=== PATIENT | female | born 1985 | race African-American/Black ===

== ENCOUNTER 2016-11-13 11:13 | Emergency (ER) | payer MEDICAID ==
[~2016-11-13] VITALS: Ht 162.6 cm; Wt 50.0 kg
[~2016-11-13 11:13] MED LIST: ACET-2178 PO; CARI350T PO; HYDR-3927 GT; HYDR4TAB23 PO; INSU100C11 SQ; INSU100C6 SQ; METO10TA3 PO; OMEP20CA10 PO; ONDA4SOL2 PO; PROT40 PO; TRAM50TA73 PO; [UNRECOGNIZED DRUG - CODE] MC; [UNRECOGNIZED DRUG - CODE] PO
[2016-11-13] MEDS ORDERED: ONDANSETRON HCL 4MG TABLET PO ONE (12:00)
[2016-11-13] MEDS ORDERED: DICYCLOMINE HCL 10MG CAPSULE PO ONE (12:00)
[2016-11-13] MEDS ORDERED: MAGNESIUM/ALUMINUM HYDROXIDE/SIMETHICONE 30ML UDC PO ONE (12:00)
[2016-11-13] MEDS ORDERED: LORAZEPAM 1MG TABLET PO ONE (12:00)
[2016-11-13] MEDS ORDERED: VISCOUS LIDOCAINE 2% 15 ML UDC MM ONE (12:00)
[2016-11-13 12:17] LABS: BASOPHILS % 1.4 % (0.0-2.0); EOSINOPHILS % 0.8 % (0.0-5.0); HEMATOCRIT. 35.5 % (36.0-48.0); HEMOGLOBIN. 11.6 g/dL (12.0-16.0); MEAN CORPUSCULAR HEMOGLOBIN 27.4 pg (28.0-32.0); MEAN CORPUSCULAR HGB CONC 32.7 g/dL (31.0-37.0); MEAN CORPUSCULAR VOLUME 83.7 fL (81.0-99.0); MEAN PLATELET VOLUME 6.9 fl (7.4-10.4); MONOCYTES % 6.3 % (2.0-8.0); NEUTROPHILS % 60.5 % (40.0-76.0); PLATELET 426 x1000/uL (130-400); RED BLOOD CELL COUNT 4.25 mill/uL (4.2-5.4); RED CELL DISTRIBUTION WIDTH 14.8 % (11.6-14.6); WHITE BLOOD COUNT 3.8 x1000/uL (4.5-11.0)
[2016-11-13 12:23] LABS: PROTHROMBIN TIME 10.8 sec
[2016-11-13 12:30] LABS: ALANINE AMINOTRANSFERASE 21 IU/L (13-61); ALBUMIN 3.3 g/dL (3.4-5.0); ANION GAP 14; CALCIUM 8.8 mg/dL (8.5-10.1); CARBON DIOXIDE 30 mEq/L (21-32); CHLORIDE 99 mEq/L (98-107); INDEX HEMOLYSI 1 (1-3); INDEX ICTERIC 1 (1-4); INDEX LIPEMIC 1 (1-3); LIPASE 105 IU/L (73-393); UREA NITROGEN BLOOD 17 mg/dL (7-21); eGFR > 60 mL/min (>60)
[2016-11-13] MEDS ORDERED: ONDANSETRON HCL 4MG/2ML VIAL IV ONE (12:45)
[2016-11-13] MEDS ORDERED: LORAZEPAM 2MG/ML CPJ IV ONE (12:45)
[2016-11-13] MEDS ORDERED: FAMOTIDINE 20MG/2ML VIAL IV ONE (12:45)
[2016-11-13 13:24] LABS: CLARITY URINE CLEAR (CLEAR); COLOR URINE YELLOW (YELLOW); GLUCOSE URINE NEGATIVE (NEGATIVE); KETONES URINE 1+ (NEGATIVE); LEUKOCYTE ESTERASE URINE NEGATIVE (NEGATIVE); NITRITE URINE NEGATIVE (NEGATIVE); OCCULT BLOOD URINE NEGATIVE (NEGATIVE); PH URINE 6.5 (4.5-8.0); PROTEIN URINE TRACE (NEGATIVE); SPECIFIC GRAVITY URINE 1.029 (1.005-1.030)
[2016-11-13 13:38] LABS: MUCUS URINE 3+ /lpf (< = 2+); SQUAMOUS EPITHELIAL CELL URINE 2+ /lpf (RARE/1+)
[2016-11-13 13:39] LABS: BACTERIA URINE 2+; RBC URINE 0-2 /hpf (0-2); WBC URINE 0-2 /hpf (0-2)
[2016-11-13 13:48] LABS: *AMPHETAMINES SCREEN URINE NEGATIVE (NEGATIVE); *BARBITURATES SCREEN URINE NEGATIVE (NEGATIVE); *BENZODIAZEPINES SCREEN URINE NEGATIVE (NEGATIVE); *COCAINE SCREEN URINE NEGATIVE (NEGATIVE); ECSTASY MDMA SCREEN URINE NEGATIVE (NEGATIVE); METHADONE URINE SCREEN NEGATIVE (NEGATIVE); OPIATES URINE SCREEN NEGATIVE (NEGATIVE); PHENCYCLIDINE URINE SCREEN NEGATIVE (NEGATIVE)
[2016-11-13 13:55] LABS: CANNABINOID URINE SCREEN PRESUMTIVE POSITIVE (NEGATIVE)
[2016-11-13 15:08] VITALS: BP 109/85
== END 2016-11-13 16:02 | disposition home or self-care (01) ==
LOC: ER 11:29
DX: R10.84 Generalized abdominal pain (principal); E11.65 Type 2 diabetes mellitus with hyperglycemia; K21.9 Gastro-esophageal reflux disease without esophagitis; F41.9 Anxiety disorder, unspecified; F12.10 Cannabis abuse, uncomplicated; F15.10 Other stimulant abuse, uncomplicated; Z79.4 Long term (current) use of insulin; Z88.2 Allergy status to sulfonamides; Z79.899 Other long term (current) drug therapy
CPT/HCPCS: 36415; 80053; 80305; 81001; 82010; 83690; 85025; 85610; 96374; 96375; 99284; J2060; J2405; Q0162

== ENCOUNTER 2016-11-14 04:48 | Emergency (ER) | payer MEDICAID ==
[~2016-11-14] VITALS: Ht 165.1 cm; Wt 59.0 kg
[~2016-11-14 04:48] MED LIST changes: +PROM-177 PO; -[UNRECOGNIZED DRUG - CODE] PO
[2016-11-14 06:34] LABS: BASOPHILS % 1.1 % (0.0-2.0); EOSINOPHILS % 0.5 % (0.0-5.0); HEMOGLOBIN. 11.1 g/dL (12.0-16.0); LYMPHOCYTES % 22.8 % (20.0-50.0); MEAN CORPUSCULAR HEMOGLOBIN 27.7 pg (28.0-32.0); MEAN CORPUSCULAR HGB CONC 32.7 g/dL (31.0-37.0); MEAN CORPUSCULAR VOLUME 84.6 fL (81.0-99.0); MEAN PLATELET VOLUME 7.1 fl (7.4-10.4); MONOCYTES % 6.3 % (2.0-8.0); NEUTROPHILS % 69.3 % (40.0-76.0); PLATELET 354 x1000/uL (130-400); RED BLOOD CELL COUNT 4.02 mill/uL (4.2-5.4); RED CELL DISTRIBUTION WIDTH 14.8 % (11.6-14.6); WHITE BLOOD COUNT 6.9 x1000/uL (4.5-11.0)
[2016-11-14 06:51] LABS: ALANINE AMINOTRANSFERASE 25 IU/L (13-61); ANION GAP 11; CALCIUM 8.6 mg/dL (8.5-10.1); CARBON DIOXIDE 30 mEq/L (21-32); CHLORIDE 100 mEq/L (98-107); INDEX HEMOLYSI 1 (1-3); INDEX ICTERIC 1 (1-4); INDEX LIPEMIC 1 (1-3); LIPASE 86 IU/L (73-393); UREA NITROGEN BLOOD 15 mg/dL (7-21); eGFR > 60 mL/min (>60)
[2016-11-14] MEDS ORDERED: SODIUM CHLORIDE 0.9% 1,000 ML IV ONE (07:08)
[2016-11-14] MEDS ORDERED: FAMOTIDINE 20MG/2ML VIAL IV ONE (07:15)
[2016-11-14] MEDS ORDERED: DIPHENHYDRAMINE 50MG/ML VIAL IV ONE (09:15)
[2016-11-14] MEDS ORDERED: MORPHINE SULFATE 4 MG/ML CPJ (NOT FOR IM USE) IV ONE (09:15)
[2016-11-14] MEDS ORDERED: ONDANSETRON HCL 4MG/2ML VIAL IV ONE (09:15)
[2016-11-14 11:05] LABS: CLARITY URINE TURBID (CLEAR); COLOR URINE YELLOW (YELLOW); GLUCOSE URINE 2+ (NEGATIVE); KETONES URINE TRACE (NEGATIVE); LEUKOCYTE ESTERASE URINE 1+ (NEGATIVE); NITRITE URINE NEGATIVE (NEGATIVE); OCCULT BLOOD URINE TRACE (NEGATIVE); PH URINE 7.5 (4.5-8.0); PROTEIN URINE 2+ (NEGATIVE); SPECIFIC GRAVITY URINE 1.032 (1.005-1.030)
[2016-11-14 11:22] LABS: BACTERIA URINE 4+; SQUAMOUS EPITHELIAL CELL URINE 1+ /lpf (RARE/1+)
[2016-11-14] MEDS ORDERED: CEFTRIAXONE 1 G PREMIX 50 ML IV ONE (13:30)
[2016-11-14] MEDS ORDERED: IOHEXOL-300 100 ML BOTTLE ONE (13:55)
[2016-11-14] MEDS ORDERED: SODIUM CHLORIDE 0.9% 10ML VIAL ONE (13:55)
[2016-11-14] MEDS ORDERED: DOXYCYCLINE 100 MG in DEXT 5% WATER 100 ML IV STA (14:22)
[2016-11-14] MEDS ORDERED: KETOROLAC 30MG/ML VIAL IV NR (14:30)
[2016-11-14] MEDS ORDERED: METRONIDAZOLE 500MG TABLET PO ONE (15:30)
[2016-11-14 16:03] VITALS: BP 145/83
[2016-11-17 19:07] LABS: CHLAMYDIA TRACHOMATIS NAA Negative (Negative); NEISSERIA GONORRHOEAE NAA Negative (Negative)
== END 2016-11-14 17:29 | disposition home or self-care (01) ==
LOC: ER 05:05
DX: N73.9 Female pelvic inflammatory disease, unspecified (principal); K31.84 Gastroparesis; E11.9 Type 2 diabetes mellitus without complications; R10.2 Pelvic and perineal pain; R10.9 Unspecified abdominal pain; R11.2 Nausea with vomiting, unspecified; F12.10 Cannabis abuse, uncomplicated; F15.10 Other stimulant abuse, uncomplicated; F17.200 Nicotine dependence, unspecified, uncomplicated; Z79.4 Long term (current) use of insulin; Z88.2 Allergy status to sulfonamides
CPT/HCPCS: 36415; 74177; 76830; 76856; 80053; 81001; 81025; 82962; 83690; 85025; 87210; 87491; 87591; 93005; 96365; 96367; 96375; 99285; A4216; J0696; J1200; J1885; J2270; J2405; J3490; J7030; Q9967; Z7610; J7060

== ENCOUNTER 2017-01-14 04:28 | Emergency (ER) | payer MEDICAID ==
[~2017-01-14] VITALS: Ht 167.6 cm; Wt 52.0 kg
[2017-01-14] MEDS ORDERED: KETOROLAC 30MG/ML VIAL IV STA (07:18)
[2017-01-14] MEDS ORDERED: ONDANSETRON HCL 4MG/2ML VIAL IV STA (07:18)
[2017-01-14 07:44] LABS: BASOPHILS % 0.4 % (0.0-2.0); EOSINOPHILS % 0.2 % (0.0-5.0); HEMATOCRIT. 32.5 % (36.0-48.0); HEMOGLOBIN. 10.5 g/dL (12.0-16.0); LYMPHOCYTES % 22.7 % (20.0-50.0); MEAN CORPUSCULAR HEMOGLOBIN 26.8 pg (28.0-32.0); MEAN CORPUSCULAR HGB CONC 32.3 g/dL (31.0-37.0); MEAN CORPUSCULAR VOLUME 83.2 fL (81.0-99.0); MEAN PLATELET VOLUME 7.5 fl (7.4-10.4); MONOCYTES % 5.4 % (2.0-8.0); NEUTROPHILS % 71.3 % (40.0-76.0); PLATELET 253 x1000/uL (130-400); RED BLOOD CELL COUNT 3.91 mill/uL (4.2-5.4); RED CELL DISTRIBUTION WIDTH 13.9 % (11.6-14.6); WHITE BLOOD COUNT 5.5 x1000/uL (4.5-11.0)
[2017-01-14 07:54] LABS: ALBUMIN 2.8 g/dL (3.4-5.0); ANION GAP 12; CALCIUM 8.1 mg/dL (8.5-10.1); CARBON DIOXIDE 26 mEq/L (21-32); CHLORIDE 99 mEq/L (98-107); INDEX HEMOLYSI 1 (1-3); INDEX ICTERIC 1 (1-4); INDEX LIPEMIC 1 (1-3); LIPASE 154 IU/L (73-393); UREA NITROGEN BLOOD 14 mg/dL (7-21)
[2017-01-14 07:55] LABS: CLARITY URINE CLEAR (CLEAR); COLOR URINE YELLOW (YELLOW); GLUCOSE URINE 3+ (NEGATIVE); KETONES URINE 1+ (NEGATIVE); LEUKOCYTE ESTERASE URINE NEGATIVE (NEGATIVE); NITRITE URINE NEGATIVE (NEGATIVE); OCCULT BLOOD URINE 1+ (NEGATIVE); PROTEIN URINE NEGATIVE (NEGATIVE); SPECIFIC GRAVITY URINE 1.022 (1.005-1.030); UROBILINOGEN URINE 0.2 E.U./dL (0.2-1.0)
[2017-01-14 07:59] LABS: ALANINE AMINOTRANSFERASE 14 IU/L (13-61); eGFR > 60 mL/min (>60)
[2017-01-14] MEDS ORDERED: LORAZEPAM 2MG/ML CPJ IV ONE (08:15)
[2017-01-14 08:34] LABS: SQUAMOUS EPITHELIAL CELL URINE 3+ /lpf (RARE/1+)
[2017-01-14 08:35] LABS: BACTERIA URINE 1+
[2017-01-14 09:00] VITALS: BP 167/102
[2017-01-14] MEDS ORDERED: INSULIN REGULAR (HUMULIN R) 300UNITS/3ML SUBCUT ONE (09:45)
== END 2017-01-14 12:07 | disposition home or self-care (01) ==
LOC: ER 04:29
DX: R10.31 Right lower quadrant pain (principal); E11.9 Type 2 diabetes mellitus without complications; Z88.2 Allergy status to sulfonamides; Z79.4 Long term (current) use of insulin; Z79.1 Long term (current) use of non-steroidal anti-inflammatories (NSAID)
CPT/HCPCS: 36415; 80053; 81001; 82010; 82962; 83690; 85025; 96372; 96374; 96375; 99284; J1815; J1885; J2060; J2405

== ENCOUNTER 2017-01-20 23:28 | Emergency (ER) | payer MEDICAID ==
[~2017-01-20] VITALS: Ht 165.1 cm; Wt 51.0 kg
[2017-01-21] MEDS ORDERED: MORPHINE SULFATE 4 MG/ML CPJ (NOT FOR IM USE) IV ONE (01:15)
[2017-01-21] MEDS ORDERED: METOCLOPRAMIDE HCL 10MG/2ML VIAL IV ONE (01:15)
[2017-01-21 01:38] LABS: BASOPHILS % 1.3 % (0.0-2.0); EOSINOPHILS % 0.1 % (0.0-5.0); HEMATOCRIT. 34.5 % (36.0-48.0); HEMOGLOBIN. 11.6 g/dL (12.0-16.0); LYMPHOCYTES % 20.6 % (20.0-50.0); MEAN CORPUSCULAR HEMOGLOBIN 27.2 pg (28.0-32.0); MEAN CORPUSCULAR HGB CONC 33.5 g/dL (31.0-37.0); MEAN CORPUSCULAR VOLUME 81.1 fL (81.0-99.0); MEAN PLATELET VOLUME 7.2 fl (7.4-10.4); MONOCYTES % 5.5 % (2.0-8.0); NEUTROPHILS % 72.5 % (40.0-76.0); PLATELET 433 x1000/uL (130-400); RED BLOOD CELL COUNT 4.26 mill/uL (4.2-5.4); RED CELL DISTRIBUTION WIDTH 13.8 % (11.6-14.6); WHITE BLOOD COUNT 8.7 x1000/uL (4.5-11.0)
[2017-01-21 01:39] LABS: CHLORIDE 96 mEq/L (98-107); INDEX HEMOLYSI 1 (1-3); INDEX ICTERIC 1 (1-4); INDEX LIPEMIC 1 (1-3)
[2017-01-21 01:47] LABS: HCG SCREEN NEGATIVE
[2017-01-21 01:51] LABS: ANION GAP 16; CARBON DIOXIDE 24 mEq/L (21-32); LIPASE 91 IU/L (73-393); UREA NITROGEN BLOOD 17 mg/dL (7-21); eGFR > 60 mL/min (>60)
[2017-01-21 04:57] VITALS: BP 118/61
== END 2017-01-21 04:58 | disposition home or self-care (01) ==
LOC: ER 23:34
DX: R10.9 Unspecified abdominal pain (principal); R11.2 Nausea with vomiting, unspecified; R19.7 Diarrhea, unspecified; E11.9 Type 2 diabetes mellitus without complications; I10 Essential (primary) hypertension; Z88.2 Allergy status to sulfonamides; Z79.4 Long term (current) use of insulin; Z79.899 Other long term (current) drug therapy
CPT/HCPCS: 36415; 80048; 82962; 83690; 84703; 85025; 96374; 96375; 99284; J2270; J2765; Z7610

== ENCOUNTER 2017-03-05 13:10 | Emergency (ER) | payer MEDICAID ==
[~2017-03-05] VITALS: Ht 165.1 cm; Wt 60.0 kg
[~2017-03-05 13:10] MED LIST changes: -HYDR4TAB23 PO; +HYDR4TAB4 PO; -TRAM50TA73 PO; +TRAM50TA94 PO
[2017-03-05] MEDS ORDERED: KETOROLAC 30MG/ML VIAL IV STA (15:29)
[2017-03-05] MEDS ORDERED: SODIUM CHLORIDE 0.9% 1,000 ML IV ONE (15:29)
[2017-03-05] MEDS ORDERED: ONDANSETRON HCL 4MG/2ML VIAL IV STA (15:29)
[2017-03-05] MEDS ORDERED: MORPHINE SULFATE 4 MG/ML CPJ (NOT FOR IM USE) IV STA (15:29)
[2017-03-05] MEDS ORDERED: DEXTROSE 50% WATER 50ML SYRINGE IV ONE (15:45)
[2017-03-05 15:53] LABS: BG BASE EXCESS -1.3 mmol/L (-2.0-2.0); BG CARBOXYHEMOGLOBIN 0.6 % (0.5-1.5); BG DEOXYHEMOGLOBIN 13.9 % (0.0-5.0); BG METHEMOGLOBIN 0.3 % (0.0-1.5); BG OXYHEMOGLOBIN 85.2 % (94.0-97.0); BG PH 7.411 (7.350-7.450); BG PO2 54.8 mmHg (75.0-100.0); BG SAMPLE SITE RIGHT BRACHIAL; BG TOTAL HEMOGLOBIN 11.5 g/dL (12.0-18.0); BG VENT MODE ROOM AIR
[2017-03-05 15:55] LABS: HEMATOCRIT. 33.6 % (36.0-48.0); HEMOGLOBIN. 11.1 g/dL (12.0-16.0); MEAN CORPUSCULAR HEMOGLOBIN 27.2 pg (28.0-32.0); MEAN PLATELET VOLUME 7.4 fl (7.4-10.4); PLATELET 322 x1000/uL (130-400); RED BLOOD CELL COUNT 4.09 mill/uL (4.2-5.4); RED CELL DISTRIBUTION WIDTH 14.8 % (11.6-14.6)
[2017-03-05 16:00] LABS: CHLORIDE 105 mEq/L (98-107)
[2017-03-05 16:01] LABS: PROTHROMBIN TIME 10.3 sec
[2017-03-05 16:05] LABS: CARBON DIOXIDE 27 mEq/L (21-32); ETHANOL BLOOD < 10 mg/dL
[2017-03-05 16:59] LABS: PLATELET ESTIMATE NORMAL
[2017-03-05 17:20] LABS: CLARITY URINE SL HAZY (CLEAR); COLOR URINE YELLOW (YELLOW); KETONES URINE TRACE (NEGATIVE); LEUKOCYTE ESTERASE URINE 1+ (NEGATIVE); NITRITE URINE POSITIVE (NEGATIVE); OCCULT BLOOD URINE 2+ (NEGATIVE); PH URINE 5.5 (4.5-8.0); PROTEIN URINE 1+ (NEGATIVE); SPECIFIC GRAVITY URINE 1.028 (1.005-1.030); UROBILINOGEN URINE 0.2 E.U./dL (0.2-1.0)
[2017-03-05 17:31] LABS: *BARBITURATES SCREEN URINE NEGATIVE (NEGATIVE); *BENZODIAZEPINES SCREEN URINE NEGATIVE (NEGATIVE); *COCAINE SCREEN URINE NEGATIVE (NEGATIVE); CANNABINOID URINE SCREEN NEGATIVE (NEGATIVE); METHADONE URINE SCREEN NEGATIVE (NEGATIVE); PHENCYCLIDINE URINE SCREEN NEGATIVE (NEGATIVE)
[2017-03-05 17:47] LABS: *AMPHETAMINES SCREEN URINE PRESUMTIVE POSITIVE (NEGATIVE); OPIATES URINE SCREEN PRESUMTIVE POSITIVE (NEGATIVE)
[2017-03-05] MEDS ORDERED: SODIUM CHLORIDE 0.9% 500 ML IV ONE (18:45)
[2017-03-05 20:00] VITALS: BP 131/59
[2017-07-30] MEDS ORDERED: INSU100I28 SQ (01:47)
[2017-07-30] MEDS ORDERED: INSULIN GL (01:47)
[2017-07-30] MEDS ORDERED: ALPR2TAB2 PO (01:47)
[2017-07-30] MEDS ORDERED: DIPH25CA83 PO (01:54)
[2017-07-30] MEDS ORDERED: GABA300S PO (01:54)
[2017-07-30] MEDS ORDERED: LISI-604 PO (01:54)
[2017-09-25] MEDS ORDERED: CEPH-569 PO (21:39)
== END 2017-03-05 21:00 | disposition home or self-care (01) ==
LOC: ER 13:29
DX: F19.20 Other psychoactive substance dependence, uncomplicated (principal); G89.29 Other chronic pain; M54.9 Dorsalgia, unspecified; N39.0 Urinary tract infection, site not specified; E11.9 Type 2 diabetes mellitus without complications; F12.10 Cannabis abuse, uncomplicated; Z88.2 Allergy status to sulfonamides; Z98.890 Other specified postprocedural states; Z79.4 Long term (current) use of insulin
CPT/HCPCS: 36415; 36600; 80053; 80305; 81001; 82375; 82805; 82962; 85025; 85610; 96361; 96374; 96375; 99285; G0482; J1885; J2270; J2405; J7030; Z7610

== ENCOUNTER 2017-05-20 11:56 | Inpatient (IN) | payer MEDICAID ==
[~2017-05-20] VITALS: Ht 170.2 cm; Wt 49.9 kg
[~2017-05-20 11:56] MED LIST changes: +TRAM50TA73 PO; -TRAM50TA94 PO
[2017-05-20] MEDS ORDERED: SODIUM CHLORIDE 0.9% 1,000 ML IV ONE (12:20)
[2017-05-20] MEDS ORDERED: ONDANSETRON HCL 4MG/2ML VIAL IV ONE ×2 (12:30→15:30)
[2017-05-20 12:37] LABS: CLARITY URINE CLEAR (CLEAR); COLOR URINE YELLOW (YELLOW); GLUCOSE URINE 3+ (NEGATIVE); KETONES URINE 2+ (NEGATIVE); LEUKOCYTE ESTERASE URINE NEGATIVE (NEGATIVE); NITRITE URINE NEGATIVE (NEGATIVE); OCCULT BLOOD URINE NEGATIVE (NEGATIVE); PROTEIN URINE NEGATIVE (NEGATIVE); SPECIFIC GRAVITY URINE 1.031 (1.005-1.030); UROBILINOGEN URINE 0.2 E.U./dL (0.2-1.0)
[2017-05-20 12:44] LABS: BASOPHILS % 1.1 % (0.0-2.0); HEMATOCRIT. 38.2 % (36.0-48.0); HEMOGLOBIN. 12.2 g/dL (12.0-16.0); LYMPHOCYTES % 17.1 % (20.0-50.0); MEAN CORPUSCULAR HEMOGLOBIN 26.1 pg (28.0-32.0); MEAN PLATELET VOLUME 7.4 fl (7.4-10.4); MONOCYTES % 2.5 % (2.0-8.0); NEUTROPHILS % 79.3 % (40.0-76.0); PLATELET 523 x1000/uL (130-400); RED BLOOD CELL COUNT 4.66 mill/uL (4.2-5.4); RED CELL DISTRIBUTION WIDTH 15.2 % (11.6-14.6)
[2017-05-20 12:50] LABS: CHLORIDE 82 mEq/L (98-107)
[2017-05-20 12:53] LABS: PROTHROMBIN TIME 10.1 sec (9.4-11.6)
[2017-05-20 12:55] LABS: HCG SCREEN NEGATIVE
[2017-05-20 13:00] LABS: CARBON DIOXIDE 21 mEq/L (21-32)
[2017-05-20 13:08] LABS: BETA HYDROXYBUTYRATE 4.5 mMol/L (0.0-0.3)
[2017-05-20] MEDS ORDERED: KETOROLAC 30MG/ML VIAL IV STA (13:49)
[2017-05-20] MEDS ORDERED: INSULIN REGULAR (HUMULIN R) UD 100 UNITS/ML SYR IV ONE (14:00)
[2017-05-20] MEDS ORDERED: INSULIN REGULAR (HUMULIN R) 300UNITS/3ML IV ONE (14:15)
[2017-05-20] MEDS ORDERED: MORPHINE SULFATE 4 MG/ML CPJ (NOT FOR IM USE) IV ONE (15:30)
[2017-05-20 18:20] VITALS: BP 107/73
[2017-05-20] MEDS ORDERED: ONDANSETRON HCL 4MG/2ML VIAL IV PRN (18:30)
[2017-05-20] MEDS: MORPHINE SULFATE 4 MG/ML CPJ (NOT FOR IM USE) IV PRN ×2 (19:56→23:58)
[2017-05-20 20:00] VITALS: BP 120/79
[2017-05-20] MEDS: INSULIN LISPRO 100 UNITS/ML SUBCUT SCH (20:00)
[2017-05-20 21:30] VITALS: BP 120/79
[2017-05-20] MEDS: SODIUM CHLORIDE 0.9% 1,000 ML IV SCH (21:42)
[2017-05-20] MEDS: ENOXAPARIN 40MG/0.4ML SYR SUBCUT SCH (21:42)
[2017-05-20] MEDS: INSULIN DETEMIR UD 100 UNITS/ML SYR SUBCUT SCH (21:48)
[2017-05-21] VITALS: BP 98/45
[2017-05-21 04:00] VITALS: BP 97/52
[2017-05-21] MEDS: MORPHINE SULFATE 4 MG/ML CPJ (NOT FOR IM USE) IV PRN ×5 (05:22→22:43)
[2017-05-21 05:50] LABS: BASOPHILS % 0.6 % (0.0-2.0); EOSINOPHILS % 0.8 % (0.0-5.0); HEMOGLOBIN. 10.1 g/dL (12.0-16.0); LYMPHOCYTES % 50.3 % (20.0-50.0); MEAN CORPUSCULAR HEMOGLOBIN 26.9 pg (28.0-32.0); MEAN CORPUSCULAR VOLUME 79.8 fL (81.0-99.0); MEAN PLATELET VOLUME 6.9 fl (7.4-10.4); MONOCYTES % 6.7 % (2.0-8.0); NEUTROPHILS % 41.6 % (40.0-76.0); PLATELET 419 x1000/uL (130-400); RED BLOOD CELL COUNT 3.77 mill/uL (4.2-5.4); RED CELL DISTRIBUTION WIDTH 15.7 % (11.6-14.6)
[2017-05-21 06:37] LABS: CARBON DIOXIDE 30 mEq/L (21-32); CHLORIDE 95 mEq/L (98-107)
[2017-05-21 06:38] LABS: HDL CHOLESTEROL 93 mg/dL (40-59); LDL CHOLESTEROL 87 mg/dL (5-100)
[2017-05-21] MEDS ORDERED: DEXTROSE 50% WATER 50ML SYRINGE IV PRN ×2 (07:15→12:15)
[2017-05-21] MEDS: INSULIN LISPRO 100 UNITS/ML SUBCUT SCH ×6 (07:20→21:06)
[2017-05-21] MEDS: PANTOPRAZOLE SODIUM 40 MG/VIAL IV SCH (08:38)
[2017-05-21 12:00] VITALS: BP 99/60
[2017-05-21] MEDS: BLOOD SUGAR DIAGNOSTIC STRIP TEST SCH ×3 (12:22→20:47)
[2017-05-21] MEDS ORDERED: POTASSIUM CHLORIDE 20MEQ TABLET SR PO NR (12:30)
[2017-05-21] MEDS: SODIUM CHLORIDE 0.9% 1,000 ML IV SCH (17:08)
[2017-05-21 20:00] VITALS: BP 96/60
[2017-05-21] MEDS: ENOXAPARIN 40MG/0.4ML SYR SUBCUT SCH (20:43)
[2017-05-21] MEDS: INSULIN DETEMIR UD 100 UNITS/ML SYR SUBCUT SCH (21:09)
[2017-05-22] VITALS (7 sets, daily range): BP systolic 98–120; BP diastolic 57–78
[2017-05-22] MEDS: SODIUM CHLORIDE 0.9% 1,000 ML IV SCH (03:55)
[2017-05-22] MEDS: MORPHINE SULFATE 4 MG/ML CPJ (NOT FOR IM USE) IV PRN ×3 (05:51→15:44)
[2017-05-22 07:02] LABS: BASOPHILS % 0.7 % (0.0-2.0); EOSINOPHILS % 0.7 % (0.0-5.0); HEMATOCRIT. 29.3 % (36.0-48.0); HEMOGLOBIN. 9.4 g/dL (12.0-16.0); LYMPHOCYTES % 51.9 % (20.0-50.0); MEAN CORPUSCULAR VOLUME 81.1 fL (81.0-99.0); MEAN PLATELET VOLUME 7.2 fl (7.4-10.4); MONOCYTES % 7.9 % (2.0-8.0); NEUTROPHILS % 38.8 % (40.0-76.0); PLATELET 372 x1000/uL (130-400); RED BLOOD CELL COUNT 3.62 mill/uL (4.2-5.4); RED CELL DISTRIBUTION WIDTH 15.9 % (11.6-14.6)
[2017-05-22] MEDS: BLOOD SUGAR DIAGNOSTIC STRIP TEST SCH ×3 (07:20→17:49)
[2017-05-22 07:47] LABS: CARBON DIOXIDE 28 mEq/L (21-32); CHLORIDE 102 mEq/L (98-107)
[2017-05-22] MEDS: INSULIN LISPRO 100 UNITS/ML SUBCUT SCH ×6 (07:50→18:26)
[2017-05-22] MEDS: PANTOPRAZOLE SODIUM 40 MG/VIAL IV SCH (08:48)
[2017-05-22] MEDS: HYDROCODONE/ACETAMINOPHEN 5/325MG TABLET PO PRN ×2 (09:15→18:31)
[2017-05-22] MEDS ORDERED: DIPHENHYDRAMINE 50MG/ML VIAL IV PRN (11:45)
== END 2017-05-22 17:00 | disposition home or self-care (01) | DRG 420 ==
LOC: ER 13:28 → 6EST 15:30 → ENRESERV 17:03
PROVIDERS: ADMIT Internal Medicine; ATTEND Internal Medicine
DX: E13.10 Other specified diabetes mellitus with ketoacidosis without coma (principal); E44.1 Mild protein-calorie malnutrition; I10 Essential (primary) hypertension; E11.43 Type 2 diabetes mellitus with diabetic autonomic (poly)neuropathy; E11.65 Type 2 diabetes mellitus with hyperglycemia; E87.1 Hypo-osmolality and hyponatremia; K31.84 Gastroparesis; E87.6 Hypokalemia; N28.9 Disorder of kidney and ureter, unspecified; Z88.2 Allergy status to sulfonamides; Z79.4 Long term (current) use of insulin; Z79.899 Other long term (current) drug therapy
CPT/HCPCS: 36415; 74176; 80048; 80053; 80061; 81001; 82010; 82962; 83036; 84443; 84703; 85025; 85610; 96361; 96374; 96375; 96376; 99285; C9113; J1200; J1650; J1815; J1885; J2270; J2405; J7030

== ENCOUNTER 2017-06-09 11:58 | Emergency (ER) | payer MEDICAID ==
[~2017-06-09] VITALS: Ht 162.6 cm; Wt 51.0 kg
[2017-06-09 12:00] VITALS: BP 173/97
== END 2017-06-09 15:50 | disposition left against medical advice (07) ==
LOC: ER 12:16
DX: R11.2 Nausea with vomiting, unspecified (principal); Z53.21 Procedure and treatment not carried out due to patient leaving prior to being seen by health care provider

== ENCOUNTER 2017-06-11 07:23 | Inpatient (IN) | payer MEDICAID ==
[~2017-06-11] VITALS: Ht 165.1 cm; Wt 61.2 kg
[2017-06-11] MEDS ORDERED: ONDANSETRON HCL 4MG/2ML VIAL IV ONE (08:30)
[2017-06-11] MEDS ORDERED: MORPHINE SULFATE 4 MG/ML CPJ (NOT FOR IM USE) IV ONE (08:30)
[2017-06-11 08:43] LABS: BASOPHILS % 1.4 % (0.0-2.0); EOSINOPHILS % 0.4 % (0.0-5.0); HEMATOCRIT. 34.5 % (36.0-48.0); HEMOGLOBIN. 11.3 g/dL (12.0-16.0); LYMPHOCYTES % 26.1 % (20.0-50.0); MEAN CORPUSCULAR VOLUME 82.5 fL (81.0-99.0); MEAN PLATELET VOLUME 7.3 fl (7.4-10.4); NEUTROPHILS % 67.1 % (40.0-76.0); PLATELET 393 x1000/uL (130-400); RED BLOOD CELL COUNT 4.18 mill/uL (4.2-5.4); RED CELL DISTRIBUTION WIDTH 16.4 % (11.6-14.6)
[2017-06-11 09:02] LABS: CARBON DIOXIDE 27 mEq/L (21-32); CHLORIDE 98 mEq/L (98-107); TROPONIN I < 0.02 ng/mL (0.00-0.04)
[2017-06-11] MEDS ORDERED: DIPHENHYDRAMINE 50MG/ML VIAL IV ONE (09:15)
[2017-06-11 09:24] LABS: PARTIAL THROMBOPLASTIN TIME 24.1 sec (23.4-31.0); PROTHROMBIN TIME 10.1 sec (9.4-11.6)
[2017-06-11] MEDS ORDERED: SODIUM CHLORIDE 0.9% 1,000 ML IV ONE (09:30)
[2017-06-11] MEDS ORDERED: INSULIN REGULAR (HUMULIN R) 300UNITS/3ML IV ONE (09:30)
[2017-06-11] MEDS ORDERED: DEXT 5%/0.45% NACL KCL 20MEQ/L 1,000 ML IV SCH (09:40)
[2017-06-11] MEDS ORDERED: CLONIDINE 0.1MG TABLET PO PRN (09:45)
[2017-06-11] MEDS ORDERED: HYDROCODONE/ACETAMINOPHEN 10/325MG TABLET PO PRN (09:45)
[2017-06-11] MEDS ORDERED: ACETAMINOPHEN 325MG TABLET PO PRN (09:45)
[2017-06-11] MEDS ORDERED: OMEPRAZOLE 20MG CAPSULE EXTENDED RELEASE PO SCH (09:45)
[2017-06-11 12:00] VITALS: BP 150/94
[2017-06-11] MEDS ORDERED: KETOROLAC 30MG/ML VIAL IV NR (12:12)
[2017-06-11 12:14] VITALS: BP 150/94
[2017-06-11] MEDS: BLOOD SUGAR DIAGNOSTIC STRIP TEST SCH ×3 (12:20→22:27)
[2017-06-11] MEDS: INSULIN LISPRO 100 UNITS/ML SUBCUT SCH ×3 (12:50→21:00)
[2017-06-11] MEDS: MORPHINE SULFATE 2 MG/ML CPJ (NOT FOR IM USE) IV PRN ×3 (13:14→22:27)
[2017-06-11] MEDS: PANTOPRAZOLE 40MG DR TABLET PO SCH (13:18)
[2017-06-11] MEDS: METOCLOPRAMIDE HCL 10MG/2ML VIAL IV SCH ×2 (13:19→17:50)
[2017-06-11] MEDS: CARISOPRODOL 350 MG TABLET PO SCH ×2 (13:19→22:08)
[2017-06-11] MEDS: DIPHENHYDRAMINE 50MG/ML VIAL IV PRN ×2 (13:21→17:55)
[2017-06-11] MEDS: DEXT 5%/0.45% NACL 1000ML 1,000 ML IV SCH (14:54)
[2017-06-11] MEDS: INSULIN DETEMIR UD 100 UNITS/ML SYR SUBCUT SCH ×2 (14:56→22:00)
[2017-06-11 16:00] VITALS: BP 135/76
[2017-06-11 18:07] LABS: CREATINE KINASE 42 IU/L (26-192)
[2017-06-11 20:00] VITALS: BP 109/71
[2017-06-11] MEDS: DEXTROSE 50% WATER 50ML SYRINGE IV PRN (22:05)
[2017-06-12] VITALS: BP 109/99
[2017-06-12] MEDS: DEXTROSE 50% WATER 50ML SYRINGE IV PRN (00:21)
[2017-06-12] MEDS: METOCLOPRAMIDE HCL 10MG/2ML VIAL IV SCH ×4 (00:28→18:00)
[2017-06-12] MEDS: DEXT 5%/0.45% NACL 1000ML 1,000 ML IV SCH ×3 (00:29→18:33)
[2017-06-12 00:49] LABS: CREATINE KINASE 37 IU/L (26-192)
[2017-06-12 04:00] VITALS: BP 140/77
[2017-06-12] MEDS: BLOOD SUGAR DIAGNOSTIC STRIP TEST SCH ×4 (06:32→21:56)
[2017-06-12] MEDS: CARISOPRODOL 350 MG TABLET PO SCH ×3 (06:37→21:53)
[2017-06-12] MEDS: PANTOPRAZOLE 40MG DR TABLET PO SCH (06:40)
[2017-06-12 06:43] LABS: BASOPHILS % 0.7 % (0.0-2.0); EOSINOPHILS % 1.2 % (0.0-5.0); HEMATOCRIT. 31.2 % (36.0-48.0); HEMOGLOBIN. 10.3 g/dL (12.0-16.0); LYMPHOCYTES % 34.8 % (20.0-50.0); MEAN CORPUSCULAR HEMOGLOBIN 27.2 pg (28.0-32.0); MEAN CORPUSCULAR VOLUME 82.4 fL (81.0-99.0); MEAN PLATELET VOLUME 7.1 fl (7.4-10.4); MONOCYTES % 7.1 % (2.0-8.0); NEUTROPHILS % 56.2 % (40.0-76.0); PLATELET 357 x1000/uL (130-400); RED BLOOD CELL COUNT 3.79 mill/uL (4.2-5.4); RED CELL DISTRIBUTION WIDTH 16.7 % (11.6-14.6)
[2017-06-12 07:20] LABS: CARBON DIOXIDE 28 mEq/L (21-32); CHLORIDE 99 mEq/L (98-107)
[2017-06-12] MEDS: INSULIN LISPRO 100 UNITS/ML SUBCUT SCH ×4 (07:50→22:06)
[2017-06-12 08:00] VITALS: BP 132/69
[2017-06-12] MEDS: DIPHENHYDRAMINE 50MG/ML VIAL IV PRN ×2 (10:58→18:43)
[2017-06-12] MEDS: MORPHINE SULFATE 2 MG/ML CPJ (NOT FOR IM USE) IV PRN ×2 (10:58→18:46)
[2017-06-12 12:00] VITALS: BP 116/60
[2017-06-12] MEDS: INSULIN DETEMIR UD 100 UNITS/ML SYR SUBCUT SCH ×2 (15:09→22:05)
[2017-06-12 16:00] VITALS: BP 116/71
[2017-06-12 20:00] VITALS: BP 113/57
[2017-06-13] VITALS: BP 116/60
[2017-06-13] MEDS: DIPHENHYDRAMINE 50MG/ML VIAL IV PRN ×5 (00:20→21:52)
[2017-06-13] MEDS: MORPHINE SULFATE 2 MG/ML CPJ (NOT FOR IM USE) IV PRN ×5 (00:20→21:53)
[2017-06-13] MEDS: METOCLOPRAMIDE HCL 10MG/2ML VIAL IV SCH ×4 (00:20→18:00)
[2017-06-13 04:00] VITALS: BP 117/70
[2017-06-13] MEDS: CARISOPRODOL 350 MG TABLET PO SCH ×3 (05:37→21:24)
[2017-06-13] MEDS: DEXT 5%/0.45% NACL 1000ML 1,000 ML IV SCH ×2 (05:50→15:30)
[2017-06-13 06:30] LABS: *AMPHETAMINES SCREEN URINE NEGATIVE (NEGATIVE); *BARBITURATES SCREEN URINE NEGATIVE (NEGATIVE); *BENZODIAZEPINES SCREEN URINE NEGATIVE (NEGATIVE); *COCAINE SCREEN URINE NEGATIVE (NEGATIVE); CANNABINOID URINE SCREEN NEGATIVE (NEGATIVE); METHADONE URINE SCREEN NEGATIVE (NEGATIVE); PHENCYCLIDINE URINE SCREEN NEGATIVE (NEGATIVE)
[2017-06-13] MEDS: PANTOPRAZOLE 40MG DR TABLET PO SCH (06:30)
[2017-06-13] MEDS: BLOOD SUGAR DIAGNOSTIC STRIP TEST SCH ×4 (06:30→21:26)
[2017-06-13 07:02] LABS: OPIATES URINE SCREEN PRESUMTIVE POSITIVE (NEGATIVE)
[2017-06-13 08:00] VITALS: BP 117/67
[2017-06-13] MEDS: INSULIN LISPRO 100 UNITS/ML SUBCUT SCH ×4 (08:50→21:57)
[2017-06-13] MEDS: INSULIN DETEMIR UD 100 UNITS/ML SYR SUBCUT SCH ×2 (09:25→21:36)
[2017-06-13 11:59] VITALS: BP 107/55
[2017-06-13 15:41] VITALS: BP 103/63
[2017-06-13 20:00] VITALS: BP 132/81
[2017-06-13] MEDS: ONDANSETRON HCL 4MG/2ML VIAL IV PRN (21:20)
[2017-06-13] MEDS ORDERED: DEXTROSE 50% WATER 50ML SYRINGE IV PRN (22:30)
[2017-06-14] VITALS: BP 131/84
[2017-06-14] MEDS: MORPHINE SULFATE 2 MG/ML CPJ (NOT FOR IM USE) IV PRN ×3 (01:40→10:52)
[2017-06-14] MEDS: DIPHENHYDRAMINE 50MG/ML VIAL IV PRN ×3 (01:40→11:03)
[2017-06-14 04:00] VITALS: BP 119/77
[2017-06-14] MEDS: METOCLOPRAMIDE HCL 10MG/2ML VIAL IV SCH ×3 (05:36→12:00)
[2017-06-14] MEDS: CARISOPRODOL 350 MG TABLET PO SCH ×2 (05:36→14:00)
[2017-06-14] MEDS: DEXT 5%/0.45% NACL 1000ML 1,000 ML IV SCH (05:36)
[2017-06-14] MEDS: ONDANSETRON HCL 4MG/2ML VIAL IV PRN (05:37)
[2017-06-14 07:14] LABS: BASOPHILS % 0.5 % (0.0-2.0); EOSINOPHILS % 1.3 % (0.0-5.0); HEMATOCRIT. 30.8 % (36.0-48.0); LYMPHOCYTES % 30.1 % (20.0-50.0); MEAN CORPUSCULAR HEMOGLOBIN 27.1 pg (28.0-32.0); MEAN CORPUSCULAR VOLUME 83.5 fL (81.0-99.0); MEAN PLATELET VOLUME 6.7 fl (7.4-10.4); MONOCYTES % 7.7 % (2.0-8.0); NEUTROPHILS % 60.4 % (40.0-76.0); PLATELET 379 x1000/uL (130-400); RED BLOOD CELL COUNT 3.69 mill/uL (4.2-5.4); RED CELL DISTRIBUTION WIDTH 17.4 % (11.6-14.6)
[2017-06-14] MEDS: BLOOD SUGAR DIAGNOSTIC STRIP TEST SCH ×2 (07:31→13:06)
[2017-06-14] MEDS ORDERED: INSULIN LISPRO 100 UNITS/ML SUBCUT SCH (07:50)
[2017-06-14 08:00] VITALS: BP 121/73
[2017-06-14 08:02] LABS: CARBON DIOXIDE 27 mEq/L (21-32); CHLORIDE 103 mEq/L (98-107)
[2017-06-14] MEDS: INSULIN LISPRO 100 UNITS/ML SUBCUT SCH ×3 (08:16→13:19)
[2017-06-14] MEDS ORDERED: FAMOTIDINE 20MG TABLET PO SCH (09:00)
[2017-06-14] MEDS: INSULIN DETEMIR UD 100 UNITS/ML SYR SUBCUT SCH (10:59)
[2017-06-14 12:00] VITALS: BP 117/68
[2017-06-14 14:50] VITALS: BP 132/71
[2017-06-14] MEDS ORDERED: HYDR-519 PO (15:04)
[2017-06-14] MEDS ORDERED: ALPR1TAB2 PO (15:04)
== END 2017-06-14 15:45 | disposition home or self-care (01) | DRG 282 ==
LOC: ER 07:23 → 6EST 09:29 → ENRESERV 10:26
PROVIDERS: ADMIT Internal Medicine; ATTEND Internal Medicine
DX: K85.90 Acute pancreatitis without necrosis or infection, unspecified (principal); E43 Unspecified severe protein-calorie malnutrition; E10.22 Type 1 diabetes mellitus with diabetic chronic kidney disease; E10.43 Type 1 diabetes mellitus with diabetic autonomic (poly)neuropathy; N18.3 Chronic kidney disease, stage 3 (moderate); E10.65 Type 1 diabetes mellitus with hyperglycemia; K31.84 Gastroparesis; Z79.4 Long term (current) use of insulin; Z79.899 Other long term (current) drug therapy; Z88.2 Allergy status to sulfonamides; Z91.19 Patient's noncompliance with other medical treatment and regimen
CPT/HCPCS: 36415; 71010; 80048; 80053; 80305; 81025; 82550; 82962; 83690; 84443; 84484; 85025; 85610; 85730; 93005; 96374; 96375; 99285; J1200; J1815; J2270; J2405; J2765; J3490; J7030

== ENCOUNTER 2017-06-19 17:15 | Emergency (ER) | payer MEDICAID ==
[~2017-06-19] VITALS: Ht 162.6 cm; Wt 64.0 kg
[~2017-06-19 17:15] MED LIST changes: +ALPR1TAB2 PO; -HYDR-3927 GT; +HYDR-519 PO; -HYDR4TAB4 PO; +IOHEXOL-300 100 ML BOTTLE ONE; +SODIUM CHLORIDE 0.9% 10ML VIAL ONE
[2017-06-19] MEDS ORDERED: ONDANSETRON HCL 4MG/2ML VIAL IV STA (18:38)
[2017-06-19] MEDS ORDERED: MORPHINE SULFATE 4 MG/ML CPJ (NOT FOR IM USE) IV STA (18:38)
[2017-06-19] MEDS ORDERED: SODIUM CHLORIDE 0.9% 1,000 ML IV ONE (18:38)
[2017-06-19 18:58] LABS: BASOPHILS % 0.4 % (0.0-2.0); EOSINOPHILS % 0.2 % (0.0-5.0); HEMATOCRIT. 30.1 % (36.0-48.0); HEMOGLOBIN. 9.7 g/dL (12.0-16.0); LYMPHOCYTES % 11.4 % (20.0-50.0); MEAN CORPUSCULAR HEMOGLOBIN 26.8 pg (28.0-32.0); MEAN PLATELET VOLUME 6.6 fl (7.4-10.4); MONOCYTES % 5.3 % (2.0-8.0); NEUTROPHILS % 82.7 % (40.0-76.0); PLATELET 357 x1000/uL (130-400); RED BLOOD CELL COUNT 3.62 mill/uL (4.2-5.4); RED CELL DISTRIBUTION WIDTH 16.2 % (11.6-14.6)
[2017-06-19 19:02] LABS: CHLORIDE 97 mEq/L (98-107)
[2017-06-19 19:11] LABS: CARBON DIOXIDE 29 mEq/L (21-32); ETHANOL BLOOD < 10 mg/dL
[2017-06-19] MEDS: MORPHINE SULFATE 10 MG/ML CPJ IV SCH ×2 (19:23→19:35)
[2017-06-19] MEDS ORDERED: DIPHENHYDRAMINE 50MG/ML VIAL IV ONE (20:00)
[2017-06-19] MEDS ORDERED: KETOROLAC 30MG/ML VIAL IV ONE (20:00)
[2017-06-19 20:02] LABS: CLARITY URINE CLEAR (CLEAR); COLOR URINE YELLOW (YELLOW); GLUCOSE URINE 3+ (NEGATIVE); KETONES URINE NEGATIVE (NEGATIVE); LEUKOCYTE ESTERASE URINE NEGATIVE (NEGATIVE); NITRITE URINE NEGATIVE (NEGATIVE); OCCULT BLOOD URINE 3+ (NEGATIVE); PH URINE 7.5 (4.5-8.0); PROTEIN URINE 2+ (NEGATIVE); SPECIFIC GRAVITY URINE 1.029 (1.005-1.030); UROBILINOGEN URINE 0.2 E.U./dL (0.2-1.0)
[2017-06-19 20:13] LABS: *BARBITURATES SCREEN URINE NEGATIVE (NEGATIVE); *BENZODIAZEPINES SCREEN URINE NEGATIVE (NEGATIVE); *COCAINE SCREEN URINE NEGATIVE (NEGATIVE); CANNABINOID URINE SCREEN NEGATIVE (NEGATIVE); METHADONE URINE SCREEN NEGATIVE (NEGATIVE); PHENCYCLIDINE URINE SCREEN NEGATIVE (NEGATIVE)
[2017-06-19 20:14] LABS: *AMPHETAMINES SCREEN URINE PRESUMTIVE POSITIVE (NEGATIVE); OPIATES URINE SCREEN PRESUMTIVE POSITIVE (NEGATIVE)
[2017-06-19] MEDS ORDERED: INSULIN REGULAR (HUMULIN R) 300UNITS/3ML SUBCUT ONE (20:15)
[2017-06-20] MEDS ORDERED: PENICILLIN G BENZATHINE 1,200,000 UNITS/2ML SYR IM ONE (00:30)
[2017-06-20] MEDS ORDERED: LIDOCAINE HCL 1% 20ML VIAL (Pyxis) INJ MC ONE (00:30)
[2017-06-20 01:39] VITALS: BP 128/81
== END 2017-06-20 01:39 | disposition home or self-care (01) ==
LOC: ER 18:35
DX: J02.9 Acute pharyngitis, unspecified (principal); E11.9 Type 2 diabetes mellitus without complications; N28.9 Disorder of kidney and ureter, unspecified; Z88.2 Allergy status to sulfonamides; Z79.4 Long term (current) use of insulin
CPT/HCPCS: 36415; 70491; 71010; 80053; 80305; 81001; 81025; 82962; 83605; 83690; 85025; 87070; 87430; 93005; 96361; 96372; 96374; 96375; 99285; A4216; G0482; J0561; J1200; J1815; J1885; J2270; J2405; Q9967; Z7610; J7030

== ENCOUNTER 2017-06-27 13:06 | Emergency (ER) | payer MEDICAID ==
[~2017-06-27] VITALS: Ht 154.9 cm; Wt 63.5 kg
[~2017-06-27 13:06] MED LIST changes: -IOHEXOL-300 100 ML BOTTLE ONE; -SODIUM CHLORIDE 0.9% 10ML VIAL ONE
[2017-06-27] MEDS ORDERED: SODIUM CHLORIDE 0.9% 1,000 ML IV ONE (13:42)
[2017-06-27] MEDS ORDERED: ONDANSETRON HCL 4MG/2ML VIAL IV STA (13:42)
[2017-06-27] MEDS ORDERED: MORPHINE SULFATE 4 MG/ML CPJ (NOT FOR IM USE) IV ONE (13:45)
[2017-06-27] MEDS ORDERED: DIPHENHYDRAMINE 50MG/ML VIAL IV ONE ×2 (14:15→18:00)
[2017-06-27 14:26] LABS: BASOPHILS % 0.6 % (0.0-2.0); EOSINOPHILS % 0.8 % (0.0-5.0); HEMATOCRIT. 31.9 % (36.0-48.0); HEMOGLOBIN. 10.6 g/dL (12.0-16.0); LYMPHOCYTES % 38.2 % (20.0-50.0); MEAN CORPUSCULAR HEMOGLOBIN 27.4 pg (28.0-32.0); MEAN CORPUSCULAR VOLUME 82.4 fL (81.0-99.0); MEAN PLATELET VOLUME 6.2 fl (7.4-10.4); NEUTROPHILS % 53.4 % (40.0-76.0); PLATELET 607 x1000/uL (130-400); RED BLOOD CELL COUNT 3.87 mill/uL (4.2-5.4); RED CELL DISTRIBUTION WIDTH 16.4 % (11.6-14.6)
[2017-06-27 14:33] LABS: CHLORIDE 106 mEq/L (98-107)
[2017-06-27 14:35] LABS: INR 1.1; PARTIAL THROMBOPLASTIN TIME 25.9 sec (23.4-31.0); PROTHROMBIN TIME 11.4 sec (9.4-11.6)
[2017-06-27 14:40] LABS: BETA HYDROXYBUTYRATE 0.4 mMol/L (0.0-0.3); CARBON DIOXIDE 29 mEq/L (21-32)
[2017-06-27 14:48] LABS: CLARITY URINE CLEAR (CLEAR); COLOR URINE YELLOW (YELLOW); GLUCOSE URINE NEGATIVE (NEGATIVE); KETONES URINE TRACE (NEGATIVE); LEUKOCYTE ESTERASE URINE NEGATIVE (NEGATIVE); NITRITE URINE NEGATIVE (NEGATIVE); OCCULT BLOOD URINE 1+ (NEGATIVE); PROTEIN URINE 3+ (NEGATIVE); SPECIFIC GRAVITY URINE 1.025 (1.005-1.030); UROBILINOGEN URINE 0.2 E.U./dL (0.2-1.0)
[2017-06-27] MEDS ORDERED: ONDANSETRON HCL 4MG/2ML VIAL IV ONE (17:45)
[2017-06-27] MEDS ORDERED: MORPHINE SULFATE 10 MG/ML CPJ IV ONE (17:45)
[2017-06-27] MEDS ORDERED: TRAMADOL 50MG TABLET PO ONE (21:15)
[2017-06-27 21:23] VITALS: BP 145/72
== END 2017-06-27 21:44 | disposition home or self-care (01) ==
LOC: ER 13:06 → CANBEDREQ 22:15
DX: R10.32 Left lower quadrant pain (principal); D64.9 Anemia, unspecified; N83.202 Unspecified ovarian cyst, left side; N83.201 Unspecified ovarian cyst, right side; E11.9 Type 2 diabetes mellitus without complications; N28.9 Disorder of kidney and ureter, unspecified; Z79.4 Long term (current) use of insulin; Z88.2 Allergy status to sulfonamides
CPT/HCPCS: 36415; 71010; 76830; 76856; 80053; 81001; 82010; 83605; 83690; 85025; 85610; 85730; 96361; 96374; 96375; 96376; 99285; J1200; J2270; J2405; J7030; Z7610

== ENCOUNTER 2017-07-24 11:18 | Emergency (ER) | payer MEDICAID ==
[~2017-07-24] VITALS: Ht 165.1 cm; Wt 59.0 kg
[~2017-07-24 11:18] MED LIST changes: -OMEP20CA10 PO; -TRAM50TA73 PO; -[UNRECOGNIZED DRUG - CODE] MC
[2017-07-24] MEDS ORDERED: MORPHINE SULFATE 4 MG/ML CPJ (NOT FOR IM USE) IV STA (15:27)
[2017-07-24] MEDS ORDERED: SODIUM CHLORIDE 0.9% 1,000 ML IV ONE (15:27)
[2017-07-24] MEDS ORDERED: ONDANSETRON HCL 4MG/2ML VIAL IV STA (15:27)
[2017-07-24 15:41] LABS: BASOPHILS % 1.1 % (0.0-2.0); EOSINOPHILS % 1.2 % (0.0-5.0); HEMATOCRIT. 36.5 % (36.0-48.0); HEMOGLOBIN. 11.7 g/dL (12.0-16.0); MEAN CORPUSCULAR VOLUME 80.7 fL (81.0-99.0); MEAN PLATELET VOLUME 6.8 fl (7.4-10.4); NEUTROPHILS % 54.7 % (40.0-76.0); PLATELET 411 x1000/uL (130-400); RED BLOOD CELL COUNT 4.52 mill/uL (4.2-5.4)
[2017-07-24] MEDS ORDERED: MORPHINE SULFATE 10 MG/ML CPJ IV SCH (15:42)
[2017-07-24] MEDS ORDERED: DIPHENHYDRAMINE 50MG/ML VIAL IV ONE (15:45)
[2017-07-24 15:48] LABS: PROTHROMBIN TIME 10.6 sec (9.4-11.6)
[2017-07-24 15:53] LABS: HCG SCREEN NEGATIVE
[2017-07-24 16:01] LABS: CARBON DIOXIDE 30 mEq/L (21-32); CHLORIDE 96 mEq/L (98-107)
[2017-07-24 22:00] VITALS: BP 144/64
[2017-07-30] MEDS ORDERED: INSULIN GL (01:47)
[2017-07-30] MEDS ORDERED: ALPR2TAB2 PO (01:47)
[2017-07-30] MEDS ORDERED: INSU100I28 SQ (01:47)
[2017-07-30] MEDS ORDERED: GABA300S PO (01:54)
[2017-07-30] MEDS ORDERED: LISI-604 PO (01:54)
[2017-07-30] MEDS ORDERED: DIPH25CA83 PO (01:54)
== END 2017-07-24 22:20 | disposition home or self-care (01) ==
LOC: ER 13:00 → EDBEDREQ 17:03 → ER 22:20 → CANBEDREQ 23:36
DX: K29.70 Gastritis, unspecified, without bleeding (principal); E86.0 Dehydration; E11.649 Type 2 diabetes mellitus with hypoglycemia without coma; F17.200 Nicotine dependence, unspecified, uncomplicated; Z79.4 Long term (current) use of insulin; Z87.440 Personal history of urinary (tract) infections; Z98.890 Other specified postprocedural states; Z88.2 Allergy status to sulfonamides
CPT/HCPCS: 36415; 80053; 83690; 84703; 85025; 85610; 96361; 96374; 96375; 99285; J1200; J2270; J2405; J7030; Z7610

== ENCOUNTER 2017-07-26 09:52 | Emergency (ER) | payer MEDICAID ==
[~2017-07-26] VITALS: Ht 165.1 cm; Wt 55.0 kg
[2017-07-26] MEDS ORDERED: ONDANSETRON HCL 4MG/2ML VIAL IV STA (12:12)
[2017-07-26] MEDS ORDERED: SODIUM CHLORIDE 0.9% 1,000 ML IV ONE (12:12)
[2017-07-26 12:41] LABS: EOSINOPHILS % 0.1 % (0.0-5.0); HEMOGLOBIN. 11.6 g/dL (12.0-16.0); MEAN CORPUSCULAR HEMOGLOBIN 26.3 pg (28.0-32.0); MEAN CORPUSCULAR VOLUME 81.7 fL (81.0-99.0); MEAN PLATELET VOLUME 6.8 fl (7.4-10.4); MONOCYTES % 4.3 % (2.0-8.0); NEUTROPHILS % 69.6 % (40.0-76.0); PLATELET 432 x1000/uL (130-400); RED BLOOD CELL COUNT 4.41 mill/uL (4.2-5.4)
[2017-07-26 12:44] LABS: GLUCOSE URINE 3+ (NEGATIVE); KETONES URINE TRACE (NEGATIVE); LEUKOCYTE ESTERASE URINE NEGATIVE (NEGATIVE); NITRITE URINE NEGATIVE (NEGATIVE); OCCULT BLOOD URINE 3+ (NEGATIVE); PH URINE 6.5 (4.5-8.0); PROTEIN URINE 2+ (NEGATIVE); SPECIFIC GRAVITY URINE 1.037 (1.005-1.030); UROBILINOGEN URINE 0.2 E.U./dL (0.2-1.0)
[2017-07-26 12:45] LABS: CLARITY URINE HAZY (CLEAR); COLOR URINE BLOODY (YELLOW)
[2017-07-26 12:48] LABS: CHLORIDE 94 mEq/L (98-107)
[2017-07-26 12:56] LABS: CARBON DIOXIDE 31 mEq/L (21-32)
[2017-07-26 13:15] LABS: *AMPHETAMINES SCREEN URINE NEGATIVE (NEGATIVE); *BARBITURATES SCREEN URINE NEGATIVE (NEGATIVE); *BENZODIAZEPINES SCREEN URINE NEGATIVE (NEGATIVE); *COCAINE SCREEN URINE NEGATIVE (NEGATIVE); CANNABINOID URINE SCREEN NEGATIVE (NEGATIVE); METHADONE URINE SCREEN NEGATIVE (NEGATIVE); OPIATES URINE SCREEN NEGATIVE (NEGATIVE); PHENCYCLIDINE URINE SCREEN NEGATIVE (NEGATIVE)
[2017-07-26] MEDS ORDERED: DIPHENHYDRAMINE 50MG/ML VIAL IV ONE (13:15)
[2017-07-26] MEDS ORDERED: MORPHINE SULFATE 2 MG/ML CPJ (NOT FOR IM USE) IV ONE (13:15)
[2017-07-26 13:39] VITALS: BP 156/96
[2017-07-26] MEDS ORDERED: INSULIN REGULAR (HUMULIN R) UD 100 UNITS/ML SYR SUBCUT ONE (14:15)
[2017-07-26] MEDS ORDERED: INSULIN REGULAR (HUMULIN R) 300UNITS/3ML SUBCUT NR (15:15)
[2017-07-26] MEDS ORDERED: IBUPROFEN 600MG TABLET PO ONE (15:15)
[2017-07-30] MEDS ORDERED: ALPR2TAB2 PO (01:47)
[2017-07-30] MEDS ORDERED: INSU100I28 SQ (01:47)
[2017-07-30] MEDS ORDERED: INSULIN GL (01:47)
[2017-07-30] MEDS ORDERED: DIPH25CA83 PO (01:54)
[2017-07-30] MEDS ORDERED: LISI-604 PO (01:54)
[2017-07-30] MEDS ORDERED: GABA300S PO (01:54)
== END 2017-07-26 17:00 | disposition home or self-care (01) ==
LOC: ER 09:59
DX: R10.32 Left lower quadrant pain (principal); R11.2 Nausea with vomiting, unspecified; E11.65 Type 2 diabetes mellitus with hyperglycemia; Z79.4 Long term (current) use of insulin; F15.10 Other stimulant abuse, uncomplicated; Z87.448 Personal history of other diseases of urinary system; Z88.2 Allergy status to sulfonamides; Z79.899 Other long term (current) drug therapy; Z87.19 Personal history of other diseases of the digestive system
CPT/HCPCS: 36415; 76770; 80053; 80305; 81001; 82962; 83690; 85025; 96361; 96372; 96374; 96375; 99285; J1200; J1815; J2270; J2405; J7030; Z7610

== ENCOUNTER 2017-09-13 13:46 | Emergency (ER) | payer MEDICAID ==
[~2017-09-13] VITALS: Ht 162.6 cm; Wt 59.0 kg
[~2017-09-13 13:46] MED LIST changes: -ALPR1TAB2 PO; +ALPR2TAB2 PO; +DIPH25CA83 PO; +GABA300S PO; -INSU100C11 SQ; +INSU100I28 SQ; +LISI-604 PO
[2017-09-13] MEDS ORDERED: MORPHINE SULFATE 4 MG/ML CPJ (NOT FOR IM USE) IV STA (16:20)
[2017-09-13] MEDS ORDERED: ONDANSETRON HCL 4MG/2ML VIAL IV ONE (16:30)
[2017-09-13] MEDS ORDERED: SODIUM CHLORIDE 0.9% 500 ML IV ONE (16:45)
[2017-09-13] MEDS ORDERED: DIPHENHYDRAMINE 50MG/ML VIAL IV ONE (17:00)
[2017-09-13 17:08] LABS: BASOPHILS % 1.2 % (0.0-2.0); EOSINOPHILS % 0.6 % (0.0-5.0); HEMATOCRIT. 34.5 % (36.0-48.0); HEMOGLOBIN. 11.4 g/dL (12.0-16.0); LYMPHOCYTES % 33.8 % (20.0-50.0); MEAN CORPUSCULAR HEMOGLOBIN 26.9 pg (28.0-32.0); MEAN CORPUSCULAR VOLUME 81.7 fL (81.0-99.0); MEAN PLATELET VOLUME 7.6 fl (7.4-10.4); MONOCYTES % 4.3 % (2.0-8.0); NEUTROPHILS % 60.1 % (40.0-76.0); PLATELET 381 x1000/uL (130-400); RED BLOOD CELL COUNT 4.22 mill/uL (4.2-5.4); RED CELL DISTRIBUTION WIDTH 15.9 % (11.6-14.6)
[2017-09-13 17:10] LABS: PROTHROMBIN TIME 10.7 sec (9.4-11.6)
[2017-09-13 17:17] LABS: CARBON DIOXIDE 30 mEq/L (21-32); CHLORIDE 95 mEq/L (98-107)
[2017-09-13 17:38] LABS: HCG SCREEN NEGATIVE
[2017-09-13 19:29] LABS: CLARITY URINE CLEAR (CLEAR); COLOR URINE YELLOW (YELLOW); KETONES URINE 1+ (NEGATIVE); LEUKOCYTE ESTERASE URINE NEGATIVE (NEGATIVE); NITRITE URINE NEGATIVE (NEGATIVE); OCCULT BLOOD URINE 1+ (NEGATIVE); PROTEIN URINE 2+ (NEGATIVE); SPECIFIC GRAVITY URINE 1.032 (1.005-1.030); UROBILINOGEN URINE 0.2 E.U./dL (0.2-1.0)
[2017-09-13] MEDS ORDERED: CEFTRIAXONE 1 G PREMIX 50 ML IV ONE (20:15)
[2017-09-13] MEDS ORDERED: SODIUM CHLORIDE 0.9% 1,000 ML IV ONE (21:00)
[2017-09-13] MEDS ORDERED: ACETAMINOPHEN 325MG TABLET PO ONE (23:30)
[2017-09-13 23:45] VITALS: BP 128/78
== END 2017-09-14 01:15 | disposition home or self-care (01) ==
LOC: ER 14:08
DX: N39.0 Urinary tract infection, site not specified (principal); E11.22 Type 2 diabetes mellitus with diabetic chronic kidney disease; N18.6 End stage renal disease; Z88.2 Allergy status to sulfonamides; Z79.4 Long term (current) use of insulin
CPT/HCPCS: 36415; 71045; 74018; 80053; 81001; 82962; 83690; 84703; 85025; 85610; 96361; 96365; 96375; 99285; J0696; J1200; J2270; J2405; J7030; J7040

== ENCOUNTER 2017-11-19 19:45 | Emergency (ER) | payer MEDICAID ==
[~2017-11-19] VITALS: Ht 170.2 cm; Wt 63.0 kg
[~2017-11-19 19:45] MED LIST changes: -GABA300S PO; -METO10TA3 PO; -PROM-177 PO
[2017-11-19] MEDS ORDERED: ONDANSETRON HCL 4MG/2ML VIAL IV STA (22:02)
[2017-11-19] MEDS ORDERED: SODIUM CHLORIDE 0.9% 1,000 ML IV ONE (22:02)
[2017-11-19] MEDS ORDERED: KETOROLAC 30MG/ML VIAL IV STA (22:02)
[2017-11-19 22:47] LABS: BASOPHILS % 0.8 % (0.0-2.0); EOSINOPHILS % 0.3 % (0.0-5.0); HEMATOCRIT. 32.1 % (36.0-48.0); HEMOGLOBIN. 10.3 g/dL (12.0-16.0); LYMPHOCYTES % 27.1 % (20.0-50.0); MEAN CORPUSCULAR HEMOGLOBIN 26.1 pg (28.0-32.0); MEAN CORPUSCULAR VOLUME 80.9 fL (81.0-99.0); MEAN PLATELET VOLUME 6.5 fl (7.4-10.4); MONOCYTES % 4.3 % (2.0-8.0); NEUTROPHILS % 67.5 % (40.0-76.0); PLATELET 574 x1000/uL (130-400); RED BLOOD CELL COUNT 3.97 mill/uL (4.2-5.4); RED CELL DISTRIBUTION WIDTH 15.7 % (11.6-14.6)
[2017-11-19 22:49] LABS: HCG SCREEN NEGATIVE
[2017-11-19 22:50] LABS: INR 1.1; PROTHROMBIN TIME 11.1 sec (9.4-11.6)
[2017-11-19 22:51] LABS: CHLORIDE 102 mEq/L (98-107)
[2017-11-20 02:58] VITALS: BP 169/105
== END 2017-11-20 00:13 | disposition home or self-care (01) ==
LOC: ER 20:00
DX: R10.9 Unspecified abdominal pain (principal); R11.2 Nausea with vomiting, unspecified; I12.9 Hypertensive chronic kidney disease with stage 1 through stage 4 chronic kidney disease, or unspecified chronic kidney disease; E09.22 Drug or chemical induced diabetes mellitus with diabetic chronic kidney disease; N18.3 Chronic kidney disease, stage 3 (moderate); Z79.4 Long term (current) use of insulin; Z88.2 Allergy status to sulfonamides; Z98.890 Other specified postprocedural states
CPT/HCPCS: 36415; 80053; 83690; 84703; 85025; 85610; 96361; 96374; 96375; 99285; J1885; J2405; J7030

== ENCOUNTER 2017-12-14 12:34 | Emergency (ER) | payer MEDICAID ==
[~2017-12-14] VITALS: Ht 162.6 cm; Wt 50.0 kg
[2017-12-14 13:27] LABS: BASOPHILS % 0.7 % (0.0-2.0); EOSINOPHILS % 0.6 % (0.0-5.0); HEMATOCRIT. 33.6 % (36.0-48.0); HEMOGLOBIN. 11.3 g/dL (12.0-16.0); LYMPHOCYTES % 36.3 % (20.0-50.0); MEAN CORPUSCULAR HEMOGLOBIN 27.5 pg (28.0-32.0); MEAN CORPUSCULAR VOLUME 81.7 fL (81.0-99.0); MEAN PLATELET VOLUME 7.4 fl (7.4-10.4); MONOCYTES % 4.4 % (2.0-8.0); PLATELET 442 x1000/uL (130-400); RED BLOOD CELL COUNT 4.12 mill/uL (4.2-5.4); RED CELL DISTRIBUTION WIDTH 17.3 % (11.6-14.6)
[2017-12-14 13:32] LABS: CHLORIDE 94 mEq/L (98-107)
[2017-12-14 13:40] LABS: PROTHROMBIN TIME 10.1 sec (9.4-11.6)
[2017-12-14] MEDS ORDERED: ONDANSETRON HCL 4MG/2ML VIAL IV ONE (13:45)
[2017-12-14] MEDS ORDERED: SODIUM CHLORIDE 0.9% 1,000 ML IV ONE (13:45)
[2017-12-14 14:21] LABS: CLARITY URINE CLEAR (CLEAR); COLOR URINE YELLOW (YELLOW); KETONES URINE NEGATIVE (NEGATIVE); LEUKOCYTE ESTERASE URINE NEGATIVE (NEGATIVE); NITRITE URINE NEGATIVE (NEGATIVE); OCCULT BLOOD URINE 3+ (NEGATIVE); PROTEIN URINE 2+ (NEGATIVE); UROBILINOGEN URINE 0.2 E.U./dL (0.2-1.0)
[2017-12-14] MEDS ORDERED: KETOROLAC 30MG/ML VIAL IV ONE (14:30)
[2017-12-14] MEDS ORDERED: DIPHENHYDRAMINE 50MG/ML VIAL IV ONE (15:15)
[2017-12-14] MEDS ORDERED: FENTANYL CITRATE/PF 50MCG/ML 2ML VIAL IV ONE (15:15)
[2017-12-14] MEDS ORDERED: IOHEXOL-300 100 ML BOTTLE ONE (16:39)
[2017-12-14] MEDS ORDERED: ONDANSETRON 4MG ODT PO ONE (18:00)
[2017-12-14] MEDS ORDERED: CEFTRIAXONE SODIUM 250 MG/VIAL IM ONE (18:15)
[2017-12-14] MEDS ORDERED: DOXYCYCLINE HYCLATE 100MG CAPSULE PO ONE (18:15)
[2017-12-14 18:30] VITALS: BP 137/93
== END 2017-12-14 18:55 | disposition home or self-care (01) ==
LOC: ER 12:34
DX: N73.0 Acute parametritis and pelvic cellulitis (principal); N70.11 Chronic salpingitis; E11.65 Type 2 diabetes mellitus with hyperglycemia; I12.9 Hypertensive chronic kidney disease with stage 1 through stage 4 chronic kidney disease, or unspecified chronic kidney disease; N18.9 Chronic kidney disease, unspecified; E11.22 Type 2 diabetes mellitus with diabetic chronic kidney disease; K56.41 Fecal impaction; N85.4 Malposition of uterus; N83.202 Unspecified ovarian cyst, left side; N83.201 Unspecified ovarian cyst, right side; R79.89 Other specified abnormal findings of blood chemistry; E87.1 Hypo-osmolality and hyponatremia; R31.9 Hematuria, unspecified; D64.9 Anemia, unspecified; E88.09 Other disorders of plasma-protein metabolism, not elsewhere classified; Z79.4 Long term (current) use of insulin
CPT/HCPCS: 36415; 74177; 76830; 76856; 80053; 81003; 83690; 85025; 85610; 96361; 96372; 96374; 96375; 99285; J0696; J1200; J1885; J2405; J3010; J7030; Q0162; Q9967; Z7610

== ENCOUNTER 2017-12-16 13:19 | Emergency (ER) | payer MEDICAID ==
[~2017-12-16] VITALS: Ht 160 cm; Wt 55.0 kg
[2017-12-16] MEDS ORDERED: ONDANSETRON HCL 4MG/2ML VIAL IV STA (13:54)
[2017-12-16] MEDS ORDERED: MORPHINE SULFATE 4 MG/ML CPJ (NOT FOR IM USE) IV STA (13:54)
[2017-12-16] MEDS ORDERED: DIPHENHYDRAMINE 50MG/ML VIAL IM ONE (14:00)
[2017-12-16 15:32] LABS: BASOPHILS % 0.9 % (0.0-2.0); CHLORIDE 99 mEq/L (98-107); EOSINOPHILS % 0.6 % (0.0-5.0); HEMATOCRIT. 39.8 % (36.0-48.0); HEMOGLOBIN. 12.9 g/dL (12.0-16.0); LYMPHOCYTES % 38.6 % (20.0-50.0); MEAN CORPUSCULAR HEMOGLOBIN 26.7 pg (28.0-32.0); MEAN CORPUSCULAR VOLUME 82.3 fL (81.0-99.0); MONOCYTES % 2.8 % (2.0-8.0); NEUTROPHILS % 57.1 % (40.0-76.0); RED BLOOD CELL COUNT 4.83 mill/uL (4.2-5.4); RED CELL DISTRIBUTION WIDTH 17.5 % (11.6-14.6)
[2017-12-16 15:33] LABS: INR 0.9; PROTHROMBIN TIME 9.8 sec (9.4-11.6)
[2017-12-16 15:45] LABS: HCG SCREEN NEGATIVE
[2017-12-16] MEDS ORDERED: SODIUM CHLORIDE 0.9% 1,000 ML IV ONE (17:21)
[2017-12-16 17:45] LABS: CLARITY URINE CLEAR (CLEAR); COLOR URINE YELLOW (YELLOW); KETONES URINE NEGATIVE (NEGATIVE); LEUKOCYTE ESTERASE URINE NEGATIVE (NEGATIVE); NITRITE URINE NEGATIVE (NEGATIVE); OCCULT BLOOD URINE 2+ (NEGATIVE); PH URINE 6.5 (4.5-8.0); PROTEIN URINE 2+ (NEGATIVE); SPECIFIC GRAVITY URINE 1.024 (1.005-1.030); UROBILINOGEN URINE 0.2 E.U./dL (0.2-1.0)
[2017-12-16 19:49] VITALS: BP 152/101
== END 2017-12-16 19:50 | disposition home or self-care (01) ==
LOC: ER 13:45
DX: R10.9 Unspecified abdominal pain (principal); E11.22 Type 2 diabetes mellitus with diabetic chronic kidney disease; I12.9 Hypertensive chronic kidney disease with stage 1 through stage 4 chronic kidney disease, or unspecified chronic kidney disease; N18.9 Chronic kidney disease, unspecified; Z79.4 Long term (current) use of insulin; Z88.2 Allergy status to sulfonamides; Z98.890 Other specified postprocedural states
CPT/HCPCS: 36415; 80053; 81003; 83690; 84703; 85025; 85610; 96361; 96372; 96374; 96375; 99284; J1200; J2270; J2405; J7030; Z7610

== ENCOUNTER 2017-12-16 22:36 | Emergency (ER) | payer MEDICAID ==
[~2017-12-16] VITALS: Ht 165.1 cm; Wt 55.0 kg
[2017-12-17] MEDS ORDERED: MORPHINE SULFATE 4 MG/ML CPJ (NOT FOR IM USE) IV STA (00:02)
[2017-12-17] MEDS ORDERED: ONDANSETRON HCL 4MG/2ML VIAL IV STA (00:02)
[2017-12-17] MEDS ORDERED: SODIUM CHLORIDE 0.9% 1,000 ML IV ONE (00:02)
[2017-12-17] MEDS ORDERED: METRONIDAZOLE 500 MG PREMIX 100 ML IV ONE (00:15)
[2017-12-17] MEDS ORDERED: CEFTRIAXONE 1 G PREMIX 50 ML IV ONE (00:15)
[2017-12-17] MEDS ORDERED: DIPHENHYDRAMINE 50MG/ML VIAL IV STA (00:26)
[2017-12-17 01:08] LABS: BASOPHILS % 0.5 % (0.0-2.0); EOSINOPHILS % 0.4 % (0.0-5.0); HEMATOCRIT. 31.7 % (36.0-48.0); HEMOGLOBIN. 10.5 g/dL (12.0-16.0); LYMPHOCYTES % 32.4 % (20.0-50.0); MEAN CORPUSCULAR HEMOGLOBIN 27.2 pg (28.0-32.0); MEAN CORPUSCULAR VOLUME 81.6 fL (81.0-99.0); MEAN PLATELET VOLUME 7.3 fl (7.4-10.4); MONOCYTES % 5.6 % (2.0-8.0); NEUTROPHILS % 61.1 % (40.0-76.0); PLATELET 422 x1000/uL (130-400); RED BLOOD CELL COUNT 3.88 mill/uL (4.2-5.4); RED CELL DISTRIBUTION WIDTH 17.2 % (11.6-14.6)
[2017-12-17 01:14] LABS: CHLORIDE 99 mEq/L (98-107)
[2017-12-17 01:16] LABS: PROTHROMBIN TIME 10.2 sec (9.4-11.6)
[2017-12-17 01:17] LABS: ETHANOL BLOOD < 10 mg/dL
[2017-12-17 02:51] VITALS: BP 117/78
== END 2017-12-17 02:51 | disposition home or self-care (01) ==
LOC: ER 22:36 → CANBEDREQ 12-17 03:06
DX: N73.0 Acute parametritis and pelvic cellulitis (principal); F17.200 Nicotine dependence, unspecified, uncomplicated; E11.9 Type 2 diabetes mellitus without complications; N19 Unspecified kidney failure; Z91.19 Patient's noncompliance with other medical treatment and regimen; Z88.2 Allergy status to sulfonamides; Z79.4 Long term (current) use of insulin
CPT/HCPCS: 36415; 80053; 83605; 83690; 85025; 85610; 87040; 96365; 96367; 96368; 96375; 99284; G0482; J0696; J1200; J2270; J2405; J3490; J7030; Z7610

== ENCOUNTER 2018-03-22 15:31 | Emergency (ER) | payer MEDICAID ==
[~2018-03-22] VITALS: Ht 162.6 cm; Wt 50.0 kg
[~2018-03-22 15:31] MED LIST changes: +AMIT25TA9 PO; +BACL-141 PO; -CARI350T PO; +CITA10TA9 PO; +FERR325T6 PO; +GABA-531 PO; +HYDR-4134 PO; +HYDR50CA5 PO; +S350 PO
[2018-03-22 15:37] VITALS: BP 173/101
== END 2018-03-22 16:45 | disposition left against medical advice (07) ==
LOC: ER 15:31
DX: R10.9 Unspecified abdominal pain (principal); R11.2 Nausea with vomiting, unspecified
CPT/HCPCS: 99283

== ENCOUNTER 2018-04-01 21:46 | Emergency (ER) | payer MEDICAID ==
[~2018-04-01] VITALS: Ht 165.1 cm; Wt 64.0 kg
[2018-04-01] MEDS ORDERED: MORPHINE SULFATE 4 MG/ML CPJ (NOT FOR IM USE) IV STA (22:38)
[2018-04-01] MEDS ORDERED: METOCLOPRAMIDE HCL 10MG/2ML VIAL IV STA (22:38)
[2018-04-01] MEDS ORDERED: ONDANSETRON HCL 4MG/2ML VIAL IV STA (22:38)
[2018-04-01] MEDS ORDERED: SODIUM CHLORIDE 0.9% 1,000 ML IV ONE (22:38)
[2018-04-02 00:33] LABS: BASOPHILS % 0.7 % (0.0-2.0); EOSINOPHILS % 0.7 % (0.0-5.0); HEMATOCRIT. 25.6 % (36.0-48.0); HEMOGLOBIN. 8.5 g/dL (12.0-16.0); LYMPHOCYTES % 37.3 % (20.0-50.0); MEAN CORPUSCULAR HEMOGLOBIN 27.2 pg (28.0-32.0); MEAN PLATELET VOLUME 6.8 fl (7.4-10.4); MONOCYTES % 5.7 % (2.0-8.0); NEUTROPHILS % 55.6 % (40.0-76.0); PLATELET 428 x1000/uL (130-400); RED BLOOD CELL COUNT 3.12 mill/uL (4.2-5.4); RED CELL DISTRIBUTION WIDTH 14.3 % (11.6-14.6)
[2018-04-02 00:40] LABS: CHLORIDE 106 mEq/L (98-107)
[2018-04-02 02:28] VITALS: BP 143/89
[2018-04-02] MEDS ORDERED: IOHEXOL-300 100 ML BOTTLE ONE (02:37)
== END 2018-04-02 02:56 | disposition home or self-care (01) ==
LOC: ER 21:46 → CANBEDREQ 04-02 07:33
DX: G89.29 Other chronic pain (principal); R10.84 Generalized abdominal pain; E11.8 Type 2 diabetes mellitus with unspecified complications; K86.1 Other chronic pancreatitis; F10.21 Alcohol dependence, in remission; D64.9 Anemia, unspecified; E88.09 Other disorders of plasma-protein metabolism, not elsewhere classified; Z68.23 Body mass index [BMI] 23.0-23.9, adult; Z79.4 Long term (current) use of insulin; Z88.2 Allergy status to sulfonamides; Z79.899 Other long term (current) drug therapy; Z87.891 Personal history of nicotine dependence
CPT/HCPCS: 36415; 74177; 80053; 81025; 83605; 83615; 83690; 85025; 93005; 96361; 96374; 96375; 99285; J2270; J2405; J2765; J7030; Q9967; Z7610

== ENCOUNTER 2018-07-22 18:39 | Inpatient (IN) | payer MEDICAID ==
[~2018-07-22] VITALS: Ht 162.6 cm; Wt 56.7 kg
[~2018-07-22 18:39] MED LIST changes: -INSU100I28 SQ; +LANTUSUD SUBCUT; -ONDA4SOL2 PO
[2018-07-22] MEDS ORDERED: ONDANSETRON HCL 4MG/2ML INJ IV STA (22:59)
[2018-07-22] MEDS ORDERED: MORPHINE SULFATE 4 MG/ML CPJ (NOT FOR IM USE) IV STA (22:59)
[2018-07-22] MEDS ORDERED: SODIUM CHLORIDE 0.9% 1,000 ML IV ONE ×2 (22:59)
[2018-07-22] MEDS ORDERED: CEFTRIAXONE 1 G PREMIX 50 ML IV ONE (23:00)
[2018-07-22] MEDS ORDERED: VANCOMYCIN 1 G PREMIX 200 ML IV ONE (23:00)
[2018-07-22] MEDS ORDERED: DIPHENHYDRAMINE 50MG/ML VIAL IV ONE (23:45)
[2018-07-23 00:18] LABS: BASOPHILS % 0.5 % (0.0-2.0); EOSINOPHILS % 0.6 % (0.0-5.0); HEMATOCRIT. 37.1 % (36.0-48.0); HEMOGLOBIN. 11.8 g/dL (12.0-16.0); LYMPHOCYTES % 32.2 % (20.0-50.0); MEAN CORPUSCULAR HEMOGLOBIN 27.2 pg (28.0-32.0); MEAN CORPUSCULAR VOLUME 85.5 fL (81.0-99.0); MONOCYTES % 4.3 % (2.0-8.0); NEUTROPHILS % 62.4 % (40.0-76.0); PLATELET 407 x1000/uL (130-400); RED BLOOD CELL COUNT 4.34 mill/uL (4.2-5.4); RED CELL DISTRIBUTION WIDTH 16.5 % (11.6-14.6)
[2018-07-23 00:25] LABS: BG BASE EXCESS -0.2 mmol/L (-2.0-2.0); BG CARBOXYHEMOGLOBIN 1.2 % (0.5-1.5); BG DEOXYHEMOGLOBIN 6.2 % (0.0-5.0); BG FRACTION INSPIRED OXYGEN 21; BG HCO3 ACT 25.9 mmol/L (22.0-26.0); BG METHEMOGLOBIN 0.3 % (0.0-1.5); BG OXYGEN SATURATION 93.7 % (92.0-98.5); BG OXYHEMOGLOBIN 92.3 % (94.0-97.0); BG PCO2 49.4 mmHg (35.0-45.0); BG PH 7.337 (7.350-7.450); BG PO2 73.7 mmHg (75.0-100.0); BG SAMPLE SITE RIGHT RADIAL; BG TOTAL HEMOGLOBIN 8.7 g/dL (12.0-18.0); BG VENT MODE ROOM AIR
[2018-07-23] MEDS ORDERED: CLONIDINE 0.2MG TABLET PO SCH (01:00)
[2018-07-23 02:05] LABS: CHLORIDE 94 mEq/L (98-107)
[2018-07-23 02:08] LABS: CLARITY URINE CLOUDY (CLEAR); COLOR URINE YELLOW (YELLOW); KETONES URINE NEGATIVE (NEGATIVE); LEUKOCYTE ESTERASE URINE NEGATIVE (NEGATIVE); NITRITE URINE NEGATIVE (NEGATIVE); OCCULT BLOOD URINE 2+ (NEGATIVE); PH URINE 7.5 (4.5-8.0); PROTEIN URINE 1+ (NEGATIVE); SPECIFIC GRAVITY URINE 1.025 (1.005-1.030); UROBILINOGEN URINE 0.2 E.U./dL (0.2-1.0)
[2018-07-23 02:16] LABS: BETA HYDROXYBUTYRATE 0.1 mMol/L (0.0-0.3)
[2018-07-23] MEDS ORDERED: SODIUM CHLORIDE 0.9% 1,000 ML IV ONE (02:42)
[2018-07-23] MEDS ORDERED: MORPHINE SULFATE 4 MG/ML CPJ (NOT FOR IM USE) IV SCH (02:45)
[2018-07-23] MEDS ORDERED: DIPHENHYDRAMINE 50MG/ML VIAL IV SCH (02:45)
[2018-07-23] MEDS ORDERED: INSULIN REGULAR (HUMULIN R) 300UNITS/3ML SUBCUT SCH (02:45)
[2018-07-23] MEDS ORDERED: SODIUM CHLORIDE 0.9% 1,000 ML IV SCH (02:50)
[2018-07-23 13:50] VITALS: BP 137/87
[2018-07-23 13:51] VITALS: BP 137/87
[2018-07-23] MEDS: DIPHENHYDRAMINE 25MG CAPSULE PO PRN (15:24)
[2018-07-23] MEDS: HYDROCODONE/ACETAMINOPHEN 5/325MG TABLET PO PRN (15:26)
[2018-07-23] MEDS: HYDRALAZINE HCL 25MG TABLET PO SCH ×2 (15:27→22:39)
[2018-07-23 16:00] VITALS: BP 148/91
[2018-07-23] MEDS ORDERED: MEDICATION NOT ON FORMULARY EA (Alprazolam (Xanax) 2 MG) PO SCH (17:00)
[2018-07-23] MEDS: BLOOD SUGAR DIAGNOSTIC STRIP TEST SCH ×2 (18:16→20:45)
[2018-07-23] MEDS: INSULIN LISPRO 100 UNITS/ML SUBCUT SCH ×3 (18:56→20:52)
[2018-07-23] MEDS: ACYCLOVIR 400 MG TABLET PO SCH ×2 (19:01→20:45)
[2018-07-23] MEDS: CEFTRIAXONE 1 G PREMIX 50 ML IV SCH (19:01)
[2018-07-23 20:00] VITALS: BP 118/70
[2018-07-23] MEDS: ALPRAZOLAM 0.5 MG TABLET PO SCH (20:45)
[2018-07-23] MEDS: INSULIN GLARGINE UD 100 UNITS/ML SYR SUBCUT SCH (22:39)
[2018-07-23] MEDS: GABAPENTIN 300MG CAPSULE PO SCH (22:40)
[2018-07-24] VITALS: BP 113/71
[2018-07-24 04:00] VITALS: BP 110/90
[2018-07-24] MEDS: HYDRALAZINE HCL 25MG TABLET PO SCH ×3 (06:00→21:58)
[2018-07-24] MEDS: ACYCLOVIR 400 MG TABLET PO SCH ×5 (06:39→21:24)
[2018-07-24] MEDS: GABAPENTIN 300MG CAPSULE PO SCH ×3 (06:40→21:57)
[2018-07-24] MEDS: DEXTROSE 50% WATER 50ML SYRINGE IV PRN (06:40)
[2018-07-24] MEDS: INSULIN LISPRO 100 UNITS/ML SUBCUT SCH ×7 (06:45→20:49)
[2018-07-24] MEDS: BLOOD SUGAR DIAGNOSTIC STRIP TEST SCH ×4 (06:48→20:49)
[2018-07-24 08:00] VITALS: BP 145/66
[2018-07-24] MEDS: ENOXAPARIN 40MG/0.4ML SYR SUBCUT SCH (09:02)
[2018-07-24] MEDS: ALPRAZOLAM 0.5 MG TABLET PO SCH ×2 (09:03→21:24)
[2018-07-24] MEDS: HYDROCODONE/ACETAMINOPHEN 5/325MG TABLET PO PRN ×2 (09:10→16:32)
[2018-07-24] MEDS: INSULIN GLARGINE UD 100 UNITS/ML SYR SUBCUT SCH ×2 (10:39→22:05)
[2018-07-24 12:00] VITALS: BP 152/77
[2018-07-24 16:00] VITALS: BP 132/79
[2018-07-24] MEDS: CEFTRIAXONE 1 G PREMIX 50 ML IV SCH (17:30)
[2018-07-24 20:00] VITALS: BP 129/69
[2018-07-25] VITALS (45 sets, daily range): BP systolic 128–243; BP diastolic 66–160
[2018-07-25] MEDS: GABAPENTIN 300MG CAPSULE PO SCH ×3 (06:41→22:08)
[2018-07-25] MEDS: ACYCLOVIR 400 MG TABLET PO SCH ×5 (06:42→22:19)
[2018-07-25] MEDS: BLOOD SUGAR DIAGNOSTIC STRIP TEST SCH ×3 (06:42→17:02)
[2018-07-25] MEDS: HYDRALAZINE HCL 25MG TABLET PO SCH ×3 (06:42→22:09)
[2018-07-25] MEDS: INSULIN LISPRO 100 UNITS/ML SUBCUT SCH ×6 (06:48→17:00)
[2018-07-25] MEDS: ENOXAPARIN 40MG/0.4ML SYR SUBCUT SCH (09:12)
[2018-07-25] MEDS: ALPRAZOLAM 0.5 MG TABLET PO SCH ×2 (09:12→22:09)
[2018-07-25] MEDS: INSULIN GLARGINE UD 100 UNITS/ML SYR SUBCUT SCH (10:00)
[2018-07-25] MEDS: DEXTROSE 50% WATER 50ML SYRINGE IV PRN ×3 (11:58→13:48)
[2018-07-25] MEDS ORDERED: SODIUM CHLORIDE 0.9% 10ML VIAL ONE (12:30)
[2018-07-25] MEDS ORDERED: ETOMIDATE 2MG/ML 10ML VIAL IV ONE (12:30)
[2018-07-25] MEDS ORDERED: VECURONIUM BROMIDE 10 MG/VIAL IV ONE (12:30)
[2018-07-25 13:25] LABS: BG BASE EXCESS -0.9 mmol/L (-2.0-2.0); BG CARBOXYHEMOGLOBIN 0.2 % (0.5-1.5); BG DEOXYHEMOGLOBIN 0.6 % (0.0-5.0); BG FRACTION INSPIRED OXYGEN 100; BG HCO3 ACT 25.6 mmol/L (22.0-26.0); BG METHEMOGLOBIN 0.1 % (0.0-1.5); BG OXYGEN SATURATION 99.4 % (92.0-98.5); BG OXYHEMOGLOBIN 99.1 % (94.0-97.0); BG PCO2 50.5 mmHg (35.0-45.0); BG PH 7.322 (7.350-7.450); BG PO2 493.1 mmHg (75.0-100.0); BG SAMPLE SITE RIGHT RADIAL; BG TIDAL VOLUME(mL) 450 mL; BG TOTAL HEMOGLOBIN 10.9 g/dL (12.0-18.0); BG VENT MODE VENT - A/C; BG VENT RATE 12 set
[2018-07-25] MEDS: DEXT 10% WATER 1,000 ML IV SCH (13:46)
[2018-07-25] MEDS: PROPOFOL 10MG/ML 100ML 100 ML IV PRN ×2 (13:48→21:19)
[2018-07-25 15:51] LABS: BG BASE EXCESS -0.2 mmol/L (-2.0-2.0); BG CARBOXYHEMOGLOBIN 0.1 % (0.5-1.5); BG FRACTION INSPIRED OXYGEN 50; BG HCO3 ACT 24.5 mmol/L (22.0-26.0); BG METHEMOGLOBIN 0.1 % (0.0-1.5); BG OXYHEMOGLOBIN 98.8 % (94.0-97.0); BG PCO2 40.1 mmHg (35.0-45.0); BG PH 7.403 (7.350-7.450); BG PO2 263.6 mmHg (75.0-100.0); BG SAMPLE SITE RIGHT RADIAL; BG TIDAL VOLUME(mL) 450 mL; BG VENT MODE VENT - A/C; BG VENT RATE 16 set
[2018-07-25 18:00] LABS: BASOPHILS % 0.4 % (0.0-2.0); EOSINOPHILS % 0.2 % (0.0-5.0); HEMOGLOBIN. 9.8 g/dL (12.0-16.0); LYMPHOCYTES % 13.8 % (20.0-50.0); MEAN CORPUSCULAR HEMOGLOBIN 26.9 pg (28.0-32.0); MEAN CORPUSCULAR VOLUME 85.2 fL (81.0-99.0); MEAN PLATELET VOLUME 8.3 fl (7.4-10.4); MONOCYTES % 7.5 % (2.0-8.0); NEUTROPHILS % 78.1 % (40.0-76.0); PLATELET 269 x1000/uL (130-400); RED BLOOD CELL COUNT 3.63 mill/uL (4.2-5.4); RED CELL DISTRIBUTION WIDTH 16.1 % (11.6-14.6)
[2018-07-25 18:20] LABS: CHLORIDE 103 mEq/L (98-107)
[2018-07-25] MEDS: CEFTRIAXONE 1 G PREMIX 50 ML IV SCH (18:30)
[2018-07-26] VITALS (97 sets, daily range): BP systolic 57–189; BP diastolic 26–109
[2018-07-26] MEDS: PROPOFOL 10MG/ML 100ML 100 ML IV PRN ×3 (00:01→12:30)
[2018-07-26] MEDS: BLOOD SUGAR DIAGNOSTIC STRIP TEST SCH ×6 (00:01→20:35)
[2018-07-26] MEDS: DEXT 10% WATER 1,000 ML IV SCH (05:51)
[2018-07-26 05:54] LABS: BASOPHILS % 0.5 % (0.0-2.0); EOSINOPHILS % 0.7 % (0.0-5.0); HEMATOCRIT. 26.4 % (36.0-48.0); HEMOGLOBIN. 8.8 g/dL (12.0-16.0); LYMPHOCYTES % 16.1 % (20.0-50.0); MEAN CORPUSCULAR HEMOGLOBIN 27.4 pg (28.0-32.0); MEAN CORPUSCULAR VOLUME 81.9 fL (81.0-99.0); MEAN PLATELET VOLUME 7.8 fl (7.4-10.4); MONOCYTES % 6.9 % (2.0-8.0); NEUTROPHILS % 75.8 % (40.0-76.0); PLATELET 323 x1000/uL (130-400); RED BLOOD CELL COUNT 3.22 mill/uL (4.2-5.4); RED CELL DISTRIBUTION WIDTH 16.3 % (11.6-14.6)
[2018-07-26] MEDS: ACYCLOVIR 400 MG TABLET PO SCH ×5 (06:00→20:38)
[2018-07-26] MEDS: HYDRALAZINE HCL 25MG TABLET PO SCH ×3 (06:01→21:59)
[2018-07-26] MEDS: GABAPENTIN 300MG CAPSULE PO SCH ×3 (06:02→21:59)
[2018-07-26 06:10] LABS: CHLORIDE 104 mEq/L (98-107)
[2018-07-26 07:51] LABS: BG BASE EXCESS 4.1 mmol/L (-2.0-2.0); BG CARBOXYHEMOGLOBIN 0.4 % (0.5-1.5); BG DEOXYHEMOGLOBIN 0.9 % (0.0-5.0); BG FRACTION INSPIRED OXYGEN 45; BG HCO3 ACT 27.2 mmol/L (22.0-26.0); BG METHEMOGLOBIN 0.2 % (0.0-1.5); BG OXYGEN SATURATION 99.1 % (92.0-98.5); BG OXYHEMOGLOBIN 98.5 % (94.0-97.0); BG PCO2 34.6 mmHg (35.0-45.0); BG PH 7.513 (7.350-7.450); BG PO2 236.5 mmHg (75.0-100.0); BG SAMPLE SITE RIGHT BRACHIAL; BG TIDAL VOLUME(mL) 450 mL; BG TOTAL HEMOGLOBIN 9.3 g/dL (12.0-18.0); BG VENT MODE VENT - A/C; BG VENT RATE 16 set
[2018-07-26] MEDS: ENOXAPARIN 40MG/0.4ML SYR SUBCUT SCH (09:25)
[2018-07-26] MEDS: ALPRAZOLAM 0.5 MG TABLET PO SCH ×2 (11:19→20:37)
[2018-07-26] MEDS ORDERED: LORAZEPAM 2MG/ML CPJ IV NR (12:30)
[2018-07-26] MEDS ORDERED: SODIUM CHLORIDE 0.9% 100 ML IV ONE (12:30)
[2018-07-26] MEDS: SODIUM CHLORIDE 0.9% 1,000 ML IV SCH ×2 (14:00→20:01)
[2018-07-26] MEDS ORDERED: INSULIN LISPRO 100 UNITS/ML SUBCUT NR (15:15)
[2018-07-26] MEDS: INSULIN LISPRO (CUSTOM DOSE) 100 UNITS/ML SUBCUT SCH ×2 (16:00→20:34)
[2018-07-26] MEDS ORDERED: INSULIN LISPRO 100 UNITS/ML SUBCUT SCH (16:00)
[2018-07-26] MEDS: INSULIN GLARGINE UD 100 UNITS/ML SYR SUBCUT SCH (17:00)
[2018-07-26] MEDS: CEFTRIAXONE 1 G PREMIX 50 ML IV SCH (19:11)
[2018-07-27] VITALS (78 sets, daily range): BP systolic 86–149; BP diastolic 44–96
[2018-07-27] MEDS: BLOOD SUGAR DIAGNOSTIC STRIP TEST SCH ×6 (00:58→20:11)
[2018-07-27] MEDS: SODIUM CHLORIDE 0.9% 1,000 ML IV SCH (01:28)
[2018-07-27] MEDS: PROPOFOL 10MG/ML 100ML 100 ML IV PRN ×3 (01:39→12:30)
[2018-07-27] MEDS: INSULIN LISPRO (CUSTOM DOSE) 100 UNITS/ML SUBCUT SCH ×6 (04:23→20:18)
[2018-07-27 05:49] LABS: HEMATOCRIT. 28.6 % (36.0-48.0); HEMOGLOBIN. 9.4 g/dL (12.0-16.0); MEAN CORPUSCULAR HEMOGLOBIN 27.2 pg (28.0-32.0); MEAN CORPUSCULAR VOLUME 82.2 fL (81.0-99.0); PLATELET 357 x1000/uL (130-400); RED BLOOD CELL COUNT 3.47 mill/uL (4.2-5.4); RED CELL DISTRIBUTION WIDTH 16.2 % (11.6-14.6)
[2018-07-27] MEDS: HYDRALAZINE HCL 25MG TABLET PO SCH ×3 (05:53→22:00)
[2018-07-27] MEDS: GABAPENTIN 300MG CAPSULE PO SCH ×3 (05:54→21:59)
[2018-07-27] MEDS: ACYCLOVIR 400 MG TABLET PO SCH ×2 (05:54→10:19)
[2018-07-27 05:57] LABS: CHLORIDE 105 mEq/L (98-107)
[2018-07-27 06:09] LABS: LDL CHOLESTEROL 78 mg/dL (5-100)
[2018-07-27 06:12] LABS: HDL CHOLESTEROL 74 mg/dL (40-59); T4 FREE 0.96 ng/dL (0.76-1.46)
[2018-07-27] MEDS: ENOXAPARIN 40MG/0.4ML SYR SUBCUT SCH (08:34)
[2018-07-27] MEDS: ALPRAZOLAM 0.5 MG TABLET PO SCH ×2 (08:34→21:59)
[2018-07-27] MEDS: INSULIN GLARGINE UD 100 UNITS/ML SYR SUBCUT SCH (09:52)
[2018-07-27] MEDS: HYDROCODONE/ACETAMINOPHEN 5/325MG TABLET PO PRN ×2 (10:37→15:39)
[2018-07-27 14:26] LABS: PLATELET ESTIMATE NORMAL
[2018-07-27 14:36] LABS: BG BASE EXCESS 0.4 mmol/L (-2.0-2.0); BG DEOXYHEMOGLOBIN 0.9 % (0.0-5.0); BG FRACTION INSPIRED OXYGEN 45; BG HCO3 ACT 24.9 mmol/L (22.0-26.0); BG METHEMOGLOBIN 0.1 % (0.0-1.5); BG OXYGEN SATURATION 99.1 % (92.0-98.5); BG PCO2 39.6 mmHg (35.0-45.0); BG PH 7.417 (7.350-7.450); BG PO2 224.4 mmHg (75.0-100.0); BG PRESSURE SUPPORT 10; BG SAMPLE SITE RIGHT RADIAL; BG TIDAL VOLUME(mL) 450 mL; BG VENT MODE VENT - SIMV; BG VENT RATE 10 set
[2018-07-27 17:45] LABS: CORTISOL 19.7 ucg/dL
[2018-07-27] MEDS: CEFTRIAXONE 1 G PREMIX 50 ML IV SCH (17:59)
[2018-07-27] MEDS ORDERED: MORPHINE SULFATE 4 MG/ML CPJ (NOT FOR IM USE) IV NR (18:30)
[2018-07-27] MEDS: DIPHENHYDRAMINE 25MG CAPSULE PO PRN (18:56)
[2018-07-27] MEDS ORDERED: INSULIN GLARGINE UD 100 UNITS/ML SYR SUBCUT NR (22:00)
[2018-07-28] VITALS (46 sets, daily range): BP systolic 111–171; BP diastolic 63–126
[2018-07-28] MEDS: BLOOD SUGAR DIAGNOSTIC STRIP TEST SCH ×6 (00:19→21:20)
[2018-07-28] MEDS: INSULIN LISPRO (CUSTOM DOSE) 100 UNITS/ML SUBCUT SCH ×5 (00:25→16:40)
[2018-07-28] MEDS: MORPHINE SULFATE 4 MG/ML CPJ (NOT FOR IM USE) IV PRN ×3 (01:29→22:26)
[2018-07-28] MEDS: DIPHENHYDRAMINE 25MG CAPSULE PO PRN (01:36)
[2018-07-28] MEDS: SODIUM CHLORIDE 0.9% 1,000 ML IV SCH ×2 (05:17→11:15)
[2018-07-28] MEDS: GABAPENTIN 300MG CAPSULE PO SCH ×3 (05:18→22:25)
[2018-07-28] MEDS: HYDRALAZINE HCL 25MG TABLET PO SCH ×3 (05:18→22:26)
[2018-07-28 05:37] LABS: BASOPHILS % 0.9 % (0.0-2.0); EOSINOPHILS % 1.2 % (0.0-5.0); HEMATOCRIT. 27.1 % (36.0-48.0); HEMOGLOBIN. 8.8 g/dL (12.0-16.0); LYMPHOCYTES % 15.2 % (20.0-50.0); MEAN CORPUSCULAR VOLUME 83.1 fL (81.0-99.0); MEAN PLATELET VOLUME 7.6 fl (7.4-10.4); MONOCYTES % 6.7 % (2.0-8.0); PLATELET 350 x1000/uL (130-400); RED BLOOD CELL COUNT 3.26 mill/uL (4.2-5.4); RED CELL DISTRIBUTION WIDTH 16.1 % (11.6-14.6)
[2018-07-28 05:44] LABS: CHLORIDE 106 mEq/L (98-107)
[2018-07-28] MEDS: ENOXAPARIN 40MG/0.4ML SYR SUBCUT SCH (08:20)
[2018-07-28] MEDS: ALPRAZOLAM 0.5 MG TABLET PO SCH ×2 (08:20→21:00)
[2018-07-28] MEDS: INSULIN GLARGINE UD 100 UNITS/ML SYR SUBCUT SCH (10:17)
[2018-07-29] VITALS: BP 132/96
[2018-07-29] MEDS ORDERED: INSULIN GLARGINE UD 100 UNITS/ML SYR SUBCUT NR
[2018-07-29] MEDS: SODIUM CHLORIDE 0.9% 1,000 ML IV SCH (01:02)
[2018-07-29] MEDS ORDERED: BLOOD SUGAR DIAGNOSTIC STRIP TEST SCH (03:00)
[2018-07-29] MEDS: MORPHINE SULFATE 4 MG/ML CPJ (NOT FOR IM USE) IV PRN (03:18)
[2018-07-29 04:00] VITALS: BP 119/69
[2018-07-29] MEDS: GABAPENTIN 300MG CAPSULE PO SCH ×2 (05:54→13:19)
[2018-07-29] MEDS: HYDRALAZINE HCL 25MG TABLET PO SCH ×2 (05:54→13:19)
[2018-07-29] MEDS: BLOOD SUGAR DIAGNOSTIC STRIP TEST SCH ×3 (07:10→17:44)
[2018-07-29 07:59] LABS: BASOPHILS % 0.6 % (0.0-2.0); HEMATOCRIT. 26.5 % (36.0-48.0); HEMOGLOBIN. 8.6 g/dL (12.0-16.0); LYMPHOCYTES % 33.1 % (20.0-50.0); MEAN CORPUSCULAR HEMOGLOBIN 26.9 pg (28.0-32.0); MEAN CORPUSCULAR VOLUME 83.2 fL (81.0-99.0); MEAN PLATELET VOLUME 7.5 fl (7.4-10.4); MONOCYTES % 8.5 % (2.0-8.0); NEUTROPHILS % 56.8 % (40.0-76.0); PLATELET 361 x1000/uL (130-400); RED BLOOD CELL COUNT 3.18 mill/uL (4.2-5.4)
[2018-07-29] MEDS: ENOXAPARIN 40MG/0.4ML SYR SUBCUT SCH (08:43)
[2018-07-29] MEDS: INSULIN LISPRO 100 UNITS/ML SUBCUT SCH ×6 (08:49→17:10)
[2018-07-29] MEDS ORDERED: HYDROCODONE/ACETAMINOPHEN 5/325MG TABLET PO PRN (09:30)
[2018-07-29 09:34] LABS: CHLORIDE 102 mEq/L (98-107)
[2018-07-29 09:41] VITALS: BP 146/92
[2018-07-29] MEDS ORDERED: INSULIN GLARGINE UD 100 UNITS/ML SYR SUBCUT SCH (10:00)
[2018-07-29] MEDS: DEXTROSE 50% WATER 50ML SYRINGE IV PRN (17:33)
== END 2018-07-29 21:00 | disposition left against medical advice (07) | DRG 385 ==
LOC: ER 21:06 → 5WST 07-23 02:50 → EDBEDREQ 07-23 02:54 → EDBEDREQSVC 07-23 02:54 → EDBEDREQTM 07-23 02:54 → ENRESERV 07-23 12:53 → MICUSO 07-25 12:43 → 8WST 07-28 21:45
PROVIDERS: ADMIT Internal Medicine; ATTEND Internal Medicine
PROC: 5A1945Z Respiratory Ventilation, 24-96 Consecutive Hours (ICD-10-PCS; principal; 2018-07-25)
PROC: 0BH17EZ Insertion of Endotracheal Airway into Trachea, Via Natural or Artificial Opening (ICD-10-PCS; 2018-07-25)
DX: L73.9 Follicular disorder, unspecified (principal); J96.02 Acute respiratory failure with hypercapnia; E11.00 Type 2 diabetes mellitus with hyperosmolarity without nonketotic hyperglycemic-hyperosmolar coma (NKHHC); I12.9 Hypertensive chronic kidney disease with stage 1 through stage 4 chronic kidney disease, or unspecified chronic kidney disease; N18.9 Chronic kidney disease, unspecified; D17.9 Benign lipomatous neoplasm, unspecified; M54.9 Dorsalgia, unspecified; D64.9 Anemia, unspecified; E78.5 Hyperlipidemia, unspecified; G89.29 Other chronic pain; Z53.21 Procedure and treatment not carried out due to patient leaving prior to being seen by health care provider; Z80.3 Family history of malignant neoplasm of breast; Z83.3 Family history of diabetes mellitus; Z87.891 Personal history of nicotine dependence; Z88.2 Allergy status to sulfonamides; Z98.891 History of uterine scar from previous surgery; Z78.1 Physical restraint status; Z79.4 Long term (current) use of insulin; Z79.899 Other long term (current) drug therapy
CPT/HCPCS: 36415; 36600; 71045; 80048; 80061; 81025; 82010; 82375; 82533; 82607; 82805; 82962; 83036; 83605; 83735; 84100; 84145; 84439; 84443; 84478; 85007; 85027; 92610; 93005; 94002; 94003; 96365; 96366; 96367; 96375; 96376; 97116; 97162; 97166; 97530; 97535; 99291; A4216; J0696; J1200; J1650; J1815; J2060; J2270; J2405; J2704; J3370; J3490; J7030; J7040; J7050; Q0163; A4315

== ENCOUNTER 2018-08-16 18:09 | Emergency (ER) | payer MEDICAID ==
[~2018-08-16] VITALS: Ht 165.1 cm; Wt 59.0 kg
[2018-08-16] MEDS ORDERED: ONDANSETRON HCL 4MG/2ML INJ IV STA ×2 (19:27→22:00)
[2018-08-16] MEDS ORDERED: SODIUM CHLORIDE 0.9% 1,000 ML IV ONE (19:27)
[2018-08-16] MEDS ORDERED: MORPHINE SULFATE 4 MG/ML CPJ (NOT FOR IM USE) IV STA ×2 (19:27→22:00)
[2018-08-16] MEDS ORDERED: MORPHINE SULFATE 10 MG/ML CPJ IV NR ×2 (19:45→22:15)
[2018-08-16] MEDS ORDERED: DIPHENHYDRAMINE 50MG/ML VIAL IV ONE ×2 (20:15→22:00)
[2018-08-16 20:20] LABS: BASOPHILS % 0.8 % (0.0-2.0); EOSINOPHILS % 1.2 % (0.0-5.0); HEMATOCRIT. 30.4 % (36.0-48.0); HEMOGLOBIN. 9.9 g/dL (12.0-16.0); LYMPHOCYTES % 46.5 % (20.0-50.0); MEAN CORPUSCULAR HEMOGLOBIN 26.5 pg (28.0-32.0); MEAN CORPUSCULAR VOLUME 81.4 fL (81.0-99.0); MEAN PLATELET VOLUME 7.3 fl (7.4-10.4); MONOCYTES % 7.3 % (2.0-8.0); NEUTROPHILS % 44.2 % (40.0-76.0); PLATELET 378 x1000/uL (130-400); RED BLOOD CELL COUNT 3.74 mill/uL (4.2-5.4); RED CELL DISTRIBUTION WIDTH 15.7 % (11.6-14.6)
[2018-08-16 20:24] LABS: CHLORIDE 102 mEq/L (98-107)
[2018-08-16 20:26] LABS: HCG SCREEN NEGATIVE
[2018-08-16 21:57] LABS: CLARITY URINE TURBID (CLEAR); COLOR URINE YELLOW (YELLOW); KETONES URINE NEGATIVE (NEGATIVE); LEUKOCYTE ESTERASE URINE NEGATIVE (NEGATIVE); NITRITE URINE NEGATIVE (NEGATIVE); OCCULT BLOOD URINE 1+ (NEGATIVE); PH URINE 5.5 (4.5-8.0); PROTEIN URINE 3+ (NEGATIVE); SPECIFIC GRAVITY URINE 1.026 (1.005-1.030); UROBILINOGEN URINE 0.2 E.U./dL (0.2-1.0)
[2018-08-16 22:30] VITALS: BP 127/74
== END 2018-08-17 00:11 | disposition home or self-care (01) ==
LOC: ER 18:09
DX: E11.649 Type 2 diabetes mellitus with hypoglycemia without coma (principal); R10.9 Unspecified abdominal pain; E78.00 Pure hypercholesterolemia, unspecified; F17.200 Nicotine dependence, unspecified, uncomplicated; I10 Essential (primary) hypertension; Z79.899 Other long term (current) drug therapy; Z79.4 Long term (current) use of insulin; Z88.2 Allergy status to sulfonamides
CPT/HCPCS: 36415; 71045; 74176; 80053; 81003; 81025; 82962; 83690; 84703; 85025; 96361; 96374; 96375; 96376; 99284; J1200; J2270; J2405; J7030

== ENCOUNTER 2018-08-27 09:34 | Inpatient (IN) | payer MEDICAID ==
[~2018-08-27] VITALS: Ht 165.1 cm; Wt 65.8 kg
[2018-08-27] MEDS ORDERED: ONDANSETRON HCL 4MG/2ML INJ IV STA (10:17)
[2018-08-27] MEDS ORDERED: SODIUM CHLORIDE 0.9% 1000ML BAG (SEPSIS BOLUS) IV ONE (10:30)
[2018-08-27] MEDS ORDERED: LORAZEPAM 2MG/ML CPJ IV ONE (10:30)
[2018-08-27] MEDS ORDERED: FENTANYL CITRATE/PF 50MCG/ML 2ML VIAL IV ONE (10:30)
[2018-08-27 10:52] LABS: BG BASE EXCESS 2.1 mmol/L (-2.0-2.0); BG CARBOXYHEMOGLOBIN 0.4 % (0.5-1.5); BG DEOXYHEMOGLOBIN 3.8 % (0.0-5.0); BG FRACTION INSPIRED OXYGEN 21; BG HCO3 ACT 28.3 mmol/L (22.0-26.0); BG METHEMOGLOBIN 0.2 % (0.0-1.5); BG OXYGEN SATURATION 96.2 % (92.0-98.5); BG OXYHEMOGLOBIN 95.6 % (94.0-97.0); BG PCO2 51.9 mmHg (35.0-45.0); BG PH 7.354 (7.350-7.450); BG PO2 87.4 mmHg (75.0-100.0); BG SAMPLE SITE RIGHT RADIAL; BG TOTAL HEMOGLOBIN 10.4 g/dL (12.0-18.0); BG VENT MODE ROOM AIR
[2018-08-27 10:53] LABS: BASOPHILS % 0.6 % (0.0-2.0); EOSINOPHILS % 0.9 % (0.0-5.0); HEMATOCRIT. 32.6 % (36.0-48.0); HEMOGLOBIN. 10.4 g/dL (12.0-16.0); LYMPHOCYTES % 25.2 % (20.0-50.0); MEAN CORPUSCULAR HEMOGLOBIN 26.2 pg (28.0-32.0); MEAN CORPUSCULAR VOLUME 82.1 fL (81.0-99.0); MEAN PLATELET VOLUME 7.7 fl (7.4-10.4); MONOCYTES % 5.1 % (2.0-8.0); NEUTROPHILS % 68.2 % (40.0-76.0); PLATELET 383 x1000/uL (130-400); RED BLOOD CELL COUNT 3.97 mill/uL (4.2-5.4); RED CELL DISTRIBUTION WIDTH 16.4 % (11.6-14.6)
[2018-08-27 10:59] LABS: CHLORIDE 103 mEq/L (98-107)
[2018-08-27 11:03] LABS: INR 0.9; PROTHROMBIN TIME 9.5 sec (9.1-11.1)
[2018-08-27 11:04] LABS: ETHANOL BLOOD < 10 mg/dL
[2018-08-27 11:09] LABS: BETA HYDROXYBUTYRATE 0.1 mMol/L (0.0-0.3); HCG SCREEN NEGATIVE
[2018-08-27] MEDS ORDERED: INSULIN REGULAR (HUMULIN R) 300UNITS/3ML SUBCUT ONE (11:30)
[2018-08-27 11:54] LABS: CLARITY URINE CLEAR (CLEAR); COLOR URINE YELLOW (YELLOW); KETONES URINE NEGATIVE (NEGATIVE); LEUKOCYTE ESTERASE URINE NEGATIVE (NEGATIVE); NITRITE URINE NEGATIVE (NEGATIVE); OCCULT BLOOD URINE 2+ (NEGATIVE); PROTEIN URINE 2+ (NEGATIVE); SPECIFIC GRAVITY URINE 1.025 (1.005-1.030); UROBILINOGEN URINE 0.2 E.U./dL (0.2-1.0)
[2018-08-27] MEDS ORDERED: SODIUM CHLORIDE 0.45% 1,000 ML IV SCH (12:57)
[2018-08-27] MEDS ORDERED: IPRATROPIUM/ALBUTEROL 0.5-3(2.5)MG/3ML NEB INH PRN (13:00)
[2018-08-27] MEDS ORDERED: CLONIDINE 0.1MG TABLET PO PRN (13:00)
[2018-08-27] MEDS ORDERED: DOCUSATE SODIUM 100MG CAPSULE PO PRN (13:00)
[2018-08-27] MEDS ORDERED: GUAIFENESIN 200MG/10ML SUGAR FREE UDC PO PRN (13:00)
[2018-08-27] MEDS ORDERED: LORAZEPAM 2MG/ML CPJ IV PRN (13:00)
[2018-08-27] MEDS ORDERED: ACETAMINOPHEN 325MG TABLET PO PRN (13:00)
[2018-08-27] MEDS ORDERED: NA PHOS,M-B/NA PHOS,DI-BA ENEMA 118ML PR PRN (13:00)
[2018-08-27] MEDS ORDERED: MAGNESIUM/ALUMINUM HYDROXIDE/SIMETHICONE 30ML UDC PO PRN (13:00)
[2018-08-27] MEDS ORDERED: ONDANSETRON HCL 4MG/2ML INJ IV PRN (13:00)
[2018-08-27 13:03] LABS: *AMPHETAMINES SCREEN URINE NEGATIVE (NEGATIVE); *BARBITURATES SCREEN URINE NEGATIVE (NEGATIVE); *BENZODIAZEPINES SCREEN URINE NEGATIVE (NEGATIVE); *COCAINE SCREEN URINE NEGATIVE (NEGATIVE)
[2018-08-27 13:04] LABS: CANNABINOID URINE SCREEN NEGATIVE (NEGATIVE); METHADONE URINE SCREEN NEGATIVE (NEGATIVE); OPIATES URINE SCREEN NEGATIVE (NEGATIVE); PHENCYCLIDINE URINE SCREEN NEGATIVE (NEGATIVE)
[2018-08-27 14:00] VITALS: BP 118/80
[2018-08-27] MEDS ORDERED: MORPHINE SULFATE 10 MG/ML CPJ IV PRN (14:00)
[2018-08-27 14:20] VITALS: BP 118/80
[2018-08-27] MEDS: DIPHENHYDRAMINE 50MG/ML VIAL IV PRN ×2 (14:24→21:06)
[2018-08-27 14:30] VITALS: BP 137/97
[2018-08-27] MEDS: ENOXAPARIN 40MG/0.4ML SYR SUBCUT SCH (17:12)
[2018-08-27] MEDS ORDERED: DEXTROSE 50% WATER 50ML SYRINGE IV PRN (19:45)
[2018-08-27 20:00] VITALS: BP 114/73
[2018-08-27] MEDS: BLOOD SUGAR DIAGNOSTIC STRIP TEST SCH (21:04)
[2018-08-27] MEDS: HYDROCODONE/ACETAMINOPHEN 10/325MG TABLET PO PRN (21:05)
[2018-08-27] MEDS: INSULIN LISPRO 100 UNITS/ML SUBCUT SCH (22:10)
[2018-08-27 23:39] LABS: CHLORIDE 101 mEq/L (98-107)
[2018-08-28] VITALS: BP 105/61
[2018-08-28] MEDS: HYDROCODONE/ACETAMINOPHEN 10/325MG TABLET PO PRN ×2 (02:44→08:54)
[2018-08-28] MEDS: DIPHENHYDRAMINE 50MG/ML VIAL IV PRN ×2 (02:45→08:58)
[2018-08-28 04:00] VITALS: BP 121/81
[2018-08-28 06:25] LABS: CHLORIDE 99 mEq/L (98-107)
[2018-08-28] MEDS: INSULIN LISPRO 100 UNITS/ML SUBCUT SCH (07:03)
[2018-08-28 08:00] VITALS: BP 147/87
[2018-08-28] MEDS: BLOOD SUGAR DIAGNOSTIC STRIP TEST SCH (08:01)
[2018-08-28] MEDS: ENOXAPARIN 40MG/0.4ML SYR SUBCUT SCH (08:40)
[2018-08-28 10:00] VITALS: BP 147/87
[2018-08-28] MEDS ORDERED: INSULIN GLARGINE UD 100 UNITS/ML SYR SUBCUT SCH (10:00)
[2018-08-28 12:00] VITALS: BP 120/75
== END 2018-08-28 12:20 | disposition home or self-care (01) | DRG 241 ==
LOC: ER 09:43 → 6EST 12:11 → EDBEDREQ 12:14 → EDBEDREQTM 12:14 → EDBEDREQSVC 12:14 → ENRESERV 12:27
PROVIDERS: ADMIT Internal Medicine; ATTEND Internal Medicine
DX: K29.70 Gastritis, unspecified, without bleeding (principal); E11.9 Type 2 diabetes mellitus without complications; E78.00 Pure hypercholesterolemia, unspecified; N28.9 Disorder of kidney and ureter, unspecified; G89.29 Other chronic pain; I10 Essential (primary) hypertension; I25.10 Atherosclerotic heart disease of native coronary artery without angina pectoris; Z79.4 Long term (current) use of insulin; Z91.19 Patient's noncompliance with other medical treatment and regimen; Z98.891 History of uterine scar from previous surgery; Z88.2 Allergy status to sulfonamides; Z79.1 Long term (current) use of non-steroidal anti-inflammatories (NSAID); Z79.899 Other long term (current) drug therapy; Z76.5 Malingerer [conscious simulation]
CPT/HCPCS: 36415; 36600; 71045; 74176; 80048; 80305; 82010; 82375; 82805; 82962; 83605; 83735; 83880; 84145; 84484; 84703; 93005; 96374; 96375; 99285; G0482; J1200; J1650; J1815; J2060; J2270; J2405; J3010; J7030

== ENCOUNTER 2018-09-07 22:29 | Inpatient (IN) | payer MEDICAID ==
[~2018-09-07] VITALS: Ht 165.1 cm; Wt 51.3 kg
[2018-09-08] MEDS ORDERED: MORPHINE SULFATE 4 MG/ML CPJ (NOT FOR IM USE) IV STA (00:04)
[2018-09-08] MEDS ORDERED: SODIUM CHLORIDE 0.9% 1,000 ML IV ONE (00:04)
[2018-09-08] MEDS ORDERED: ONDANSETRON HCL 4MG/2ML INJ IV STA (00:04)
[2018-09-08] MEDS ORDERED: NEOMY SULF/BACITRAC ZN/POLY OINT 28GM TOP ONE (00:15)
[2018-09-08 00:45] LABS: BASOPHILS % 0.2 % (0.0-2.0); EOSINOPHILS % 0.6 % (0.0-5.0); HEMATOCRIT. 31.1 % (36.0-48.0); HEMOGLOBIN. 10.3 g/dL (12.0-16.0); LYMPHOCYTES % 26.1 % (20.0-50.0); MEAN CORPUSCULAR HEMOGLOBIN 26.9 pg (28.0-32.0); MEAN CORPUSCULAR VOLUME 81.3 fL (81.0-99.0); MEAN PLATELET VOLUME 7.1 fl (7.4-10.4); MONOCYTES % 4.4 % (2.0-8.0); NEUTROPHILS % 68.7 % (40.0-76.0); PLATELET 500 x1000/uL (130-400); RED BLOOD CELL COUNT 3.83 mill/uL (4.2-5.4); RED CELL DISTRIBUTION WIDTH 16.6 % (11.6-14.6)
[2018-09-08 00:51] LABS: CHLORIDE 102 mEq/L (98-107)
[2018-09-08 01:00] LABS: BETA HYDROXYBUTYRATE 0.1 mMol/L (0.0-0.3)
[2018-09-08] MEDS ORDERED: CLINDAMYCIN 600 MG in DEXTROSE 5% WATER 50 ML IV ONE (03:00)
[2018-09-08] MEDS ORDERED: DIPHENHYDRAMINE 50MG/ML VIAL IV ONE (04:00)
[2018-09-08 12:21] VITALS: BP 205/128
[2018-09-08] MEDS ORDERED: ONDA8TAB59 MT (12:48)
[2018-09-08 13:02] VITALS: BP 205/128
[2018-09-08] MEDS ORDERED: HYDRALAZINE 20MG/ML VIAL IV PRN (13:15)
[2018-09-08] MEDS ORDERED: ACETAMINOPHEN 325MG TABLET PO PRN (13:15)
[2018-09-08] MEDS: MORPHINE SULFATE 4 MG/ML CPJ (NOT FOR IM USE) IV PRN ×2 (13:39→19:06)
[2018-09-08] MEDS: LISINOPRIL 20MG TABLET PO SCH (14:27)
[2018-09-08] MEDS: PANTOPRAZOLE 40MG DR TABLET PO SCH (14:27)
[2018-09-08] MEDS: HYDRALAZINE HCL 25MG TABLET PO SCH ×2 (14:28→21:34)
[2018-09-08] MEDS: ENOXAPARIN 40MG/0.4ML SYR SUBCUT SCH (14:28)
[2018-09-08] MEDS ORDERED: PNEUMOCOCCAL 23-VAL P-SAC VAC 0.5 ML IM ONE (14:30)
[2018-09-08 16:00] VITALS: BP 139/67
[2018-09-08] MEDS: BLOOD SUGAR DIAGNOSTIC STRIP TEST SCH ×2 (17:10→20:17)
[2018-09-08] MEDS: INSULIN LISPRO (MEDIUM DOSE) 100 UNITS/ML SUBCUT SCH ×2 (18:24→20:17)
[2018-09-08] MEDS: INSULIN LISPRO 100 UNITS/ML SUBCUT SCH (18:25)
[2018-09-08] MEDS: DIPHENHYDRAMINE 50MG/ML VIAL IV PRN (18:29)
[2018-09-08 20:00] VITALS: BP 105/64
[2018-09-08] MEDS: ALPRAZOLAM 0.5 MG TABLET PO SCH (21:16)
[2018-09-08] MEDS: INSULIN GLARGINE UD 100 UNITS/ML SYR SUBCUT SCH (21:18)
[2018-09-08] MEDS: SILVER SULFADIAZINE 1% CREAM 25GM TOP SCH (22:57)
[2018-09-09] VITALS: BP 112/57
[2018-09-09] MEDS: HYDRALAZINE HCL 25MG TABLET PO SCH ×3 (06:00→21:14)
[2018-09-09] MEDS: BLOOD SUGAR DIAGNOSTIC STRIP TEST SCH ×4 (06:08→19:54)
[2018-09-09] MEDS: INSULIN LISPRO (MEDIUM DOSE) 100 UNITS/ML SUBCUT SCH ×4 (06:08→19:54)
[2018-09-09] MEDS: DEXTROSE 50% WATER 50ML SYRINGE IV PRN (06:20)
[2018-09-09 07:36] LABS: CHLORIDE 107 mEq/L (98-107)
[2018-09-09 08:00] VITALS: BP 105/74
[2018-09-09 08:00] LABS: BASOPHILS % 0.9 % (0.0-2.0); EOSINOPHILS % 1.8 % (0.0-5.0); HEMATOCRIT. 34.6 % (36.0-48.0); HEMOGLOBIN. 10.8 g/dL (12.0-16.0); LYMPHOCYTES % 52.4 % (20.0-50.0); MEAN CORPUSCULAR HEMOGLOBIN 26.6 pg (28.0-32.0); MEAN CORPUSCULAR VOLUME 85.3 fL (81.0-99.0); MONOCYTES % 3.9 % (2.0-8.0); RED BLOOD CELL COUNT 4.05 mill/uL (4.2-5.4); RED CELL DISTRIBUTION WIDTH 16.8 % (11.6-14.6)
[2018-09-09] MEDS: INSULIN LISPRO 100 UNITS/ML SUBCUT SCH ×3 (08:15→17:22)
[2018-09-09] MEDS: LISINOPRIL 20MG TABLET PO SCH (08:18)
[2018-09-09] MEDS: PANTOPRAZOLE 40MG DR TABLET PO SCH (08:38)
[2018-09-09] MEDS: SILVER SULFADIAZINE 1% CREAM 25GM TOP SCH ×2 (08:39→09:00)
[2018-09-09] MEDS: ALPRAZOLAM 0.5 MG TABLET PO SCH ×2 (08:40→20:03)
[2018-09-09 10:22] LABS: PLATELET 190 x1000/uL (130-400)
[2018-09-09] MEDS: INSULIN GLARGINE UD 100 UNITS/ML SYR SUBCUT SCH ×2 (10:35→21:19)
[2018-09-09 12:00] VITALS: BP 119/79
[2018-09-09] MEDS: MORPHINE SULFATE 4 MG/ML CPJ (NOT FOR IM USE) IV PRN ×2 (13:11→17:23)
[2018-09-09] MEDS: DIPHENHYDRAMINE 50MG/ML VIAL IV PRN (15:18)
[2018-09-09] MEDS: ENOXAPARIN 40MG/0.4ML SYR SUBCUT SCH (15:19)
[2018-09-09] MEDS: ONDANSETRON HCL 4MG/2ML INJ IV PRN (15:44)
[2018-09-09 16:00] VITALS: BP 120/72
[2018-09-09] MEDS ORDERED: LORAZEPAM 2MG/ML CPJ IV NR (17:30)
[2018-09-09 20:00] VITALS: BP 98/62
[2018-09-10] VITALS (7 sets, daily range): BP systolic 99–143; BP diastolic 60–90
[2018-09-10] MEDS: INSULIN LISPRO (MEDIUM DOSE) 100 UNITS/ML SUBCUT SCH ×4 (05:45→20:41)
[2018-09-10] MEDS: BLOOD SUGAR DIAGNOSTIC STRIP TEST SCH ×4 (05:45→20:41)
[2018-09-10] MEDS: MORPHINE SULFATE 4 MG/ML CPJ (NOT FOR IM USE) IV PRN ×4 (05:54→21:59)
[2018-09-10] MEDS: HYDRALAZINE HCL 25MG TABLET PO SCH ×3 (06:00→23:06)
[2018-09-10] MEDS: INSULIN LISPRO 100 UNITS/ML SUBCUT SCH ×3 (08:46→16:43)
[2018-09-10] MEDS: ALPRAZOLAM 0.5 MG TABLET PO SCH ×2 (08:49→21:00)
[2018-09-10] MEDS: PANTOPRAZOLE 40MG DR TABLET PO SCH (08:49)
[2018-09-10] MEDS: SILVER SULFADIAZINE 1% CREAM 25GM TOP SCH (08:51)
[2018-09-10] MEDS: LISINOPRIL 20MG TABLET PO SCH (09:12)
[2018-09-10] MEDS: INSULIN GLARGINE UD 100 UNITS/ML SYR SUBCUT SCH (09:13)
[2018-09-10] MEDS: DIPHENHYDRAMINE 50MG/ML VIAL IV PRN ×2 (12:48→20:35)
[2018-09-10] MEDS: ENOXAPARIN 40MG/0.4ML SYR SUBCUT SCH (16:18)
[2018-09-10] MEDS: DEXTROSE 50% WATER 50ML SYRINGE IV PRN ×2 (16:46→16:55)
[2018-09-11] VITALS (7 sets, daily range): BP systolic 99–162; BP diastolic 54–95
[2018-09-11] MEDS: BLOOD SUGAR DIAGNOSTIC STRIP TEST SCH ×4 (05:54→21:31)
[2018-09-11] MEDS: HYDRALAZINE HCL 25MG TABLET PO SCH ×3 (06:00→22:03)
[2018-09-11] MEDS: INSULIN LISPRO (MEDIUM DOSE) 100 UNITS/ML SUBCUT SCH ×4 (06:03→22:03)
[2018-09-11] MEDS: ALPRAZOLAM 0.5 MG TABLET PO SCH ×2 (09:00→22:01)
[2018-09-11] MEDS: SILVER SULFADIAZINE 1% CREAM 25GM TOP SCH (09:00)
[2018-09-11] MEDS: INSULIN LISPRO 100 UNITS/ML SUBCUT SCH ×3 (09:59→17:00)
[2018-09-11] MEDS: ONDANSETRON HCL 4MG/2ML INJ IV PRN (10:03)
[2018-09-11] MEDS: LISINOPRIL 20MG TABLET PO SCH (10:03)
[2018-09-11] MEDS: MORPHINE SULFATE 4 MG/ML CPJ (NOT FOR IM USE) IV PRN ×3 (10:03→17:02)
[2018-09-11] MEDS: DIPHENHYDRAMINE 50MG/ML VIAL IV PRN ×2 (10:03→17:02)
[2018-09-11] MEDS: FAMOTIDINE 20MG/2ML VIAL IV SCH ×2 (10:03→22:00)
[2018-09-11] MEDS: ENOXAPARIN 40MG/0.4ML SYR SUBCUT SCH (14:01)
[2018-09-11] MEDS ORDERED: INSULIN GLARGINE UD 100 UNITS/ML SYR SUBCUT SCH (22:00)
[2018-09-11] MEDS: INSULIN GLARGINE UD 100 UNITS/ML SYR SUBCUT SCH (22:03)
[2018-09-12] VITALS: BP 138/91
[2018-09-12] MEDS: DIPHENHYDRAMINE 50MG/ML VIAL IV PRN ×2 (00:19→13:31)
[2018-09-12] MEDS: MORPHINE SULFATE 4 MG/ML CPJ (NOT FOR IM USE) IV PRN ×3 (00:19→13:32)
[2018-09-12 04:00] VITALS: BP 166/102
[2018-09-12] MEDS: HYDRALAZINE HCL 25MG TABLET PO SCH ×2 (04:45→13:47)
[2018-09-12] MEDS: BLOOD SUGAR DIAGNOSTIC STRIP TEST SCH ×2 (06:23→12:47)
[2018-09-12] MEDS: INSULIN LISPRO (MEDIUM DOSE) 100 UNITS/ML SUBCUT SCH ×2 (06:42→12:40)
[2018-09-12 08:00] VITALS: BP 120/82
[2018-09-12 08:22] LABS: CHLORIDE 98 mEq/L (98-107)
[2018-09-12] MEDS: FAMOTIDINE 20MG/2ML VIAL IV SCH (08:38)
[2018-09-12] MEDS: LISINOPRIL 20MG TABLET PO SCH (08:39)
[2018-09-12] MEDS: ALPRAZOLAM 0.5 MG TABLET PO SCH (08:39)
[2018-09-12] MEDS: INSULIN LISPRO 100 UNITS/ML SUBCUT SCH ×2 (08:41→13:33)
[2018-09-12] MEDS: SILVER SULFADIAZINE 1% CREAM 25GM TOP SCH (09:00)
[2018-09-12] MEDS: INSULIN GLARGINE UD 100 UNITS/ML SYR SUBCUT SCH (10:05)
[2018-09-12 12:00] VITALS: BP 126/75
[2018-09-12] MEDS: ENOXAPARIN 40MG/0.4ML SYR SUBCUT SCH (15:09)
[2018-09-12] MEDS ORDERED: SODIUM POLYSTYRENE SULFONATE 15 G/60 ML BOT PO NR (15:45)
[2018-09-12 15:49] VITALS: BP 126/75
== END 2018-09-12 16:30 | disposition home health service (06) | DRG 844 ==
LOC: ER 22:29 → EDBEDREQTM 09-08 04:33 → EDBEDREQSVC 09-08 04:33 → EDBEDREQ 09-08 04:33 → EDBEDREQTM 09-08 06:08 → EDBEDREQ 09-08 06:08 → 6EST 09-08 06:09 → ENRESERV 09-08 09:58 → 8WST 09-08 12:47
PROVIDERS: ADMIT Internal Medicine; ATTEND Internal Medicine
DX: T25.321A Burn of third degree of right foot, initial encounter (principal); E43 Unspecified severe protein-calorie malnutrition; E10.22 Type 1 diabetes mellitus with diabetic chronic kidney disease; E10.40 Type 1 diabetes mellitus with diabetic neuropathy, unspecified; L03.115 Cellulitis of right lower limb; T25.022A Burn of unspecified degree of left foot, initial encounter; E10.649 Type 1 diabetes mellitus with hypoglycemia without coma; I12.9 Hypertensive chronic kidney disease with stage 1 through stage 4 chronic kidney disease, or unspecified chronic kidney disease; F41.9 Anxiety disorder, unspecified; S90.811A Abrasion, right foot, initial encounter; F32.9 Major depressive disorder, single episode, unspecified; N18.3 Chronic kidney disease, stage 3 (moderate); D64.9 Anemia, unspecified; F17.200 Nicotine dependence, unspecified, uncomplicated; X11.8XXA Contact with other hot tap-water, initial encounter; Z91.11 Patient's noncompliance with dietary regimen; Z98.891 History of uterine scar from previous surgery; Z88.2 Allergy status to sulfonamides; Z79.899 Other long term (current) drug therapy; Z79.4 Long term (current) use of insulin; Y93.E5 Activity, floor mopping and cleaning; Y92.098 Other place in other non-institutional residence as the place of occurrence of the external cause; Y99.8 Other external cause status; Z68.1 Body mass index [BMI] 19.9 or less, adult
CPT/HCPCS: 36415; 80048; 82010; 82962; 83605; 84145; 90732; 96374; 99285; J0360; J1200; J1650; J1815; J2060; J2270; J2405; J3490; J7030; J7060

== ENCOUNTER 2018-09-18 02:04 | Emergency (ER) | payer MEDICAID ==
[~2018-09-18] VITALS: Ht 165.1 cm; Wt 59.0 kg
[~2018-09-18 02:04] MED LIST changes: -AMIT25TA9 PO; -BACL-141 PO; -CITA10TA9 PO; -FERR325T6 PO; -GABA-531 PO; +ONDA8TAB59 MT; -S350 PO
[2018-09-18] MEDS ORDERED: HYDROCODONE/ACETAMINOPHEN 5/325MG TABLET PO ONE (04:15)
[2018-09-18 05:15] VITALS: BP 145/74
== END 2018-09-18 06:35 | disposition home or self-care (01) ==
LOC: ER 02:04
DX: T25.221A Burn of second degree of right foot, initial encounter (principal); T31.0 Burns involving less than 10% of body surface; F17.200 Nicotine dependence, unspecified, uncomplicated; X08.8XXA Exposure to other specified smoke, fire and flames, initial encounter; Y93.89 Activity, other specified; Y92.89 Other specified places as the place of occurrence of the external cause; Y99.8 Other external cause status; Z98.890 Other specified postprocedural states; Z79.4 Long term (current) use of insulin; Z79.899 Other long term (current) drug therapy; Z88.2 Allergy status to sulfonamides
CPT/HCPCS: 16020; 99284

== ENCOUNTER 2018-09-21 13:36 | Inpatient (IN) | payer MEDICAID ==
[~2018-09-21] VITALS: Ht 165.1 cm; Wt 57.2 kg
[2018-09-21] MEDS ORDERED: MORPHINE SULFATE 4 MG/ML CPJ (NOT FOR IM USE) IV STA (15:16)
[2018-09-21] MEDS ORDERED: ONDANSETRON HCL 4MG/2ML INJ IV STA (15:16)
[2018-09-21] MEDS ORDERED: PIPERACILLIN/TAZ 3.375G PREMIX 50 ML IV ONE (15:30)
[2018-09-21] MEDS ORDERED: VANCOMYCIN 1 G PREMIX 200 ML IV ONE (15:30)
[2018-09-21] MEDS ORDERED: IBUPROFEN 600MG TABLET PO ONE (15:30)
[2018-09-21] MEDS ORDERED: SODIUM CHLORIDE 0.9% 1000ML BAG (SEPSIS BOLUS) IV ONE (15:30)
[2018-09-21 15:55] LABS: BASOPHILS % 0.4 % (0.0-2.0); EOSINOPHILS % 0.3 % (0.0-5.0); HEMATOCRIT. 31.7 % (36.0-48.0); HEMOGLOBIN. 9.8 g/dL (12.0-16.0); LYMPHOCYTES % 21.2 % (20.0-50.0); MEAN CORPUSCULAR HEMOGLOBIN 25.8 pg (28.0-32.0); MEAN CORPUSCULAR VOLUME 83.5 fL (81.0-99.0); MEAN PLATELET VOLUME 7.6 fl (7.4-10.4); MONOCYTES % 2.5 % (2.0-8.0); NEUTROPHILS % 75.6 % (40.0-76.0); PLATELET 562 x1000/uL (130-400); RED CELL DISTRIBUTION WIDTH 15.9 % (11.6-14.6)
[2018-09-21 16:01] LABS: CHLORIDE 87 mEq/L (98-107)
[2018-09-21] MEDS ORDERED: INSULIN REGULAR (DRIP) 100 UNITS in SODIUM CHLORIDE 0.9% 100 ML IV ONE (16:30)
[2018-09-21] MEDS ORDERED: FENTANYL CITRATE/PF 50MCG/ML 2ML VIAL IV ONE (17:30)
[2018-09-21 18:11] LABS: CLARITY URINE CLEAR (CLEAR); COLOR URINE YELLOW (YELLOW); KETONES URINE NEGATIVE (NEGATIVE); LEUKOCYTE ESTERASE URINE NEGATIVE (NEGATIVE); NITRITE URINE NEGATIVE (NEGATIVE); OCCULT BLOOD URINE TRACE (NEGATIVE); PH URINE 6.5 (4.5-8.0); PROTEIN URINE 1+ (NEGATIVE); SPECIFIC GRAVITY URINE 1.028 (1.005-1.030); UROBILINOGEN URINE 0.2 E.U./dL (0.2-1.0)
[2018-09-21] MEDS ORDERED: INSULIN REGULAR (DRIP) 100 UNITS in SODIUM CHLORIDE 0.9% 100 ML IV NR (18:15)
[2018-09-21 18:38] LABS: BG BASE EXCESS -2.2 mmol/L (-2.0-2.0); BG CARBOXYHEMOGLOBIN 0.3 % (0.5-1.5); BG DEOXYHEMOGLOBIN 4.2 % (0.0-5.0); BG FRACTION INSPIRED OXYGEN 21; BG HCO3 ACT 24.6 mmol/L (22.0-26.0); BG METHEMOGLOBIN 0.3 % (0.0-1.5); BG OXYGEN SATURATION 95.8 % (92.0-98.5); BG OXYHEMOGLOBIN 95.2 % (94.0-97.0); BG PCO2 51.6 mmHg (35.0-45.0); BG PH 7.296 (7.350-7.450); BG PO2 89.2 mmHg (75.0-100.0); BG SAMPLE SITE RIGHT BRACHIAL; BG TOTAL HEMOGLOBIN 10.8 g/dL (12.0-18.0); BG VENT MODE ROOM AIR
[2018-09-21] MEDS ORDERED: LEVOFLOXACIN 500MG PREMIX 100 ML IV SCH (18:45)
[2018-09-21] MEDS ORDERED: INSULIN REGULAR (DRIP) 100 UNITS in SODIUM CHLORIDE 0.9% 100 ML IV SCH (18:45)
[2018-09-21] MEDS ORDERED: IPRATROPIUM/ALBUTEROL 0.5-3(2.5)MG/3ML NEB INH PRN (20:00)
[2018-09-21] MEDS ORDERED: HYDROCODONE/ACETAMINOPHEN 10/325MG TABLET PO PRN (20:00)
[2018-09-21] MEDS ORDERED: DOCUSATE SODIUM 100MG CAPSULE PO PRN (20:00)
[2018-09-21] MEDS ORDERED: ACETAMINOPHEN 325MG TABLET PO PRN (20:00)
[2018-09-21] MEDS ORDERED: MAGNESIUM/ALUMINUM HYDROXIDE/SIMETHICONE 30ML UDC PO PRN (20:00)
[2018-09-21] MEDS ORDERED: ONDANSETRON HCL 4MG/2ML INJ IV PRN (20:00)
[2018-09-21] MEDS ORDERED: GUAIFENESIN 200MG/10ML SUGAR FREE UDC PO PRN (20:00)
[2018-09-21] MEDS ORDERED: CLONIDINE 0.1MG TABLET PO PRN (20:00)
[2018-09-21] MEDS ORDERED: NA PHOS,M-B/NA PHOS,DI-BA ENEMA 118ML PR PRN (20:00)
[2018-09-21] MEDS: MORPHINE SULFATE 4 MG/ML CPJ (NOT FOR IM USE) IV PRN (21:30)
[2018-09-21] MEDS: DIPHENHYDRAMINE 50MG/ML VIAL IV PRN (21:42)
[2018-09-21 23:53] LABS: CHLORIDE 102 mEq/L (98-107)
[2018-09-22] MEDS: MORPHINE SULFATE 4 MG/ML CPJ (NOT FOR IM USE) IV PRN ×5 (01:49→20:06)
[2018-09-22] MEDS ORDERED: LEVOFLOXACIN 500MG PREMIX 100 ML IV NR (04:00)
[2018-09-22] MEDS ORDERED: SODIUM CHLORIDE 0.45% 1,000 ML IV SCH (04:00)
[2018-09-22] MEDS: DIPHENHYDRAMINE 50MG/ML VIAL IV PRN ×5 (04:37→20:06)
[2018-09-22 06:27] LABS: CHLORIDE 101 mEq/L (98-107)
[2018-09-22 06:35] LABS: HDL CHOLESTEROL 118 mg/dL (40-59); LDL CHOLESTEROL 80 mg/dL (5-100)
[2018-09-22 06:37] LABS: BASOPHILS % 0.6 % (0.0-2.0); HEMOGLOBIN. 9.1 g/dL (12.0-16.0); LYMPHOCYTES % 47.5 % (20.0-50.0); MEAN CORPUSCULAR HEMOGLOBIN 26.1 pg (28.0-32.0); MEAN CORPUSCULAR VOLUME 79.9 fL (81.0-99.0); MEAN PLATELET VOLUME 7.1 fl (7.4-10.4); MONOCYTES % 3.6 % (2.0-8.0); NEUTROPHILS % 47.3 % (40.0-76.0); PLATELET 513 x1000/uL (130-400); RED BLOOD CELL COUNT 3.51 mill/uL (4.2-5.4); RED CELL DISTRIBUTION WIDTH 15.7 % (11.6-14.6)
[2018-09-22] MEDS ORDERED: INSULIN LISPRO (MEDIUM DOSE) 100 UNITS/ML SUBCUT SCH (06:54)
[2018-09-22] MEDS ORDERED: DEXTROSE 50% WATER 50ML SYRINGE IV PRN (07:00)
[2018-09-22] MEDS: DEXT 5%/0.45% NACL 1000ML 1,000 ML IV SCH ×2 (07:30→16:13)
[2018-09-22 13:25] VITALS: BP 122/59
[2018-09-22 14:00] VITALS: BP 150/95
[2018-09-22] MEDS: ASPIRIN 81MG EC TABLET PO SCH (14:48)
[2018-09-22] MEDS: ENOXAPARIN 40MG/0.4ML SYR SUBCUT SCH (14:49)
[2018-09-22 16:00] VITALS: BP 118/76
[2018-09-22] MEDS: BLOOD SUGAR DIAGNOSTIC STRIP TEST SCH ×3 (16:00→21:00)
[2018-09-22 18:00] VITALS: BP 102/37
[2018-09-22] MEDS ORDERED: INSULIN LISPRO 100 UNITS/ML SUBCUT ONE (19:00)
[2018-09-22 19:55] VITALS: BP 114/65
[2018-09-22] MEDS ORDERED: INSULIN LISPRO 100 UNITS/ML SUBCUT SCH (21:00)
[2018-09-22] MEDS: LORAZEPAM 2MG/ML CPJ IV PRN (21:12)
[2018-09-22] MEDS: INSULIN LISPRO 100 UNITS/ML SUBCUT SCH (21:13)
[2018-09-22 21:55] VITALS: BP 117/64
[2018-09-23] VITALS (12 sets, daily range): BP systolic 111–155; BP diastolic 49–97
[2018-09-23] MEDS: INSULIN LISPRO 100 UNITS/ML SUBCUT SCH ×6 (00:34→20:00)
[2018-09-23] MEDS: BLOOD SUGAR DIAGNOSTIC STRIP TEST SCH ×6 (00:34→20:28)
[2018-09-23] MEDS: DIPHENHYDRAMINE 50MG/ML VIAL IV PRN ×4 (00:35→14:55)
[2018-09-23] MEDS: DEXT 5%/0.45% NACL 1000ML 1,000 ML IV SCH ×4 (00:35→09:00)
[2018-09-23] MEDS: MORPHINE SULFATE 4 MG/ML CPJ (NOT FOR IM USE) IV PRN ×4 (00:36→14:55)
[2018-09-23] MEDS: LEVOFLOXACIN 500MG PREMIX 100 ML IV SCH (04:06)
[2018-09-23] MEDS: LORAZEPAM 2MG/ML CPJ IV PRN ×2 (04:07→12:30)
[2018-09-23] MEDS: ENOXAPARIN 40MG/0.4ML SYR SUBCUT SCH (08:59)
[2018-09-23 09:29] LABS: BASOPHILS % 0.5 % (0.0-2.0); EOSINOPHILS % 0.4 % (0.0-5.0); HEMATOCRIT. 30.3 % (36.0-48.0); HEMOGLOBIN. 9.7 g/dL (12.0-16.0); LYMPHOCYTES % 30.6 % (20.0-50.0); MEAN CORPUSCULAR HEMOGLOBIN 26.2 pg (28.0-32.0); MEAN CORPUSCULAR VOLUME 81.3 fL (81.0-99.0); MEAN PLATELET VOLUME 7.6 fl (7.4-10.4); MONOCYTES % 2.9 % (2.0-8.0); NEUTROPHILS % 65.6 % (40.0-76.0); PLATELET 562 x1000/uL (130-400); RED BLOOD CELL COUNT 3.73 mill/uL (4.2-5.4); RED CELL DISTRIBUTION WIDTH 16.3 % (11.6-14.6)
[2018-09-23] MEDS: ASPIRIN 81MG EC TABLET PO SCH (10:08)
[2018-09-23 10:42] LABS: CHLORIDE 102 mEq/L (98-107)
[2018-09-24] MEDS: MORPHINE SULFATE 4 MG/ML CPJ (NOT FOR IM USE) IV PRN ×2 (00:08→06:30)
[2018-09-24] MEDS: BLOOD SUGAR DIAGNOSTIC STRIP TEST SCH ×3 (00:09→08:16)
[2018-09-24] MEDS: DIPHENHYDRAMINE 50MG/ML VIAL IV PRN ×2 (00:09→06:30)
[2018-09-24] MEDS: INSULIN LISPRO 100 UNITS/ML SUBCUT SCH ×3 (00:16→08:00)
[2018-09-24] MEDS ORDERED: INSULIN LISPRO 100 UNITS/ML SUBCUT NR (01:00)
[2018-09-24] MEDS: LORAZEPAM 2MG/ML CPJ IV PRN ×2 (01:22→09:13)
[2018-09-24] MEDS ORDERED: SODIUM CHLORIDE 0.45% 1,000 ML IV SCH (02:00)
[2018-09-24 02:01] VITALS: BP 150/88
[2018-09-24 03:41] VITALS: BP 150/93
[2018-09-24] MEDS: LEVOFLOXACIN 500MG PREMIX 100 ML IV SCH (05:32)
[2018-09-24 06:00] VITALS: BP 143/93
[2018-09-24 07:43] LABS: BASOPHILS % 0.8 % (0.0-2.0); EOSINOPHILS % 0.6 % (0.0-5.0); HEMATOCRIT. 28.4 % (36.0-48.0); HEMOGLOBIN. 9.2 g/dL (12.0-16.0); LYMPHOCYTES % 36.8 % (20.0-50.0); MEAN CORPUSCULAR HEMOGLOBIN 26.3 pg (28.0-32.0); MEAN PLATELET VOLUME 7.3 fl (7.4-10.4); MONOCYTES % 4.5 % (2.0-8.0); NEUTROPHILS % 57.3 % (40.0-76.0); PLATELET 494 x1000/uL (130-400); RED CELL DISTRIBUTION WIDTH 16.4 % (11.6-14.6)
[2018-09-24 07:52] LABS: CHLORIDE 103 mEq/L (98-107)
[2018-09-24 08:00] VITALS: BP 111/69
[2018-09-24] MEDS: ASPIRIN 81MG EC TABLET PO SCH (09:13)
[2018-09-24] MEDS: ENOXAPARIN 40MG/0.4ML SYR SUBCUT SCH (09:13)
[2018-09-24 10:00] VITALS: BP 115/78
[2018-09-24 10:18] VITALS: BP 143/96
== END 2018-09-24 12:05 | disposition home or self-care (01) | DRG 420 ==
LOC: ER 13:36 → 5EST 16:28 → EDBEDREQTM 16:31 → EDBEDREQ 16:31 → EDBEDREQSVC 16:31 → ENRESERV 09-22 12:08 → 5EST 09-23 09:56
PROVIDERS: ADMIT Internal Medicine; ATTEND Internal Medicine
DX: E10.10 Type 1 diabetes mellitus with ketoacidosis without coma (principal); E43 Unspecified severe protein-calorie malnutrition; E10.621 Type 1 diabetes mellitus with foot ulcer; M86.8X8 Other osteomyelitis, other site; E86.0 Dehydration; I10 Essential (primary) hypertension; E87.1 Hypo-osmolality and hyponatremia; Z88.2 Allergy status to sulfonamides; Z79.4 Long term (current) use of insulin; E78.00 Pure hypercholesterolemia, unspecified; Z79.899 Other long term (current) drug therapy; Z91.14 Patient's other noncompliance with medication regimen
CPT/HCPCS: 36415; 36600; 71045; 80048; 80061; 82375; 82805; 82962; 83605; 84484; 93005; 96365; 96367; 96375; 99291; J1200; J1650; J1815; J1956; J2060; J2270; J2405; J2543; J3010; J3370; J3490; J7030; J7050; J7070; A4315

== ENCOUNTER 2018-10-01 13:50 | Inpatient (IN) | payer MEDICAID ==
[~2018-10-01] VITALS: Ht 162.6 cm; Wt 59.9 kg
[2018-10-01] MEDS ORDERED: SODIUM CHLORIDE 0.9% 1000ML BAG (SEPSIS BOLUS) IV ONE (14:30)
[2018-10-01 14:52] LABS: BG BASE EXCESS -15.7 mmol/L (-2.0-2.0); BG CARBOXYHEMOGLOBIN 0.3 % (0.5-1.5); BG DEOXYHEMOGLOBIN 2.8 % (0.0-5.0); BG FRACTION INSPIRED OXYGEN 21; BG HCO3 ACT 10.8 mmol/L (22.0-26.0); BG OXYGEN SATURATION 97.2 % (92.0-98.5); BG OXYHEMOGLOBIN 96.9 % (94.0-97.0); BG PH 7.206 (7.350-7.450); BG PO2 114.9 mmHg (75.0-100.0); BG SAMPLE SITE LEFT RADIAL; BG TOTAL HEMOGLOBIN 9.7 g/dL (12.0-18.0); BG VENT MODE ROOM AIR
[2018-10-01 15:31] LABS: CLARITY URINE CLEAR (CLEAR); COLOR URINE YELLOW (YELLOW); KETONES URINE 3+ (NEGATIVE); LEUKOCYTE ESTERASE URINE NEGATIVE (NEGATIVE); NITRITE URINE NEGATIVE (NEGATIVE); OCCULT BLOOD URINE NEGATIVE (NEGATIVE); PROTEIN URINE NEGATIVE (NEGATIVE); SPECIFIC GRAVITY URINE 1.024 (1.005-1.030); UROBILINOGEN URINE 0.2 E.U./dL (0.2-1.0)
[2018-10-01 15:48] LABS: HEMATOCRIT. 35.5 % (36.0-48.0); HEMOGLOBIN. 10.3 g/dL (12.0-16.0); MEAN CORPUSCULAR VOLUME 89.4 fL (81.0-99.0); MEAN PLATELET VOLUME 7.8 fl (7.4-10.4); MONOCYTES % 4.3 % (2.0-8.0); NEUTROPHILS % 74.7 % (40.0-76.0); PLATELET 545 x1000/uL (130-400); RED BLOOD CELL COUNT 3.97 mill/uL (4.2-5.4); RED CELL DISTRIBUTION WIDTH 16.8 % (11.6-14.6)
[2018-10-01 15:49] LABS: HCG SCREEN NEGATIVE
[2018-10-01 15:51] LABS: CHLORIDE 84 mEq/L (98-107)
[2018-10-01 15:54] LABS: PROTHROMBIN TIME 10.3 sec (9.1-11.1)
[2018-10-01] MEDS ORDERED: INSULIN REGULAR (DRIP) 100 UNITS in SODIUM CHLORIDE 0.9% 100 ML IV ONE (15:59)
[2018-10-01] MEDS ORDERED: SODIUM CHLORIDE 0.9% 1,000 ML IV STA (15:59)
[2018-10-01 16:54] LABS: BETA HYDROXYBUTYRATE 15.7 mMol/L (0.0-0.3)
[2018-10-01] MEDS ORDERED: INSULIN REGULAR (DRIP) 100 UNITS in SODIUM CHLORIDE 0.9% 99 ML IV PRN (17:15)
[2018-10-01] MEDS ORDERED: ONDANSETRON HCL 4MG/2ML INJ IV PRN (18:30)
[2018-10-01] MEDS ORDERED: IPRATROPIUM/ALBUTEROL 0.5-3(2.5)MG/3ML NEB INH PRN (18:30)
[2018-10-01] MEDS ORDERED: ACETAMINOPHEN 325MG TABLET PO PRN (18:30)
[2018-10-01] MEDS ORDERED: MAGNESIUM/ALUMINUM HYDROXIDE/SIMETHICONE 30ML UDC PO PRN (18:30)
[2018-10-01 22:30] VITALS: BP 136/80
[2018-10-01] MEDS: SODIUM CHLORIDE 0.9% 1,000 ML IV SCH (22:47)
[2018-10-01 22:50] VITALS: BP 136/80
[2018-10-01 23:00] VITALS: BP 149/91
[2018-10-01 23:30] VITALS: BP 144/82
[2018-10-01 23:46] LABS: CHLORIDE 97 mEq/L (98-107)
[2018-10-01 23:56] LABS: PHOSPHORUS 3.5 mg/dL (2.5-4.9)
[2018-10-01 23:59] LABS: CREATINE KINASE 106 IU/L (26-192)
[2018-10-02] VITALS (30 sets, daily range): BP systolic 88–169; BP diastolic 35–111
[2018-10-02 00:02] LABS: CREATINE KINASE MB FRACTION 6.5 ng/mL (0.5-3.6)
[2018-10-02] MEDS: SODIUM CHLORIDE 0.9% 1,000 ML IV SCH ×2 (01:03→04:57)
[2018-10-02] MEDS: DIPHENHYDRAMINE 50MG/ML VIAL IV PRN ×4 (02:14→19:17)
[2018-10-02] MEDS: INSULIN REGULAR (DRIP) 100 UNITS in SODIUM CHLORIDE 0.9% 99 ML IV SCH ×3 (02:21→10:44)
[2018-10-02] MEDS: MORPHINE SULFATE 4 MG/ML CPJ (NOT FOR IM USE) IV PRN ×6 (02:30→23:34)
[2018-10-02 06:42] LABS: CHLORIDE 103 mEq/L (98-107)
[2018-10-02 06:44] LABS: BASOPHILS % 0.6 % (0.0-2.0); EOSINOPHILS % 0.2 % (0.0-5.0); HEMATOCRIT. 26.3 % (36.0-48.0); HEMOGLOBIN. 8.4 g/dL (12.0-16.0); LYMPHOCYTES % 26.4 % (20.0-50.0); MEAN CORPUSCULAR HEMOGLOBIN 26.3 pg (28.0-32.0); MEAN CORPUSCULAR VOLUME 82.2 fL (81.0-99.0); MEAN PLATELET VOLUME 7.1 fl (7.4-10.4); MONOCYTES % 3.1 % (2.0-8.0); NEUTROPHILS % 69.7 % (40.0-76.0); PLATELET 468 x1000/uL (130-400)
[2018-10-02 06:50] LABS: LDL CHOLESTEROL 55 mg/dL (5-100)
[2018-10-02 06:52] LABS: CREATINE KINASE 81 IU/L (26-192)
[2018-10-02 06:53] LABS: HDL CHOLESTEROL 111 mg/dL (40-59)
[2018-10-02] MEDS ORDERED: SODIUM CHL 0.9% + KCL 20MEQ/L 1,000 ML IV SCH (07:30)
[2018-10-02 08:42] LABS: CHLORIDE 108 mEq/L (98-107)
[2018-10-02] MEDS: ENOXAPARIN 40MG/0.4ML SYR SUBCUT SCH (09:00)
[2018-10-02] MEDS ORDERED: ONDANSETRON HCL 4MG/2ML INJ IV PRN (09:15)
[2018-10-02] MEDS: SILVER SULFADIAZINE 1% CREAM 25GM TOP SCH ×2 (10:43→20:24)
[2018-10-02] MEDS ORDERED: DEXTROSE 50% WATER 50ML SYRINGE IV PRN ×3 (11:00→13:00)
[2018-10-02] MEDS: BLOOD SUGAR DIAGNOSTIC STRIP TEST SCH ×8 (11:13→23:14)
[2018-10-02] MEDS ORDERED: DEXT 5%/0.9% NACL KCL 20MEQ/L 1,000 ML IV SCH (12:00)
[2018-10-02] MEDS ORDERED: INFLUENZA VIRUS VACCINE(AFLURIA) 0.5ML SYR IM ONE (12:00)
[2018-10-02 12:41] LABS: CHLORIDE 106 mEq/L (98-107)
[2018-10-02] MEDS ORDERED: INSULIN REGULAR (DRIP) 100 UNITS in SODIUM CHLORIDE 0.9% 100 ML IV SCH ×2 (13:00→18:00)
[2018-10-02] MEDS ORDERED: INSULIN GLARGINE UD 100 UNITS/ML SYR SUBCUT SCH ×2 (13:00→22:00)
[2018-10-02] MEDS ORDERED: BLOOD SUGAR DIAGNOSTIC STRIP TEST SCH (16:30)
[2018-10-02] MEDS ORDERED: INSULIN LISPRO 100 UNITS/ML SUBCUT SCH (17:00)
[2018-10-02 18:04] LABS: BG BASE EXCESS -2.2 mmol/L (-2.0-2.0); BG CARBOXYHEMOGLOBIN 0.2 % (0.5-1.5); BG DEOXYHEMOGLOBIN 4.4 % (0.0-5.0); BG FRACTION INSPIRED OXYGEN 21; BG HCO3 ACT 23.5 mmol/L (22.0-26.0); BG OXYGEN SATURATION 95.6 % (92.0-98.5); BG OXYHEMOGLOBIN 95.4 % (94.0-97.0); BG PCO2 44.2 mmHg (35.0-45.0); BG PH 7.343 (7.350-7.450); BG PO2 83.1 mmHg (75.0-100.0); BG SAMPLE SITE LEFT BRACHIAL; BG TOTAL HEMOGLOBIN 8.8 g/dL (12.0-18.0); BG VENT MODE ROOM AIR
[2018-10-02] MEDS ORDERED: LORAZEPAM 2MG/ML CPJ IV PRN (18:45)
[2018-10-02 20:16] LABS: CHLORIDE 103 mEq/L (98-107)
[2018-10-03] VITALS (24 sets, daily range): BP systolic 102–145; BP diastolic 63–92
[2018-10-03] MEDS: BLOOD SUGAR DIAGNOSTIC STRIP TEST SCH ×14 (00:21→21:39)
[2018-10-03 00:29] LABS: CHLORIDE 106 mEq/L (98-107)
[2018-10-03] MEDS: DIPHENHYDRAMINE 50MG/ML VIAL IV PRN ×4 (01:20→21:40)
[2018-10-03 06:02] LABS: EOSINOPHILS % 0.7 % (0.0-5.0); HEMOGLOBIN. 8.1 g/dL (12.0-16.0); LYMPHOCYTES % 36.4 % (20.0-50.0); MEAN CORPUSCULAR HEMOGLOBIN 26.3 pg (28.0-32.0); MEAN CORPUSCULAR VOLUME 81.1 fL (81.0-99.0); MEAN PLATELET VOLUME 7.2 fl (7.4-10.4); MONOCYTES % 6.4 % (2.0-8.0); NEUTROPHILS % 55.5 % (40.0-76.0); PLATELET 392 x1000/uL (130-400); RED BLOOD CELL COUNT 3.08 mill/uL (4.2-5.4); RED CELL DISTRIBUTION WIDTH 16.6 % (11.6-14.6)
[2018-10-03 06:14] LABS: CHLORIDE 105 mEq/L (98-107)
[2018-10-03] MEDS ORDERED: DEXTROSE 50% WATER 50ML SYRINGE IV PRN (08:15)
[2018-10-03] MEDS: ENOXAPARIN 40MG/0.4ML SYR SUBCUT SCH (09:00)
[2018-10-03] MEDS: SILVER SULFADIAZINE 1% CREAM 25GM TOP SCH ×2 (09:45→21:39)
[2018-10-03] MEDS: INSULIN GLARGINE UD 100 UNITS/ML SYR SUBCUT SCH ×2 (09:46→21:38)
[2018-10-03] MEDS: MORPHINE SULFATE 4 MG/ML CPJ (NOT FOR IM USE) IV PRN ×4 (10:06→23:34)
[2018-10-03] MEDS: INSULIN LISPRO 100 UNITS/ML SUBCUT SCH ×3 (12:19→21:39)
[2018-10-03 16:45] LABS: CHLORIDE 103 mEq/L (98-107)
[2018-10-03 23:30] LABS: CHLORIDE 103 mEq/L (98-107)
[2018-10-04] VITALS (7 sets, daily range): BP systolic 100–152; BP diastolic 62–92
[2018-10-04] MEDS: DIPHENHYDRAMINE 50MG/ML VIAL IV PRN ×3 (05:27→19:13)
[2018-10-04 06:11] LABS: BASOPHILS % 0.8 % (0.0-2.0); EOSINOPHILS % 0.5 % (0.0-5.0); HEMATOCRIT. 26.5 % (36.0-48.0); HEMOGLOBIN. 8.5 g/dL (12.0-16.0); LYMPHOCYTES % 44.2 % (20.0-50.0); MEAN CORPUSCULAR HEMOGLOBIN 26.5 pg (28.0-32.0); MEAN CORPUSCULAR VOLUME 82.8 fL (81.0-99.0); MEAN PLATELET VOLUME 7.6 fl (7.4-10.4); MONOCYTES % 5.5 % (2.0-8.0); PLATELET 347 x1000/uL (130-400); RED CELL DISTRIBUTION WIDTH 17.4 % (11.6-14.6)
[2018-10-04 06:34] LABS: CHLORIDE 104 mEq/L (98-107)
[2018-10-04] MEDS: BLOOD SUGAR DIAGNOSTIC STRIP TEST SCH ×4 (06:39→21:50)
[2018-10-04] MEDS: INSULIN LISPRO 100 UNITS/ML SUBCUT SCH ×7 (08:15→21:54)
[2018-10-04] MEDS: MORPHINE SULFATE 4 MG/ML CPJ (NOT FOR IM USE) IV PRN ×3 (08:29→21:44)
[2018-10-04] MEDS: ENOXAPARIN 40MG/0.4ML SYR SUBCUT SCH (08:35)
[2018-10-04] MEDS: INSULIN GLARGINE UD 100 UNITS/ML SYR SUBCUT SCH ×2 (10:03→21:54)
[2018-10-04] MEDS: SODIUM CHLORIDE 0.9% 1,000 ML IV SCH (11:33)
[2018-10-04] MEDS: SILVER SULFADIAZINE 1% CREAM 25GM TOP SCH ×2 (11:33→21:53)
[2018-10-04 17:03] LABS: CHLORIDE 105 mEq/L (98-107)
[2018-10-05] MEDS: DIPHENHYDRAMINE 50MG/ML VIAL IV PRN ×4 (03:39→21:00)
[2018-10-05 04:02] VITALS: BP 138/87
[2018-10-05] MEDS: MORPHINE SULFATE 4 MG/ML CPJ (NOT FOR IM USE) IV PRN ×4 (05:16→18:12)
[2018-10-05] MEDS: BLOOD SUGAR DIAGNOSTIC STRIP TEST SCH ×4 (06:17→20:19)
[2018-10-05] MEDS: INSULIN LISPRO 100 UNITS/ML SUBCUT SCH ×7 (06:23→20:19)
[2018-10-05] MEDS: SODIUM CHLORIDE 0.9% 1,000 ML IV SCH ×2 (06:24→09:39)
[2018-10-05 08:00] VITALS: BP 116/77
[2018-10-05] MEDS: ENOXAPARIN 40MG/0.4ML SYR SUBCUT SCH (08:44)
[2018-10-05] MEDS: SILVER SULFADIAZINE 1% CREAM 25GM TOP SCH ×2 (08:53→20:59)
[2018-10-05] MEDS ORDERED: INSULIN LISPRO 100 UNITS/ML SUBCUT NR (09:30)
[2018-10-05] MEDS: INSULIN GLARGINE UD 100 UNITS/ML SYR SUBCUT SCH ×2 (10:29→20:59)
[2018-10-05 12:00] VITALS: BP 118/78
[2018-10-05 16:44] VITALS: BP 117/75
[2018-10-05 20:28] VITALS: BP 155/95
[2018-10-05] MEDS: CLONIDINE 0.1MG TABLET PO PRN (21:00)
[2018-10-06] VITALS: BP 127/82
[2018-10-06 02:00] VITALS: BP 138/83
[2018-10-06] MEDS: MORPHINE SULFATE 4 MG/ML CPJ (NOT FOR IM USE) IV PRN (02:04)
[2018-10-06 04:00] VITALS: BP 127/82
[2018-10-06] MEDS: DIPHENHYDRAMINE 50MG/ML VIAL IV PRN ×2 (05:25→13:40)
[2018-10-06] MEDS: BLOOD SUGAR DIAGNOSTIC STRIP TEST SCH ×3 (06:33→17:57)
[2018-10-06] MEDS: INSULIN LISPRO 100 UNITS/ML SUBCUT SCH ×6 (06:52→17:53)
[2018-10-06 08:00] VITALS: BP 159/95
[2018-10-06] MEDS: SILVER SULFADIAZINE 1% CREAM 25GM TOP SCH (09:00)
[2018-10-06] MEDS ORDERED: HYDROCODONE/ACETAMINOPHEN 5/325MG TABLET PO PRN (09:45)
[2018-10-06] MEDS: INSULIN GLARGINE UD 100 UNITS/ML SYR SUBCUT SCH (10:19)
[2018-10-06] MEDS: ENOXAPARIN 40MG/0.4ML SYR SUBCUT SCH (10:26)
[2018-10-06 12:00] VITALS: BP 154/87
[2018-10-06] MEDS ORDERED: INSLIS SUBCUT (12:52)
[2018-10-06] MEDS ORDERED: SILV50CR31 TP (12:53)
[2018-10-06 16:26] VITALS: BP 168/90
[2018-10-06] MEDS: CLONIDINE 0.1MG TABLET PO PRN (16:45)
== END 2018-10-06 18:11 | disposition home or self-care (01) | DRG 420 ==
LOC: ER 13:58 → MICUNO 16:08 → EDBEDREQ 16:18 → ENRESERV 20:00 → 6WST 10-04 00:15
PROVIDERS: ADMIT Internal Medicine; ATTEND Internal Medicine
DX: E10.10 Type 1 diabetes mellitus with ketoacidosis without coma (principal); E10.22 Type 1 diabetes mellitus with diabetic chronic kidney disease; E10.40 Type 1 diabetes mellitus with diabetic neuropathy, unspecified; E10.621 Type 1 diabetes mellitus with foot ulcer; T25.321A Burn of third degree of right foot, initial encounter; I10 Essential (primary) hypertension; L97.519 Non-pressure chronic ulcer of other part of right foot with unspecified severity; E10.649 Type 1 diabetes mellitus with hypoglycemia without coma; E78.00 Pure hypercholesterolemia, unspecified; I12.9 Hypertensive chronic kidney disease with stage 1 through stage 4 chronic kidney disease, or unspecified chronic kidney disease; N18.9 Chronic kidney disease, unspecified; X08.8XXA Exposure to other specified smoke, fire and flames, initial encounter; Y93.89 Activity, other specified; Y92.89 Other specified places as the place of occurrence of the external cause; Y99.8 Other external cause status; Z88.2 Allergy status to sulfonamides; Z79.4 Long term (current) use of insulin; Z88.0 Allergy status to penicillin; Z88.6 Allergy status to analgesic agent; Z79.899 Other long term (current) drug therapy
CPT/HCPCS: 36415; 36600; 71045; 74176; 80048; 80061; 82010; 82375; 82550; 82553; 82805; 82962; 83036; 83605; 83735; 84100; 84145; 84443; 84484; 84703; 90686; 93005; 93970; 97116; 97162; 97166; 97530; 97535; 99291; J1200; J1650; J1815; J2060; J2270; J2405; J3480; J7030; J7050

== ENCOUNTER 2018-10-08 13:54 | Inpatient (IN) | payer MEDICAID ==
[~2018-10-08] VITALS: Ht 165.1 cm; Wt 61.2 kg
[~2018-10-08 13:54] MED LIST changes: +INSLIS SUBCUT; -INSU100C6 SQ; +SILV50CR31 TP
[2018-10-08] MEDS ORDERED: MORPHINE SULFATE 4 MG/ML CPJ (NOT FOR IM USE) IV STA (16:17)
[2018-10-08] MEDS ORDERED: SODIUM CHLORIDE 0.9% 1,000 ML IV ONE (16:17)
[2018-10-08] MEDS ORDERED: ONDANSETRON HCL 4MG/2ML INJ IV STA (16:17)
[2018-10-08] MEDS ORDERED: MORPHINE SULFATE 10 MG/ML CPJ IM ONE (17:00)
[2018-10-08] MEDS ORDERED: LORAZEPAM 2MG/ML CPJ IM ONE (17:00)
[2018-10-08 17:04] LABS: BG BASE EXCESS 1.6 mmol/L (-2.0-2.0); BG CARBOXYHEMOGLOBIN 0.5 % (0.5-1.5); BG DEOXYHEMOGLOBIN 3.4 % (0.0-5.0); BG FRACTION INSPIRED OXYGEN 21; BG HCO3 ACT 26.3 mmol/L (22.0-26.0); BG METHEMOGLOBIN 0.3 % (0.0-1.5); BG OXYGEN SATURATION 96.6 % (92.0-98.5); BG OXYHEMOGLOBIN 95.8 % (94.0-97.0); BG PCO2 41.8 mmHg (35.0-45.0); BG PH 7.417 (7.350-7.450); BG PO2 96.3 mmHg (75.0-100.0); BG SAMPLE SITE LEFT RADIAL; BG TOTAL HEMOGLOBIN 8.4 g/dL (12.0-18.0); BG VENT MODE ROOM AIR
[2018-10-08] MEDS ORDERED: MORPHINE SULFATE 10 MG/ML CPJ IM NR (17:15)
[2018-10-08 17:56] LABS: CHLORIDE 99 mEq/L (98-107)
[2018-10-08 18:01] LABS: ETHANOL BLOOD < 10 mg/dL
[2018-10-08 18:02] LABS: BASOPHILS % 1.4 % (0.0-2.0); HEMATOCRIT. 24.9 % (36.0-48.0); HEMOGLOBIN. 7.9 g/dL (12.0-16.0); LYMPHOCYTES % 7.6 % (20.0-50.0); MEAN CORPUSCULAR HEMOGLOBIN 26.1 pg (28.0-32.0); MEAN PLATELET VOLUME 7.8 fl (7.4-10.4); MONOCYTES % 4.5 % (2.0-8.0); NEUTROPHILS % 86.5 % (40.0-76.0); PARTIAL THROMBOPLASTIN TIME 21.4 sec (23.4-31.0); PLATELET 535 x1000/uL (130-400); RED BLOOD CELL COUNT 3.01 mill/uL (4.2-5.4); RED CELL DISTRIBUTION WIDTH 17.2 % (11.6-14.6)
[2018-10-08 18:04] LABS: HCG SCREEN NEGATIVE
[2018-10-08 18:08] LABS: BETA HYDROXYBUTYRATE 0.4 mMol/L (0.0-0.3)
[2018-10-08 18:09] LABS: CREATINE KINASE 236 IU/L (26-192)
[2018-10-08] MEDS ORDERED: INSULIN REGULAR (HUMULIN R) 300UNITS/3ML IV ONE (18:30)
[2018-10-08] MEDS ORDERED: INSULIN REGULAR (HUMULIN R) 300UNITS/3ML SUBCUT ONE ×2 (18:30→20:15)
[2018-10-08 21:00] VITALS: BP_SYST 110; BP_SYST 139; BP_DIAS 71; BP_DIAS 74
[2018-10-08 21:30] VITALS: BP 106/62
[2018-10-08] MEDS ORDERED: ACETAMINOPHEN 325MG TABLET PO PRN (21:45)
[2018-10-08] MEDS ORDERED: LEVOFLOXACIN 500MG PREMIX 100 ML IV SCH (21:45)
[2018-10-08 21:58] LABS: *BARBITURATES SCREEN URINE NEGATIVE (NEGATIVE)
[2018-10-08 21:59] LABS: *BENZODIAZEPINES SCREEN URINE NEGATIVE (NEGATIVE); *COCAINE SCREEN URINE NEGATIVE (NEGATIVE); CANNABINOID URINE SCREEN NEGATIVE (NEGATIVE); METHADONE URINE SCREEN NEGATIVE (NEGATIVE); PHENCYCLIDINE URINE SCREEN NEGATIVE (NEGATIVE)
[2018-10-08 22:00] VITALS: BP 107/67
[2018-10-08 22:00] LABS: *AMPHETAMINES SCREEN URINE PRESUMTIVE POSITIVE (NEGATIVE); OPIATES URINE SCREEN PRESUMTIVE POSITIVE (NEGATIVE)
[2018-10-08] MEDS ORDERED: HYDRALAZINE 20MG/ML VIAL IV PRN (22:00)
[2018-10-08 22:01] LABS: CLARITY URINE TURBID (CLEAR); COLOR URINE YELLOW (YELLOW); KETONES URINE TRACE (NEGATIVE); LEUKOCYTE ESTERASE URINE NEGATIVE (NEGATIVE); NITRITE URINE NEGATIVE (NEGATIVE); OCCULT BLOOD URINE 2+ (NEGATIVE); PH URINE 5.5 (4.5-8.0); PROTEIN URINE 4+ (NEGATIVE); SPECIFIC GRAVITY URINE 1.028 (1.005-1.030); UROBILINOGEN URINE 0.2 E.U./dL (0.2-1.0)
[2018-10-08] MEDS: INSULIN LISPRO 100 UNITS/ML SUBCUT SCH (22:14)
[2018-10-08] MEDS: BLOOD SUGAR DIAGNOSTIC STRIP TEST SCH (22:14)
[2018-10-08] MEDS: SODIUM CHLORIDE 0.9% 1,000 ML IV SCH (22:15)
[2018-10-08 22:50] VITALS: BP 119/74
[2018-10-08 23:00] VITALS: BP 133/99
[2018-10-08 23:30] VITALS: BP 108/65
[2018-10-09] VITALS (38 sets, daily range): BP systolic 102–158; BP diastolic 55–99
[2018-10-09] MEDS: INSULIN GLARGINE UD 100 UNITS/ML SYR SUBCUT SCH ×2 (00:53→09:18)
[2018-10-09] MEDS: LEVOFLOXACIN 500MG PREMIX 100 ML IV SCH ×2 (00:53→23:42)
[2018-10-09] MEDS: ONDANSETRON HCL 4MG/2ML INJ IV PRN ×2 (02:13→20:44)
[2018-10-09] MEDS: ALPRAZOLAM 0.5 MG TABLET PO PRN ×3 (02:13→19:01)
[2018-10-09] MEDS: KETOROLAC 30MG/ML VIAL IV PRN ×2 (02:13→14:19)
[2018-10-09] MEDS: HYDRALAZINE HCL 25MG TABLET PO SCH ×3 (05:40→23:42)
[2018-10-09] MEDS: SODIUM CHLORIDE 0.9% 1,000 ML IV SCH ×2 (05:40→20:28)
[2018-10-09 05:47] LABS: BASOPHILS % 0.4 % (0.0-2.0); HEMATOCRIT. 23.4 % (36.0-48.0); HEMOGLOBIN. 7.5 g/dL (12.0-16.0); LYMPHOCYTES % 14.9 % (20.0-50.0); MEAN CORPUSCULAR VOLUME 81.5 fL (81.0-99.0); MEAN PLATELET VOLUME 6.9 fl (7.4-10.4); MONOCYTES % 8.8 % (2.0-8.0); NEUTROPHILS % 75.9 % (40.0-76.0); PLATELET 445 x1000/uL (130-400); RED BLOOD CELL COUNT 2.87 mill/uL (4.2-5.4); RED CELL DISTRIBUTION WIDTH 17.6 % (11.6-14.6)
[2018-10-09 05:56] LABS: CHLORIDE 107 mEq/L (98-107)
[2018-10-09] MEDS: DEXTROSE 50% WATER 50ML SYRINGE IV PRN ×2 (06:10→08:02)
[2018-10-09] MEDS: BLOOD SUGAR DIAGNOSTIC STRIP TEST SCH ×5 (07:56→23:35)
[2018-10-09] MEDS: INSULIN LISPRO 100 UNITS/ML SUBCUT SCH ×4 (07:57→20:18)
[2018-10-09] MEDS: FAMOTIDINE 20MG/2ML VIAL IV SCH ×2 (08:03→20:16)
[2018-10-09] MEDS: LISINOPRIL 10MG TABLET PO SCH ×2 (08:04→20:17)
[2018-10-09] MEDS: ENOXAPARIN 40MG/0.4ML SYR SUBCUT SCH (10:30)
[2018-10-09] MEDS: DEXT 5%/0.45% NACL KCL 40MEQ/L 1,000 ML IV SCH ×2 (10:34→16:28)
[2018-10-10] VITALS (17 sets, daily range): BP systolic 90–171; BP diastolic 44–109
[2018-10-10] MEDS: BLOOD SUGAR DIAGNOSTIC STRIP TEST SCH ×7 (02:00→20:28)
[2018-10-10] MEDS: SODIUM CHLORIDE 0.9% 1,000 ML IV SCH ×3 (04:44→20:28)
[2018-10-10 05:33] LABS: BASOPHILS % 0.3 % (0.0-2.0); EOSINOPHILS % 0.1 % (0.0-5.0); MEAN CORPUSCULAR HEMOGLOBIN 26.6 pg (28.0-32.0); MEAN CORPUSCULAR VOLUME 82.6 fL (81.0-99.0); MEAN PLATELET VOLUME 7.2 fl (7.4-10.4); MONOCYTES % 5.5 % (2.0-8.0); NEUTROPHILS % 71.1 % (40.0-76.0); PLATELET 394 x1000/uL (130-400); RED BLOOD CELL COUNT 2.54 mill/uL (4.2-5.4); RED CELL DISTRIBUTION WIDTH 17.9 % (11.6-14.6)
[2018-10-10 05:39] LABS: HEMOGLOBIN. 6.8 g/dL (12.0-16.0)
[2018-10-10 05:55] LABS: CHLORIDE 100 mEq/L (98-107)
[2018-10-10 06:01] LABS: PHOSPHORUS 2.2 mg/dL (2.5-4.9)
[2018-10-10] MEDS: HYDRALAZINE HCL 25MG TABLET PO SCH ×3 (06:33→21:01)
[2018-10-10] MEDS: INSULIN LISPRO 100 UNITS/ML SUBCUT SCH ×5 (06:33→21:00)
[2018-10-10] MEDS ORDERED: DEXTROSE 50% WATER 50ML SYRINGE IV PRN (08:15)
[2018-10-10] MEDS: LISINOPRIL 10MG TABLET PO SCH ×2 (08:49→21:00)
[2018-10-10] MEDS: ENOXAPARIN 40MG/0.4ML SYR SUBCUT SCH (08:50)
[2018-10-10] MEDS: FAMOTIDINE 20MG/2ML VIAL IV SCH ×2 (08:54→20:59)
[2018-10-10] MEDS: ALPRAZOLAM 0.5 MG TABLET PO PRN (08:59)
[2018-10-10] MEDS: INSULIN GLARGINE UD 100 UNITS/ML SYR SUBCUT SCH (09:00)
[2018-10-10] MEDS: KETOROLAC 30MG/ML VIAL IV PRN ×3 (09:07→22:27)
[2018-10-10] MEDS: ONDANSETRON HCL 4MG/2ML INJ IV PRN (10:35)
[2018-10-10 16:45] LABS: HEMOGLOBIN 8.6 g/dL (12.0-16.0); MEAN CORPUSCULAR HEMOGLOBIN 26.6 pg (28.0-32.0); MEAN CORPUSCULAR VOLUME 83.2 fL (81.0-99.0); PLATELET 487 x1000/uL (130-400); RED BLOOD CELL COUNT 3.24 mill/uL (4.2-5.4)
[2018-10-10 17:18] LABS: TOTAL IRON BINDING CAPACITY 297 ug/dL (250-450)
[2018-10-11 00:23] VITALS: BP 98/63
[2018-10-11] MEDS: LEVOFLOXACIN 500MG PREMIX 100 ML IV SCH (00:39)
[2018-10-11] MEDS: SODIUM CHLORIDE 0.9% 1,000 ML IV SCH ×2 (03:58→22:44)
[2018-10-11 04:00] VITALS: BP 96/55
[2018-10-11] MEDS: KETOROLAC 30MG/ML VIAL IV PRN (04:33)
[2018-10-11] MEDS: HYDRALAZINE HCL 25MG TABLET PO SCH ×3 (05:27→21:35)
[2018-10-11] MEDS: BLOOD SUGAR DIAGNOSTIC STRIP TEST SCH ×4 (06:32→21:35)
[2018-10-11 08:00] VITALS: BP 99/70
[2018-10-11] MEDS: FAMOTIDINE 20MG/2ML VIAL IV SCH ×2 (08:56→21:35)
[2018-10-11] MEDS: ALPRAZOLAM 0.5 MG TABLET PO PRN (08:56)
[2018-10-11] MEDS: ENOXAPARIN 40MG/0.4ML SYR SUBCUT SCH (08:56)
[2018-10-11] MEDS: INSULIN LISPRO 100 UNITS/ML SUBCUT SCH ×4 (09:00→21:36)
[2018-10-11] MEDS: LISINOPRIL 10MG TABLET PO SCH ×2 (09:00→21:35)
[2018-10-11] MEDS: INSULIN GLARGINE UD 100 UNITS/ML SYR SUBCUT SCH (10:38)
[2018-10-11 12:00] VITALS: BP 131/86
[2018-10-11 16:00] VITALS: BP 133/94
[2018-10-11 20:00] VITALS: BP 136/74
[2018-10-12 00:02] VITALS: BP 141/85
[2018-10-12] MEDS: LEVOFLOXACIN 500MG PREMIX 100 ML IV SCH (00:25)
[2018-10-12] MEDS: BLOOD SUGAR DIAGNOSTIC STRIP TEST SCH ×3 (06:12→18:07)
[2018-10-12] MEDS: HYDRALAZINE HCL 25MG TABLET PO SCH ×2 (06:21→13:28)
[2018-10-12] MEDS: KETOROLAC 30MG/ML VIAL IV PRN ×2 (06:21→11:30)
[2018-10-12 06:22] VITALS: BP 151/50
[2018-10-12] MEDS: INSULIN LISPRO 100 UNITS/ML SUBCUT SCH ×3 (07:25→18:10)
[2018-10-12] MEDS: INSULIN GLARGINE UD 100 UNITS/ML SYR SUBCUT SCH (10:52)
[2018-10-12] MEDS: FAMOTIDINE 20MG/2ML VIAL IV SCH (10:53)
[2018-10-12] MEDS: LISINOPRIL 10MG TABLET PO SCH (10:53)
[2018-10-12] MEDS: ENOXAPARIN 40MG/0.4ML SYR SUBCUT SCH (10:54)
[2018-10-12 12:00] VITALS: BP 158/92
[2018-10-12] MEDS: SODIUM CHLORIDE 0.9% 1,000 ML IV SCH (13:33)
[2018-10-12 16:00] VITALS: BP_SYST 154; BP_SYST 156; BP_DIAS 86
[2018-10-12 17:33] VITALS: BP 154/86
== END 2018-10-12 19:02 | disposition home or self-care (01) | DRG 420 ==
LOC: ER 13:54 → CVICU 18:36 → EDBEDREQ 18:39 → EDBEDREQTM 18:39 → EDBEDREQSVC 18:39 → ENRESERV 19:52 → 7WST 10-10 13:00
PROVIDERS: ADMIT Internal Medicine; ATTEND Internal Medicine
PROC: 06HY33Z Insertion of Infusion Device into Lower Vein, Percutaneous Approach (ICD-10-PCS; principal; 2018-10-08)
DX: E11.00 Type 2 diabetes mellitus with hyperosmolarity without nonketotic hyperglycemic-hyperosmolar coma (NKHHC) (principal); G92 Toxic encephalopathy; E11.649 Type 2 diabetes mellitus with hypoglycemia without coma; D64.9 Anemia, unspecified; E61.1 Iron deficiency; E86.0 Dehydration; E78.00 Pure hypercholesterolemia, unspecified; I10 Essential (primary) hypertension; F41.1 Generalized anxiety disorder; F41.9 Anxiety disorder, unspecified; Z79.4 Long term (current) use of insulin; Z79.899 Other long term (current) drug therapy; Z88.2 Allergy status to sulfonamides; Z88.0 Allergy status to penicillin
CPT/HCPCS: 36415; 36600; 71045; 74176; 80048; 80305; 82010; 82375; 82550; 82805; 82962; 83540; 83550; 83605; 83735; 83880; 84100; 84484; 84703; 85027; 93005; 96374; 97116; 97161; 99285; J1650; J1815; J1885; J1956; J2060; J2270; J2405; J3490; J7030

== ENCOUNTER 2018-10-17 18:13 | Inpatient (IN) | payer MEDICAID ==
[~2018-10-17] VITALS: Ht 165.1 cm; Wt 64.4 kg
[2018-10-17] MEDS ORDERED: SODIUM CHLORIDE 0.9% 1,000 ML IV ONE (21:19)
[2018-10-17 21:39] LABS: BG BASE EXCESS 6.6 mmol/L (-2.0-2.0); BG CARBOXYHEMOGLOBIN 0.4 % (0.5-1.5); BG DEOXYHEMOGLOBIN 6.5 % (0.0-5.0); BG FRACTION INSPIRED OXYGEN 21; BG HCO3 ACT 30.8 mmol/L (22.0-26.0); BG METHEMOGLOBIN 0.2 % (0.0-1.5); BG OXYGEN SATURATION 93.5 % (92.0-98.5); BG OXYHEMOGLOBIN 92.9 % (94.0-97.0); BG PCO2 42.6 mmHg (35.0-45.0); BG PH 7.477 (7.350-7.450); BG SAMPLE SITE LEFT RADIAL; BG TOTAL HEMOGLOBIN 7.3 g/dL (12.0-18.0); BG VENT MODE ROOM AIR
[2018-10-17 21:46] LABS: BASOPHILS % 1.9 % (0.0-2.0); EOSINOPHILS % 0.4 % (0.0-5.0); HEMATOCRIT. 24.9 % (36.0-48.0); MEAN CORPUSCULAR HEMOGLOBIN 26.2 pg (28.0-32.0); MEAN CORPUSCULAR VOLUME 81.7 fL (81.0-99.0); MEAN PLATELET VOLUME 6.6 fl (7.4-10.4); MONOCYTES % 5.3 % (2.0-8.0); NEUTROPHILS % 75.4 % (40.0-76.0); PLATELET 681 x1000/uL (130-400); RED BLOOD CELL COUNT 3.04 mill/uL (4.2-5.4); RED CELL DISTRIBUTION WIDTH 18.1 % (11.6-14.6)
[2018-10-17 21:49] LABS: CHLORIDE 102 mEq/L (98-107)
[2018-10-17 21:55] LABS: PHOSPHORUS 2.7 mg/dL (2.5-4.9)
[2018-10-17] MEDS ORDERED: MORPHINE SULFATE 4 MG/ML CPJ (NOT FOR IM USE) IV STA (23:33)
[2018-10-17] MEDS ORDERED: ONDANSETRON HCL 4MG/2ML INJ IV STA (23:33)
[2018-10-17] MEDS ORDERED: HYDRALAZINE 20MG/ML VIAL IV ONE (23:45)
[2018-10-18] MEDS ORDERED: DIPHENHYDRAMINE 50MG CAPSULE PO ONE
[2018-10-18] MEDS ORDERED: DIPHENHYDRAMINE 50MG/ML VIAL IV ONE ×2 (01:15→02:30)
[2018-10-18] MEDS ORDERED: METHYLPREDNISOLONE SOD SUCC 125 MG/2 ML VIAL IV ONE (01:15)
[2018-10-18] MEDS ORDERED: MORPHINE SULFATE 4 MG/ML CPJ (NOT FOR IM USE) IV STA (01:46)
[2018-10-18] MEDS: IBUPROFEN 600MG TABLET PO PRN ×2 (03:24→03:25)
[2018-10-18 09:05] VITALS: BP 187/104
[2018-10-18] MEDS ORDERED: DEXTROSE 50% WATER 50ML SYRINGE IV PRN ×2 (09:45)
[2018-10-18 10:00] VITALS: BP 187/104
[2018-10-18] MEDS: CLONIDINE 0.1MG TABLET PO PRN (10:22)
[2018-10-18] MEDS: DIPHENHYDRAMINE 50MG/ML VIAL IV PRN ×2 (10:23→17:28)
[2018-10-18] MEDS: HYDRALAZINE 20MG/ML VIAL IV PRN ×2 (10:23→17:52)
[2018-10-18] MEDS: ONDANSETRON HCL 4MG/2ML INJ IV PRN ×2 (10:23→14:46)
[2018-10-18] MEDS: MORPHINE SULFATE 4 MG/ML CPJ (NOT FOR IM USE) IV PRN ×2 (10:33→14:47)
[2018-10-18 12:00] VITALS: BP 144/86
[2018-10-18] MEDS: BLOOD SUGAR DIAGNOSTIC STRIP TEST SCH ×3 (12:14→20:30)
[2018-10-18] MEDS: INSULIN LISPRO 100 UNITS/ML SUBCUT SCH ×3 (12:37→20:29)
[2018-10-18] MEDS: ALPRAZOLAM 0.5 MG TABLET PO SCH ×2 (14:46→22:07)
[2018-10-18 15:42] LABS: BG BASE EXCESS -0.6 mmol/L (-2.0-2.0); BG CARBOXYHEMOGLOBIN 0.6 % (0.5-1.5); BG DEOXYHEMOGLOBIN 11.8 % (0.0-5.0); BG FRACTION INSPIRED OXYGEN 21; BG HCO3 ACT 24.7 mmol/L (22.0-26.0); BG METHEMOGLOBIN 0.4 % (0.0-1.5); BG OXYGEN SATURATION 88.1 % (92.0-98.5); BG OXYHEMOGLOBIN 87.2 % (94.0-97.0); BG PCO2 43.9 mmHg (35.0-45.0); BG PH 7.368 (7.350-7.450); BG PO2 61.1 mmHg (75.0-100.0); BG SAMPLE SITE RIGHT RADIAL; BG TOTAL HEMOGLOBIN 8.1 g/dL (12.0-18.0); BG VENT MODE ROOM AIR
[2018-10-18 16:00] VITALS: BP 178/100
[2018-10-18] MEDS: PREDNISONE 20MG TABLET PO SCH (17:28)
[2018-10-18 20:00] VITALS: BP 123/51
[2018-10-18] MEDS: FAMOTIDINE 20MG/2ML VIAL IV SCH (20:13)
[2018-10-19] VITALS: BP 146/84
[2018-10-19] MEDS: DIPHENHYDRAMINE 50MG/ML VIAL IV PRN ×2 (02:23→13:40)
[2018-10-19] MEDS: ONDANSETRON HCL 4MG/2ML INJ IV PRN (02:23)
[2018-10-19] MEDS: MORPHINE SULFATE 4 MG/ML CPJ (NOT FOR IM USE) IV PRN ×2 (02:24→13:42)
[2018-10-19] MEDS: ALPRAZOLAM 0.5 MG TABLET PO SCH ×2 (05:19→14:00)
[2018-10-19] MEDS: BLOOD SUGAR DIAGNOSTIC STRIP TEST SCH ×2 (05:40→12:50)
[2018-10-19] MEDS: INSULIN LISPRO 100 UNITS/ML SUBCUT SCH ×2 (05:47→12:39)
[2018-10-19 06:38] LABS: BASOPHILS % 0.4 % (0.0-2.0); EOSINOPHILS % 0.1 % (0.0-5.0); HEMATOCRIT. 25.9 % (36.0-48.0); HEMOGLOBIN. 8.1 g/dL (12.0-16.0); LYMPHOCYTES % 10.6 % (20.0-50.0); MEAN CORPUSCULAR HEMOGLOBIN 26.4 pg (28.0-32.0); MEAN CORPUSCULAR VOLUME 84.7 fL (81.0-99.0); MEAN PLATELET VOLUME 6.8 fl (7.4-10.4); MONOCYTES % 5.4 % (2.0-8.0); NEUTROPHILS % 83.5 % (40.0-76.0); PLATELET 612 x1000/uL (130-400); RED BLOOD CELL COUNT 3.05 mill/uL (4.2-5.4); RED CELL DISTRIBUTION WIDTH 18.3 % (11.6-14.6)
[2018-10-19 07:23] LABS: CHLORIDE 97 mEq/L (98-107)
[2018-10-19 08:00] VITALS: BP 194/109
[2018-10-19] MEDS ORDERED: ENOXAPARIN 40MG/0.4ML SYR SUBCUT SCH (09:00)
[2018-10-19 12:00] VITALS: BP 203/114
[2018-10-19] MEDS: CLONIDINE 0.1MG TABLET PO PRN (12:40)
[2018-10-19] MEDS: HYDRALAZINE 20MG/ML VIAL IV PRN (12:40)
[2018-10-19] MEDS: PREDNISONE 20MG TABLET PO SCH (12:40)
[2018-10-19] MEDS: FAMOTIDINE 20MG/2ML VIAL IV SCH (12:41)
[2018-10-19 13:39] VITALS: BP 152/101
[2018-10-19] MEDS ORDERED: SODIUM POLYSTYRENE SULFONATE 15 G/60 ML BOT PO SCH (14:00)
[2018-10-19 15:21] VITALS: BP 152/101
== END 2018-10-19 16:26 | disposition home or self-care (01) | DRG 48 ==
LOC: ER 18:13 → EDBEDREQ 10-18 01:22 → ENRESERV 10-18 07:56 → 8WST 10-18 08:41
PROVIDERS: ADMIT Internal Medicine; ATTEND Internal Medicine
DX: E11.40 Type 2 diabetes mellitus with diabetic neuropathy, unspecified (principal); E44.0 Moderate protein-calorie malnutrition; E11.65 Type 2 diabetes mellitus with hyperglycemia; T78.2XXA Anaphylactic shock, unspecified, initial encounter; I10 Essential (primary) hypertension; G89.4 Chronic pain syndrome; F41.9 Anxiety disorder, unspecified; Z88.0 Allergy status to penicillin; Z88.2 Allergy status to sulfonamides; Z91.19 Patient's noncompliance with other medical treatment and regimen
CPT/HCPCS: 36415; 36600; 71045; 80048; 82375; 82805; 82962; 83735; 84100; 84145; 87804; 93005; 93923; 93970; 99285; J0360; J1200; J1650; J1815; J2270; J2405; J2930; J3490; J7030; J7512

== ENCOUNTER 2018-11-07 16:12 | Emergency (ER) | payer MEDICAID ==
[~2018-11-07] VITALS: Ht 165.1 cm; Wt 72.0 kg
[~2018-11-07 16:12] MED LIST changes: -LISI-604 PO
[2018-11-07] MEDS ORDERED: SODIUM CHLORIDE 0.9% 1,000 ML IV ONE (17:15)
[2018-11-07] MEDS ORDERED: ONDANSETRON HCL 4MG/2ML INJ IV ONE (17:15)
[2018-11-07 17:52] LABS: BASOPHILS % 1.5 % (0.0-2.0); EOSINOPHILS % 0.4 % (0.0-5.0); HEMATOCRIT. 30.1 % (36.0-48.0); HEMOGLOBIN. 9.5 g/dL (12.0-16.0); LYMPHOCYTES % 19.2 % (20.0-50.0); MEAN CORPUSCULAR HEMOGLOBIN 26.2 pg (28.0-32.0); MEAN CORPUSCULAR VOLUME 82.8 fL (81.0-99.0); MONOCYTES % 3.1 % (2.0-8.0); NEUTROPHILS % 75.8 % (40.0-76.0); PLATELET 532 x1000/uL (130-400); RED BLOOD CELL COUNT 3.63 mill/uL (4.2-5.4); RED CELL DISTRIBUTION WIDTH 17.9 % (11.6-14.6)
[2018-11-07 17:57] LABS: CHLORIDE 107 mEq/L (98-107)
[2018-11-07 17:58] LABS: INR 0.9; PROTHROMBIN TIME 9.5 sec (9.1-11.1)
[2018-11-07 18:01] LABS: ETHANOL BLOOD < 10 mg/dL
[2018-11-07 18:05] LABS: BETA HYDROXYBUTYRATE 0.1 mMol/L (0.0-0.3)
[2018-11-07 18:19] LABS: HCG SCREEN NEGATIVE
[2018-11-07] MEDS ORDERED: DEXTROSE 50% WATER 50ML SYRINGE IV ONE (18:30)
[2018-11-07] MEDS ORDERED: LORAZEPAM 2MG/ML CPJ IV ONE (18:45)
[2018-11-07] MEDS ORDERED: MORPHINE SULFATE 4 MG/ML CPJ (NOT FOR IM USE) IV ONE ×2 (18:45→19:15)
[2018-11-07 19:14] LABS: CLARITY URINE CLOUDY (CLEAR); COLOR URINE YELLOW (YELLOW); KETONES URINE NEGATIVE (NEGATIVE); LEUKOCYTE ESTERASE URINE NEGATIVE (NEGATIVE); NITRITE URINE NEGATIVE (NEGATIVE); OCCULT BLOOD URINE 2+ (NEGATIVE); PROTEIN URINE 3+ (NEGATIVE); SPECIFIC GRAVITY URINE 1.023 (1.005-1.030); UROBILINOGEN URINE 0.2 E.U./dL (0.2-1.0)
[2018-11-07] MEDS ORDERED: MORPHINE SULFATE 4 MG/ML CPJ (NOT FOR IM USE) IV NR (19:15)
[2018-11-07 20:19] LABS: *BARBITURATES SCREEN URINE NEGATIVE (NEGATIVE); *COCAINE SCREEN URINE NEGATIVE (NEGATIVE)
[2018-11-07 20:20] LABS: METHADONE URINE SCREEN NEGATIVE (NEGATIVE); PHENCYCLIDINE URINE SCREEN NEGATIVE (NEGATIVE)
[2018-11-07 20:31] LABS: *AMPHETAMINES SCREEN URINE PRESUMTIVE POSITIVE (NEGATIVE); *BENZODIAZEPINES SCREEN URINE PRESUMTIVE POSITIVE (NEGATIVE); CANNABINOID URINE SCREEN PRESUMTIVE POSITIVE (NEGATIVE); OPIATES URINE SCREEN PRESUMTIVE POSITIVE (NEGATIVE)
[2018-11-07 22:00] VITALS: BP 150/88
== END 2018-11-08 00:01 | disposition home or self-care (01) ==
LOC: ER 16:12
DX: G89.29 Other chronic pain (principal); R11.2 Nausea with vomiting, unspecified; M54.9 Dorsalgia, unspecified; F15.10 Other stimulant abuse, uncomplicated; R10.9 Unspecified abdominal pain; R31.9 Hematuria, unspecified; E16.2 Hypoglycemia, unspecified; R39.15 Urgency of urination; Z88.2 Allergy status to sulfonamides; Z88.0 Allergy status to penicillin; Z88.6 Allergy status to analgesic agent; Z79.899 Other long term (current) drug therapy; Z87.01 Personal history of pneumonia (recurrent)
CPT/HCPCS: 36415; 71045; 76770; 80053; 80305; 80320; 81003; 81025; 82010; 82962; 83690; 84703; 85025; 85610; 87086; 93005; 96361; 96374; 96375; 99284; J2270; J2405; J7030; Z7610; G0480

== ENCOUNTER 2018-11-12 12:56 | Emergency (ER) | payer MEDICAID ==
[~2018-11-12] VITALS: Ht 162.6 cm; Wt 57.0 kg
[2018-11-12] MEDS ORDERED: MORPHINE SULFATE 4 MG/ML CPJ (NOT FOR IM USE) IV STA (14:41)
[2018-11-12] MEDS ORDERED: SODIUM CHLORIDE 0.9% 1,000 ML IV ONE (14:41)
[2018-11-12] MEDS ORDERED: ONDANSETRON HCL 4MG/2ML INJ IV STA (14:41)
[2018-11-12] MEDS ORDERED: FAMOTIDINE 20MG/2ML VIAL IV STA (14:41)
[2018-11-12 15:14] LABS: BASOPHILS % 0.8 % (0.0-2.0); EOSINOPHILS % 0.2 % (0.0-5.0); HEMATOCRIT. 26.7 % (36.0-48.0); HEMOGLOBIN. 8.6 g/dL (12.0-16.0); LYMPHOCYTES % 24.1 % (20.0-50.0); MEAN CORPUSCULAR HEMOGLOBIN 26.3 pg (28.0-32.0); MEAN CORPUSCULAR VOLUME 82.1 fL (81.0-99.0); MEAN PLATELET VOLUME 6.9 fl (7.4-10.4); MONOCYTES % 4.7 % (2.0-8.0); NEUTROPHILS % 70.2 % (40.0-76.0); PLATELET 417 x1000/uL (130-400); RED BLOOD CELL COUNT 3.25 mill/uL (4.2-5.4); RED CELL DISTRIBUTION WIDTH 17.4 % (11.6-14.6)
[2018-11-12 15:17] LABS: CHLORIDE 94 mEq/L (98-107)
[2018-11-12 15:25] LABS: BETA HYDROXYBUTYRATE 0.1 mMol/L (0.0-0.3)
[2018-11-12] MEDS ORDERED: INSULIN REGULAR (HUMULIN R) UD 100 UNITS/ML SYR SUBCUT ONE (15:45)
[2018-11-12] MEDS ORDERED: LORATADINE 10MG TABLET PO SCH (15:45)
[2018-11-12 16:08] LABS: CLARITY URINE CLEAR (CLEAR); COLOR URINE YELLOW (YELLOW); KETONES URINE NEGATIVE (NEGATIVE); LEUKOCYTE ESTERASE URINE NEGATIVE (NEGATIVE); NITRITE URINE NEGATIVE (NEGATIVE); OCCULT BLOOD URINE 2+ (NEGATIVE); PROTEIN URINE 3+ (NEGATIVE); SPECIFIC GRAVITY URINE 1.029 (1.005-1.030); UROBILINOGEN URINE 0.2 E.U./dL (0.2-1.0)
[2018-11-12] MEDS ORDERED: INSULIN REGULAR (HUMULIN R) 300UNITS/3ML SUBCUT ONE (16:15)
[2018-11-12 16:27] LABS: METHADONE URINE SCREEN NEGATIVE (NEGATIVE)
[2018-11-12 16:28] LABS: *AMPHETAMINES SCREEN URINE NEGATIVE (NEGATIVE); *BENZODIAZEPINES SCREEN URINE NEGATIVE (NEGATIVE); *COCAINE SCREEN URINE NEGATIVE (NEGATIVE); CANNABINOID URINE SCREEN NEGATIVE (NEGATIVE); OPIATES URINE SCREEN NEGATIVE (NEGATIVE); PHENCYCLIDINE URINE SCREEN NEGATIVE (NEGATIVE)
[2018-11-12 16:29] LABS: *BARBITURATES SCREEN URINE NEGATIVE (NEGATIVE)
[2018-11-12] MEDS ORDERED: ACETAMINOPHEN 500MG TABLET PO ONE (16:45)
[2018-11-12] MEDS ORDERED: HYDROCHLOROTHIAZIDE 25MG TABLET PO ONE (17:30)
[2018-11-12 17:38] VITALS: BP 163/112
== END 2018-11-12 18:27 | disposition home or self-care (01) ==
LOC: ER 12:56
DX: E11.65 Type 2 diabetes mellitus with hyperglycemia (principal); G89.29 Other chronic pain; M54.5 Low back pain; D50.9 Iron deficiency anemia, unspecified; I10 Essential (primary) hypertension; Z79.4 Long term (current) use of insulin; Z88.6 Allergy status to analgesic agent
CPT/HCPCS: 36415; 80053; 80305; 81003; 81025; 82010; 82962; 85025; 85610; 96361; 96374; 96375; 99283; J2270; J2405; J3490; J7030; Z7610; J1815

== ENCOUNTER 2018-11-16 08:11 | Emergency (ER) | payer MEDICAID ==
[~2018-11-16] VITALS: Ht 162.6 cm; Wt 54.0 kg
[2018-11-16 08:12] VITALS: BP 178/130
== END 2018-11-16 10:16 | disposition left against medical advice (07) ==
LOC: ER 08:11
DX: Z53.21 Procedure and treatment not carried out due to patient leaving prior to being seen by health care provider (principal)

== ENCOUNTER 2018-12-14 20:33 | Inpatient (IN) | payer MEDICAID ==
[~2018-12-14] VITALS: Ht 162.6 cm; Wt 58.5 kg
[2018-12-14] MEDS ORDERED: SODIUM CHLORIDE 0.9% 1,000 ML IV ONE (21:10)
[2018-12-14 21:59] LABS: BG BASE EXCESS -12.1 mmol/L (-2.0-2.0); BG CARBOXYHEMOGLOBIN 0.3 % (0.5-1.5); BG DEOXYHEMOGLOBIN 3.2 % (0.0-5.0); BG FRACTION INSPIRED OXYGEN 21; BG HCO3 ACT 14.4 mmol/L (22.0-26.0); BG METHEMOGLOBIN 0.2 % (0.0-1.5); BG OXYGEN SATURATION 96.8 % (92.0-98.5); BG OXYHEMOGLOBIN 96.3 % (94.0-97.0); BG PCO2 35.1 mmHg (35.0-45.0); BG PH 7.231 (7.350-7.450); BG PO2 104.6 mmHg (75.0-100.0); BG SAMPLE SITE RIGHT RADIAL; BG TOTAL HEMOGLOBIN 10.5 g/dL (12.0-18.0); BG VENT MODE ROOM AIR
[2018-12-14 22:03] LABS: CLARITY URINE CLEAR (CLEAR); COLOR URINE YELLOW (YELLOW); KETONES URINE 1+ (NEGATIVE); LEUKOCYTE ESTERASE URINE NEGATIVE (NEGATIVE); NITRITE URINE NEGATIVE (NEGATIVE); OCCULT BLOOD URINE TRACE (NEGATIVE); PROTEIN URINE 1+ (NEGATIVE); SPECIFIC GRAVITY URINE 1.025 (1.005-1.030); UROBILINOGEN URINE 0.2 E.U./dL (0.2-1.0)
[2018-12-14 22:43] LABS: BASOPHILS % 0.3 % (0.0-2.0); EOSINOPHILS % 0.1 % (0.0-5.0); HEMATOCRIT. 35.9 % (36.0-48.0); HEMOGLOBIN. 10.4 g/dL (12.0-16.0); MEAN CORPUSCULAR HEMOGLOBIN 26.5 pg (28.0-32.0); MEAN CORPUSCULAR VOLUME 91.6 fL (81.0-99.0); MEAN PLATELET VOLUME 8.1 fl (7.4-10.4); MONOCYTES % 5.2 % (2.0-8.0); NEUTROPHILS % 82.4 % (40.0-76.0); PLATELET 525 x1000/uL (130-400); RED BLOOD CELL COUNT 3.92 mill/uL (4.2-5.4); RED CELL DISTRIBUTION WIDTH 15.8 % (11.6-14.6)
[2018-12-14 22:46] LABS: CHLORIDE 78 mEq/L (98-107)
[2018-12-14 22:53] LABS: BETA HYDROXYBUTYRATE 8.5 mMol/L (0.0-0.3)
[2018-12-14 22:59] LABS: HCG SCREEN NEGATIVE
[2018-12-14] MEDS ORDERED: SODIUM CHLORIDE 0.9% 1,000 ML IV STA (23:09)
[2018-12-14] MEDS ORDERED: INSULIN REGULAR (DRIP) 100 UNITS in SODIUM CHLORIDE 0.9% 99 ML IV NR (23:15)
[2018-12-15] VITALS (74 sets, daily range): BP systolic 90–172; BP diastolic 48–130
[2018-12-15] MEDS ORDERED: NA PHOS,M-B/NA PHOS,DI-BA ENEMA 118ML PR PRN
[2018-12-15] MEDS ORDERED: MAGNESIUM/ALUMINUM HYDROXIDE/SIMETHICONE 30ML UDC PO PRN
[2018-12-15] MEDS ORDERED: DOCUSATE SODIUM 100MG CAPSULE PO PRN
[2018-12-15] MEDS ORDERED: HYDROCODONE/ACETAMINOPHEN 5/325MG TABLET PO PRN
[2018-12-15] MEDS ORDERED: DEXTROSE 50% WATER 50ML SYRINGE IV PRN ×2
[2018-12-15 00:24] LABS: CHLORIDE 82 mEq/L (98-107)
[2018-12-15] MEDS: BLOOD SUGAR DIAGNOSTIC STRIP TEST SCH ×23 (01:03→23:18)
[2018-12-15] MEDS: SODIUM CHLORIDE 0.9% 1,000 ML IV SCH ×3 (01:04→08:04)
[2018-12-15] MEDS: INSULIN REGULAR (DRIP) 100 UNITS in SODIUM CHLORIDE 0.9% 100 ML IV SCH ×3 (01:08→10:39)
[2018-12-15] MEDS ORDERED: LEVOFLOXACIN 500MG PREMIX 100 ML IV SCH ×2 (02:00)
[2018-12-15] MEDS: DIPHENHYDRAMINE 50MG/ML VIAL IV PRN ×4 (02:23→23:31)
[2018-12-15 03:28] LABS: CHLORIDE 86 mEq/L (98-107)
[2018-12-15] MEDS: HYDROMORPHONE HCL/PF 2MG/ML CPJ IV PRN (03:38)
[2018-12-15 05:47] LABS: CHLORIDE 93 mEq/L (98-107)
[2018-12-15] MEDS: SODIUM CHLORIDE 0.9% INJ 3ML FLUSH IVF SCH ×3 (05:58→21:18)
[2018-12-15 06:02] LABS: CREATINE KINASE 103 IU/L (26-192)
[2018-12-15 06:05] LABS: CREATINE KINASE MB FRACTION 6.9 ng/mL (0.5-3.6)
[2018-12-15 08:06] LABS: CHLORIDE 100 mEq/L (98-107)
[2018-12-15] MEDS ORDERED: ONDANSETRON HCL 4MG/2ML INJ IV PRN ×2 (08:15)
[2018-12-15] MEDS: PANTOPRAZOLE SODIUM 40 MG/VIAL IV SCH (10:07)
[2018-12-15] MEDS: LORAZEPAM 2MG/ML CPJ IV PRN ×3 (12:02→22:45)
[2018-12-15] MEDS: DEXT 5%/0.45% NACL 1000ML 1,000 ML IV SCH ×3 (12:02→22:54)
[2018-12-15 12:23] LABS: CHLORIDE 110 mEq/L (98-107)
[2018-12-15] MEDS: METOCLOPRAMIDE HCL 10MG/2ML VIAL IV SCH ×3 (12:37→23:19)
[2018-12-15 20:46] LABS: CHLORIDE 107 mEq/L (98-107)
[2018-12-15 20:53] LABS: LDL CHOLESTEROL 62 mg/dL (5-100)
[2018-12-15 20:55] LABS: CREATINE KINASE 136 IU/L (26-192); T4 FREE 0.93 ng/dL (0.76-1.46)
[2018-12-15 20:57] LABS: CREATINE KINASE MB FRACTION 8.6 ng/mL (0.5-3.6)
[2018-12-15 21:37] LABS: HDL CHOLESTEROL 172 mg/dL (40-59)
[2018-12-15] MEDS: HYDRALAZINE 20MG/ML VIAL IV PRN (23:41)
[2018-12-16] VITALS (46 sets, daily range): BP systolic 102–177; BP diastolic 50–153
[2018-12-16] MEDS: BLOOD SUGAR DIAGNOSTIC STRIP TEST SCH ×12 (00:04→20:36)
[2018-12-16] MEDS: HYDROMORPHONE HCL/PF 2MG/ML CPJ IV PRN (00:08)
[2018-12-16 00:25] LABS: BG CARBOXYHEMOGLOBIN 0.2 % (0.5-1.5); BG DEOXYHEMOGLOBIN 27.5 % (0.0-5.0); BG FRACTION INSPIRED OXYGEN 60; BG HCO3 ACT 27.4 mmol/L (22.0-26.0); BG METHEMOGLOBIN 0.1 % (0.0-1.5); BG OXYGEN SATURATION 72.4 % (92.0-98.5); BG OXYHEMOGLOBIN 72.2 % (94.0-97.0); BG PH 7.181 (7.350-7.450); BG PO2 42.3 mmHg (75.0-100.0); BG SAMPLE SITE RIGHT BRACHIAL; BG TOTAL HEMOGLOBIN 10.6 g/dL (12.0-18.0); BG VENT MODE MASK - SIMPLE
[2018-12-16] MEDS ORDERED: VECURONIUM BROMIDE 10 MG/VIAL IV ONE (00:40)
[2018-12-16 01:00] LABS: CHLORIDE 108 mEq/L (98-107)
[2018-12-16 02:22] LABS: BG BASE EXCESS -0.9 mmol/L (-2.0-2.0); BG CARBOXYHEMOGLOBIN 0.3 % (0.5-1.5); BG DEOXYHEMOGLOBIN 2.6 % (0.0-5.0); BG FRACTION INSPIRED OXYGEN 60; BG HCO3 ACT 24.2 mmol/L (22.0-26.0); BG METHEMOGLOBIN 0.1 % (0.0-1.5); BG OXYGEN SATURATION 97.4 % (92.0-98.5); BG PH 7.379 (7.350-7.450); BG PO2 113.9 mmHg (75.0-100.0); BG SAMPLE SITE RIGHT BRACHIAL; BG TIDAL VOLUME(mL) 550 mL; BG VENT MODE VENT - A/C; BG VENT RATE 16 set
[2018-12-16 05:29] LABS: BASOPHILS % 0.6 % (0.0-2.0); EOSINOPHILS % 0.2 % (0.0-5.0); HEMATOCRIT. 35.8 % (36.0-48.0); HEMOGLOBIN. 11.5 g/dL (12.0-16.0); MEAN CORPUSCULAR HEMOGLOBIN 26.3 pg (28.0-32.0); MEAN CORPUSCULAR VOLUME 81.6 fL (81.0-99.0); MEAN PLATELET VOLUME 7.4 fl (7.4-10.4); MONOCYTES % 5.1 % (2.0-8.0); NEUTROPHILS % 79.1 % (40.0-76.0); PLATELET 455 x1000/uL (130-400); RED BLOOD CELL COUNT 4.39 mill/uL (4.2-5.4); RED CELL DISTRIBUTION WIDTH 16.1 % (11.6-14.6)
[2018-12-16] MEDS: SODIUM CHLORIDE 0.9% INJ 3ML FLUSH IVF SCH ×3 (05:29→21:15)
[2018-12-16] MEDS: METOCLOPRAMIDE HCL 10MG/2ML VIAL IV SCH ×3 (05:40→17:27)
[2018-12-16] MEDS: DEXT 5%/0.45% NACL 1000ML 1,000 ML IV SCH (05:40)
[2018-12-16] MEDS: PROPOFOL 10MG/ML 100ML 100 ML IV PRN ×2 (05:55→17:27)
[2018-12-16 06:24] LABS: CHLORIDE 108 mEq/L (98-107)
[2018-12-16 08:17] LABS: BG BASE EXCESS -1.2 mmol/L (-2.0-2.0); BG CARBOXYHEMOGLOBIN 0.1 % (0.5-1.5); BG DEOXYHEMOGLOBIN 3.3 % (0.0-5.0); BG FRACTION INSPIRED OXYGEN 60; BG HCO3 ACT 23.4 mmol/L (22.0-26.0); BG METHEMOGLOBIN 0.2 % (0.0-1.5); BG OXYGEN SATURATION 96.7 % (92.0-98.5); BG OXYHEMOGLOBIN 96.4 % (94.0-97.0); BG PCO2 38.8 mmHg (35.0-45.0); BG PH 7.399 (7.350-7.450); BG PO2 87.4 mmHg (75.0-100.0); BG SAMPLE SITE RIGHT BRACHIAL; BG TIDAL VOLUME(mL) 500 mL; BG TOTAL HEMOGLOBIN 10.6 g/dL (12.0-18.0); BG VENT MODE VENT - A/C; BG VENT RATE 16 set
[2018-12-16] MEDS ORDERED: DEXTROSE 50% WATER 50ML SYRINGE IV PRN ×2 (09:00)
[2018-12-16] MEDS: PANTOPRAZOLE SODIUM 40 MG/VIAL IV SCH (10:06)
[2018-12-16] MEDS ORDERED: CEFTRIAXONE 2 G PREMIX 50 ML IV SCH (10:30)
[2018-12-16] MEDS: HYDRALAZINE 20MG/ML VIAL IV PRN ×2 (11:22→22:13)
[2018-12-16] MEDS: AZTREONAM 2 GM in DEXT 5% WATER 100 ML IV SCH ×2 (11:22→22:13)
[2018-12-16] MEDS: INSULIN LISPRO 100 UNITS/ML SUBCUT SCH ×3 (11:28→21:41)
[2018-12-16] MEDS: METRONIDAZOLE 500 MG PREMIX 100 ML IV SCH ×2 (12:31→20:27)
[2018-12-16] MEDS: SODIUM CHLORIDE 0.45% 1,000 ML IV SCH ×2 (14:50→20:27)
[2018-12-16] MEDS: ENOXAPARIN 40MG/0.4ML SYR SUBCUT SCH (16:56)
[2018-12-16] MEDS: INSULIN GLARGINE UD 100 UNITS/ML SYR SUBCUT SCH (21:40)
[2018-12-17] VITALS (56 sets, daily range): BP systolic 113–178; BP diastolic 62–115
[2018-12-17] MEDS: METOCLOPRAMIDE HCL 10MG/2ML VIAL IV SCH ×5 (00:06→23:18)
[2018-12-17] MEDS: PROPOFOL 10MG/ML 100ML 100 ML IV PRN ×5 (00:53→22:34)
[2018-12-17] MEDS: METRONIDAZOLE 500 MG PREMIX 100 ML IV SCH ×3 (04:02→19:49)
[2018-12-17] MEDS: SODIUM CHLORIDE 0.45% 1,000 ML IV SCH (04:02)
[2018-12-17] MEDS: SODIUM CHLORIDE 0.9% INJ 3ML FLUSH IVF SCH ×3 (05:21→21:15)
[2018-12-17 05:39] LABS: BASOPHILS % 0.2 % (0.0-2.0); EOSINOPHILS % 0.3 % (0.0-5.0); HEMATOCRIT. 25.9 % (36.0-48.0); HEMOGLOBIN. 8.5 g/dL (12.0-16.0); LYMPHOCYTES % 14.5 % (20.0-50.0); MEAN CORPUSCULAR HEMOGLOBIN 26.5 pg (28.0-32.0); MEAN CORPUSCULAR VOLUME 80.9 fL (81.0-99.0); MEAN PLATELET VOLUME 7.3 fl (7.4-10.4); MONOCYTES % 3.2 % (2.0-8.0); NEUTROPHILS % 81.8 % (40.0-76.0); PLATELET 395 x1000/uL (130-400); RED CELL DISTRIBUTION WIDTH 16.6 % (11.6-14.6)
[2018-12-17] MEDS: BLOOD SUGAR DIAGNOSTIC STRIP TEST SCH ×4 (05:59→21:14)
[2018-12-17] MEDS: INSULIN LISPRO 100 UNITS/ML SUBCUT SCH ×4 (06:00→21:14)
[2018-12-17 07:04] LABS: CHLORIDE 110 mEq/L (98-107)
[2018-12-17] MEDS: AZTREONAM 2 GM in DEXT 5% WATER 100 ML IV SCH ×2 (11:56→22:58)
[2018-12-17] MEDS: PANTOPRAZOLE SODIUM 40 MG/VIAL IV SCH (12:20)
[2018-12-17] MEDS: ENOXAPARIN 40MG/0.4ML SYR SUBCUT SCH (17:20)
[2018-12-17] MEDS ORDERED: PROPOFOL 10MG/ML 100ML 100 ML IV PRN (19:00)
[2018-12-17] MEDS: INSULIN GLARGINE UD 100 UNITS/ML SYR SUBCUT SCH (21:14)
[2018-12-17] MEDS ORDERED: MIDAZOLAM HCL 50 MG in DEXTROSE 5% WATER 40 ML IV PRN (22:45)
[2018-12-17] MEDS: FENTANYL CITRATE/PF 500 MCG in SODIUM CHLORIDE 0.9% 40 ML IV PRN (23:03)
[2018-12-18] VITALS (90 sets, daily range): BP systolic 106–166; BP diastolic 59–117
[2018-12-18] MEDS: CLONIDINE 0.1MG TABLET PO PRN (00:04)
[2018-12-18] MEDS: METRONIDAZOLE 500 MG PREMIX 100 ML IV SCH ×3 (03:29→20:11)
[2018-12-18] MEDS: FENTANYL CITRATE/PF 500 MCG in SODIUM CHLORIDE 0.9% 40 ML IV PRN (03:29)
[2018-12-18] MEDS: BLOOD SUGAR DIAGNOSTIC STRIP TEST SCH ×4 (06:08→21:20)
[2018-12-18] MEDS: INSULIN LISPRO 100 UNITS/ML SUBCUT SCH ×4 (06:08→21:19)
[2018-12-18] MEDS: METOCLOPRAMIDE HCL 10MG/2ML VIAL IV SCH ×4 (06:08→23:07)
[2018-12-18] MEDS: SODIUM CHLORIDE 0.9% INJ 3ML FLUSH IVF SCH ×3 (06:08→21:19)
[2018-12-18] MEDS: PANTOPRAZOLE SODIUM 40 MG/VIAL IV SCH (09:58)
[2018-12-18] MEDS: AZTREONAM 2 GM in DEXT 5% WATER 100 ML IV SCH ×2 (09:59→23:07)
[2018-12-18] MEDS ORDERED: DEXT 5%/0.45% NACL 1000ML 1,000 ML IV SCH (11:27)
[2018-12-18 12:54] LABS: BASOPHILS % 0.5 % (0.0-2.0); EOSINOPHILS % 1.2 % (0.0-5.0); HEMATOCRIT. 22.7 % (36.0-48.0); HEMOGLOBIN. 7.4 g/dL (12.0-16.0); LYMPHOCYTES % 16.6 % (20.0-50.0); MEAN CORPUSCULAR HEMOGLOBIN 26.6 pg (28.0-32.0); MEAN CORPUSCULAR VOLUME 81.6 fL (81.0-99.0); MEAN PLATELET VOLUME 7.3 fl (7.4-10.4); MONOCYTES % 3.4 % (2.0-8.0); NEUTROPHILS % 78.3 % (40.0-76.0); PLATELET 313 x1000/uL (130-400); RED BLOOD CELL COUNT 2.78 mill/uL (4.2-5.4); RED CELL DISTRIBUTION WIDTH 16.5 % (11.6-14.6)
[2018-12-18 12:56] LABS: CHLORIDE 112 mEq/L (98-107)
[2018-12-18 13:14] LABS: BG BASE EXCESS 4.1 mmol/L (-2.0-2.0); BG CARBOXYHEMOGLOBIN 0.3 % (0.5-1.5); BG DEOXYHEMOGLOBIN 1.2 % (0.0-5.0); BG FRACTION INSPIRED OXYGEN 40; BG HCO3 ACT 29.1 mmol/L (22.0-26.0); BG METHEMOGLOBIN 0.2 % (0.0-1.5); BG OXYGEN SATURATION 98.8 % (92.0-98.5); BG OXYHEMOGLOBIN 98.3 % (94.0-97.0); BG PCO2 46.5 mmHg (35.0-45.0); BG PH 7.415 (7.350-7.450); BG PO2 164.4 mmHg (75.0-100.0); BG PRESSURE SUPPORT 8; BG SAMPLE SITE RIGHT RADIAL; BG TOTAL HEMOGLOBIN 8.5 g/dL (12.0-18.0); BG VENT MODE VENT - CPAP
[2018-12-18] MEDS: ENOXAPARIN 40MG/0.4ML SYR SUBCUT SCH (15:32)
[2018-12-18] MEDS: GUAIFENESIN 200MG/10ML SUGAR FREE UDC PO PRN ×2 (16:31→22:48)
[2018-12-18] MEDS: ACETAMINOPHEN 325MG TABLET PO PRN (20:12)
[2018-12-18] MEDS ORDERED: INSULIN GLARGINE UD 100 UNITS/ML SYR SUBCUT SCH (22:00)
[2018-12-18] MEDS: IPRATROPIUM/ALBUTEROL 0.5-3(2.5)MG/3ML NEB INH PRN (22:28)
[2018-12-19] VITALS (33 sets, daily range): BP systolic 116–185; BP diastolic 50–112
[2018-12-19] MEDS: METRONIDAZOLE 500 MG PREMIX 100 ML IV SCH ×3 (03:13→20:11)
[2018-12-19 05:47] LABS: EOSINOPHILS % 0.9 % (0.0-5.0); HEMATOCRIT. 26.6 % (36.0-48.0); HEMOGLOBIN. 8.4 g/dL (12.0-16.0); MEAN CORPUSCULAR HEMOGLOBIN 26.3 pg (28.0-32.0); MEAN CORPUSCULAR VOLUME 83.1 fL (81.0-99.0); MEAN PLATELET VOLUME 8.2 fl (7.4-10.4); MONOCYTES % 4.2 % (2.0-8.0); NEUTROPHILS % 81.9 % (40.0-76.0); PLATELET 350 x1000/uL (130-400); RED CELL DISTRIBUTION WIDTH 17.2 % (11.6-14.6)
[2018-12-19 06:01] LABS: CHLORIDE 106 mEq/L (98-107)
[2018-12-19] MEDS: BLOOD SUGAR DIAGNOSTIC STRIP TEST SCH ×4 (06:29→21:12)
[2018-12-19] MEDS: SODIUM CHLORIDE 0.9% INJ 3ML FLUSH IVF SCH ×3 (06:29→21:21)
[2018-12-19] MEDS: METOCLOPRAMIDE HCL 10MG/2ML VIAL IV SCH ×3 (06:47→18:19)
[2018-12-19] MEDS: INSULIN LISPRO 100 UNITS/ML SUBCUT SCH ×4 (06:48→21:16)
[2018-12-19] MEDS ORDERED: INSULIN LISPRO 100 UNITS/ML SUBCUT SCH (07:22)
[2018-12-19] MEDS: IPRATROPIUM/ALBUTEROL 0.5-3(2.5)MG/3ML NEB INH PRN (10:10)
[2018-12-19] MEDS: GUAIFENESIN 200MG/10ML SUGAR FREE UDC PO PRN ×3 (10:27→18:19)
[2018-12-19] MEDS: PANTOPRAZOLE SODIUM 40 MG/VIAL IV SCH (10:27)
[2018-12-19] MEDS: AZTREONAM 2 GM in DEXT 5% WATER 100 ML IV SCH (10:28)
[2018-12-19] MEDS: CLONIDINE 0.1MG TABLET PO PRN (14:02)
[2018-12-19] MEDS: HYDRALAZINE 20MG/ML VIAL IV PRN (16:24)
[2018-12-19] MEDS: ACETAMINOPHEN 325MG TABLET PO PRN ×2 (16:24→17:38)
[2018-12-19] MEDS: ENOXAPARIN 40MG/0.4ML SYR SUBCUT SCH (16:25)
[2018-12-19] MEDS: INSULIN GLARGINE UD 100 UNITS/ML SYR SUBCUT SCH (21:17)
[2018-12-19] MEDS ORDERED: INSULIN GLARGINE UD 100 UNITS/ML SYR SUBCUT SCH (22:00)
[2018-12-20] VITALS (24 sets, daily range): BP systolic 121–182; BP diastolic 62–112
[2018-12-20] MEDS: AZTREONAM 2 GM in DEXT 5% WATER 100 ML IV SCH ×3 (00:20→21:57)
[2018-12-20] MEDS: METOCLOPRAMIDE HCL 10MG/2ML VIAL IV SCH ×4 (00:21→16:37)
[2018-12-20] MEDS: METRONIDAZOLE 500MG TABLET PO SCH ×3 (06:10→21:57)
[2018-12-20] MEDS: INSULIN LISPRO 100 UNITS/ML SUBCUT SCH ×5 (06:11→23:29)
[2018-12-20] MEDS: BLOOD SUGAR DIAGNOSTIC STRIP TEST SCH ×4 (06:12→21:00)
[2018-12-20] MEDS: SODIUM CHLORIDE 0.9% INJ 3ML FLUSH IVF SCH ×2 (06:12→14:00)
[2018-12-20] MEDS: PANTOPRAZOLE SODIUM 40 MG/VIAL IV SCH (08:29)
[2018-12-20] MEDS: BUDESONIDE 0.5MG/2ML NEB HHN SCH ×2 (08:34→21:54)
[2018-12-20] MEDS: IPRATROPIUM/ALBUTEROL 0.5-3(2.5)MG/3ML NEB INH PRN ×2 (08:35→21:55)
[2018-12-20] MEDS: ACETAMINOPHEN 325MG TABLET PO PRN (13:58)
[2018-12-20] MEDS: ENOXAPARIN 40MG/0.4ML SYR SUBCUT SCH (16:37)
[2018-12-20] MEDS: INSULIN GLARGINE UD 100 UNITS/ML SYR SUBCUT SCH (21:35)
[2018-12-20] MEDS ORDERED: INSULIN LISPRO 100 UNITS/ML SUBCUT ONE (23:00)
[2018-12-21] VITALS: BP 132/82
[2018-12-21] MEDS: METOCLOPRAMIDE HCL 10MG/2ML VIAL IV SCH ×3 (01:25→11:46)
[2018-12-21] MEDS: IPRATROPIUM/ALBUTEROL 0.5-3(2.5)MG/3ML NEB INH PRN ×2 (02:15→09:25)
[2018-12-21 03:37] VITALS: BP 142/86
[2018-12-21] MEDS: METRONIDAZOLE 500MG TABLET PO SCH (06:17)
[2018-12-21] MEDS: SODIUM CHLORIDE 0.9% INJ 3ML FLUSH IVF SCH ×2 (06:18→06:19)
[2018-12-21 08:00] VITALS: BP 133/76
[2018-12-21] MEDS: BLOOD SUGAR DIAGNOSTIC STRIP TEST SCH ×2 (08:02→11:46)
[2018-12-21] MEDS: PANTOPRAZOLE SODIUM 40 MG/VIAL IV SCH (09:00)
[2018-12-21] MEDS: BUDESONIDE 0.5MG/2ML NEB HHN SCH (09:25)
[2018-12-21] MEDS: AZTREONAM 2 GM in DEXT 5% WATER 100 ML IV SCH (11:46)
[2018-12-21] MEDS: INSULIN LISPRO 100 UNITS/ML SUBCUT SCH (12:53)
[2018-12-21 15:14] VITALS: BP 131/76
[2018-12-21 16:00] VITALS: BP 128/72
[2018-12-21] MEDS: ENOXAPARIN 40MG/0.4ML SYR SUBCUT SCH (16:00)
== END 2018-12-21 16:25 | disposition home or self-care (01) | DRG 133 ==
LOC: ER 20:33 → MICUSO 22:37 → EDBEDREQTM 22:40 → EDBEDREQ 22:40 → ENRESERV 23:32 → 6EST 12-20 20:45
PROVIDERS: ADMIT Internal Medicine; ATTEND Internal Medicine
PROC: 5A1945Z Respiratory Ventilation, 24-96 Consecutive Hours (ICD-10-PCS; principal; 2018-12-16)
PROC: 06H033Z Insertion of Infusion Device into Inferior Vena Cava, Percutaneous Approach (ICD-10-PCS; 2018-12-16)
PROC: B549ZZA Ultrasonography of Inferior Vena Cava, Guidance (ICD-10-PCS; 2018-12-16)
PROC: 0BH17EZ Insertion of Endotracheal Airway into Trachea, Via Natural or Artificial Opening (ICD-10-PCS; 2018-12-16)
DX: J96.00 Acute respiratory failure, unspecified whether with hypoxia or hypercapnia (principal); J69.0 Pneumonitis due to inhalation of food and vomit; G93.41 Metabolic encephalopathy; E10.10 Type 1 diabetes mellitus with ketoacidosis without coma; K31.84 Gastroparesis; E10.43 Type 1 diabetes mellitus with diabetic autonomic (poly)neuropathy; E87.5 Hyperkalemia; E87.1 Hypo-osmolality and hyponatremia; I10 Essential (primary) hypertension; G89.29 Other chronic pain; Z76.5 Malingerer [conscious simulation]; Z79.4 Long term (current) use of insulin; Z79.899 Other long term (current) drug therapy; Z91.14 Patient's other noncompliance with medication regimen; Z91.19 Patient's noncompliance with other medical treatment and regimen; Z88.0 Allergy status to penicillin; Z88.2 Allergy status to sulfonamides; Z88.1 Allergy status to other antibiotic agents
CPT/HCPCS: 36415; 36569; 36600; 51702; 71045; 76937; 80048; 80061; 81025; 82010; 82375; 82550; 82553; 82805; 82962; 83036; 83735; 83880; 84100; 84439; 84443; 84478; 84484; 84703; 85379; 93005; 93306; 93970; 93971; 94003; 94640; 96361; 96365; 97162; 99291; C1725; C9113; J0360; J0696; J1170; J1200; J1650; J1815; J1956; J2060; J2405; J2704; J2765; J3010; J3490; J7030; J7040; J7050; J7060; J7620; J7626

== ENCOUNTER 2018-12-23 10:48 | Inpatient (IN) | payer MEDICAID ==
[~2018-12-23] VITALS: Ht 165.1 cm; Wt 58.1 kg
[~2018-12-23 10:48] MED LIST changes: -HYDR-519 PO
[2018-12-23] MEDS ORDERED: SODIUM CHLORIDE 0.9% 1,000 ML IV ONE (11:32)
[2018-12-23] MEDS ORDERED: DEXTROSE 50% WATER 50ML SYRINGE IV ONE (11:45)
[2018-12-23 11:49] LABS: EOSINOPHILS % 1.6 % (0.0-5.0); LYMPHOCYTES % 32.6 % (20.0-50.0); MEAN CORPUSCULAR VOLUME 80.7 fL (81.0-99.0); MEAN PLATELET VOLUME 7.6 fl (7.4-10.4); NEUTROPHILS % 57.8 % (40.0-76.0); PLATELET 694 x1000/uL (130-400); RED CELL DISTRIBUTION WIDTH 16.2 % (11.6-14.6)
[2018-12-23 11:54] LABS: CHLORIDE 106 mEq/L (98-107)
[2018-12-23 12:01] LABS: INR 0.9; PARTIAL THROMBOPLASTIN TIME 20.2 sec (23.4-31.0); PROTHROMBIN TIME 9.4 sec (9.6-11.0)
[2018-12-23 12:04] LABS: HCG SCREEN NEGATIVE
[2018-12-23] MEDS ORDERED: ONDANSETRON HCL 4MG/2ML INJ IV STA (12:14)
[2018-12-23] MEDS ORDERED: MORPHINE SULFATE 4 MG/ML CPJ (NOT FOR IM USE) IV STA (12:14)
[2018-12-23] MEDS ORDERED: DIPHENHYDRAMINE 50MG/ML VIAL IV ONE (12:45)
[2018-12-23] MEDS ORDERED: CLONIDINE 0.1MG TABLET PO ONE (13:00)
[2018-12-23] MEDS ORDERED: ENOXAPARIN 60MG/0.6ML SYR SUBCUT ONE (14:00)
[2018-12-23] MEDS ORDERED: IOHEXOL-350 100 ML BOTTLE ONE (14:32)
[2018-12-23] MEDS ORDERED: ACETAMINOPHEN 325MG TABLET PO PRN (14:45)
[2018-12-23] MEDS ORDERED: ONDANSETRON HCL 4MG/2ML INJ IV PRN (14:45)
[2018-12-23] MEDS ORDERED: CLONIDINE 0.1MG TABLET PO PRN (14:45)
[2018-12-23] MEDS ORDERED: HYDROCODONE/ACETAMINOPHEN 5/325MG TABLET PO PRN (14:45)
[2018-12-23] MEDS: MORPHINE SULFATE 4 MG/ML CPJ (NOT FOR IM USE) IV PRN ×2 (16:49→20:57)
[2018-12-23] MEDS ORDERED: INSULIN REGULAR (HUMULIN R) 300UNITS/3ML ONE (20:48)
[2018-12-23 21:25] VITALS: BP 175/100
[2018-12-23] MEDS: DIPHENHYDRAMINE 50MG/ML VIAL IV PRN (21:52)
[2018-12-23] MEDS: METOPROLOL TARTRATE 25MG TABLET PO SCH (21:59)
[2018-12-23] MEDS: AMLODIPINE 5MG TABLET PO SCH (22:00)
[2018-12-23 22:01] VITALS: BP 175/100
[2018-12-23] MEDS: ENOXAPARIN 60MG/0.6ML SYR SUBCUT SCH (22:01)
[2018-12-24] VITALS: BP 145/82
[2018-12-24] MEDS: MORPHINE SULFATE 4 MG/ML CPJ (NOT FOR IM USE) IV PRN ×3 (01:26→11:00)
[2018-12-24 04:00] VITALS: BP 142/80
[2018-12-24] MEDS: BLOOD SUGAR DIAGNOSTIC STRIP TEST SCH ×3 (06:00→17:16)
[2018-12-24] MEDS ORDERED: DEXTROSE 50% WATER 50ML SYRINGE IV PRN (06:00)
[2018-12-24] MEDS: DIPHENHYDRAMINE 50MG/ML VIAL IV PRN ×2 (06:21→12:38)
[2018-12-24 08:00] VITALS: BP 146/93
[2018-12-24] MEDS: INSULIN LISPRO 100 UNITS/ML SUBCUT SCH ×4 (08:08→18:07)
[2018-12-24] MEDS: DOCUSATE SODIUM 100MG CAPSULE PO SCH ×3 (08:12→17:00)
[2018-12-24] MEDS: ENOXAPARIN 60MG/0.6ML SYR SUBCUT SCH (08:12)
[2018-12-24] MEDS: FERROUS SULFATE 325MG TABLET PO SCH ×4 (08:12→17:16)
[2018-12-24 08:16] LABS: EOSINOPHILS % 2.1 % (0.0-5.0); HEMATOCRIT. 22.9 % (36.0-48.0); HEMOGLOBIN. 7.7 g/dL (12.0-16.0); LYMPHOCYTES % 40.9 % (20.0-50.0); MEAN CORPUSCULAR HEMOGLOBIN 27.5 pg (28.0-32.0); MEAN CORPUSCULAR VOLUME 81.6 fL (81.0-99.0); MEAN PLATELET VOLUME 7.2 fl (7.4-10.4); MONOCYTES % 7.8 % (2.0-8.0); NEUTROPHILS % 47.2 % (40.0-76.0); PLATELET 741 x1000/uL (130-400); RED BLOOD CELL COUNT 2.81 mill/uL (4.2-5.4); RED CELL DISTRIBUTION WIDTH 15.7 % (11.6-14.6)
[2018-12-24 08:54] LABS: CHLORIDE 103 mEq/L (98-107)
[2018-12-24] MEDS: METOPROLOL TARTRATE 25MG TABLET PO SCH (09:03)
[2018-12-24] MEDS: AMLODIPINE 5MG TABLET PO SCH (09:03)
[2018-12-24 12:00] VITALS: BP 139/85
[2018-12-24] MEDS ORDERED: INSULIN GLARGINE UD 100 UNITS/ML SYR SUBCUT NR (14:30)
[2018-12-24 15:08] VITALS: BP 139/85
[2018-12-24 16:00] VITALS: BP 135/77
[2018-12-24] MEDS ORDERED: INSULIN GLARGINE UD 100 UNITS/ML SYR SUBCUT SCH (22:00)
== END 2018-12-24 19:50 | disposition home or self-care (01) | DRG 197 ==
LOC: ER 11:43 → 8WST 13:24 → ENRESERV 19:48
PROVIDERS: ADMIT Internal Medicine; ATTEND Internal Medicine
DX: I82.621 Acute embolism and thrombosis of deep veins of right upper extremity (principal); E43 Unspecified severe protein-calorie malnutrition; E11.649 Type 2 diabetes mellitus with hypoglycemia without coma; E11.65 Type 2 diabetes mellitus with hyperglycemia; D64.9 Anemia, unspecified; I10 Essential (primary) hypertension; Z87.01 Personal history of pneumonia (recurrent); Z88.2 Allergy status to sulfonamides; Z88.1 Allergy status to other antibiotic agents; Z88.6 Allergy status to analgesic agent; Z79.4 Long term (current) use of insulin; Z79.899 Other long term (current) drug therapy; Z68.21 Body mass index [BMI] 21.0-21.9, adult; Z76.5 Malingerer [conscious simulation]; M79.89 Other specified soft tissue disorders
CPT/HCPCS: 36415; 71045; 71275; 80048; 82962; 83880; 84484; 84703; 93005; 93970; 93971; 99285; C1893; J1200; J1650; J1815; J2270; J2405; J7030; Q9967

== ENCOUNTER 2018-12-25 19:11 | Inpatient (IN) | payer MEDICAID ==
[~2018-12-25] VITALS: Ht 165.1 cm; Wt 72.4 kg
[2018-12-25] MEDS ORDERED: SODIUM CHLORIDE 0.9% 1,000 ML IV ONE (20:22)
[2018-12-25] MEDS ORDERED: ONDANSETRON HCL 4MG/2ML INJ IV STA (20:22)
[2018-12-25] MEDS ORDERED: FAMOTIDINE 20MG/2ML VIAL IV STA (20:22)
[2018-12-25] MEDS ORDERED: SODIUM CHLORIDE 0.9% 1000ML BAG (SEPSIS BOLUS) IV ONE (20:30)
[2018-12-25] MEDS ORDERED: DIATR MEGLU/DIATRIZOATE SOLN 30ML PO ONE (20:30)
[2018-12-25] MEDS ORDERED: MORPHINE SULFATE 2 MG/ML CPJ (NOT FOR IM USE) IV ONE (21:00)
[2018-12-25] MEDS ORDERED: DIPHENHYDRAMINE 50MG/ML VIAL IV ONE (21:00)
[2018-12-25] MEDS ORDERED: INSULIN REGULAR (HUMULIN R) UD 100 UNITS/ML SYR IV ONE ×2 (21:00→21:30)
[2018-12-25] MEDS ORDERED: INSULIN REGULAR (HUMULIN R) 300UNITS/3ML IV SCH ×2 (21:15→22:30)
[2018-12-25] MEDS ORDERED: MORPHINE SULFATE 4 MG/ML CPJ (NOT FOR IM USE) IV SCH (21:15)
[2018-12-25 21:35] LABS: BASOPHILS % 0.6 % (0.0-2.0); EOSINOPHILS % 0.4 % (0.0-5.0); HEMATOCRIT. 23.1 % (36.0-48.0); HEMOGLOBIN. 7.3 g/dL (12.0-16.0); LYMPHOCYTES % 16.5 % (20.0-50.0); MEAN CORPUSCULAR HEMOGLOBIN 26.4 pg (28.0-32.0); MEAN CORPUSCULAR VOLUME 83.3 fL (81.0-99.0); MEAN PLATELET VOLUME 6.7 fl (7.4-10.4); MONOCYTES % 6.3 % (2.0-8.0); NEUTROPHILS % 76.2 % (40.0-76.0); PLATELET 802 x1000/uL (130-400); RED BLOOD CELL COUNT 2.77 mill/uL (4.2-5.4); RED CELL DISTRIBUTION WIDTH 16.2 % (11.6-14.6)
[2018-12-25 21:39] LABS: CHLORIDE 99 mEq/L (98-107)
[2018-12-25 21:43] LABS: INR 0.9; PROTHROMBIN TIME 9.6 sec (9.6-11.0)
[2018-12-25 21:44] LABS: HCG SCREEN NEGATIVE
[2018-12-25 21:46] LABS: BETA HYDROXYBUTYRATE 0.1 mMol/L (0.0-0.3); C REACTIVE PROTEIN QUANT 2.4 mg/L (0.0-3.0)
[2018-12-25] MEDS ORDERED: DIATR MEGLU/DIATRIZOATE SOLN 30ML ONE (21:59)
[2018-12-25] MEDS ORDERED: METRONIDAZOLE 500 MG PREMIX 100 ML IV ONE (22:00)
[2018-12-25] MEDS ORDERED: VANCOMYCIN 1 G PREMIX 200 ML IV SCH (22:00)
[2018-12-25] MEDS ORDERED: HYDROMORPHONE HCL/PF 2MG/ML CPJ IV ONE (22:30)
[2018-12-25 22:36] LABS: CLARITY URINE CLEAR (CLEAR); COLOR URINE YELLOW (YELLOW); KETONES URINE NEGATIVE (NEGATIVE); LEUKOCYTE ESTERASE URINE NEGATIVE (NEGATIVE); NITRITE URINE NEGATIVE (NEGATIVE); OCCULT BLOOD URINE 1+ (NEGATIVE); PH URINE 6.5 (4.5-8.0); PROTEIN URINE 2+ (NEGATIVE); SPECIFIC GRAVITY URINE 1.022 (1.005-1.030); UROBILINOGEN URINE 0.2 E.U./dL (0.2-1.0)
[2018-12-26] VITALS (11 sets, daily range): BP systolic 116–161; BP diastolic 71–99
[2018-12-26] MEDS ORDERED: DIPHENHYDRAMINE 50MG/ML VIAL IV ONE (00:15)
[2018-12-26] MEDS ORDERED: ENOXAPARIN 60MG/0.6ML SYR SUBCUT ONE (02:30)
[2018-12-26] MEDS ORDERED: DEXTROSE 50% WATER 50ML SYRINGE IV PRN (03:00)
[2018-12-26] MEDS ORDERED: ONDANSETRON HCL 4MG/2ML INJ IV PRN (03:00)
[2018-12-26] MEDS: DIPHENHYDRAMINE 50MG/ML VIAL IV PRN ×4 (03:37→18:22)
[2018-12-26] MEDS: HYDROMORPHONE HCL/PF 2MG/ML CPJ IV PRN ×5 (03:37→23:17)
[2018-12-26] MEDS: PANTOPRAZOLE 40MG DR TABLET PO SCH (06:34)
[2018-12-26] MEDS: BLOOD SUGAR DIAGNOSTIC STRIP TEST SCH ×4 (06:40→20:07)
[2018-12-26] MEDS ORDERED: INSULIN LISPRO 100 UNITS/ML SUBCUT SCH ×4 (06:50→21:00)
[2018-12-26] MEDS: INSULIN LISPRO 100 UNITS/ML SUBCUT SCH ×3 (07:20→17:09)
[2018-12-26] MEDS: ALPRAZOLAM 0.5 MG TABLET PO SCH ×2 (08:50→18:22)
[2018-12-26] MEDS ORDERED: INSULIN GLARGINE UD 100 UNITS/ML SYR SUBCUT SCH ×3 (10:00→22:00)
[2018-12-26 10:04] LABS: BASOPHILS % 2.3 % (0.0-2.0); EOSINOPHILS % 1.4 % (0.0-5.0); HEMATOCRIT. 22.9 % (36.0-48.0); HEMOGLOBIN. 7.5 g/dL (12.0-16.0); LYMPHOCYTES % 28.9 % (20.0-50.0); MEAN CORPUSCULAR HEMOGLOBIN 26.6 pg (28.0-32.0); MEAN CORPUSCULAR VOLUME 81.4 fL (81.0-99.0); MEAN PLATELET VOLUME 6.4 fl (7.4-10.4); MONOCYTES % 4.8 % (2.0-8.0); NEUTROPHILS % 62.6 % (40.0-76.0); PLATELET 825 x1000/uL (130-400); RED BLOOD CELL COUNT 2.81 mill/uL (4.2-5.4); RED CELL DISTRIBUTION WIDTH 16.3 % (11.6-14.6)
[2018-12-26 10:20] LABS: CHLORIDE 103 mEq/L (98-107)
[2018-12-26] MEDS: AMLODIPINE 5MG TABLET PO SCH ×2 (10:35→20:32)
[2018-12-26] MEDS: FUROSEMIDE 40MG/4ML VIAL IVP SCH ×2 (10:35→17:08)
[2018-12-26] MEDS: ENOXAPARIN 80MG/0.8ML SYR SUBCUT SCH ×2 (10:36→20:31)
[2018-12-26] MEDS: FERROUS SULFATE 325MG TABLET PO SCH ×2 (13:05→17:08)
[2018-12-26] MEDS: DOCUSATE SODIUM 100MG CAPSULE PO SCH (17:00)
[2018-12-26] MEDS: ZOLPIDEM TARTRATE 5MG TABLET PO PRN (20:32)
[2018-12-27] MEDS ORDERED: DEXT 10% WATER 1,000 ML IV SCH
[2018-12-27] MEDS: DIPHENHYDRAMINE 50MG/ML VIAL IV PRN ×3 (00:25→21:23)
[2018-12-27 04:00] VITALS: BP 166/102
[2018-12-27] MEDS: PANTOPRAZOLE 40MG DR TABLET PO SCH (06:07)
[2018-12-27] MEDS: BLOOD SUGAR DIAGNOSTIC STRIP TEST SCH ×4 (06:07→20:35)
[2018-12-27 06:21] LABS: BASOPHILS % 0.7 % (0.0-2.0); EOSINOPHILS % 1.3 % (0.0-5.0); HEMATOCRIT. 21.7 % (36.0-48.0); HEMOGLOBIN. 7.1 g/dL (12.0-16.0); LYMPHOCYTES % 28.2 % (20.0-50.0); MEAN CORPUSCULAR HEMOGLOBIN 26.6 pg (28.0-32.0); MEAN CORPUSCULAR VOLUME 80.9 fL (81.0-99.0); MEAN PLATELET VOLUME 6.7 fl (7.4-10.4); MONOCYTES % 7.1 % (2.0-8.0); NEUTROPHILS % 62.7 % (40.0-76.0); PLATELET 801 x1000/uL (130-400); RED BLOOD CELL COUNT 2.68 mill/uL (4.2-5.4); RED CELL DISTRIBUTION WIDTH 16.4 % (11.6-14.6)
[2018-12-27 06:30] LABS: CHLORIDE 101 mEq/L (98-107)
[2018-12-27 08:00] VITALS: BP 162/103
[2018-12-27] MEDS: ENOXAPARIN 80MG/0.8ML SYR SUBCUT SCH ×2 (09:39→20:34)
[2018-12-27] MEDS: ALPRAZOLAM 0.5 MG TABLET PO SCH ×2 (09:39→17:16)
[2018-12-27] MEDS: FERROUS SULFATE 325MG TABLET PO SCH ×3 (09:40→17:16)
[2018-12-27] MEDS: FUROSEMIDE 40MG/4ML VIAL IVP SCH ×2 (09:40→17:16)
[2018-12-27] MEDS: AMLODIPINE 5MG TABLET PO SCH ×2 (09:40→20:34)
[2018-12-27] MEDS: DOCUSATE SODIUM 100MG CAPSULE PO SCH ×2 (09:41→17:16)
[2018-12-27] MEDS: HYDROMORPHONE HCL/PF 2MG/ML CPJ IV PRN ×3 (10:02→23:53)
[2018-12-27 12:00] VITALS: BP 109/69
[2018-12-27 16:00] VITALS: BP 119/93
[2018-12-27 20:00] VITALS: BP 129/72
[2018-12-27] MEDS: INSULIN GLARGINE UD 100 UNITS/ML SYR SUBCUT SCH (21:24)
[2018-12-28] VITALS: BP 127/59
[2018-12-28 04:00] VITALS: BP 121/70
[2018-12-28] MEDS: DIPHENHYDRAMINE 50MG/ML VIAL IV PRN ×3 (05:34→18:33)
[2018-12-28] MEDS: BLOOD SUGAR DIAGNOSTIC STRIP TEST SCH ×4 (05:51→21:01)
[2018-12-28] MEDS: PANTOPRAZOLE 40MG DR TABLET PO SCH (05:51)
[2018-12-28] MEDS: HYDROMORPHONE HCL/PF 2MG/ML CPJ IV PRN ×5 (05:56→23:39)
[2018-12-28 06:20] LABS: BASOPHILS % 0.6 % (0.0-2.0); LYMPHOCYTES % 28.2 % (20.0-50.0); MEAN CORPUSCULAR HEMOGLOBIN 26.5 pg (28.0-32.0); MEAN CORPUSCULAR VOLUME 82.1 fL (81.0-99.0); MEAN PLATELET VOLUME 6.6 fl (7.4-10.4); MONOCYTES % 5.7 % (2.0-8.0); NEUTROPHILS % 64.5 % (40.0-76.0); PLATELET 943 x1000/uL (130-400); RED CELL DISTRIBUTION WIDTH 16.6 % (11.6-14.6)
[2018-12-28 06:45] LABS: CHLORIDE 99 mEq/L (98-107)
[2018-12-28 07:16] LABS: HEMOGLOBIN. 8.2 g/dL (12.0-16.0)
[2018-12-28 07:17] LABS: HEMATOCRIT. 25.4 % (36.0-48.0)
[2018-12-28 08:00] VITALS: BP 158/91
[2018-12-28] MEDS: FUROSEMIDE 40MG/4ML VIAL IVP SCH ×2 (08:51→18:34)
[2018-12-28] MEDS: FERROUS SULFATE 325MG TABLET PO SCH ×3 (08:52→18:33)
[2018-12-28] MEDS: ALPRAZOLAM 0.5 MG TABLET PO SCH ×2 (09:50→17:00)
[2018-12-28] MEDS: DOCUSATE SODIUM 100MG CAPSULE PO SCH ×2 (09:50→18:33)
[2018-12-28] MEDS: AMLODIPINE 5MG TABLET PO SCH ×2 (09:51→21:06)
[2018-12-28] MEDS: ENOXAPARIN 80MG/0.8ML SYR SUBCUT SCH ×2 (09:52→21:06)
[2018-12-28] MEDS: INSULIN GLARGINE UD 100 UNITS/ML SYR SUBCUT SCH (09:53)
[2018-12-28] MEDS ORDERED: INSULIN LISPRO 100 UNITS/ML SUBCUT NR (10:00)
[2018-12-28] MEDS: INSULIN LISPRO 100 UNITS/ML SUBCUT SCH ×2 (10:23→12:14)
[2018-12-28] MEDS ORDERED: SODIUM POLYSTYRENE SULFONATE 15 G/60 ML BOT PO NR (11:00)
[2018-12-28 12:00] VITALS: BP 117/69
[2018-12-28] MEDS ORDERED: INSULIN GLARGINE UD 100 UNITS/ML SYR SUBCUT NR (12:00)
[2018-12-28 16:00] VITALS: BP 95/59
[2018-12-28 20:00] VITALS: BP 118/69
[2018-12-28] MEDS: ZOLPIDEM TARTRATE 5MG TABLET PO PRN (21:06)
[2018-12-28] MEDS: HYDROCODONE/ACETAMINOPHEN 10/325MG TABLET PO PRN (21:14)
[2018-12-29] VITALS (7 sets, daily range): BP systolic 110–138; BP diastolic 61–96
[2018-12-29] MEDS: DIPHENHYDRAMINE 50MG/ML VIAL IV PRN (00:37)
[2018-12-29] MEDS: BLOOD SUGAR DIAGNOSTIC STRIP TEST SCH ×4 (06:12→21:32)
[2018-12-29] MEDS: PANTOPRAZOLE 40MG DR TABLET PO SCH (06:14)
[2018-12-29] MEDS: FERROUS SULFATE 325MG TABLET PO SCH ×3 (08:16→17:15)
[2018-12-29] MEDS: DOCUSATE SODIUM 100MG CAPSULE PO SCH ×2 (08:16→17:00)
[2018-12-29] MEDS: FUROSEMIDE 40MG/4ML VIAL IVP SCH ×2 (08:16→17:15)
[2018-12-29] MEDS: AMLODIPINE 5MG TABLET PO SCH ×2 (08:16→21:34)
[2018-12-29] MEDS: ALPRAZOLAM 0.5 MG TABLET PO SCH ×2 (08:16→18:00)
[2018-12-29] MEDS: HYDROMORPHONE HCL/PF 2MG/ML CPJ IV PRN (08:17)
[2018-12-29] MEDS: ENOXAPARIN 80MG/0.8ML SYR SUBCUT SCH ×2 (08:18→21:40)
[2018-12-29] MEDS ORDERED: HYDROCODONE/ACETAMINOPHEN 5/325MG TABLET PO PRN (09:30)
[2018-12-29] MEDS ORDERED: DIPHENHYDRAMINE 50MG CAPSULE PO PRN (09:30)
[2018-12-29] MEDS ORDERED: INSULIN GLARGINE UD 100 UNITS/ML SYR SUBCUT SCH (10:00)
[2018-12-29 10:13] LABS: BASOPHILS % 0.5 % (0.0-2.0); EOSINOPHILS % 0.1 % (0.0-5.0); HEMATOCRIT. 24.4 % (36.0-48.0); HEMOGLOBIN. 7.8 g/dL (12.0-16.0); LYMPHOCYTES % 9.6 % (20.0-50.0); MEAN CORPUSCULAR HEMOGLOBIN 26.8 pg (28.0-32.0); MEAN CORPUSCULAR VOLUME 83.9 fL (81.0-99.0); MEAN PLATELET VOLUME 6.3 fl (7.4-10.4); MONOCYTES % 3.3 % (2.0-8.0); NEUTROPHILS % 86.5 % (40.0-76.0); PLATELET 871 x1000/uL (130-400); RED CELL DISTRIBUTION WIDTH 16.8 % (11.6-14.6)
[2018-12-29] MEDS ORDERED: ALBUTEROL (0.083%) 2.5MG/3ML NEB HHN NR (11:30)
[2018-12-29] MEDS: INSULIN LISPRO 100 UNITS/ML SUBCUT SCH ×4 (12:54→18:17)
[2018-12-29] MEDS ORDERED: SODIUM BICARBONATE 8.4% 1 MEQ/ML 50ML SYR IV NR (18:00)
[2018-12-29] MEDS ORDERED: DEXTROSE 50% WATER 50ML SYRINGE IV NR (18:00)
[2018-12-29] MEDS ORDERED: INSULIN LISPRO 100 UNITS/ML SUBCUT ONE (18:00)
[2018-12-29] MEDS: HYDROCODONE/ACETAMINOPHEN 10/325MG TABLET PO PRN (18:20)
[2018-12-29] MEDS ORDERED: INSULIN REGULAR (HUMULIN R) 300UNITS/3ML IV NR (19:00)
[2018-12-30] VITALS: BP 127/65
[2018-12-30 04:00] VITALS: BP 125/70
[2018-12-30 06:11] LABS: HEMATOCRIT. 21.9 % (36.0-48.0); MEAN CORPUSCULAR HEMOGLOBIN 26.6 pg (28.0-32.0); MEAN CORPUSCULAR VOLUME 84.5 fL (81.0-99.0); MEAN PLATELET VOLUME 6.7 fl (7.4-10.4); PLATELET 709 x1000/uL (130-400)
[2018-12-30 06:28] LABS: CHLORIDE 97 mEq/L (98-107)
[2018-12-30 06:29] LABS: HEMOGLOBIN. 6.9 g/dL (12.0-16.0)
[2018-12-30 06:39] LABS: PHOSPHORUS 3.4 mg/dL (2.5-4.9)
[2018-12-30] MEDS: BLOOD SUGAR DIAGNOSTIC STRIP TEST SCH ×4 (06:48→21:00)
[2018-12-30] MEDS ORDERED: INSULIN LISPRO 100 UNITS/ML SUBCUT SCH (07:30)
[2018-12-30] MEDS ORDERED: INSULIN REGULAR (HUMULIN R) UD 100 UNITS/ML SYR IV SCH (07:30)
[2018-12-30] MEDS: PANTOPRAZOLE 40MG DR TABLET PO SCH (07:32)
[2018-12-30] MEDS: FUROSEMIDE 40MG/4ML VIAL IVP SCH (07:32)
[2018-12-30] MEDS: INSULIN LISPRO 100 UNITS/ML SUBCUT SCH ×3 (07:35→18:07)
[2018-12-30 08:00] VITALS: BP 142/79
[2018-12-30] MEDS ORDERED: INSULIN GLARGINE UD 100 UNITS/ML SYR SUBCUT SCH (09:00)
[2018-12-30] MEDS: DOCUSATE SODIUM 100MG CAPSULE PO SCH ×2 (09:00→17:00)
[2018-12-30] MEDS: ALPRAZOLAM 0.5 MG TABLET PO SCH ×2 (09:18→18:03)
[2018-12-30] MEDS: FERROUS SULFATE 325MG TABLET PO SCH ×3 (09:18→18:03)
[2018-12-30] MEDS: ENOXAPARIN 80MG/0.8ML SYR SUBCUT SCH ×2 (09:18→22:34)
[2018-12-30] MEDS: AMLODIPINE 5MG TABLET PO SCH ×2 (09:18→22:34)
[2018-12-30 10:34] LABS: PLATELET ESTIMATE INCREASED
[2018-12-30 12:00] VITALS: BP 136/74
[2018-12-30] MEDS: SODIUM CHLORIDE 0.45% 1,000 ML IV SCH (12:23)
[2018-12-30] MEDS ORDERED: SODIUM POLYSTYRENE SULFONATE 15 G/60 ML BOT PO NR (13:00)
[2018-12-30 13:30] LABS: BG BASE EXCESS 3.6 mmol/L (-2.0-2.0); BG CARBOXYHEMOGLOBIN 0.4 % (0.5-1.5); BG DEOXYHEMOGLOBIN 6.8 % (0.0-5.0); BG FRACTION INSPIRED OXYGEN 21; BG HCO3 ACT 27.8 mmol/L (22.0-26.0); BG METHEMOGLOBIN 0.2 % (0.0-1.5); BG OXYGEN SATURATION 93.2 % (92.0-98.5); BG OXYHEMOGLOBIN 92.6 % (94.0-97.0); BG PCO2 40.7 mmHg (35.0-45.0); BG PH 7.453 (7.350-7.450); BG PO2 67.9 mmHg (75.0-100.0); BG SAMPLE SITE LEFT BRACHIAL; BG TOTAL HEMOGLOBIN 7.4 g/dL (12.0-18.0); BG VENT MODE ROOM AIR
[2018-12-30] MEDS: ALBUTEROL (0.083%) 2.5MG/3ML NEB HHN SCH ×2 (15:20→20:37)
[2018-12-30 16:00] VITALS: BP 111/61
[2018-12-30 20:00] VITALS: BP 124/69
[2018-12-31] VITALS (10 sets, daily range): BP systolic 120–150; BP diastolic 71–84
[2018-12-31] MEDS ORDERED: INSULIN GLARGINE UD 100 UNITS/ML SYR SUBCUT NR (01:00)
[2018-12-31] MEDS: SODIUM CHLORIDE 0.45% 1,000 ML IV SCH ×2 (01:02→15:18)
[2018-12-31] MEDS: ALBUTEROL (0.083%) 2.5MG/3ML NEB HHN SCH ×4 (01:19→20:18)
[2018-12-31 06:04] LABS: BASOPHILS % 1.1 % (0.0-2.0); EOSINOPHILS % 0.5 % (0.0-5.0); HEMATOCRIT. 21.2 % (36.0-48.0); LYMPHOCYTES % 14.7 % (20.0-50.0); MEAN CORPUSCULAR HEMOGLOBIN 26.4 pg (28.0-32.0); MEAN CORPUSCULAR VOLUME 83.1 fL (81.0-99.0); MEAN PLATELET VOLUME 7.5 fl (7.4-10.4); MONOCYTES % 5.1 % (2.0-8.0); NEUTROPHILS % 78.6 % (40.0-76.0); PLATELET 595 x1000/uL (130-400); RED BLOOD CELL COUNT 2.55 mill/uL (4.2-5.4); RED CELL DISTRIBUTION WIDTH 16.9 % (11.6-14.6)
[2018-12-31] MEDS: FERROUS SULFATE 325MG TABLET PO SCH ×3 (06:19→18:01)
[2018-12-31] MEDS: PANTOPRAZOLE 40MG DR TABLET PO SCH (06:19)
[2018-12-31] MEDS: BLOOD SUGAR DIAGNOSTIC STRIP TEST SCH ×3 (06:19→16:45)
[2018-12-31] MEDS: INSULIN LISPRO 100 UNITS/ML SUBCUT SCH ×6 (06:45→18:03)
[2018-12-31 07:50] LABS: HEMOGLOBIN. 6.7 g/dL (12.0-16.0)
[2018-12-31 07:56] LABS: CHLORIDE 102 mEq/L (98-107)
[2018-12-31 08:04] LABS: PHOSPHORUS 4.1 mg/dL (2.5-4.9)
[2018-12-31 08:17] LABS: *CREATININE RANDOM URINE 28.5 mg/dL (Not Estab.); MICROALBUMIN RANDOM URINE 799.2 ug/mL (Not Estab.)
[2018-12-31] MEDS: ALPRAZOLAM 0.5 MG TABLET PO SCH (08:18)
[2018-12-31] MEDS: AMLODIPINE 5MG TABLET PO SCH (08:18)
[2018-12-31] MEDS: DOCUSATE SODIUM 100MG CAPSULE PO SCH ×2 (08:18→18:01)
[2018-12-31] MEDS: ENOXAPARIN 80MG/0.8ML SYR SUBCUT SCH (08:19)
[2018-12-31] MEDS ORDERED: INSULIN GLARGINE UD 100 UNITS/ML SYR SUBCUT SCH ×2 (10:00)
== END 2018-12-31 20:30 | disposition home or self-care (01) | DRG 720 ==
LOC: ER 19:11 → 3WST 23:23 → EDBEDREQ 23:28 → EDBEDREQTM 23:28 → ENRESERV 12-26 01:29 → 5WST 12-26 22:25
PROVIDERS: ADMIT Internal Medicine; ATTEND Internal Medicine
PROC: 30233N1 Transfusion of Nonautologous Red Blood Cells into Peripheral Vein, Percutaneous Approach (ICD-10-PCS; principal; 2018-12-31)
DX: A41.9 Sepsis, unspecified organism (principal); E43 Unspecified severe protein-calorie malnutrition; K85.90 Acute pancreatitis without necrosis or infection, unspecified; N17.9 Acute kidney failure, unspecified; I82.A11 Acute embolism and thrombosis of right axillary vein; E10.65 Type 1 diabetes mellitus with hyperglycemia; D50.9 Iron deficiency anemia, unspecified; F17.200 Nicotine dependence, unspecified, uncomplicated; E87.1 Hypo-osmolality and hyponatremia; E87.5 Hyperkalemia; I10 Essential (primary) hypertension; D72.829 Elevated white blood cell count, unspecified; R15.9 Full incontinence of feces; E78.00 Pure hypercholesterolemia, unspecified; Z79.4 Long term (current) use of insulin; Z80.3 Family history of malignant neoplasm of breast; Z83.3 Family history of diabetes mellitus; Z98.891 History of uterine scar from previous surgery; Z88.0 Allergy status to penicillin; Z88.2 Allergy status to sulfonamides; Z88.8 Allergy status to other drugs, medicaments and biological substances; Z79.899 Other long term (current) drug therapy; Z87.01 Personal history of pneumonia (recurrent); Z68.26 Body mass index [BMI] 26.0-26.9, adult
CPT/HCPCS: 36415; 36600; 74176; 80048; 82010; 82043; 82375; 82533; 82570; 82805; 82962; 83605; 83735; 83880; 84100; 84132; 84145; 84443; 84484; 84703; 86140; 86850; 86900; 86920; 93971; 94640; 96365; 96375; 99291; C1893; J1170; J1200; J1650; J1815; J1940; J2270; J2405; J3370; J3490; J7030; J7040; J7050; J7070; J7611; P9016; Q0163; Q9963

== ENCOUNTER 2019-01-06 14:43 | Inpatient (IN) | payer MEDICAID ==
[~2019-01-06] VITALS: Ht 165.1 cm; Wt 68.9 kg
[2019-01-06] MEDS ORDERED: SODIUM CHLORIDE 0.9% 1,000 ML IV ONE (14:59)
[2019-01-06] MEDS ORDERED: ONDANSETRON HCL 4MG/2ML INJ IV STA (14:59)
[2019-01-06] MEDS ORDERED: DEXTROSE 50% WATER 50ML SYRINGE IV ONE ×2 (15:26→17:45)
[2019-01-06 15:51] LABS: EOSINOPHILS % 0.8 % (0.0-5.0); HEMATOCRIT. 30.8 % (36.0-48.0); HEMOGLOBIN. 9.7 g/dL (12.0-16.0); MEAN CORPUSCULAR HEMOGLOBIN 26.3 pg (28.0-32.0); MEAN CORPUSCULAR VOLUME 83.6 fL (81.0-99.0); MEAN PLATELET VOLUME 6.6 fl (7.4-10.4); MONOCYTES % 6.7 % (2.0-8.0); NEUTROPHILS % 65.5 % (40.0-76.0); PLATELET 858 x1000/uL (130-400); RED BLOOD CELL COUNT 3.68 mill/uL (4.2-5.4)
[2019-01-06 15:57] LABS: PROTHROMBIN TIME 10.5 sec (9.6-11.0)
[2019-01-06 16:03] LABS: CHLORIDE 107 mEq/L (98-107)
[2019-01-06] MEDS ORDERED: FENTANYL CITRATE/PF 50MCG/ML 2ML VIAL IV ONE (16:15)
[2019-01-06] MEDS ORDERED: DIPHENHYDRAMINE 25MG CAPSULE PO ONE (16:15)
[2019-01-06] MEDS ORDERED: DIPHENHYDRAMINE 50MG/ML VIAL IV ONE ×2 (17:00→18:00)
[2019-01-06] MEDS ORDERED: METOCLOPRAMIDE HCL 10MG/2ML VIAL IV ONE (18:00)
[2019-01-06] MEDS ORDERED: DEXT 5%/0.9% NACL 500 ML IV ONE (18:15)
[2019-01-06] MEDS ORDERED: BLOOD SUGAR DIAGNOSTIC STRIP TEST ONE (18:45)
[2019-01-06] MEDS ORDERED: GLUCAGON,HUMAN RECOMBINANT 1MG/VIAL IV ONE (18:45)
[2019-01-06] MEDS ORDERED: DEXTROSE 50% WATER 50ML SYRINGE IV PRN ×2 (20:30→23:15)
[2019-01-06] MEDS ORDERED: MORPHINE SULFATE 2 MG/ML CPJ (NOT FOR IM USE) IV PRN (20:30)
[2019-01-06] MEDS: DIPHENHYDRAMINE 50MG/ML VIAL IV PRN (20:42)
[2019-01-06] MEDS: CLONIDINE 0.1MG TABLET PO PRN (21:03)
[2019-01-06 21:30] VITALS: BP 171/92
[2019-01-06 21:40] VITALS: BP 171/92
[2019-01-06] MEDS ORDERED: WARF-53 PO (22:28)
[2019-01-06] MEDS ORDERED: ZOLPIDEM TARTRATE 5MG TABLET PO PRN (23:15)
[2019-01-06 23:57] VITALS: BP 168/88
[2019-01-07] MEDS: CLONIDINE 0.1MG TABLET PO PRN ×2 (02:10→08:59)
[2019-01-07] MEDS: MORPHINE SULFATE 4 MG/ML CPJ (NOT FOR IM USE) IV PRN ×2 (03:06→08:59)
[2019-01-07 04:00] VITALS: BP 158/94
[2019-01-07] MEDS: BLOOD SUGAR DIAGNOSTIC STRIP TEST SCH ×4 (06:23→21:00)
[2019-01-07 08:00] VITALS: BP 187/99
[2019-01-07] MEDS: FAMOTIDINE 20MG/2ML VIAL IV SCH ×2 (08:56→22:24)
[2019-01-07] MEDS: INSULIN LISPRO 100 UNITS/ML SUBCUT SCH ×4 (08:56→18:09)
[2019-01-07] MEDS: DIPHENHYDRAMINE 50MG/ML VIAL IV PRN (10:03)
[2019-01-07] MEDS ORDERED: INSULIN GLARGINE UD 100 UNITS/ML SYR SUBCUT NR (10:30)
[2019-01-07] MEDS ORDERED: AMLODIPINE 10MG TABLET PO SCH (10:45)
[2019-01-07] MEDS ORDERED: LABETALOL 5MG/ML SYR 20 MG/4 ML SYRINGE IV NR (10:45)
[2019-01-07] MEDS ORDERED: LISINOPRIL 20MG TABLET PO SCH (10:45)
[2019-01-07] MEDS: LISINOPRIL 20MG TABLET PO SCH ×2 (11:35→11:44)
[2019-01-07] MEDS: AMLODIPINE 10MG TABLET PO SCH (11:36)
[2019-01-07] MEDS ORDERED: HYDRALAZINE 20MG/ML VIAL IV NR (13:45)
[2019-01-07] MEDS: FUROSEMIDE 40MG/4ML VIAL IVP SCH (15:42)
[2019-01-07] MEDS: ENOXAPARIN 80MG/0.8ML SYR SUBCUT SCH (15:42)
[2019-01-07] MEDS ORDERED: KETOROLAC 30MG/ML VIAL IV PRN (15:45)
[2019-01-07] MEDS ORDERED: ACETAMINOPHEN 325MG TABLET PO PRN (17:15)
[2019-01-07] MEDS ORDERED: DIPHENHYDRAMINE 25MG CAPSULE PO PRN (17:15)
[2019-01-07 20:00] VITALS: BP 142/82
[2019-01-07] MEDS ORDERED: HYDRALAZINE HCL 50MG TABLET PO SCH (21:00)
[2019-01-07] MEDS ORDERED: INSULIN GLARGINE UD 100 UNITS/ML SYR SUBCUT SCH (22:00)
[2019-01-07] MEDS: HYDRALAZINE HCL 100MG TABLET PO SCH (22:24)
[2019-01-08] VITALS: BP 158/89
[2019-01-08] MEDS: CLONIDINE 0.1MG TABLET PO PRN ×2 (01:17→08:16)
[2019-01-08] MEDS: ONDANSETRON HCL 4MG/2ML INJ IV PRN (03:05)
[2019-01-08] MEDS ORDERED: MORPHINE SULFATE 4 MG/ML CPJ (NOT FOR IM USE) IV SCH (05:15)
[2019-01-08] MEDS: ENOXAPARIN 80MG/0.8ML SYR SUBCUT SCH ×2 (05:30→18:45)
[2019-01-08] MEDS ORDERED: INSULIN LISPRO 100 UNITS/ML SUBCUT NR (06:15)
[2019-01-08] MEDS: BLOOD SUGAR DIAGNOSTIC STRIP TEST SCH ×4 (07:35→21:00)
[2019-01-08] MEDS: INSULIN LISPRO 100 UNITS/ML SUBCUT SCH ×6 (07:50→19:00)
[2019-01-08 08:00] VITALS: BP 198/115
[2019-01-08] MEDS ORDERED: INSULIN LISPRO 100 UNITS/ML SUBCUT SCH (08:00)
[2019-01-08 08:01] LABS: BASOPHILS % 0.9 % (0.0-2.0); EOSINOPHILS % 1.7 % (0.0-5.0); HEMATOCRIT. 28.5 % (36.0-48.0); LYMPHOCYTES % 24.2 % (20.0-50.0); MEAN CORPUSCULAR HEMOGLOBIN 26.6 pg (28.0-32.0); MEAN CORPUSCULAR VOLUME 84.1 fL (81.0-99.0); MONOCYTES % 6.8 % (2.0-8.0); NEUTROPHILS % 66.4 % (40.0-76.0); PLATELET 714 x1000/uL (130-400); RED BLOOD CELL COUNT 3.39 mill/uL (4.2-5.4); RED CELL DISTRIBUTION WIDTH 16.9 % (11.6-14.6)
[2019-01-08] MEDS: FUROSEMIDE 40MG/4ML VIAL IVP SCH (08:15)
[2019-01-08] MEDS: FAMOTIDINE 20MG/2ML VIAL IV SCH ×2 (08:15→21:45)
[2019-01-08] MEDS: HYDRALAZINE HCL 100MG TABLET PO SCH ×2 (08:15→18:45)
[2019-01-08] MEDS: AMLODIPINE 10MG TABLET PO SCH (08:16)
[2019-01-08 08:48] LABS: CHLORIDE 101 mEq/L (98-107)
[2019-01-08 09:03] LABS: PHOSPHORUS 3.1 mg/dL (2.5-4.9)
[2019-01-08 12:00] VITALS: BP 136/82
[2019-01-08] MEDS ORDERED: HYDROCODONE/ACETAMINOPHEN 10/325MG TABLET PO PRN (14:00)
[2019-01-08] MEDS ORDERED: HYDROCODONE/ACETAMINOPHEN 5/325MG TABLET PO PRN (14:00)
[2019-01-08] MEDS: CLONIDINE 0.1MG TABLET PO SCH ×2 (14:45→21:45)
[2019-01-08] MEDS: DIPHENHYDRAMINE 50MG/ML VIAL IV PRN ×2 (14:46→22:01)
[2019-01-08 20:21] VITALS: BP 162/92
[2019-01-08] MEDS ORDERED: INSULIN GLARGINE UD 100 UNITS/ML SYR SUBCUT SCH (22:00)
[2019-01-09 00:39] VITALS: BP 130/88
[2019-01-09] MEDS: BLOOD SUGAR DIAGNOSTIC STRIP TEST SCH ×5 (02:31→20:35)
[2019-01-09] MEDS: HYDRALAZINE HCL 100MG TABLET PO SCH ×3 (02:31→17:57)
[2019-01-09 04:38] VITALS: BP 148/87
[2019-01-09] MEDS: DIPHENHYDRAMINE 50MG/ML VIAL IV PRN ×3 (05:22→22:22)
[2019-01-09] MEDS: CLONIDINE 0.1MG TABLET PO SCH ×3 (05:22→21:50)
[2019-01-09] MEDS: ENOXAPARIN 80MG/0.8ML SYR SUBCUT SCH ×2 (05:23→17:58)
[2019-01-09] MEDS: INSULIN LISPRO 100 UNITS/ML SUBCUT SCH ×6 (06:40→17:48)
[2019-01-09 07:29] LABS: EOSINOPHILS % 3.1 % (0.0-5.0); HEMATOCRIT. 30.7 % (36.0-48.0); HEMOGLOBIN. 9.8 g/dL (12.0-16.0); LYMPHOCYTES % 34.5 % (20.0-50.0); MEAN CORPUSCULAR HEMOGLOBIN 26.5 pg (28.0-32.0); MEAN CORPUSCULAR VOLUME 83.4 fL (81.0-99.0); MEAN PLATELET VOLUME 6.8 fl (7.4-10.4); MONOCYTES % 7.2 % (2.0-8.0); NEUTROPHILS % 54.2 % (40.0-76.0); PLATELET 752 x1000/uL (130-400); RED BLOOD CELL COUNT 3.68 mill/uL (4.2-5.4); RED CELL DISTRIBUTION WIDTH 16.9 % (11.6-14.6)
[2019-01-09 08:00] VITALS: BP 166/99
[2019-01-09] MEDS: FUROSEMIDE 40MG/4ML VIAL IVP SCH (08:28)
[2019-01-09] MEDS: FAMOTIDINE 20MG/2ML VIAL IV SCH ×2 (08:29→21:50)
[2019-01-09] MEDS: AMLODIPINE 10MG TABLET PO SCH (08:31)
[2019-01-09 12:00] VITALS: BP 154/77
[2019-01-09] MEDS ORDERED: OXYCODONE HCL/ACETAMINOPHEN 5/325MG TABLET PO PRN ×2 (13:00→13:30)
[2019-01-09 16:00] VITALS: BP 157/82
[2019-01-09] MEDS: LOSARTAN POTASSIUM 50 MG TABLET PO SCH (17:51)
[2019-01-09] MEDS: ALPRAZOLAM 0.5 MG TABLET PO SCH ×2 (17:51→21:50)
[2019-01-09 20:11] VITALS: BP 144/78
[2019-01-09] MEDS ORDERED: INSULIN GLARGINE UD 100 UNITS/ML SYR SUBCUT SCH (22:00)
[2019-01-10] VITALS (7 sets, daily range): BP systolic 121–172; BP diastolic 80–104
[2019-01-10] MEDS: HYDRALAZINE HCL 100MG TABLET PO SCH ×3 (01:15→17:41)
[2019-01-10] MEDS: BLOOD SUGAR DIAGNOSTIC STRIP TEST SCH ×4 (02:21→17:32)
[2019-01-10] MEDS: DIPHENHYDRAMINE 50MG/ML VIAL IV PRN ×2 (04:49→15:05)
[2019-01-10] MEDS: FUROSEMIDE 40MG/4ML VIAL IVP SCH ×2 (06:32→17:42)
[2019-01-10] MEDS: ENOXAPARIN 80MG/0.8ML SYR SUBCUT SCH ×2 (06:33→17:42)
[2019-01-10] MEDS: CLONIDINE 0.1MG TABLET PO SCH ×2 (06:33→15:05)
[2019-01-10] MEDS: INSULIN LISPRO 100 UNITS/ML SUBCUT SCH ×6 (06:37→17:47)
[2019-01-10 08:51] LABS: BASOPHILS % 0.9 % (0.0-2.0); EOSINOPHILS % 1.7 % (0.0-5.0); HEMATOCRIT. 28.9 % (36.0-48.0); HEMOGLOBIN. 9.3 g/dL (12.0-16.0); LYMPHOCYTES % 22.3 % (20.0-50.0); MEAN CORPUSCULAR HEMOGLOBIN 26.3 pg (28.0-32.0); MEAN PLATELET VOLUME 6.6 fl (7.4-10.4); MONOCYTES % 4.5 % (2.0-8.0); NEUTROPHILS % 70.6 % (40.0-76.0); PLATELET 725 x1000/uL (130-400); RED BLOOD CELL COUNT 3.52 mill/uL (4.2-5.4); RED CELL DISTRIBUTION WIDTH 17.1 % (11.6-14.6)
[2019-01-10] MEDS: LOSARTAN POTASSIUM 50 MG TABLET PO SCH ×2 (08:56→09:00)
[2019-01-10] MEDS: ALPRAZOLAM 0.5 MG TABLET PO SCH (08:56)
[2019-01-10] MEDS: AMLODIPINE 10MG TABLET PO SCH ×2 (08:57→09:00)
[2019-01-10] MEDS: FAMOTIDINE 20MG/2ML VIAL IV SCH (08:57)
[2019-01-10 09:00] LABS: CHLORIDE 104 mEq/L (98-107)
[2019-01-10] MEDS: ONDANSETRON HCL 4MG/2ML INJ IV PRN (09:12)
[2019-01-10] MEDS ORDERED: INSULIN GLARGINE UD 100 UNITS/ML SYR SUBCUT SCH (22:00)
[2019-01-13 15:11] LABS: RENIN ACTIVITY PLASMA 0.252 ng/mL/hr (0.167-5.380)
== END 2019-01-10 20:30 | disposition home or self-care (01) | DRG 424 ==
LOC: ER 14:43 → 6WST 18:13 → ENRESERV 20:49 → 6WST 01-07 08:03
PROVIDERS: ADMIT Internal Medicine; ATTEND Internal Medicine
DX: E16.0 Drug-induced hypoglycemia without coma (principal); E43 Unspecified severe protein-calorie malnutrition; J90 Pleural effusion, not elsewhere classified; I82.621 Acute embolism and thrombosis of deep veins of right upper extremity; T38.3X5A Adverse effect of insulin and oral hypoglycemic [antidiabetic] drugs, initial encounter; I16.0 Hypertensive urgency; D50.9 Iron deficiency anemia, unspecified; E10.65 Type 1 diabetes mellitus with hyperglycemia; I10 Essential (primary) hypertension; E87.5 Hyperkalemia; D17.9 Benign lipomatous neoplasm, unspecified; G89.29 Other chronic pain; M54.9 Dorsalgia, unspecified; E78.00 Pure hypercholesterolemia, unspecified; E78.5 Hyperlipidemia, unspecified; Z76.5 Malingerer [conscious simulation]; Z83.3 Family history of diabetes mellitus; Z91.19 Patient's noncompliance with other medical treatment and regimen; Z98.891 History of uterine scar from previous surgery; Z88.0 Allergy status to penicillin; Z88.2 Allergy status to sulfonamides; Z88.8 Allergy status to other drugs, medicaments and biological substances; Z79.4 Long term (current) use of insulin; Z80.3 Family history of malignant neoplasm of breast; Z79.01 Long term (current) use of anticoagulants; Z79.899 Other long term (current) drug therapy; Z68.25 Body mass index [BMI] 25.0-25.9, adult
CPT/HCPCS: 36415; 74176; 80048; 82088; 82533; 82962; 83735; 83835; 84100; 84244; 84443; 84681; 86337; 87015; 87045; 87427; 87449; 87493; 89055; 96374; 97116; 97162; 99285; J0360; J1200; J1650; J1815; J1885; J1940; J2270; J2405; J2765; J3010; J3490; J7030; J7042; Q0163

== ENCOUNTER 2019-01-30 15:16 | Emergency (ER) | payer MEDICAID ==
[~2019-01-30] VITALS: Ht 162.6 cm; Wt 50.0 kg
[~2019-01-30 15:16] MED LIST changes: -HYDR-4134 PO; -INSLIS SUBCUT; -LANTUSUD SUBCUT; +LIDOCAINE HCL/PF 1% 2ML VIAL ONE; +WARF-53 PO
[2019-01-30] MEDS ORDERED: ONDANSETRON HCL 4MG/2ML INJ IV STA (16:14)
[2019-01-30] MEDS ORDERED: SODIUM CHLORIDE 0.9% 1,000 ML IV ONE (16:14)
[2019-01-30] MEDS ORDERED: MORPHINE SULFATE 4 MG/ML CPJ (NOT FOR IM USE) IV STA (16:14)
[2019-01-30] MEDS ORDERED: HYDRALAZINE 20MG/ML VIAL IV ONE (16:15)
[2019-01-30] MEDS ORDERED: DIPHENHYDRAMINE 50MG/ML VIAL IV ONE (16:15)
[2019-01-30 16:55] LABS: BASOPHILS % 0.5 % (0.0-2.0); EOSINOPHILS % 0.6 % (0.0-5.0); HEMATOCRIT. 29.4 % (36.0-48.0); HEMOGLOBIN. 9.7 g/dL (12.0-16.0); LYMPHOCYTES % 21.3 % (20.0-50.0); MEAN CORPUSCULAR HEMOGLOBIN 26.3 pg (28.0-32.0); MEAN PLATELET VOLUME 6.9 fl (7.4-10.4); MONOCYTES % 3.6 % (2.0-8.0); PLATELET 441 x1000/uL (130-400); RED BLOOD CELL COUNT 3.68 mill/uL (4.2-5.4); RED CELL DISTRIBUTION WIDTH 16.6 % (11.6-14.6)
[2019-01-30 16:59] LABS: BG BASE EXCESS 1.7 mmol/L (-2.0-2.0); BG CARBOXYHEMOGLOBIN 0.1 % (0.5-1.5); BG DEOXYHEMOGLOBIN 3.2 % (0.0-5.0); BG FRACTION INSPIRED OXYGEN 21; BG HCO3 ACT 26.4 mmol/L (22.0-26.0); BG METHEMOGLOBIN 0.3 % (0.0-1.5); BG OXYGEN SATURATION 96.8 % (92.0-98.5); BG OXYHEMOGLOBIN 96.4 % (94.0-97.0); BG PH 7.417 (7.350-7.450); BG PO2 97.7 mmHg (75.0-100.0); BG SAMPLE SITE RIGHT BRACHIAL; BG VENT MODE ROOM AIR
[2019-01-30 17:01] LABS: CHLORIDE 102 mEq/L (98-107)
[2019-01-30 17:02] LABS: PARTIAL THROMBOPLASTIN TIME 26.3 sec (23.4-31.0)
[2019-01-30 17:04] LABS: ETHANOL BLOOD < 10 mg/dL
[2019-01-30 17:07] LABS: BETA HYDROXYBUTYRATE 0.1 mMol/L (0.0-0.3)
[2019-01-30 17:09] LABS: CREATINE KINASE 80 IU/L (26-192)
[2019-01-30 17:12] LABS: CREATINE KINASE MB FRACTION 3.2 ng/mL (0.5-3.6)
[2019-01-30 17:15] LABS: HCG SCREEN NEGATIVE
[2019-01-30 18:00] VITALS: BP 147/95
== END 2019-01-30 18:36 | disposition home or self-care (01) ==
LOC: ER 15:16 → CANBEDREQ 18:42
DX: R10.0 Acute abdomen (principal); E86.0 Dehydration; E11.65 Type 2 diabetes mellitus with hyperglycemia; E11.22 Type 2 diabetes mellitus with diabetic chronic kidney disease; I12.9 Hypertensive chronic kidney disease with stage 1 through stage 4 chronic kidney disease, or unspecified chronic kidney disease; N18.9 Chronic kidney disease, unspecified; L98.9 Disorder of the skin and subcutaneous tissue, unspecified; Z79.899 Other long term (current) drug therapy
CPT/HCPCS: 36415; 36600; 71045; 76770; 80053; 80320; 82010; 82375; 82550; 82553; 82805; 83605; 83690; 83880; 84484; 84703; 85025; 85610; 85730; 87040; 93005; 96361; 96374; 96375; 99284; J0360; J1200; J2270; J2405; J3490; J7030; G0480

== ENCOUNTER 2019-02-14 09:47 | Emergency (ER) | payer MEDICAID ==
[~2019-02-14] VITALS: Ht 160 cm; Wt 63.0 kg
[~2019-02-14 09:47] MED LIST changes: -LIDOCAINE HCL/PF 1% 2ML VIAL ONE
[2019-02-14] MEDS ORDERED: ONDANSETRON HCL 4MG/2ML INJ IV ONE (10:45)
[2019-02-14] MEDS ORDERED: SODIUM CHLORIDE 0.9% 1,000 ML IV ONE (10:45)
[2019-02-14] MEDS ORDERED: MORPHINE SULFATE 4 MG/ML CPJ (NOT FOR IM USE) IV NR (11:15)
[2019-02-14] MEDS ORDERED: DIPHENHYDRAMINE 50MG/ML VIAL IV NR (11:15)
[2019-02-14 11:24] LABS: BASOPHILS % 0.7 % (0.0-2.0); EOSINOPHILS % 1.2 % (0.0-5.0); HEMATOCRIT. 32.2 % (36.0-48.0); HEMOGLOBIN. 10.6 g/dL (12.0-16.0); LYMPHOCYTES % 37.3 % (20.0-50.0); MEAN CORPUSCULAR HEMOGLOBIN 26.4 pg (28.0-32.0); MEAN CORPUSCULAR VOLUME 80.1 fL (81.0-99.0); MONOCYTES % 5.6 % (2.0-8.0); NEUTROPHILS % 55.2 % (40.0-76.0); PLATELET 511 x1000/uL (130-400); RED BLOOD CELL COUNT 4.02 mill/uL (4.2-5.4); RED CELL DISTRIBUTION WIDTH 16.4 % (11.6-14.6)
[2019-02-14 11:28] LABS: CHLORIDE 104 mEq/L (98-107)
[2019-02-14 11:30] LABS: PROTHROMBIN TIME 10.2 sec (9.6-11.0)
[2019-02-14 11:45] LABS: CLARITY URINE CLOUDY (CLEAR); COLOR URINE YELLOW (YELLOW); KETONES URINE NEGATIVE (NEGATIVE); LEUKOCYTE ESTERASE URINE NEGATIVE (NEGATIVE); NITRITE URINE NEGATIVE (NEGATIVE); OCCULT BLOOD URINE 2+ (NEGATIVE); PH URINE 7.5 (4.5-8.0); PROTEIN URINE 3+ (NEGATIVE); SPECIFIC GRAVITY URINE 1.013 (1.005-1.030); UROBILINOGEN URINE 0.2 E.U./dL (0.2-1.0)
[2019-02-14 13:19] VITALS: BP 150/96
== END 2019-02-14 13:22 | disposition home or self-care (01) ==
LOC: ER 09:47
DX: G89.29 Other chronic pain (principal); D64.9 Anemia, unspecified; E88.09 Other disorders of plasma-protein metabolism, not elsewhere classified; I12.9 Hypertensive chronic kidney disease with stage 1 through stage 4 chronic kidney disease, or unspecified chronic kidney disease; E11.22 Type 2 diabetes mellitus with diabetic chronic kidney disease; N18.3 Chronic kidney disease, stage 3 (moderate); D47.3 Essential (hemorrhagic) thrombocythemia; E11.21 Type 2 diabetes mellitus with diabetic nephropathy; R10.9 Unspecified abdominal pain; R11.2 Nausea with vomiting, unspecified; Z86.718 Personal history of other venous thrombosis and embolism; Z88.0 Allergy status to penicillin; Z88.2 Allergy status to sulfonamides; Z88.6 Allergy status to analgesic agent; Z88.8 Allergy status to other drugs, medicaments and biological substances; Z79.899 Other long term (current) drug therapy; Z98.890 Other specified postprocedural states
CPT/HCPCS: 36415; 80053; 81003; 82962; 83690; 85025; 85610; 96374; 96375; 99283; J1200; J2270; J2405; J7030; Z7610

== ENCOUNTER 2019-02-17 21:26 | Inpatient (IN) | payer MEDICAID ==
[~2019-02-17] VITALS: Ht 157.5 cm; Wt 65.8 kg
[2019-02-17] MEDS ORDERED: SODIUM CHLORIDE 0.9% 1,000 ML IV ONE ×2 (22:25→23:30)
[2019-02-17] MEDS ORDERED: ONDANSETRON HCL 4MG/2ML INJ IV STA (22:25)
[2019-02-17] MEDS ORDERED: KETOROLAC 30MG/ML VIAL IV ONE (22:45)
[2019-02-17] MEDS ORDERED: DIPHENHYDRAMINE 25MG CAPSULE PO ONE (22:45)
[2019-02-17 23:10] LABS: CHLORIDE 85 mEq/L (98-107)
[2019-02-17 23:13] LABS: INR 1.2; PROTHROMBIN TIME 12.2 sec (9.6-11.0)
[2019-02-17 23:17] LABS: BASOPHILS % 1.2 % (0.0-2.0); EOSINOPHILS % 0.3 % (0.0-5.0); HEMATOCRIT. 31.9 % (36.0-48.0); HEMOGLOBIN. 10.2 g/dL (12.0-16.0); MEAN CORPUSCULAR HEMOGLOBIN 26.9 pg (28.0-32.0); MEAN CORPUSCULAR VOLUME 84.2 fL (81.0-99.0); MEAN PLATELET VOLUME 7.8 fl (7.4-10.4); NEUTROPHILS % 71.5 % (40.0-76.0); PLATELET 434 x1000/uL (130-400); RED BLOOD CELL COUNT 3.79 mill/uL (4.2-5.4); RED CELL DISTRIBUTION WIDTH 16.3 % (11.6-14.6)
[2019-02-17 23:50] LABS: CLARITY URINE CLOUDY (CLEAR); COLOR URINE YELLOW (YELLOW); KETONES URINE NEGATIVE (NEGATIVE); LEUKOCYTE ESTERASE URINE NEGATIVE (NEGATIVE); NITRITE URINE NEGATIVE (NEGATIVE); OCCULT BLOOD URINE 1+ (NEGATIVE); PROTEIN URINE 2+ (NEGATIVE); SPECIFIC GRAVITY URINE 1.026 (1.005-1.030); UROBILINOGEN URINE 0.2 E.U./dL (0.2-1.0)
[2019-02-18] VITALS (34 sets, daily range): BP systolic 90–175; BP diastolic 41–121
[2019-02-18] MEDS ORDERED: ONDANSETRON HCL 4MG/2ML INJ IV ONE (00:15)
[2019-02-18] MEDS ORDERED: METOCLOPRAMIDE HCL 10MG/2ML VIAL IV ONE (00:15)
[2019-02-18] MEDS ORDERED: FENTANYL CITRATE/PF 50MCG/ML 2ML VIAL IV ONE (00:15)
[2019-02-18 00:24] LABS: CHLORIDE 89 mEq/L (98-107)
[2019-02-18 00:30] LABS: PHOSPHORUS 2.8 mg/dL (2.5-4.9)
[2019-02-18] MEDS ORDERED: INSULIN REGULAR (DRIP) 100 UNITS in SODIUM CHLORIDE 0.9% 99 ML IV SCH (00:30)
[2019-02-18] MEDS: SODIUM CHLORIDE 0.9% 1,000 ML IV SCH ×4 (02:51→17:47)
[2019-02-18 02:52] LABS: CHLORIDE 95 mEq/L (98-107)
[2019-02-18 02:58] LABS: PHOSPHORUS 2.4 mg/dL (2.5-4.9)
[2019-02-18 04:11] LABS: CHLORIDE 98 mEq/L (98-107)
[2019-02-18] MEDS: IPRATROPIUM/ALBUTEROL 0.5-3(2.5)MG/3ML NEB HHN SCH ×2 (04:15→15:26)
[2019-02-18] MEDS ORDERED: HYDROCODONE/ACETAMINOPHEN 5/325MG TABLET PO ONE (04:15)
[2019-02-18 04:16] LABS: PHOSPHORUS 2.3 mg/dL (2.5-4.9)
[2019-02-18] MEDS ORDERED: CLONIDINE 0.1MG TABLET PO PRN (11:00)
[2019-02-18] MEDS ORDERED: HYDROMORPHONE HCL/PF 2MG/ML CPJ IV PRN (11:00)
[2019-02-18] MEDS ORDERED: DOCUSATE SODIUM 100MG CAPSULE PO PRN (11:00)
[2019-02-18] MEDS ORDERED: INSULIN GLARGINE UD 100 UNITS/ML SYR SUBCUT SCH (12:00)
[2019-02-18] MEDS ORDERED: POTASSIUM PHOS,M-BASIC-D-BASIC 20 MMOL in DEXT 5% WATER 243.3333 ML IV NR (12:00)
[2019-02-18] MEDS: ONDANSETRON HCL 4MG/2ML INJ IV PRN (12:12)
[2019-02-18] MEDS: DIPHENHYDRAMINE 50MG/ML VIAL IM PRN ×3 (12:13→23:03)
[2019-02-18] MEDS: PANTOPRAZOLE 40MG DR TABLET PO SCH (12:13)
[2019-02-18] MEDS: ENOXAPARIN 40MG/0.4ML SYR SUBCUT SCH (13:10)
[2019-02-18] MEDS ORDERED: DEXTROSE 50% WATER 50ML SYRINGE IV PRN (13:15)
[2019-02-18 13:16] LABS: BASOPHILS % 0.6 % (0.0-2.0); EOSINOPHILS % 1.4 % (0.0-5.0); HEMOGLOBIN. 9.7 g/dL (12.0-16.0); LYMPHOCYTES % 40.3 % (20.0-50.0); MEAN CORPUSCULAR VOLUME 80.5 fL (81.0-99.0); MEAN PLATELET VOLUME 7.1 fl (7.4-10.4); MONOCYTES % 5.7 % (2.0-8.0); PLATELET 423 x1000/uL (130-400); RED BLOOD CELL COUNT 3.73 mill/uL (4.2-5.4); RED CELL DISTRIBUTION WIDTH 16.3 % (11.6-14.6)
[2019-02-18] MEDS: INSULIN LISPRO 100 UNITS/ML SUBCUT SCH ×3 (13:20→21:19)
[2019-02-18] MEDS: BLOOD SUGAR DIAGNOSTIC STRIP TEST SCH ×3 (13:21→21:19)
[2019-02-18 13:22] LABS: CHLORIDE 103 mEq/L (98-107)
[2019-02-18 13:30] LABS: PHOSPHORUS 3.2 mg/dL (2.5-4.9)
[2019-02-18] MEDS: HYDROMORPHONE HCL/PF 2MG/ML CPJ IV PRN ×2 (15:59→20:20)
[2019-02-18 21:17] LABS: CHLORIDE 102 mEq/L (98-107)
[2019-02-18 21:22] LABS: PHOSPHORUS 4.6 mg/dL (2.5-4.9)
[2019-02-18] MEDS: LORAZEPAM 2MG/ML CPJ IV PRN (23:30)
[2019-02-19] VITALS (24 sets, daily range): BP systolic 92–169; BP diastolic 59–106
[2019-02-19] MEDS: HYDROMORPHONE HCL/PF 2MG/ML CPJ IV PRN ×6 (00:22→22:34)
[2019-02-19] MEDS: SODIUM CHLORIDE 0.9% 1,000 ML IV SCH ×3 (02:57→18:10)
[2019-02-19] MEDS: DIPHENHYDRAMINE 50MG/ML VIAL IM PRN ×5 (03:33→22:27)
[2019-02-19 05:09] LABS: BASOPHILS % 0.5 % (0.0-2.0); EOSINOPHILS % 1.1 % (0.0-5.0); HEMATOCRIT. 28.2 % (36.0-48.0); HEMOGLOBIN. 9.1 g/dL (12.0-16.0); LYMPHOCYTES % 41.1 % (20.0-50.0); MEAN CORPUSCULAR HEMOGLOBIN 26.1 pg (28.0-32.0); MEAN CORPUSCULAR VOLUME 80.7 fL (81.0-99.0); MEAN PLATELET VOLUME 7.3 fl (7.4-10.4); MONOCYTES % 5.4 % (2.0-8.0); NEUTROPHILS % 51.9 % (40.0-76.0); PLATELET 368 x1000/uL (130-400)
[2019-02-19 05:17] LABS: CHLORIDE 106 mEq/L (98-107)
[2019-02-19] MEDS: LORAZEPAM 2MG/ML CPJ IV PRN ×3 (05:44→21:12)
[2019-02-19] MEDS: PANTOPRAZOLE 40MG DR TABLET PO SCH (08:06)
[2019-02-19] MEDS: INSULIN LISPRO 100 UNITS/ML SUBCUT SCH ×4 (08:07→21:11)
[2019-02-19] MEDS: BLOOD SUGAR DIAGNOSTIC STRIP TEST SCH ×4 (08:07→21:12)
[2019-02-19] MEDS: IPRATROPIUM/ALBUTEROL 0.5-3(2.5)MG/3ML NEB HHN SCH ×4 (08:35→21:08)
[2019-02-19] MEDS: INSULIN GLARGINE UD 100 UNITS/ML SYR SUBCUT SCH (09:27)
[2019-02-19] MEDS: ENOXAPARIN 40MG/0.4ML SYR SUBCUT SCH (12:23)
[2019-02-19] MEDS: ONDANSETRON HCL 4MG/2ML INJ IV PRN (15:22)
[2019-02-20] VITALS: BP 146/90
[2019-02-20] MEDS: DIPHENHYDRAMINE 50MG/ML VIAL IM PRN ×5 (02:28→22:27)
[2019-02-20] MEDS: SODIUM CHLORIDE 0.9% 1,000 ML IV SCH ×2 (02:29→10:44)
[2019-02-20] MEDS: HYDROMORPHONE HCL/PF 2MG/ML CPJ IV PRN ×4 (02:37→17:19)
[2019-02-20 04:00] VITALS: BP 120/80
[2019-02-20] MEDS: IPRATROPIUM/ALBUTEROL 0.5-3(2.5)MG/3ML NEB HHN SCH ×7 (04:08→23:42)
[2019-02-20] MEDS: LORAZEPAM 2MG/ML CPJ IV PRN ×3 (05:08→23:35)
[2019-02-20] MEDS: BLOOD SUGAR DIAGNOSTIC STRIP TEST SCH ×4 (05:45→21:15)
[2019-02-20] MEDS: INSULIN LISPRO 100 UNITS/ML SUBCUT SCH ×4 (06:24→22:29)
[2019-02-20 08:00] VITALS: BP 130/85
[2019-02-20] MEDS: FAMOTIDINE 20MG TABLET PO SCH ×2 (08:05→17:13)
[2019-02-20] MEDS: INSULIN GLARGINE UD 100 UNITS/ML SYR SUBCUT SCH (10:44)
[2019-02-20 12:00] VITALS: BP 136/93
[2019-02-20] MEDS: ENOXAPARIN 40MG/0.4ML SYR SUBCUT SCH (12:17)
[2019-02-20] MEDS: ONDANSETRON HCL 4MG/2ML INJ IV PRN ×2 (12:17→22:46)
[2019-02-20 16:00] VITALS: BP 159/97
[2019-02-20] MEDS ORDERED: HYDROCODONE/ACETAMINOPHEN 10/325MG TABLET PO PRN (18:00)
[2019-02-20 20:00] VITALS: BP 136/92
[2019-02-21] VITALS: BP 144/81
[2019-02-21 04:00] VITALS: BP 153/85
[2019-02-21] MEDS: IPRATROPIUM/ALBUTEROL 0.5-3(2.5)MG/3ML NEB HHN SCH ×2 (04:18→09:20)
[2019-02-21] MEDS: BLOOD SUGAR DIAGNOSTIC STRIP TEST SCH (07:02)
[2019-02-21] MEDS: INSULIN LISPRO 100 UNITS/ML SUBCUT SCH (07:06)
[2019-02-21 08:00] VITALS: BP 156/88
[2019-02-21] MEDS: FAMOTIDINE 20MG TABLET PO SCH ×2 (09:00→09:12)
[2019-02-21] MEDS: INSULIN GLARGINE UD 100 UNITS/ML SYR SUBCUT SCH (09:13)
[2019-02-21 11:45] VITALS: BP 153/79
[2019-02-21 11:47] VITALS: BP 140/79
[2019-04-19] MEDS ORDERED: INSU100I28 SQ (04:45)
[2019-04-19] MEDS ORDERED: HYDR12.529 PO (04:45)
[2019-04-20] MEDS ORDERED: ATOR20TA65 MT (18:25)
[2019-04-22] MEDS ORDERED: LOSA50TA3 PO (16:52)
[2019-04-22] MEDS ORDERED: BACL-141 PO (16:52)
[2019-04-22] MEDS ORDERED: LANTUSUD SUBCUT (16:52)
[2019-04-22] MEDS ORDERED: METO10TA3 MT (16:52)
[2019-04-22] MEDS ORDERED: NIFE30TA83 PO (16:52)
== END 2019-02-21 15:40 | disposition home or self-care (01) | DRG 420 ==
LOC: ER 21:50 → CVICU 23:46 → EDBEDREQSVC 02-18 00:06 → EDBEDREQTM 02-18 00:06 → EDBEDREQDT 02-18 00:06 → EDBEDREQ 02-18 00:06 → ENRESERV 02-18 05:55 → 5WST 02-19 10:30
PROVIDERS: ADMIT Internal Medicine; ATTEND Internal Medicine
DX: E13.00 Other specified diabetes mellitus with hyperosmolarity without nonketotic hyperglycemic-hyperosmolar coma (NKHHC) (principal); N17.9 Acute kidney failure, unspecified; K31.84 Gastroparesis; E86.0 Dehydration; G89.29 Other chronic pain; I12.9 Hypertensive chronic kidney disease with stage 1 through stage 4 chronic kidney disease, or unspecified chronic kidney disease; N18.9 Chronic kidney disease, unspecified; Z91.19 Patient's noncompliance with other medical treatment and regimen; Z79.01 Long term (current) use of anticoagulants; Z79.4 Long term (current) use of insulin; Z82.49 Family history of ischemic heart disease and other diseases of the circulatory system; Z86.718 Personal history of other venous thrombosis and embolism; Z83.3 Family history of diabetes mellitus; Z88.0 Allergy status to penicillin; Z88.2 Allergy status to sulfonamides; Z88.9 Allergy status to unspecified drugs, medicaments and biological substances
CPT/HCPCS: 36415; 72100; 73070; 73521; 73560; 80048; 81003; 81025; 82962; 83036; 83735; 84100; 93005; 93970; 94640; 96361; 96365; 96375; 99291; J1170; J1200; J1650; J1815; J1885; J2060; J2405; J2765; J3010; J3490; J7030; J7050; J7060; J7620; Q0163

== ENCOUNTER 2019-03-13 08:42 | Inpatient (IN) | payer MEDICAID ==
[~2019-03-13] VITALS: Ht 165.1 cm; Wt 59.0 kg
[2019-03-13] MEDS ORDERED: KETOROLAC 30MG/ML VIAL IV STA (09:43)
[2019-03-13] MEDS ORDERED: SODIUM CHLORIDE 0.9% 1,000 ML IV ONE (09:43)
[2019-03-13] MEDS ORDERED: ONDANSETRON HCL 4MG/2ML INJ IV ONE (09:45)
[2019-03-13] MEDS ORDERED: DIPHENHYDRAMINE 50MG/ML VIAL IV ONE (09:45)
[2019-03-13 10:12] LABS: BASOPHILS % 0.7 % (0.0-2.0); EOSINOPHILS % 1.3 % (0.0-5.0); HEMATOCRIT. 27.3 % (36.0-48.0); HEMOGLOBIN. 8.7 g/dL (12.0-16.0); LYMPHOCYTES % 26.7 % (20.0-50.0); MEAN CORPUSCULAR HEMOGLOBIN 26.3 pg (28.0-32.0); MEAN CORPUSCULAR VOLUME 82.4 fL (81.0-99.0); MONOCYTES % 7.2 % (2.0-8.0); NEUTROPHILS % 64.1 % (40.0-76.0); PLATELET 461 x1000/uL (130-400); RED BLOOD CELL COUNT 3.32 mill/uL (4.2-5.4); RED CELL DISTRIBUTION WIDTH 17.6 % (11.6-14.6)
[2019-03-13 10:18] LABS: CHLORIDE 101 mEq/L (98-107)
[2019-03-13 10:30] LABS: CLARITY URINE CLEAR (CLEAR); COLOR URINE YELLOW (YELLOW); KETONES URINE NEGATIVE (NEGATIVE); LEUKOCYTE ESTERASE URINE NEGATIVE (NEGATIVE); NITRITE URINE NEGATIVE (NEGATIVE); OCCULT BLOOD URINE 2+ (NEGATIVE); PROTEIN URINE 3+ (NEGATIVE); SPECIFIC GRAVITY URINE 1.019 (1.005-1.030); UROBILINOGEN URINE 0.2 E.U./dL (0.2-1.0)
[2019-03-13] MEDS ORDERED: MORPHINE SULFATE 4 MG/ML CPJ (NOT FOR IM USE) IV ONE ×2 (10:45→12:45)
[2019-03-13] MEDS ORDERED: LEVOFLOXACIN 750MG PREMIX 150 ML IV ONE (11:00)
[2019-03-13] MEDS ORDERED: ARIPIPRAZOLE 10MG TABLET PO ONE (12:30)
[2019-03-13] MEDS ORDERED: ACETAMINOPHEN 325MG TABLET PO PRN (14:45)
[2019-03-13] MEDS ORDERED: DEXTROSE 50% WATER 50ML SYRINGE IV PRN (14:45)
[2019-03-13] MEDS ORDERED: CLONIDINE 0.1MG TABLET PO PRN (14:45)
[2019-03-13] MEDS ORDERED: KETOROLAC 30MG/ML VIAL IV PRN (14:45)
[2019-03-13] MEDS: BLOOD SUGAR DIAGNOSTIC STRIP TEST SCH ×2 (17:00→21:00)
[2019-03-13] MEDS: MORPHINE SULFATE 2 MG/ML CPJ (NOT FOR IM USE) IV PRN ×2 (18:12→22:39)
[2019-03-13] MEDS: DIPHENHYDRAMINE 50MG/ML VIAL IV PRN (18:12)
[2019-03-13] MEDS: ONDANSETRON HCL 4MG/2ML INJ IV PRN ×2 (18:29→22:39)
[2019-03-13] MEDS ORDERED: INSULIN LISPRO 100 UNITS/ML SUBCUT NR ×2 (19:00→22:15)
[2019-03-13] MEDS ORDERED: AMLODIPINE 5MG TABLET PO NR (20:00)
[2019-03-13] MEDS ORDERED: INSULIN REGULAR (HUMULIN R) 300UNITS/3ML SUBCUT NR (20:44)
[2019-03-13] MEDS ORDERED: KETOROLAC 30MG/ML VIAL IV NR (22:00)
[2019-03-14] VITALS (7 sets, daily range): BP systolic 120–138; BP diastolic 79–97
[2019-03-14] MEDS: DIPHENHYDRAMINE 50MG/ML VIAL IV PRN ×2 (02:31→11:02)
[2019-03-14] MEDS: ONDANSETRON HCL 4MG/2ML INJ IV PRN (03:16)
[2019-03-14] MEDS: MORPHINE SULFATE 2 MG/ML CPJ (NOT FOR IM USE) IV PRN ×2 (03:16→08:19)
[2019-03-14] MEDS ORDERED: METO-293 PO (07:24)
[2019-03-14] MEDS: BLOOD SUGAR DIAGNOSTIC STRIP TEST SCH ×3 (07:40→17:05)
[2019-03-14] MEDS: INSULIN LISPRO 100 UNITS/ML SUBCUT SCH ×3 (08:23→17:06)
[2019-03-14 08:57] LABS: BASOPHILS % 0.6 % (0.0-2.0); EOSINOPHILS % 1.2 % (0.0-5.0); HEMATOCRIT. 28.7 % (36.0-48.0); HEMOGLOBIN. 9.2 g/dL (12.0-16.0); LYMPHOCYTES % 39.5 % (20.0-50.0); MEAN CORPUSCULAR HEMOGLOBIN 26.4 pg (28.0-32.0); MEAN CORPUSCULAR VOLUME 82.1 fL (81.0-99.0); MEAN PLATELET VOLUME 7.1 fl (7.4-10.4); MONOCYTES % 6.3 % (2.0-8.0); NEUTROPHILS % 52.4 % (40.0-76.0); PLATELET 445 x1000/uL (130-400); RED BLOOD CELL COUNT 3.49 mill/uL (4.2-5.4); RED CELL DISTRIBUTION WIDTH 17.6 % (11.6-14.6)
[2019-03-14] MEDS ORDERED: AMLODIPINE 5MG TABLET PO SCH (09:00)
[2019-03-14 09:11] LABS: CHLORIDE 99 mEq/L (98-107)
[2019-03-14] MEDS ORDERED: KETOROLAC 15MG/ML VIAL IV PRN (13:07)
== END 2019-03-14 18:12 | disposition home or self-care (01) | DRG 463 ==
LOC: ER 08:42 → 7WST 13:06 → CANRESERV 19:25 → ENRESERV 19:25 → EDBEDREQTM 03-14 04:02 → EDBEDREQSVC 03-14 04:02
PROVIDERS: ADMIT Internal Medicine; ATTEND Internal Medicine
DX: N39.0 Urinary tract infection, site not specified (principal); E43 Unspecified severe protein-calorie malnutrition; E11.22 Type 2 diabetes mellitus with diabetic chronic kidney disease; E11.40 Type 2 diabetes mellitus with diabetic neuropathy, unspecified; I12.9 Hypertensive chronic kidney disease with stage 1 through stage 4 chronic kidney disease, or unspecified chronic kidney disease; N18.3 Chronic kidney disease, stage 3 (moderate); D64.9 Anemia, unspecified; M48.061 Spinal stenosis, lumbar region without neurogenic claudication; Z88.0 Allergy status to penicillin; Z88.9 Allergy status to unspecified drugs, medicaments and biological substances; Z79.4 Long term (current) use of insulin; Z76.5 Malingerer [conscious simulation]; Z88.2 Allergy status to sulfonamides; Z86.718 Personal history of other venous thrombosis and embolism; Z68.21 Body mass index [BMI] 21.0-21.9, adult
CPT/HCPCS: 36415; 76770; 80048; 82962; 84145; 96361; 96365; 96372; 96375; 96376; 99285; J1200; J1815; J1885; J1956; J2270; J2405; J7030

== ENCOUNTER 2019-03-16 16:44 | Emergency (ER) | payer MEDICAID ==
[~2019-03-16] VITALS: Ht 167.6 cm; Wt 61.0 kg
[~2019-03-16 16:44] MED LIST changes: +METO-293 PO; -WARF-53 PO
[2019-03-16] MEDS ORDERED: ONDANSETRON HCL 4MG/2ML INJ IV ONE (18:00)
[2019-03-16 18:07] LABS: BASOPHILS % 0.5 % (0.0-2.0); HEMATOCRIT. 29.3 % (36.0-48.0); HEMOGLOBIN. 9.9 g/dL (12.0-16.0); LYMPHOCYTES % 18.5 % (20.0-50.0); MEAN CORPUSCULAR HEMOGLOBIN 27.5 pg (28.0-32.0); MEAN PLATELET VOLUME 6.8 fl (7.4-10.4); MONOCYTES % 4.3 % (2.0-8.0); NEUTROPHILS % 76.7 % (40.0-76.0); PLATELET 476 x1000/uL (130-400); RED BLOOD CELL COUNT 3.62 mill/uL (4.2-5.4); RED CELL DISTRIBUTION WIDTH 18.3 % (11.6-14.6)
[2019-03-16] MEDS ORDERED: KETOROLAC 15MG/ML VIAL IV ONE (18:15)
[2019-03-16 18:18] LABS: CHLORIDE 97 mEq/L (98-107)
[2019-03-16] MEDS ORDERED: SODIUM CHLORIDE 0.9% 1,000 ML IV ONE (19:00)
[2019-03-16 19:17] LABS: CLARITY URINE CLEAR (CLEAR); COLOR URINE YELLOW (YELLOW); KETONES URINE NEGATIVE (NEGATIVE); LEUKOCYTE ESTERASE URINE NEGATIVE (NEGATIVE); NITRITE URINE NEGATIVE (NEGATIVE); OCCULT BLOOD URINE 2+ (NEGATIVE); PH URINE 7.5 (4.5-8.0); PROTEIN URINE 3+ (NEGATIVE); SPECIFIC GRAVITY URINE 1.021 (1.005-1.030); UROBILINOGEN URINE 0.2 E.U./dL (0.2-1.0)
[2019-03-16 22:00] VITALS: BP 144/87
== END 2019-03-16 22:14 | disposition left against medical advice (07) ==
LOC: ER 17:06
DX: R10.9 Unspecified abdominal pain (principal); Z76.5 Malingerer [conscious simulation]; I12.9 Hypertensive chronic kidney disease with stage 1 through stage 4 chronic kidney disease, or unspecified chronic kidney disease; E11.22 Type 2 diabetes mellitus with diabetic chronic kidney disease; N18.9 Chronic kidney disease, unspecified; Z88.6 Allergy status to analgesic agent; Z88.0 Allergy status to penicillin; Z88.2 Allergy status to sulfonamides; Z88.8 Allergy status to other drugs, medicaments and biological substances; Z85.528 Personal history of other malignant neoplasm of kidney
CPT/HCPCS: 36415; 71045; 74018; 80053; 81003; 82962; 83880; 84484; 85025; 93005; 96361; 96374; 96375; 99284; J1885; J2405

== ENCOUNTER 2019-04-07 15:38 | Emergency (ER) | payer MEDICAID ==
[~2019-04-07] VITALS: Ht 170.2 cm; Wt 63.0 kg
[2019-04-07] MEDS ORDERED: SODIUM CHLORIDE 0.9% 1,000 ML IV ONE (16:00)
[2019-04-07] MEDS ORDERED: KETOROLAC 15MG/ML VIAL IV ONE (16:00)
[2019-04-07 16:17] LABS: BASOPHILS % 0.8 % (0.0-2.0); EOSINOPHILS % 0.9 % (0.0-5.0); HEMATOCRIT. 28.1 % (36.0-48.0); HEMOGLOBIN. 9.3 g/dL (12.0-16.0); LYMPHOCYTES % 29.9 % (20.0-50.0); MEAN CORPUSCULAR HEMOGLOBIN 27.2 pg (28.0-32.0); MEAN CORPUSCULAR VOLUME 81.7 fL (81.0-99.0); MEAN PLATELET VOLUME 6.8 fl (7.4-10.4); MONOCYTES % 3.7 % (2.0-8.0); NEUTROPHILS % 64.7 % (40.0-76.0); PLATELET 471 x1000/uL (130-400); RED BLOOD CELL COUNT 3.44 mill/uL (4.2-5.4); RED CELL DISTRIBUTION WIDTH 17.2 % (11.6-14.6)
[2019-04-07 16:22] LABS: CHLORIDE 105 mEq/L (98-107)
[2019-04-07 16:23] LABS: PROTHROMBIN TIME 9.8 sec (9.6-11.0)
[2019-04-07] MEDS ORDERED: VISCOUS LIDOCAINE 2% 15 ML UDC PO STA (16:57)
[2019-04-07] MEDS ORDERED: MAGNESIUM/ALUMINUM HYDROXIDE/SIMETHICONE 30ML UDC PO STA (16:57)
[2019-04-07] MEDS ORDERED: FAMOTIDINE 20MG/2ML VIAL IV ONE (17:00)
[2019-04-07] MEDS ORDERED: DICYCLOMINE HCL 10MG/ML 2ML AMP IM ONE (17:00)
[2019-04-07 17:07] LABS: CLARITY URINE CLOUDY (CLEAR); COLOR URINE YELLOW (YELLOW); KETONES URINE NEGATIVE (NEGATIVE); LEUKOCYTE ESTERASE URINE NEGATIVE (NEGATIVE); NITRITE URINE NEGATIVE (NEGATIVE); OCCULT BLOOD URINE 1+ (NEGATIVE); PH URINE 7.5 (4.5-8.0); PROTEIN URINE 3+ (NEGATIVE); SPECIFIC GRAVITY URINE 1.017 (1.005-1.030); UROBILINOGEN URINE 0.2 E.U./dL (0.2-1.0)
[2019-04-07] MEDS ORDERED: DIPHENHYDRAMINE 50MG/ML VIAL IV ONE (17:45)
[2019-04-07] MEDS ORDERED: MORPHINE SULFATE 4 MG/ML CPJ (NOT FOR IM USE) IV ONE (17:45)
[2019-04-07 18:31] VITALS: BP 177/98
== END 2019-04-07 18:49 | disposition home or self-care (01) ==
LOC: ER 15:38
DX: R10.13 Epigastric pain (principal); G89.29 Other chronic pain; D64.9 Anemia, unspecified; E88.09 Other disorders of plasma-protein metabolism, not elsewhere classified; Z76.5 Malingerer [conscious simulation]; E11.9 Type 2 diabetes mellitus without complications; I10 Essential (primary) hypertension; Z79.899 Other long term (current) drug therapy; Z88.0 Allergy status to penicillin; Z88.2 Allergy status to sulfonamides; Z88.6 Allergy status to analgesic agent; Z88.8 Allergy status to other drugs, medicaments and biological substances
CPT/HCPCS: 36415; 80053; 81003; 83690; 85025; 85610; 96372; 96374; 96375; 99283; J0500; J1200; J1885; J2270; J3490; J7030

== ENCOUNTER 2019-04-17 07:48 | Emergency (ER) | payer MEDICAID ==
[~2019-04-17] VITALS: Ht 160 cm; Wt 59.0 kg
[2019-04-17] MEDS ORDERED: SODIUM CHLORIDE 0.9% 1,000 ML IV ONE (09:00)
[2019-04-17] MEDS ORDERED: ONDANSETRON HCL 4MG/2ML INJ IV STA (09:00)
[2019-04-17] MEDS ORDERED: MORPHINE SULFATE 4 MG/ML CPJ (NOT FOR IM USE) IV STA (09:00)
[2019-04-17 09:35] LABS: BASOPHILS % 1.1 % (0.0-2.0); EOSINOPHILS % 1.2 % (0.0-5.0); HEMATOCRIT. 28.7 % (36.0-48.0); HEMOGLOBIN. 9.1 g/dL (12.0-16.0); LYMPHOCYTES % 30.4 % (20.0-50.0); MEAN CORPUSCULAR HEMOGLOBIN 26.1 pg (28.0-32.0); MEAN CORPUSCULAR VOLUME 82.1 fL (81.0-99.0); MONOCYTES % 5.3 % (2.0-8.0); PLATELET 520 x1000/uL (130-400); RED CELL DISTRIBUTION WIDTH 17.5 % (11.6-14.6)
[2019-04-17 09:40] LABS: CHLORIDE 105 mEq/L (98-107)
[2019-04-17] MEDS ORDERED: DIPHENHYDRAMINE 12.5MG/5ML UDC PO ONE (10:15)
[2019-04-17 10:23] LABS: CANNABINOID URINE SCREEN NEGATIVE (NEGATIVE); METHADONE URINE SCREEN NEGATIVE (NEGATIVE); PHENCYCLIDINE URINE SCREEN NEGATIVE (NEGATIVE)
[2019-04-17 10:24] LABS: *BARBITURATES SCREEN URINE NEGATIVE (NEGATIVE)
[2019-04-17 10:25] LABS: *COCAINE SCREEN URINE NEGATIVE (NEGATIVE)
[2019-04-17 10:26] LABS: OPIATES URINE SCREEN NEGATIVE (NEGATIVE)
[2019-04-17 10:28] LABS: *BENZODIAZEPINES SCREEN URINE NEGATIVE (NEGATIVE)
[2019-04-17 10:29] LABS: *AMPHETAMINES SCREEN URINE PRESUMTIVE POSITIVE (NEGATIVE)
[2019-04-17 10:33] LABS: CLARITY URINE CLOUDY (CLEAR); COLOR URINE YELLOW (YELLOW)
[2019-04-17 10:34] LABS: KETONES URINE NEGATIVE (NEGATIVE); NITRITE URINE NEGATIVE (NEGATIVE); OCCULT BLOOD URINE NEGATIVE (NEGATIVE); PROTEIN URINE 3+ (NEGATIVE); SPECIFIC GRAVITY URINE 1.018 (1.005-1.030)
[2019-04-17 10:35] LABS: LEUKOCYTE ESTERASE URINE 1+ (NEGATIVE); UROBILINOGEN URINE 0.2 E.U./dL (0.2-1.0)
[2019-04-17 10:40] LABS: HCG SCREEN NEGATIVE
[2019-04-17] MEDS ORDERED: ACETAMINOPHEN 325MG TABLET PO ONE (12:00)
[2019-04-17] MEDS ORDERED: CEFTRIAXONE 1 G PREMIX 50 ML IV ONE (12:00)
[2019-04-17 12:25] VITALS: BP 198/108
[2019-04-19] MEDS ORDERED: INSU100I28 SQ (04:45)
[2019-04-19] MEDS ORDERED: HYDR12.529 PO (04:45)
[2019-04-20] MEDS ORDERED: ATOR20TA65 MT (18:25)
== END 2019-04-17 13:17 | disposition home or self-care (01) ==
LOC: ER 07:48
DX: N30.00 Acute cystitis without hematuria (principal); R10.33 Periumbilical pain; E11.22 Type 2 diabetes mellitus with diabetic chronic kidney disease; I12.9 Hypertensive chronic kidney disease with stage 1 through stage 4 chronic kidney disease, or unspecified chronic kidney disease; N18.9 Chronic kidney disease, unspecified; Z88.2 Allergy status to sulfonamides; Z88.0 Allergy status to penicillin; Z88.6 Allergy status to analgesic agent; Z88.8 Allergy status to other drugs, medicaments and biological substances
CPT/HCPCS: 36415; 74176; 80053; 80305; 81003; 81025; 84703; 85025; 85610; 86850; 86900; 86901; 87077; 87086; 93005; 96374; 96375; 99284; J0696; J2270; J2405; J7030; Q0163

== ENCOUNTER 2019-05-23 21:12 | Inpatient (IN) | payer MEDICAID ==
[~2019-05-23] VITALS: Ht 165.1 cm; Wt 66.2 kg
[~2019-05-23 21:12] MED LIST changes: +ATOR20TA65 MT; +BACL-141 PO; +HYDR12.529 PO; +LANTUSUD SUBCUT; +LOSA50TA3 PO; -METO-293 PO; +METO10TA3 MT; +NIFE30TA83 PO
[2019-05-23] MEDS ORDERED: KETOROLAC 30MG/ML VIAL IV ONE (22:15)
[2019-05-23] MEDS ORDERED: ONDANSETRON HCL 4MG/2ML INJ IV ONE (22:15)
[2019-05-23] MEDS ORDERED: CLONIDINE 0.2MG TABLET PO ONE (22:15)
[2019-05-23] MEDS ORDERED: SODIUM CHLORIDE 0.9% 500 ML IV ONE (22:15)
[2019-05-23 23:10] LABS: BASOPHILS % 0.6 % (0.0-2.0); HEMATOCRIT. 26.6 % (36.0-48.0); HEMOGLOBIN. 8.6 g/dL (12.0-16.0); LYMPHOCYTES % 30.5 % (20.0-50.0); MEAN CORPUSCULAR VOLUME 83.3 fL (81.0-99.0); MEAN PLATELET VOLUME 7.2 fl (7.4-10.4); MONOCYTES % 5.4 % (2.0-8.0); NEUTROPHILS % 62.5 % (40.0-76.0); PLATELET 400 x1000/uL (130-400); RED CELL DISTRIBUTION WIDTH 15.6 % (11.6-14.6)
[2019-05-23 23:14] LABS: CHLORIDE 106 mEq/L (98-107)
[2019-05-23] MEDS ORDERED: HYDRALAZINE 20MG/ML VIAL IV ONE (23:45)
[2019-05-24 08:30] VITALS: BP 135/92
[2019-05-24] MEDS ORDERED: DEXTROSE 50% WATER 50ML SYRINGE IV PRN (08:30)
[2019-05-24] MEDS ORDERED: CLONIDINE 0.1MG TABLET PO PRN (08:30)
[2019-05-24] MEDS: DIPHENHYDRAMINE 25MG CAPSULE PO PRN ×2 (08:44→17:25)
[2019-05-24] MEDS: OXYCODONE HCL/ACETAMINOPHEN 5/325MG TABLET PO PRN ×3 (08:45→17:26)
[2019-05-24] MEDS ORDERED: AMLODIPINE 10MG TABLET PO SCH (09:00)
[2019-05-24] MEDS ORDERED: MUPI15CR11 TP (11:28)
[2019-05-24] MEDS ORDERED: OLAN10TA19 PO (11:28)
[2019-05-24 12:00] VITALS: BP 159/99
[2019-05-24] MEDS: BLOOD SUGAR DIAGNOSTIC STRIP TEST SCH ×2 (12:29→17:25)
[2019-05-24] MEDS: METOCLOPRAMIDE HCL 10MG/2ML VIAL IV SCH ×2 (13:00→17:30)
[2019-05-24] MEDS: INSULIN LISPRO 100 UNITS/ML SUBCUT SCH ×2 (13:06→17:25)
[2019-05-24 15:45] VITALS: BP 159/99
[2019-05-24 16:00] VITALS: BP 149/92
[2019-05-24 17:26] VITALS: BP 149/92
== END 2019-05-24 19:00 | disposition home or self-care (01) | DRG 48 ==
LOC: ER 22:16 → 6WST 23:46 → ENRESERV 05-24 07:06
PROVIDERS: ADMIT Internal Medicine; ATTEND Internal Medicine
DX: E11.43 Type 2 diabetes mellitus with diabetic autonomic (poly)neuropathy (principal); E43 Unspecified severe protein-calorie malnutrition; K31.84 Gastroparesis; D64.9 Anemia, unspecified; K52.9 Noninfective gastroenteritis and colitis, unspecified; E78.5 Hyperlipidemia, unspecified; E11.65 Type 2 diabetes mellitus with hyperglycemia; I10 Essential (primary) hypertension; I16.0 Hypertensive urgency; Z88.0 Allergy status to penicillin; Z88.6 Allergy status to analgesic agent; Z88.8 Allergy status to other drugs, medicaments and biological substances; Z68.24 Body mass index [BMI] 24.0-24.9, adult; Z88.2 Allergy status to sulfonamides; Z82.49 Family history of ischemic heart disease and other diseases of the circulatory system; Z76.5 Malingerer [conscious simulation]; Z83.3 Family history of diabetes mellitus; Z79.899 Other long term (current) drug therapy
CPT/HCPCS: 36415; 71045; 82962; 83880; 84484; 93005; 99291; J0360; J1815; J1885; J2405; J2765; J7040; Q0163

== ENCOUNTER 2019-05-25 06:32 | Inpatient (IN) | payer MEDICAID ==
[~2019-05-25] VITALS: Ht 165.1 cm; Wt 66.2 kg
[~2019-05-25 06:32] MED LIST changes: -ACET-2178 PO; +MUPI15CR11 TP; +OLAN10TA19 PO; +TOPUD PO
[2019-05-25] MEDS ORDERED: OXYCODONE HCL/ACETAMINOPHEN 5/325MG TABLET PO ONE (07:15)
[2019-05-25 07:49] LABS: BASOPHILS % 0.4 % (0.0-2.0); EOSINOPHILS % 1.7 % (0.0-5.0); HEMATOCRIT. 30.1 % (36.0-48.0); HEMOGLOBIN. 9.9 g/dL (12.0-16.0); LYMPHOCYTES % 17.7 % (20.0-50.0); MEAN CORPUSCULAR HEMOGLOBIN 26.8 pg (28.0-32.0); MEAN CORPUSCULAR VOLUME 81.7 fL (81.0-99.0); MONOCYTES % 5.6 % (2.0-8.0); NEUTROPHILS % 74.6 % (40.0-76.0); PLATELET 465 x1000/uL (130-400); RED BLOOD CELL COUNT 3.69 mill/uL (4.2-5.4); RED CELL DISTRIBUTION WIDTH 15.4 % (11.6-14.6)
[2019-05-25 08:00] LABS: CHLORIDE 107 mEq/L (98-107)
[2019-05-25] MEDS ORDERED: ONDANSETRON HCL 4MG/2ML INJ IV ONE (08:30)
[2019-05-25] MEDS ORDERED: HYDRALAZINE 20MG/ML VIAL IV ONE (08:30)
[2019-05-25] MEDS ORDERED: ONDANSETRON HCL 4MG/2ML INJ IV PRN (09:45)
[2019-05-25] MEDS ORDERED: CLONIDINE 0.1MG TABLET PO PRN (09:45)
[2019-05-25] MEDS ORDERED: DEXTROSE 50% WATER 50ML SYRINGE IV PRN (09:45)
[2019-05-25] MEDS ORDERED: AMLODIPINE 10MG TABLET PO SCH ×3 (09:45→17:28)
[2019-05-25] MEDS ORDERED: ACETAMINOPHEN 325MG TABLET PO PRN (09:45)
[2019-05-25] MEDS: BLOOD SUGAR DIAGNOSTIC STRIP TEST SCH ×3 (11:00→20:48)
[2019-05-25 17:00] VITALS: BP_SYST 187; BP_SYST 189; BP_DIAS 109
[2019-05-25] MEDS: INSULIN LISPRO 100 UNITS/ML SUBCUT SCH ×2 (19:45→20:54)
[2019-05-25 20:00] VITALS: BP 152/90
[2019-05-25] MEDS: HYDRALAZINE HCL 50MG TABLET PO SCH (20:47)
[2019-05-25] MEDS: MORPHINE SULFATE 2 MG/ML CPJ (NOT FOR IM USE) IV PRN (21:00)
[2019-05-26 00:05] VITALS: BP 123/70
[2019-05-26] MEDS: DIPHENHYDRAMINE 50MG/ML VIAL IV PRN ×2 (03:27→12:30)
[2019-05-26] MEDS: MORPHINE SULFATE 2 MG/ML CPJ (NOT FOR IM USE) IV PRN ×3 (03:28→12:51)
[2019-05-26 04:00] VITALS: BP 151/87
[2019-05-26] MEDS: HYDRALAZINE HCL 50MG TABLET PO SCH ×2 (05:38→13:49)
[2019-05-26] MEDS: BLOOD SUGAR DIAGNOSTIC STRIP TEST SCH ×3 (05:41→18:09)
[2019-05-26] MEDS: INSULIN LISPRO 100 UNITS/ML SUBCUT SCH ×3 (06:24→18:09)
[2019-05-26 08:00] VITALS: BP 144/82
[2019-05-26] MEDS ORDERED: AMLODIPINE 10MG TABLET PO SCH (09:00)
[2019-05-26] MEDS ORDERED: INSULIN GLARGINE UD 100 UNITS/ML SYR SUBCUT NR (09:00)
[2019-05-26 12:00] VITALS: BP 151/88
[2019-05-26] MEDS ORDERED: INSULIN LISPRO 100 UNITS/ML SUBCUT NR (15:15)
[2019-05-26 16:00] VITALS: BP 126/78
[2019-05-26 18:01] VITALS: BP 126/78
== END 2019-05-26 19:45 | disposition home or self-care (01) | DRG 52 ==
LOC: ER 06:32 → 7WST 08:40 → ENRESERV 15:29
PROVIDERS: ADMIT Internal Medicine; ATTEND Internal Medicine
DX: I67.4 Hypertensive encephalopathy (principal); E43 Unspecified severe protein-calorie malnutrition; E11.649 Type 2 diabetes mellitus with hypoglycemia without coma; I16.0 Hypertensive urgency; D64.9 Anemia, unspecified; I10 Essential (primary) hypertension; Z76.5 Malingerer [conscious simulation]; Z91.19 Patient's noncompliance with other medical treatment and regimen; Z68.24 Body mass index [BMI] 24.0-24.9, adult; Z79.4 Long term (current) use of insulin; Z79.899 Other long term (current) drug therapy; Z88.0 Allergy status to penicillin; Z88.2 Allergy status to sulfonamides; Z88.8 Allergy status to other drugs, medicaments and biological substances; Z83.3 Family history of diabetes mellitus; Z82.49 Family history of ischemic heart disease and other diseases of the circulatory system
CPT/HCPCS: 36415; 71045; 82962; 84484; 93005; 96374; 99291; C1893; J0360; J1200; J1815; J2270; J2405

== ENCOUNTER 2019-05-28 13:24 | Inpatient (IN) | payer MEDICAID ==
[~2019-05-28] VITALS: Ht 165.1 cm; Wt 56.2 kg
[2019-05-28] VITALS (9 sets, daily range): BP systolic 103–135; BP diastolic 46–74
[2019-05-28] MEDS ORDERED: ONDANSETRON HCL 4MG/2ML INJ IV STA (14:01)
[2019-05-28] MEDS ORDERED: MORPHINE SULFATE 4 MG/ML CPJ (NOT FOR IM USE) IV STA (14:01)
[2019-05-28 15:37] LABS: CLARITY URINE CLEAR (CLEAR); COLOR URINE YELLOW (YELLOW); KETONES URINE 2+ (NEGATIVE); LEUKOCYTE ESTERASE URINE NEGATIVE (NEGATIVE); NITRITE URINE NEGATIVE (NEGATIVE); OCCULT BLOOD URINE 2+ (NEGATIVE); PH URINE 6.5 (4.5-8.0); PROTEIN URINE 2+ (NEGATIVE); SPECIFIC GRAVITY URINE 1.022 (1.005-1.030); UROBILINOGEN URINE 0.2 E.U./dL (0.2-1.0)
[2019-05-28] MEDS ORDERED: DIPHENHYDRAMINE 50MG/ML VIAL IV ONE (16:00)
[2019-05-28 16:03] LABS: BASOPHILS % 1.4 % (0.0-2.0); EOSINOPHILS % 0.3 % (0.0-5.0); HEMATOCRIT. 36.5 % (36.0-48.0); HEMOGLOBIN. 11.5 g/dL (12.0-16.0); LYMPHOCYTES % 25.2 % (20.0-50.0); MEAN CORPUSCULAR VOLUME 85.8 fL (81.0-99.0); MEAN PLATELET VOLUME 7.1 fl (7.4-10.4); MONOCYTES % 3.8 % (2.0-8.0); NEUTROPHILS % 69.3 % (40.0-76.0); PLATELET 504 x1000/uL (130-400); RED BLOOD CELL COUNT 4.26 mill/uL (4.2-5.4); RED CELL DISTRIBUTION WIDTH 15.3 % (11.6-14.6)
[2019-05-28 16:10] LABS: INR 0.9; PROTHROMBIN TIME 9.7 sec (9.6-11.0)
[2019-05-28 16:33] LABS: CHLORIDE 89 mEq/L (98-107)
[2019-05-28] MEDS ORDERED: FUROSEMIDE 100MG/10ML VIAL IV STA (16:39)
[2019-05-28] MEDS ORDERED: SODIUM CHLORIDE 0.9% 1,000 ML IV ONE (16:44)
[2019-05-28] MEDS ORDERED: INSULIN REGULAR (HUMULIN R) 300UNITS/3ML IV ONE (16:45)
[2019-05-28] MEDS ORDERED: ALBUTEROL (0.083%) 2.5MG/3ML NEB HHN ONE (16:45)
[2019-05-28] MEDS ORDERED: SODIUM BICARBONATE 8.4% 1 MEQ/ML 50ML SYR IV ONE (16:45)
[2019-05-28] MEDS ORDERED: ACETAMINOPHEN 325MG TABLET PO PRN (17:00)
[2019-05-28] MEDS: SODIUM CHLORIDE 0.9% 1,000 ML IV SCH ×2 (17:00→21:24)
[2019-05-28] MEDS ORDERED: INSULIN REGULAR (DRIP) 100 UNITS in SODIUM CHLORIDE 0.9% 100 ML IV ONE (18:45)
[2019-05-28 19:04] LABS: PHOSPHORUS 4.6 mg/dL (2.5-4.9)
[2019-05-28] MEDS ORDERED: INSULIN REGULAR (DRIP) 100 UNITS in SODIUM CHLORIDE 0.9% 99 ML IV SCH (19:44)
[2019-05-28] MEDS ORDERED: INSULIN REGULAR (DRIP) 100 UNITS in SODIUM CHLORIDE 0.9% 99 ML IV PRN (19:45)
[2019-05-28] MEDS ORDERED: DEXTROSE 50% WATER 50ML SYRINGE IV PRN ×2 (19:45)
[2019-05-28] MEDS: BLOOD SUGAR DIAGNOSTIC STRIP TEST SCH ×4 (20:05→23:41)
[2019-05-28] MEDS: ONDANSETRON HCL 4MG/2ML INJ IV PRN (20:49)
[2019-05-28] MEDS: HYDROCODONE/ACETAMINOPHEN 5/325MG TABLET PO PRN (21:23)
[2019-05-28] MEDS: AMLODIPINE 5MG TABLET PO SCH (21:30)
[2019-05-28] MEDS: DIPHENHYDRAMINE 25MG CAPSULE PO PRN (21:35)
[2019-05-29] VITALS (18 sets, daily range): BP systolic 111–166; BP diastolic 56–101
[2019-05-29] MEDS: BLOOD SUGAR DIAGNOSTIC STRIP TEST SCH ×14 (00:10→23:57)
[2019-05-29] MEDS ORDERED: NEOM28.38 TP (00:38)
[2019-05-29] MEDS ORDERED: HYDR-4009 MT (00:38)
[2019-05-29] MEDS: SODIUM CHLORIDE 0.9% 1,000 ML IV SCH ×4 (01:05→20:59)
[2019-05-29] MEDS: DIPHENHYDRAMINE 25MG CAPSULE PO PRN ×3 (04:58→23:17)
[2019-05-29] MEDS: HYDROCODONE/ACETAMINOPHEN 5/325MG TABLET PO PRN ×2 (04:58→14:26)
[2019-05-29 06:28] LABS: CHLORIDE 102 mEq/L (98-107)
[2019-05-29 06:32] LABS: PHOSPHORUS 5.1 mg/dL (2.5-4.9)
[2019-05-29] MEDS ORDERED: DEXTROSE 50% WATER 50ML SYRINGE IV PRN ×3 (08:00→18:45)
[2019-05-29] MEDS: INSULIN LISPRO 100 UNITS/ML SUBCUT SCH ×2 (08:20→13:10)
[2019-05-29] MEDS ORDERED: MAGNESIUM 4 G PREMIX 100 ML IV NR (09:00)
[2019-05-29] MEDS: AMLODIPINE 5MG TABLET PO SCH (09:03)
[2019-05-29] MEDS: PANTOPRAZOLE 40MG DR TABLET PO SCH (09:03)
[2019-05-29] MEDS: ATORVASTATIN CALCIUM 20MG TABLET PO SCH (09:03)
[2019-05-29] MEDS: LOSARTAN POTASSIUM 50 MG TABLET PO SCH ×2 (09:03→21:49)
[2019-05-29 09:45] LABS: BASOPHILS % 1.2 % (0.0-2.0); HEMATOCRIT. 27.3 % (36.0-48.0); HEMOGLOBIN. 8.9 g/dL (12.0-16.0); LYMPHOCYTES % 31.4 % (20.0-50.0); MEAN CORPUSCULAR VOLUME 83.1 fL (81.0-99.0); MEAN PLATELET VOLUME 6.8 fl (7.4-10.4); MONOCYTES % 6.5 % (2.0-8.0); NEUTROPHILS % 59.9 % (40.0-76.0); PLATELET 502 x1000/uL (130-400); RED BLOOD CELL COUNT 3.29 mill/uL (4.2-5.4); RED CELL DISTRIBUTION WIDTH 15.2 % (11.6-14.6)
[2019-05-29 09:50] LABS: CHLORIDE 101 mEq/L (98-107)
[2019-05-29 10:36] LABS: HCG SCREEN NEGATIVE
[2019-05-29] MEDS ORDERED: INFLUENZA VIRUS VACCINE(AFLURIA) 0.5ML SYR IM ONE (12:00)
[2019-05-29] MEDS ORDERED: INSULIN GLARGINE UD 100 UNITS/ML SYR SUBCUT SCH ×2 (14:30→22:00)
[2019-05-29] MEDS ORDERED: INSULIN REGULAR (HUMULIN R) 300UNITS/3ML SUBCUT NR (14:30)
[2019-05-29] MEDS: METOCLOPRAMIDE 10MG/10 ML UDC PO SCH ×3 (14:35→21:49)
[2019-05-29 15:04] LABS: *AMPHETAMINES SCREEN URINE NEGATIVE (NEGATIVE); *BARBITURATES SCREEN URINE NEGATIVE (NEGATIVE); *BENZODIAZEPINES SCREEN URINE NEGATIVE (NEGATIVE); *COCAINE SCREEN URINE NEGATIVE (NEGATIVE)
[2019-05-29 15:05] LABS: CANNABINOID URINE SCREEN NEGATIVE (NEGATIVE); METHADONE URINE SCREEN NEGATIVE (NEGATIVE); OPIATES URINE SCREEN NEGATIVE (NEGATIVE); PHENCYCLIDINE URINE SCREEN NEGATIVE (NEGATIVE)
[2019-05-29 16:31] LABS: CHLORIDE 93 mEq/L (98-107)
[2019-05-29] MEDS ORDERED: INSULIN REGULAR (DRIP) 100 UNITS in SODIUM CHLORIDE 0.9% 100 ML IV SCH (17:00)
[2019-05-29] MEDS: MORPHINE SULFATE 2 MG/ML CPJ (NOT FOR IM USE) IV PRN ×2 (17:44→23:18)
[2019-05-29] MEDS: PSYLLIUM SEED PACKET PO SCH (18:22)
[2019-05-29] MEDS ORDERED: INSULIN REGULAR (DRIP) 100 UNITS in SODIUM CHLORIDE 0.9% 100 ML IV ONE (18:30)
[2019-05-29] MEDS ORDERED: INSULIN REGULAR (HUMULIN R) UD 100 UNITS/ML SYR IV NR (21:00)
[2019-05-29 21:31] LABS: CHLORIDE 94 mEq/L (98-107)
[2019-05-30] VITALS (27 sets, daily range): BP systolic 107–166; BP diastolic 56–101
[2019-05-30] MEDS: BLOOD SUGAR DIAGNOSTIC STRIP TEST SCH ×13 (00:45→20:30)
[2019-05-30] MEDS: DEXTROSE 50% WATER 50ML SYRINGE IV PRN ×2 (03:35→05:15)
[2019-05-30] MEDS: HYDROCODONE/ACETAMINOPHEN 10/325MG TABLET PO PRN (03:49)
[2019-05-30 05:50] LABS: CHLORIDE 106 mEq/L (98-107)
[2019-05-30] MEDS: DIPHENHYDRAMINE 25MG CAPSULE PO PRN ×3 (05:52→17:56)
[2019-05-30] MEDS: MORPHINE SULFATE 2 MG/ML CPJ (NOT FOR IM USE) IV PRN ×3 (05:56→17:49)
[2019-05-30] MEDS: SODIUM CHLORIDE 0.9% 1,000 ML IV SCH (06:46)
[2019-05-30] MEDS: PANTOPRAZOLE 40MG DR TABLET PO SCH (08:30)
[2019-05-30] MEDS: ATORVASTATIN CALCIUM 20MG TABLET PO SCH (08:30)
[2019-05-30] MEDS: METOCLOPRAMIDE 10MG/10 ML UDC PO SCH ×4 (08:30→19:53)
[2019-05-30] MEDS: HYDROCHLOROTHIAZIDE 12.5MG CAPSULE PO SCH (08:30)
[2019-05-30] MEDS: NIFEDIPINE XL 30MG TAB PO SCH (08:31)
[2019-05-30] MEDS: PSYLLIUM SEED PACKET PO SCH ×3 (08:31→17:50)
[2019-05-30] MEDS: LOSARTAN POTASSIUM 50 MG TABLET PO SCH ×2 (08:31→19:48)
[2019-05-30 10:04] LABS: BASOPHILS % 1.1 % (0.0-2.0); EOSINOPHILS % 1.3 % (0.0-5.0); HEMATOCRIT. 32.7 % (36.0-48.0); HEMOGLOBIN. 10.3 g/dL (12.0-16.0); LYMPHOCYTES % 32.1 % (20.0-50.0); MEAN CORPUSCULAR HEMOGLOBIN 26.5 pg (28.0-32.0); MEAN CORPUSCULAR VOLUME 83.9 fL (81.0-99.0); MONOCYTES % 11.3 % (2.0-8.0); NEUTROPHILS % 54.2 % (40.0-76.0); PLATELET 419 x1000/uL (130-400); RED BLOOD CELL COUNT 3.89 mill/uL (4.2-5.4); RED CELL DISTRIBUTION WIDTH 15.6 % (11.6-14.6)
[2019-05-30] MEDS ORDERED: DEXTROSE 50% WATER 50ML SYRINGE IV PRN (10:15)
[2019-05-30] MEDS: INSULIN LISPRO 100 UNITS/ML SUBCUT SCH ×3 (12:33→20:34)
[2019-05-31] VITALS (23 sets, daily range): BP systolic 113–196; BP diastolic 69–123
[2019-05-31] MEDS: MORPHINE SULFATE 2 MG/ML CPJ (NOT FOR IM USE) IV PRN ×3 (00:13→16:03)
[2019-05-31] MEDS: DIPHENHYDRAMINE 25MG CAPSULE PO PRN ×2 (02:28→08:16)
[2019-05-31] MEDS: METOCLOPRAMIDE 10MG/10 ML UDC PO SCH ×4 (05:56→20:22)
[2019-05-31] MEDS: BLOOD SUGAR DIAGNOSTIC STRIP TEST SCH ×3 (05:56→20:35)
[2019-05-31 06:22] LABS: BASOPHILS % 1.5 % (0.0-2.0); HEMATOCRIT. 25.5 % (36.0-48.0); HEMOGLOBIN. 8.5 g/dL (12.0-16.0); LYMPHOCYTES % 26.5 % (20.0-50.0); MEAN CORPUSCULAR HEMOGLOBIN 27.1 pg (28.0-32.0); MEAN CORPUSCULAR VOLUME 81.3 fL (81.0-99.0); MEAN PLATELET VOLUME 6.9 fl (7.4-10.4); MONOCYTES % 6.7 % (2.0-8.0); NEUTROPHILS % 64.3 % (40.0-76.0); PLATELET 467 x1000/uL (130-400); RED BLOOD CELL COUNT 3.14 mill/uL (4.2-5.4); RED CELL DISTRIBUTION WIDTH 15.3 % (11.6-14.6)
[2019-05-31 06:24] LABS: CHLORIDE 104 mEq/L (98-107)
[2019-05-31] MEDS: INSULIN LISPRO 100 UNITS/ML SUBCUT SCH ×3 (08:15→22:06)
[2019-05-31] MEDS: PANTOPRAZOLE 40MG DR TABLET PO SCH (08:16)
[2019-05-31] MEDS: NIFEDIPINE XL 30MG TAB PO SCH (08:16)
[2019-05-31] MEDS: LOSARTAN POTASSIUM 50 MG TABLET PO SCH ×2 (08:16→20:22)
[2019-05-31] MEDS: HYDROCHLOROTHIAZIDE 12.5MG CAPSULE PO SCH (08:16)
[2019-05-31] MEDS: ATORVASTATIN CALCIUM 20MG TABLET PO SCH (08:16)
[2019-05-31] MEDS: PSYLLIUM SEED PACKET PO SCH ×4 (08:17→17:31)
[2019-05-31] MEDS: CLONIDINE 0.1MG TABLET PO PRN (10:24)
[2019-05-31] MEDS: ONDANSETRON HCL 4MG/2ML INJ IV PRN (10:36)
[2019-05-31] MEDS ORDERED: DEXTROSE 50% WATER 50ML SYRINGE IV PRN ×2 (12:15→12:45)
[2019-05-31] MEDS ORDERED: INSULIN LISPRO 100 UNITS/ML SUBCUT NR (12:45)
[2019-05-31] MEDS ORDERED: BLOOD SUGAR DIAGNOSTIC STRIP TEST SCH (12:45)
[2019-05-31] MEDS ORDERED: INSULIN LISPRO 100 UNITS/ML SUBCUT SCH (12:50)
[2019-05-31] MEDS: DOCUSATE SODIUM 100MG CAPSULE PO SCH (17:31)
[2019-05-31] MEDS ORDERED: HYDROXYZINE 25MG TABLET PO PRN (19:30)
[2019-05-31] MEDS: ALPRAZOLAM 0.5 MG TABLET PO SCH (20:22)
[2019-05-31] MEDS: BACLOFEN 10MG TABLET PO PRN (20:22)
[2019-05-31] MEDS: OLANZAPINE 10MG TABLET PO SCH (22:07)
[2019-05-31] MEDS: INSULIN GLARGINE UD 100 UNITS/ML SYR SUBCUT SCH (22:07)
[2019-06-01] VITALS (12 sets, daily range): BP systolic 124–186; BP diastolic 76–98
[2019-06-01] MEDS: MORPHINE SULFATE 2 MG/ML CPJ (NOT FOR IM USE) IV PRN ×2 (01:26→18:47)
[2019-06-01 06:14] LABS: CHLORIDE 99 mEq/L (98-107)
[2019-06-01 06:15] LABS: BASOPHILS % 0.8 % (0.0-2.0); HEMOGLOBIN. 8.3 g/dL (12.0-16.0); LYMPHOCYTES % 52.1 % (20.0-50.0); MEAN CORPUSCULAR HEMOGLOBIN 27.4 pg (28.0-32.0); MEAN CORPUSCULAR VOLUME 82.5 fL (81.0-99.0); MEAN PLATELET VOLUME 7.1 fl (7.4-10.4); MONOCYTES % 7.3 % (2.0-8.0); NEUTROPHILS % 38.8 % (40.0-76.0); PLATELET 430 x1000/uL (130-400); RED BLOOD CELL COUNT 3.03 mill/uL (4.2-5.4); RED CELL DISTRIBUTION WIDTH 15.1 % (11.6-14.6)
[2019-06-01] MEDS: METOCLOPRAMIDE 10MG/10 ML UDC PO SCH ×4 (06:57→20:34)
[2019-06-01] MEDS: BLOOD SUGAR DIAGNOSTIC STRIP TEST SCH ×4 (06:59→20:37)
[2019-06-01] MEDS: INSULIN LISPRO 100 UNITS/ML SUBCUT SCH ×4 (07:02→20:37)
[2019-06-01] MEDS: HYDROCHLOROTHIAZIDE 12.5MG CAPSULE PO SCH (09:34)
[2019-06-01] MEDS: ATORVASTATIN CALCIUM 20MG TABLET PO SCH (09:34)
[2019-06-01] MEDS: DOCUSATE SODIUM 100MG CAPSULE PO SCH ×2 (09:34→16:45)
[2019-06-01] MEDS: PANTOPRAZOLE 40MG DR TABLET PO SCH (09:34)
[2019-06-01] MEDS: NIFEDIPINE XL 30MG TAB PO SCH (09:34)
[2019-06-01] MEDS: PSYLLIUM SEED PACKET PO SCH ×3 (09:34→16:44)
[2019-06-01] MEDS: ALPRAZOLAM 0.5 MG TABLET PO SCH ×2 (09:34→20:36)
[2019-06-01] MEDS: LOSARTAN POTASSIUM 50 MG TABLET PO SCH ×2 (09:34→20:36)
[2019-06-01] MEDS: INSULIN GLARGINE UD 100 UNITS/ML SYR SUBCUT SCH ×2 (09:35→21:53)
[2019-06-01] MEDS: CLONIDINE 0.1MG TABLET PO PRN (16:55)
[2019-06-01] MEDS: ONDANSETRON HCL 4MG/2ML INJ IV PRN (20:34)
[2019-06-01] MEDS: HYDROCODONE/ACETAMINOPHEN 10/325MG TABLET PO PRN (20:36)
[2019-06-01] MEDS: DIPHENHYDRAMINE 25MG CAPSULE PO PRN (20:36)
[2019-06-01] MEDS: OLANZAPINE 10MG TABLET PO SCH (20:36)
[2019-06-02] VITALS (11 sets, daily range): BP systolic 101–170; BP diastolic 60–101
[2019-06-02] MEDS: DIPHENHYDRAMINE 25MG CAPSULE PO PRN ×2 (04:13→11:10)
[2019-06-02] MEDS: ONDANSETRON HCL 4MG/2ML INJ IV PRN (04:13)
[2019-06-02] MEDS: MORPHINE SULFATE 2 MG/ML CPJ (NOT FOR IM USE) IV PRN ×2 (04:14→09:41)
[2019-06-02] MEDS: METOCLOPRAMIDE 10MG/10 ML UDC PO SCH ×4 (05:26→21:17)
[2019-06-02] MEDS: INSULIN LISPRO 100 UNITS/ML SUBCUT SCH ×4 (05:49→20:54)
[2019-06-02] MEDS: BLOOD SUGAR DIAGNOSTIC STRIP TEST SCH ×4 (05:49→20:54)
[2019-06-02 06:41] LABS: BASOPHILS % 0.6 % (0.0-2.0); EOSINOPHILS % 1.3 % (0.0-5.0); HEMOGLOBIN. 8.8 g/dL (12.0-16.0); LYMPHOCYTES % 41.2 % (20.0-50.0); MEAN CORPUSCULAR HEMOGLOBIN 26.6 pg (28.0-32.0); MEAN CORPUSCULAR VOLUME 81.8 fL (81.0-99.0); MEAN PLATELET VOLUME 7.1 fl (7.4-10.4); MONOCYTES % 6.2 % (2.0-8.0); NEUTROPHILS % 50.7 % (40.0-76.0); PLATELET 466 x1000/uL (130-400); RED BLOOD CELL COUNT 3.31 mill/uL (4.2-5.4)
[2019-06-02 07:05] LABS: CHLORIDE 107 mEq/L (98-107)
[2019-06-02] MEDS: ALPRAZOLAM 0.5 MG TABLET PO SCH ×2 (08:20→21:16)
[2019-06-02] MEDS: HYDROCHLOROTHIAZIDE 12.5MG CAPSULE PO SCH (08:20)
[2019-06-02] MEDS: FAMOTIDINE 20MG TABLET PO SCH ×2 (08:21→18:24)
[2019-06-02] MEDS: BACLOFEN 10MG TABLET PO PRN (08:21)
[2019-06-02] MEDS: LOSARTAN POTASSIUM 50 MG TABLET PO SCH ×2 (08:21→21:16)
[2019-06-02] MEDS: NIFEDIPINE XL 30MG TAB PO SCH (08:21)
[2019-06-02] MEDS: PSYLLIUM SEED PACKET PO SCH ×3 (08:21→17:00)
[2019-06-02] MEDS: ATORVASTATIN CALCIUM 20MG TABLET PO SCH (08:21)
[2019-06-02] MEDS: DOCUSATE SODIUM 100MG CAPSULE PO SCH ×2 (08:21→17:00)
[2019-06-02] MEDS: INSULIN GLARGINE UD 100 UNITS/ML SYR SUBCUT SCH ×2 (09:41→21:55)
[2019-06-02] MEDS: OLANZAPINE 10MG TABLET PO SCH (21:17)
[2019-06-03] VITALS: BP 110/61
[2019-06-03 04:00] VITALS: BP 144/89
[2019-06-03] MEDS: MORPHINE SULFATE 2 MG/ML CPJ (NOT FOR IM USE) IV PRN ×2 (04:19→08:35)
[2019-06-03] MEDS: DIPHENHYDRAMINE 25MG CAPSULE PO PRN ×2 (04:19→08:35)
[2019-06-03] MEDS: INSULIN LISPRO 100 UNITS/ML SUBCUT SCH ×2 (08:10→13:10)
[2019-06-03 08:12] VITALS: BP 163/88
[2019-06-03] MEDS: ALPRAZOLAM 0.5 MG TABLET PO SCH (08:23)
[2019-06-03] MEDS: ATORVASTATIN CALCIUM 20MG TABLET PO SCH (08:23)
[2019-06-03] MEDS: METOCLOPRAMIDE 10MG/10 ML UDC PO SCH ×2 (08:23→13:21)
[2019-06-03] MEDS: NIFEDIPINE XL 30MG TAB PO SCH (08:23)
[2019-06-03] MEDS: LOSARTAN POTASSIUM 50 MG TABLET PO SCH (08:24)
[2019-06-03] MEDS: PSYLLIUM SEED PACKET PO SCH ×2 (08:24→13:21)
[2019-06-03] MEDS: FAMOTIDINE 20MG TABLET PO SCH (08:24)
[2019-06-03] MEDS: DOCUSATE SODIUM 100MG CAPSULE PO SCH (08:24)
[2019-06-03] MEDS: HYDROCHLOROTHIAZIDE 12.5MG CAPSULE PO SCH (08:35)
[2019-06-03] MEDS: BLOOD SUGAR DIAGNOSTIC STRIP TEST SCH ×2 (08:38→13:17)
[2019-06-03 10:00] LABS: CHLORIDE 110 mEq/L (98-107)
[2019-06-03] MEDS: INSULIN GLARGINE UD 100 UNITS/ML SYR SUBCUT SCH (11:29)
[2019-06-03] MEDS: ONDANSETRON HCL 4MG/2ML INJ IV PRN (11:29)
[2019-06-03] MEDS: CLONIDINE 0.1MG TABLET PO PRN (11:30)
[2019-06-03 12:00] VITALS: BP 168/90
[2019-06-03] MEDS ORDERED: FAMO20TA8 PO (14:04)
[2019-06-03] MEDS ORDERED: PSYL3.4P5 PO (14:04)
[2019-06-03] MEDS ORDERED: LANTUSUD SUBCUT (14:04)
[2019-06-03 14:43] VITALS: BP 145/81
[2019-06-03 16:00] VITALS: BP 145/80
[2019-06-03 16:33] LABS: BASOPHILS % 0.8 % (0.0-2.0); HEMATOCRIT. 26.3 % (36.0-48.0); HEMOGLOBIN. 8.5 g/dL (12.0-16.0); LYMPHOCYTES % 22.2 % (20.0-50.0); MEAN CORPUSCULAR HEMOGLOBIN 26.6 pg (28.0-32.0); MEAN CORPUSCULAR VOLUME 82.1 fL (81.0-99.0); MEAN PLATELET VOLUME 7.2 fl (7.4-10.4); MONOCYTES % 5.4 % (2.0-8.0); NEUTROPHILS % 70.6 % (40.0-76.0); PLATELET 534 x1000/uL (130-400); RED CELL DISTRIBUTION WIDTH 15.2 % (11.6-14.6)
== END 2019-06-03 17:04 | disposition home or self-care (01) | DRG 420 ==
LOC: ER 13:43 → CVICU 16:52 → EDBEDREQSVC 17:19 → ENRESERV 17:25 → 7WST 05-29 11:50 → CVICU 05-29 20:25 → 3WST 05-30 13:13 → 7WST 06-02 14:54
PROVIDERS: ADMIT Internal Medicine; ATTEND Internal Medicine
DX: E11.10 Type 2 diabetes mellitus with ketoacidosis without coma (principal); E43 Unspecified severe protein-calorie malnutrition; E87.8 Other disorders of electrolyte and fluid balance, not elsewhere classified; E87.5 Hyperkalemia; K31.84 Gastroparesis; E87.1 Hypo-osmolality and hyponatremia; I10 Essential (primary) hypertension; E11.43 Type 2 diabetes mellitus with diabetic autonomic (poly)neuropathy; G89.29 Other chronic pain; M54.9 Dorsalgia, unspecified; Z76.5 Malingerer [conscious simulation]; Z91.19 Patient's noncompliance with other medical treatment and regimen; Z68.20 Body mass index [BMI] 20.0-20.9, adult; Z88.2 Allergy status to sulfonamides; Z88.0 Allergy status to penicillin; Z88.8 Allergy status to other drugs, medicaments and biological substances; Z79.899 Other long term (current) drug therapy; Z79.4 Long term (current) use of insulin
CPT/HCPCS: 36415; 71045; 80048; 80305; 81003; 82962; 83036; 83735; 84100; 84132; 84703; 90686; 93005; 94644; 99291; J1200; J1815; J1940; J2270; J2405; J3475; J3490; J7030; J7050; J7611; J8597; Q0163

== ENCOUNTER 2019-06-07 18:50 | Inpatient (IN) | payer MEDICAID ==
[~2019-06-07] VITALS: Ht 165.1 cm; Wt 58.5 kg
[~2019-06-07 18:50] MED LIST changes: +FAMO20TA8 PO; +HYDR-4009 MT; -HYDR50CA5 PO; +NEOM28.38 TP; -PROT40 PO; +PSYL3.4P5 PO
[2019-06-07] MEDS ORDERED: ONDANSETRON HCL 4MG/2ML INJ IV STA (19:50)
[2019-06-07] MEDS ORDERED: SODIUM CHLORIDE 0.9% 1,000 ML IV ONE ×2 (19:50→21:30)
[2019-06-07] MEDS ORDERED: HYDRALAZINE 20MG/ML VIAL IV ONE ×2 (20:00→23:30)
[2019-06-07 20:38] LABS: CHLORIDE 102 mEq/L (98-107)
[2019-06-07 20:40] LABS: BASOPHILS % 0.6 % (0.0-2.0); EOSINOPHILS % 0.1 % (0.0-5.0); HEMATOCRIT. 30.3 % (36.0-48.0); HEMOGLOBIN. 9.9 g/dL (12.0-16.0); LYMPHOCYTES % 17.7 % (20.0-50.0); MEAN CORPUSCULAR HEMOGLOBIN 27.2 pg (28.0-32.0); MEAN CORPUSCULAR VOLUME 83.2 fL (81.0-99.0); MEAN PLATELET VOLUME 7.7 fl (7.4-10.4); MONOCYTES % 2.6 % (2.0-8.0); PLATELET 609 x1000/uL (130-400); RED BLOOD CELL COUNT 3.64 mill/uL (4.2-5.4)
[2019-06-07 20:41] LABS: CLARITY URINE CLEAR (CLEAR); COLOR URINE YELLOW (YELLOW); KETONES URINE NEGATIVE (NEGATIVE); LEUKOCYTE ESTERASE URINE NEGATIVE (NEGATIVE); NITRITE URINE NEGATIVE (NEGATIVE); OCCULT BLOOD URINE 2+ (NEGATIVE); PROTEIN URINE 3+ (NEGATIVE); SPECIFIC GRAVITY URINE 1.021 (1.005-1.030); UROBILINOGEN URINE 0.2 E.U./dL (0.2-1.0)
[2019-06-07 20:42] LABS: HCG SCREEN NEGATIVE
[2019-06-07 20:43] LABS: ETHANOL BLOOD < 10 mg/dL
[2019-06-07 20:43] LABS: BG DEOXYHEMOGLOBIN 4.4 % (0.0-5.0); BG FRACTION INSPIRED OXYGEN 21; BG HCO3 ACT 26.5 mmol/L (22.0-26.0); BG METHEMOGLOBIN 0.3 % (0.0-1.5); BG OXYGEN SATURATION 95.6 % (92.0-98.5); BG OXYHEMOGLOBIN 95.3 % (94.0-97.0); BG PCO2 46.3 mmHg (35.0-45.0); BG PH 7.375 (7.350-7.450); BG PO2 86.4 mmHg (75.0-100.0); BG SAMPLE SITE RIGHT RADIAL; BG TOTAL HEMOGLOBIN 10.2 g/dL (12.0-18.0); BG VENT MODE ROOM AIR
[2019-06-07 20:52] LABS: CANNABINOID URINE SCREEN NEGATIVE (NEGATIVE); PHENCYCLIDINE URINE SCREEN NEGATIVE (NEGATIVE)
[2019-06-07 20:53] LABS: *BARBITURATES SCREEN URINE NEGATIVE (NEGATIVE); *BENZODIAZEPINES SCREEN URINE NEGATIVE (NEGATIVE); *COCAINE SCREEN URINE NEGATIVE (NEGATIVE); METHADONE URINE SCREEN NEGATIVE (NEGATIVE); OPIATES URINE SCREEN NEGATIVE (NEGATIVE)
[2019-06-07 20:59] LABS: *AMPHETAMINES SCREEN URINE PRESUMTIVE POSITIVE (NEGATIVE)
[2019-06-07] MEDS ORDERED: KETOROLAC 30MG/ML VIAL IV ONE (22:00)
[2019-06-07] MEDS ORDERED: INSULIN LISPRO 100 UNITS/ML SUBCUT ONE (22:45)
[2019-06-07] MEDS ORDERED: CLONIDINE 0.2MG TABLET PO ONE (22:45)
[2019-06-08] VITALS (14 sets, daily range): BP systolic 116–154; BP diastolic 50–95
[2019-06-08] MEDS ORDERED: VISCOUS LIDOCAINE 2% 15 ML UDC PO STA (00:04)
[2019-06-08] MEDS ORDERED: MAGNESIUM/ALUMINUM HYDROXIDE/SIMETHICONE 30ML UDC PO STA (00:04)
[2019-06-08] MEDS ORDERED: PANTOPRAZOLE SODIUM 40 MG/VIAL IV ONE (00:15)
[2019-06-08] MEDS ORDERED: ACETAMINOPHEN 650MG/20.3ML UDC PO PRN (02:00)
[2019-06-08] MEDS ORDERED: METOCLOPRAMIDE 10MG/10 ML UDC PO PRN (02:00)
[2019-06-08] MEDS ORDERED: DIPHENHYDRAMINE 50MG CAPSULE PO PRN (02:00)
[2019-06-08] MEDS ORDERED: ONDANSETRON HCL 4MG TABLET PO PRN (02:00)
[2019-06-08] MEDS ORDERED: HYDROCODONE/ACETAMINOPHEN 10/325MG TABLET PO PRN (02:00)
[2019-06-08] MEDS: BACLOFEN 10MG TABLET PO SCH ×3 (06:00→21:23)
[2019-06-08] MEDS: BLOOD SUGAR DIAGNOSTIC STRIP TEST SCH ×4 (06:41→21:00)
[2019-06-08] MEDS ORDERED: INSULIN LISPRO 100 UNITS/ML SUBCUT SCH ×2 (06:50→07:20)
[2019-06-08 07:37] LABS: HEMATOCRIT 28.9 % (36.0-48.0); HEMOGLOBIN 9.2 g/dL (12.0-16.0); MEAN CORPUSCULAR HEMOGLOBIN 26.6 pg (28.0-32.0); PLATELET 692 x1000/uL (130-400); RED BLOOD CELL COUNT 3.45 mill/uL (4.2-5.4); RED CELL DISTRIBUTION WIDTH 15.2 % (11.6-14.6)
[2019-06-08] MEDS ORDERED: BLOOD SUGAR DIAGNOSTIC STRIP TEST SCH (07:41)
[2019-06-08] MEDS ORDERED: HALOPERIDOL 5MG TABLET PO PRN (07:45)
[2019-06-08] MEDS ORDERED: DEXTROSE 50% WATER 50ML SYRINGE IV PRN (07:45)
[2019-06-08] MEDS ORDERED: ONDANSETRON HCL 4MG/2ML INJ IV PRN (07:45)
[2019-06-08] MEDS ORDERED: INSULIN GLARGINE UD 100 UNITS/ML SYR SUBCUT NR (08:00)
[2019-06-08] MEDS: ALPRAZOLAM 0.5 MG TABLET PO SCH ×2 (09:03→17:31)
[2019-06-08] MEDS: LOSARTAN POTASSIUM 50 MG TABLET PO SCH ×2 (09:04→17:30)
[2019-06-08] MEDS: FAMOTIDINE 20MG TABLET PO SCH ×2 (09:04→21:00)
[2019-06-08] MEDS: NIFEDIPINE XL 60MG TAB PO SCH (09:04)
[2019-06-08] MEDS: INSULIN GLARGINE UD 100 UNITS/ML SYR SUBCUT SCH ×2 (09:18→21:23)
[2019-06-08] MEDS ORDERED: INSULIN LISPRO 100 UNITS/ML SUBCUT NR (10:06)
[2019-06-08] MEDS: SODIUM CHLORIDE 0.9% 1,000 ML IV SCH ×2 (10:20→23:35)
[2019-06-08] MEDS: INSULIN LISPRO 100 UNITS/ML SUBCUT SCH ×6 (12:20→21:00)
[2019-06-08] MEDS ORDERED: OLANZAPINE 10MG TABLET PO SCH (21:00)
[2019-06-08] MEDS ORDERED: ATORVASTATIN CALCIUM 20MG TABLET PO SCH (21:00)
[2019-06-08] MEDS: DEXTROSE 50% WATER 50ML SYRINGE IV PRN (21:46)
[2019-06-09] VITALS (10 sets, daily range): BP systolic 104–186; BP diastolic 54–115
[2019-06-09] MEDS: CLONIDINE 0.1MG TABLET PO PRN ×2 (05:35→13:16)
[2019-06-09] MEDS: BACLOFEN 10MG TABLET PO SCH ×2 (06:00→15:32)
[2019-06-09] MEDS: BLOOD SUGAR DIAGNOSTIC STRIP TEST SCH ×3 (06:21→16:45)
[2019-06-09] MEDS: INSULIN LISPRO 100 UNITS/ML SUBCUT SCH ×4 (06:39→12:20)
[2019-06-09 08:46] LABS: CHLORIDE 105 mEq/L (98-107)
[2019-06-09] MEDS: ALPRAZOLAM 0.5 MG TABLET PO SCH (09:00)
[2019-06-09] MEDS ORDERED: HYDRALAZINE 20MG/ML VIAL IV PRN (09:45)
[2019-06-09] MEDS: INSULIN GLARGINE UD 100 UNITS/ML SYR SUBCUT SCH (09:53)
[2019-06-09] MEDS: FAMOTIDINE 20MG TABLET PO SCH (10:15)
[2019-06-09] MEDS: NIFEDIPINE XL 60MG TAB PO SCH (10:15)
[2019-06-09] MEDS: LOSARTAN POTASSIUM 50 MG TABLET PO SCH (10:16)
[2019-06-09] MEDS: DEXTROSE 50% WATER 50ML SYRINGE IV PRN (10:16)
[2019-06-09] MEDS ORDERED: NIFEDIPINE XL 60MG TAB PO SCH ×2 (11:00→21:00)
[2019-06-09] MEDS: SODIUM CHLORIDE 0.9% 1,000 ML IV SCH (12:57)
== END 2019-06-09 18:50 | disposition home or self-care (01) | DRG 420 ==
LOC: ER 18:50 → EDBEDREQ 22:54 → EDBEDREQTM 22:54 → ENRESERV 23:11 → 3WST 06-08 00:53
PROVIDERS: ADMIT Internal Medicine; ATTEND Internal Medicine
PROC: 02HV33Z Insertion of Infusion Device into Superior Vena Cava, Percutaneous Approach (ICD-10-PCS; principal; 2019-06-09)
PROC: B548ZZA Ultrasonography of Superior Vena Cava, Guidance (ICD-10-PCS; 2019-06-09)
DX: E11.65 Type 2 diabetes mellitus with hyperglycemia (principal); E43 Unspecified severe protein-calorie malnutrition; E87.1 Hypo-osmolality and hyponatremia; I10 Essential (primary) hypertension; F15.129 Other stimulant abuse with intoxication, unspecified; E78.5 Hyperlipidemia, unspecified; D64.9 Anemia, unspecified; Z82.49 Family history of ischemic heart disease and other diseases of the circulatory system; Z83.3 Family history of diabetes mellitus; Z88.2 Allergy status to sulfonamides; Z88.0 Allergy status to penicillin; Z88.8 Allergy status to other drugs, medicaments and biological substances; Z91.19 Patient's noncompliance with other medical treatment and regimen; Z79.899 Other long term (current) drug therapy; Z79.84 Long term (current) use of oral hypoglycemic drugs; Z71.51 Drug abuse counseling and surveillance of drug abuser; Z68.21 Body mass index [BMI] 21.0-21.9, adult
CPT/HCPCS: 36415; 36573; 36600; 71045; 74018; 80048; 80061; 80305; 80307; 80320; 80329; 81003; 82375; 82805; 82962; 83036; 83605; 83880; 84484; 84703; 85027; 93005; 99291; C1725; C9113; J0360; J1630; J1815; J1885; J2405; J7030; G0480

== ENCOUNTER 2019-06-11 03:14 | Inpatient (IN) | payer MEDICAID ==
[~2019-06-11] VITALS: Ht 165.1 cm; Wt 63.5 kg
[2019-06-11] MEDS ORDERED: SODIUM CHLORIDE 0.9% 1,000 ML IV ONE (04:45)
[2019-06-11] MEDS ORDERED: FAMOTIDINE 20MG/2ML VIAL IV ONE (04:45)
[2019-06-11] MEDS ORDERED: MAGNESIUM/ALUMINUM HYDROXIDE/SIMETHICONE 30ML UDC PO ONE (04:45)
[2019-06-11] MEDS ORDERED: METOCLOPRAMIDE HCL 10MG/2ML VIAL IV ONE (04:45)
[2019-06-11] MEDS ORDERED: CLONIDINE 0.2MG TABLET PO ONE (04:45)
[2019-06-11 05:30] LABS: BASOPHILS % 0.4 % (0.0-2.0); EOSINOPHILS % 0.5 % (0.0-5.0); HEMATOCRIT. 23.6 % (36.0-48.0); HEMOGLOBIN. 7.9 g/dL (12.0-16.0); LYMPHOCYTES % 31.2 % (20.0-50.0); MEAN CORPUSCULAR HEMOGLOBIN 27.4 pg (28.0-32.0); MEAN CORPUSCULAR VOLUME 81.7 fL (81.0-99.0); MEAN PLATELET VOLUME 6.6 fl (7.4-10.4); MONOCYTES % 7.1 % (2.0-8.0); NEUTROPHILS % 60.8 % (40.0-76.0); PLATELET 579 x1000/uL (130-400); RED BLOOD CELL COUNT 2.89 mill/uL (4.2-5.4); RED CELL DISTRIBUTION WIDTH 14.9 % (11.6-14.6)
[2019-06-11] MEDS ORDERED: MORPHINE SULFATE 2 MG/ML CPJ (NOT FOR IM USE) IV ONE (05:30)
[2019-06-11] MEDS ORDERED: DIPHENHYDRAMINE 50MG/ML VIAL IV ONE (05:30)
[2019-06-11 05:34] LABS: CHLORIDE 103 mEq/L (98-107)
[2019-06-11] MEDS ORDERED: LABETALOL 5MG/ML SYR 20 MG/4 ML SYRINGE IV ONE (05:45)
[2019-06-11] MEDS ORDERED: ENOXAPARIN 60MG/0.6ML SYR SUBCUT ONE (09:00)
[2019-06-11] MEDS ORDERED: MORPHINE SULFATE 2 MG/ML CPJ (NOT FOR IM USE) IV PRN (11:15)
[2019-06-11] MEDS ORDERED: DIPHENHYDRAMINE 50MG/ML VIAL IV PRN (11:15)
[2019-06-11] MEDS ORDERED: IOHEXOL-350 100 ML BOTTLE ONE (14:23)
[2019-06-11] MEDS ORDERED: ACETAMINOPHEN 325MG TABLET PO PRN (15:15)
[2019-06-11] MEDS ORDERED: ONDANSETRON HCL 4MG/2ML INJ IV PRN (15:15)
[2019-06-11] MEDS ORDERED: DEXTROSE 50% WATER 50ML SYRINGE IV PRN (15:15)
[2019-06-11] MEDS ORDERED: IPRATROPIUM/ALBUTEROL 0.5-3(2.5)MG/3ML NEB HHN PRN (15:15)
[2019-06-11] MEDS: DIPHENHYDRAMINE 25MG CAPSULE PO PRN (15:58)
[2019-06-11] MEDS: LOSARTAN POTASSIUM 50 MG TABLET PO SCH (15:59)
[2019-06-11] MEDS: NIFEDIPINE XL 60MG TAB PO SCH (15:59)
[2019-06-11] MEDS: OXYCODONE HCL/ACETAMINOPHEN 5/325MG TABLET PO PRN (16:00)
[2019-06-11 16:09] VITALS: BP 188/113
[2019-06-11 16:21] VITALS: BP 188/113
[2019-06-11] MEDS ORDERED: LEVOFLOXACIN 750MG PREMIX 150 ML IV SCH (17:00)
[2019-06-11 17:15] VITALS: BP 214/99
[2019-06-11] MEDS ORDERED: ALPRAZOLAM 0.5 MG TABLET PO PRN (17:30)
[2019-06-11] MEDS ORDERED: CLONIDINE 0.1MG TABLET PO PRN (17:30)
[2019-06-11] MEDS: BLOOD SUGAR DIAGNOSTIC STRIP TEST SCH ×2 (17:31→21:00)
[2019-06-11] MEDS ORDERED: HYDRALAZINE 20MG/ML VIAL IV NR (17:45)
[2019-06-11] MEDS: INSULIN LISPRO 100 UNITS/ML SUBCUT SCH ×2 (17:49→22:12)
[2019-06-11 18:30] VITALS: BP 166/94
[2019-06-11] MEDS ORDERED: LABETALOL 5MG/ML SYR 20 MG/4 ML SYRINGE IV NR (18:30)
[2019-06-11 20:00] VITALS: BP 129/82
[2019-06-11] MEDS: CLONIDINE 0.1MG TABLET PO SCH (22:09)
[2019-06-11] MEDS: OLANZAPINE 10MG TABLET PO SCH (22:10)
[2019-06-11] MEDS: ENOXAPARIN 60MG/0.6ML SYR SUBCUT SCH (22:10)
[2019-06-11] MEDS: INSULIN GLARGINE UD 100 UNITS/ML SYR SUBCUT SCH (22:13)
[2019-06-12] VITALS: BP 104/76
[2019-06-12] MEDS: DIPHENHYDRAMINE 25MG CAPSULE PO PRN (01:20)
[2019-06-12] MEDS: OXYCODONE HCL/ACETAMINOPHEN 5/325MG TABLET PO PRN ×2 (01:20→13:18)
[2019-06-12 04:00] VITALS: BP 99/66
[2019-06-12] MEDS: CLONIDINE 0.1MG TABLET PO SCH (06:00)
[2019-06-12 06:43] LABS: PROTHROMBIN TIME 10.1 sec (9.6-11.0)
[2019-06-12 06:46] LABS: EOSINOPHILS % 1.6 % (0.0-5.0); HEMATOCRIT. 22.3 % (36.0-48.0); HEMOGLOBIN. 7.3 g/dL (12.0-16.0); LYMPHOCYTES % 44.4 % (20.0-50.0); MEAN CORPUSCULAR HEMOGLOBIN 26.8 pg (28.0-32.0); MEAN CORPUSCULAR VOLUME 81.6 fL (81.0-99.0); MEAN PLATELET VOLUME 7.2 fl (7.4-10.4); MONOCYTES % 6.7 % (2.0-8.0); NEUTROPHILS % 46.3 % (40.0-76.0); PLATELET 465 x1000/uL (130-400); RED BLOOD CELL COUNT 2.73 mill/uL (4.2-5.4); RED CELL DISTRIBUTION WIDTH 14.8 % (11.6-14.6)
[2019-06-12] MEDS: BLOOD SUGAR DIAGNOSTIC STRIP TEST SCH ×2 (06:58→12:58)
[2019-06-12 07:49] LABS: CHLORIDE 103 mEq/L (98-107)
[2019-06-12] MEDS: INSULIN LISPRO 100 UNITS/ML SUBCUT SCH ×2 (07:50→13:02)
[2019-06-12 08:15] VITALS: BP 128/82
[2019-06-12] MEDS: INSULIN GLARGINE UD 100 UNITS/ML SYR SUBCUT SCH (09:40)
[2019-06-12] MEDS: ENOXAPARIN 60MG/0.6ML SYR SUBCUT SCH (09:42)
[2019-06-12] MEDS: OLANZAPINE 10MG TABLET PO SCH (09:43)
[2019-06-12] MEDS: LOSARTAN POTASSIUM 50 MG TABLET PO SCH (09:44)
[2019-06-12] MEDS: NIFEDIPINE XL 60MG TAB PO SCH (09:44)
[2019-06-12 15:41] VITALS: BP 146/86
== END 2019-06-12 12:14 | disposition home or self-care (01) | DRG 197 ==
LOC: ER 03:14 → 6WST 08:52 → EDBEDREQ 08:58 → EDBEDREQTM 08:58 → ENRESERV 09:50
PROVIDERS: ADMIT Internal Medicine; ATTEND Internal Medicine
DX: I82.621 Acute embolism and thrombosis of deep veins of right upper extremity (principal); E43 Unspecified severe protein-calorie malnutrition; E11.22 Type 2 diabetes mellitus with diabetic chronic kidney disease; I12.9 Hypertensive chronic kidney disease with stage 1 through stage 4 chronic kidney disease, or unspecified chronic kidney disease; N18.9 Chronic kidney disease, unspecified; E11.43 Type 2 diabetes mellitus with diabetic autonomic (poly)neuropathy; K31.84 Gastroparesis; F15.90 Other stimulant use, unspecified, uncomplicated; F41.9 Anxiety disorder, unspecified; D64.9 Anemia, unspecified; Z91.19 Patient's noncompliance with other medical treatment and regimen; Z82.49 Family history of ischemic heart disease and other diseases of the circulatory system; Z83.3 Family history of diabetes mellitus; Z76.5 Malingerer [conscious simulation]; Z88.2 Allergy status to sulfonamides; Z88.6 Allergy status to analgesic agent; Z88.8 Allergy status to other drugs, medicaments and biological substances; Z79.84 Long term (current) use of oral hypoglycemic drugs; Z79.899 Other long term (current) drug therapy; Z88.0 Allergy status to penicillin; Z71.51 Drug abuse counseling and surveillance of drug abuser; Z68.23 Body mass index [BMI] 23.0-23.9, adult
CPT/HCPCS: 36415; 71045; 71275; 80048; 82962; 84484; 93005; 93971; 99285; J0360; J1200; J1650; J1815; J1956; J2270; J2765; J3490; J7030; Q0163; Q9967

== ENCOUNTER 2019-06-17 18:34 | Emergency (ER) | payer MEDICAID ==
[~2019-06-17] VITALS: Ht 167.6 cm; Wt 68.0 kg
[2019-06-17] MEDS ORDERED: MORPHINE SULFATE 4 MG/ML CPJ (NOT FOR IM USE) IV STA (18:54)
[2019-06-17] MEDS ORDERED: SODIUM CHLORIDE 0.9% 1,000 ML IV ONE (18:54)
[2019-06-17] MEDS ORDERED: ONDANSETRON HCL 4MG/2ML INJ IV STA (18:54)
[2019-06-17] MEDS ORDERED: MAGNESIUM/ALUMINUM HYDROXIDE/SIMETHICONE 30ML UDC PO ONE (19:00)
[2019-06-17] MEDS ORDERED: FAMOTIDINE 20MG/2ML VIAL IV ONE (19:00)
[2019-06-17 19:19] LABS: BASOPHILS % 2.5 % (0.0-2.0); EOSINOPHILS % 0.4 % (0.0-5.0); HEMATOCRIT. 30.1 % (36.0-48.0); HEMOGLOBIN. 10.1 g/dL (12.0-16.0); LYMPHOCYTES % 26.5 % (20.0-50.0); MEAN CORPUSCULAR HEMOGLOBIN 27.8 pg (28.0-32.0); MEAN CORPUSCULAR VOLUME 82.7 fL (81.0-99.0); MEAN PLATELET VOLUME 7.2 fl (7.4-10.4); MONOCYTES % 4.7 % (2.0-8.0); NEUTROPHILS % 65.9 % (40.0-76.0); PLATELET 552 x1000/uL (130-400); RED BLOOD CELL COUNT 3.64 mill/uL (4.2-5.4); RED CELL DISTRIBUTION WIDTH 15.1 % (11.6-14.6)
[2019-06-17 19:23] LABS: CHLORIDE 106 mEq/L (98-107)
[2019-06-17 19:28] LABS: ETHANOL BLOOD < 10 mg/dL
[2019-06-17] MEDS ORDERED: DIPHENHYDRAMINE 50MG/ML VIAL IV ONE (19:30)
[2019-06-17 19:39] LABS: HCG SCREEN NEGATIVE
[2019-06-17 19:55] LABS: *BARBITURATES SCREEN URINE NEGATIVE (NEGATIVE); *COCAINE SCREEN URINE NEGATIVE (NEGATIVE); CANNABINOID URINE SCREEN NEGATIVE (NEGATIVE); METHADONE URINE SCREEN NEGATIVE (NEGATIVE); PHENCYCLIDINE URINE SCREEN NEGATIVE (NEGATIVE)
[2019-06-17 20:07] LABS: *AMPHETAMINES SCREEN URINE PRESUMTIVE POSITIVE (NEGATIVE)
[2019-06-17 20:08] LABS: *BENZODIAZEPINES SCREEN URINE PRESUMTIVE POSITIVE (NEGATIVE); OPIATES URINE SCREEN PRESUMTIVE POSITIVE (NEGATIVE)
[2019-06-17 22:50] VITALS: BP 153/91
== END 2019-06-17 23:36 | disposition home or self-care (01) ==
LOC: ER 18:34
DX: K29.70 Gastritis, unspecified, without bleeding (principal); T43.621A Poisoning by amphetamines, accidental (unintentional), initial encounter; I10 Essential (primary) hypertension; N28.9 Disorder of kidney and ureter, unspecified; E11.10 Type 2 diabetes mellitus with ketoacidosis without coma; Z88.0 Allergy status to penicillin; Z88.2 Allergy status to sulfonamides; Z88.6 Allergy status to analgesic agent; Z88.8 Allergy status to other drugs, medicaments and biological substances; Z79.899 Other long term (current) drug therapy; Z76.5 Malingerer [conscious simulation]; Y92.018 Other place in single-family (private) house as the place of occurrence of the external cause
CPT/HCPCS: 36415; 71045; 74018; 80053; 80305; 80320; 81025; 83690; 83880; 84484; 84703; 85025; 93005; 96361; 96374; 96375; 99284; J1200; J2270; J2405; J3490; J7030; Z7610; G0480

== ENCOUNTER 2019-06-30 14:00 | Inpatient (IN) | payer MEDICAID ==
[~2019-06-30] VITALS: Ht 165.1 cm; Wt 61.7 kg
[2019-06-30] MEDS ORDERED: ONDANSETRON HCL 4MG/2ML INJ IV STA (15:54)
[2019-06-30] MEDS ORDERED: MORPHINE SULFATE 4 MG/ML CPJ (NOT FOR IM USE) IV STA (15:54)
[2019-06-30 16:24] LABS: CHLORIDE 95 mEq/L (98-107)
[2019-06-30 16:25] LABS: HCG SCREEN NEGATIVE
[2019-06-30 16:28] LABS: BASOPHILS % 0.6 % (0.0-2.0); EOSINOPHILS % 0.8 % (0.0-5.0); HEMATOCRIT. 30.4 % (36.0-48.0); HEMOGLOBIN. 9.8 g/dL (12.0-16.0); LYMPHOCYTES % 18.9 % (20.0-50.0); MEAN CORPUSCULAR HEMOGLOBIN 26.9 pg (28.0-32.0); MEAN CORPUSCULAR VOLUME 83.6 fL (81.0-99.0); MEAN PLATELET VOLUME 7.7 fl (7.4-10.4); MONOCYTES % 3.6 % (2.0-8.0); NEUTROPHILS % 76.1 % (40.0-76.0); PLATELET 559 x1000/uL (130-400); RED BLOOD CELL COUNT 3.64 mill/uL (4.2-5.4); RED CELL DISTRIBUTION WIDTH 15.5 % (11.6-14.6)
[2019-06-30] MEDS ORDERED: LABETALOL 5MG/ML SYR 20 MG/4 ML SYRINGE IV ONE (16:30)
[2019-06-30 16:51] LABS: CLARITY URINE CLEAR (CLEAR); COLOR URINE YELLOW (YELLOW); KETONES URINE NEGATIVE (NEGATIVE); LEUKOCYTE ESTERASE URINE NEGATIVE (NEGATIVE); NITRITE URINE NEGATIVE (NEGATIVE); OCCULT BLOOD URINE 1+ (NEGATIVE); PROTEIN URINE 3+ (NEGATIVE); SPECIFIC GRAVITY URINE 1.024 (1.005-1.030); UROBILINOGEN URINE 0.2 E.U./dL (0.2-1.0)
[2019-06-30] MEDS ORDERED: DIPHENHYDRAMINE 25MG CAPSULE PO ONE (17:15)
[2019-06-30] MEDS ORDERED: INSULIN REGULAR (HUMULIN R) UD 100 UNITS/ML SYR IV ONE (17:45)
[2019-06-30] MEDS ORDERED: INSULIN REGULAR (HUMULIN R) 300UNITS/3ML IV NR (17:59)
[2019-07-01] MEDS: MORPHINE SULFATE 2 MG/ML CPJ (NOT FOR IM USE) IV PRN ×4 (02:10→16:30)
[2019-07-01] MEDS: DIPHENHYDRAMINE 25MG CAPSULE PO PRN ×3 (02:11→16:30)
[2019-07-01 11:00] VITALS: BP 168/105
[2019-07-01 12:00] VITALS: BP 168/105
[2019-07-01] MEDS ORDERED: ACETAMINOPHEN 325MG TABLET PO PRN (12:45)
[2019-07-01] MEDS ORDERED: CLONIDINE 0.1MG TABLET PO PRN ×2 (12:45→13:00)
[2019-07-01] MEDS ORDERED: HYDROCODONE/ACETAMINOPHEN 5/325MG TABLET PO PRN (12:45)
[2019-07-01] MEDS ORDERED: MAGNESIUM/ALUMINUM HYDROXIDE/SIMETHICONE 30ML UDC PO PRN (12:45)
[2019-07-01] MEDS ORDERED: DOCUSATE SODIUM 100MG CAPSULE PO PRN (12:45)
[2019-07-01] MEDS ORDERED: DEXTROSE 50% WATER 50ML SYRINGE IV PRN ×2 (12:45)
[2019-07-01] MEDS ORDERED: ONDANSETRON HCL 4MG/2ML INJ IV PRN (12:45)
[2019-07-01] MEDS ORDERED: HYDROCODONE/ACETAMINOPHEN 10/325MG TABLET PO PRN (13:00)
[2019-07-01] MEDS ORDERED: MUPIROCIN 2% OINT 22GM TOP SCH (14:00)
[2019-07-01] MEDS: HYDROCHLOROTHIAZIDE 12.5MG CAPSULE PO SCH (14:26)
[2019-07-01] MEDS: ENOXAPARIN 40MG/0.4ML SYR SUBCUT SCH (14:26)
[2019-07-01 15:30] LABS: CLARITY URINE CLOUDY (CLEAR); COLOR URINE YELLOW (YELLOW); KETONES URINE NEGATIVE (NEGATIVE); LEUKOCYTE ESTERASE URINE NEGATIVE (NEGATIVE); NITRITE URINE NEGATIVE (NEGATIVE); OCCULT BLOOD URINE TRACE (NEGATIVE); PH URINE 5.5 (4.5-8.0); PROTEIN URINE 3+ (NEGATIVE); SPECIFIC GRAVITY URINE 1.021 (1.005-1.030); UROBILINOGEN URINE 0.2 E.U./dL (0.2-1.0)
[2019-07-01 15:53] LABS: *BARBITURATES SCREEN URINE NEGATIVE (NEGATIVE); *BENZODIAZEPINES SCREEN URINE NEGATIVE (NEGATIVE); *COCAINE SCREEN URINE NEGATIVE (NEGATIVE); CANNABINOID URINE SCREEN NEGATIVE (NEGATIVE); METHADONE URINE SCREEN NEGATIVE (NEGATIVE); PHENCYCLIDINE URINE SCREEN NEGATIVE (NEGATIVE)
[2019-07-01 15:54] LABS: *AMPHETAMINES SCREEN URINE PRESUMTIVE POSITIVE (NEGATIVE); OPIATES URINE SCREEN PRESUMTIVE POSITIVE (NEGATIVE)
[2019-07-01 16:00] VITALS: BP 138/96
[2019-07-01] MEDS: BLOOD SUGAR DIAGNOSTIC STRIP TEST SCH ×2 (17:33→21:55)
[2019-07-01] MEDS: FAMOTIDINE 20MG TABLET PO SCH (17:49)
[2019-07-01] MEDS: ALPRAZOLAM 0.5 MG TABLET PO SCH (17:49)
[2019-07-01] MEDS: INSULIN LISPRO 100 UNITS/ML SUBCUT SCH ×2 (17:51→21:55)
[2019-07-01 20:00] VITALS: BP 112/76
[2019-07-01] MEDS ORDERED: ZOLPIDEM TARTRATE 5MG TABLET PO PRN (21:00)
[2019-07-01] MEDS: OLANZAPINE 10MG TABLET PO SCH (21:07)
[2019-07-01] MEDS: INSULIN GLARGINE UD 100 UNITS/ML SYR SUBCUT SCH (21:57)
[2019-07-02] VITALS: BP 131/87
[2019-07-02 04:00] VITALS: BP 134/82
[2019-07-02] MEDS: BLOOD SUGAR DIAGNOSTIC STRIP TEST SCH ×4 (07:10→21:00)
[2019-07-02] MEDS: INSULIN LISPRO 100 UNITS/ML SUBCUT SCH ×4 (07:40→21:00)
[2019-07-02 08:00] VITALS: BP 143/76
[2019-07-02] MEDS: HYDROCHLOROTHIAZIDE 12.5MG CAPSULE PO SCH (09:28)
[2019-07-02] MEDS: INSULIN GLARGINE UD 100 UNITS/ML SYR SUBCUT SCH ×2 (09:28→22:00)
[2019-07-02] MEDS: ALPRAZOLAM 0.5 MG TABLET PO SCH ×2 (09:28→17:27)
[2019-07-02] MEDS: FAMOTIDINE 20MG TABLET PO SCH ×2 (09:28→17:27)
[2019-07-02 12:00] VITALS: BP 114/74
[2019-07-02] MEDS: ENOXAPARIN 40MG/0.4ML SYR SUBCUT SCH (13:34)
[2019-07-02 16:00] VITALS: BP 130/81
[2019-07-02] MEDS: MORPHINE SULFATE 2 MG/ML CPJ (NOT FOR IM USE) IV PRN (17:28)
[2019-07-02 20:00] VITALS: BP 150/89
[2019-07-02] MEDS: OLANZAPINE 10MG TABLET PO SCH (20:56)
[2019-07-02] MEDS: DIPHENHYDRAMINE 25MG CAPSULE PO PRN (21:05)
[2019-07-03] VITALS: BP 106/47
[2019-07-03 04:00] VITALS: BP 125/81
[2019-07-03] MEDS: INSULIN LISPRO 100 UNITS/ML SUBCUT SCH ×3 (06:24→17:30)
[2019-07-03] MEDS: BLOOD SUGAR DIAGNOSTIC STRIP TEST SCH ×3 (06:24→17:30)
[2019-07-03 07:15] LABS: CHLORIDE 105 mEq/L (98-107)
[2019-07-03 07:17] LABS: BASOPHILS % 0.7 % (0.0-2.0); EOSINOPHILS % 1.1 % (0.0-5.0); HEMATOCRIT. 22.9 % (36.0-48.0); HEMOGLOBIN. 7.5 g/dL (12.0-16.0); LYMPHOCYTES % 33.4 % (20.0-50.0); MEAN CORPUSCULAR HEMOGLOBIN 27.1 pg (28.0-32.0); MEAN CORPUSCULAR VOLUME 82.7 fL (81.0-99.0); MEAN PLATELET VOLUME 7.5 fl (7.4-10.4); MONOCYTES % 4.9 % (2.0-8.0); NEUTROPHILS % 59.9 % (40.0-76.0); PLATELET 434 x1000/uL (130-400); RED BLOOD CELL COUNT 2.77 mill/uL (4.2-5.4); RED CELL DISTRIBUTION WIDTH 15.8 % (11.6-14.6)
[2019-07-03] MEDS: ALPRAZOLAM 0.5 MG TABLET PO SCH ×2 (08:18→17:29)
[2019-07-03] MEDS: HYDROCHLOROTHIAZIDE 12.5MG CAPSULE PO SCH (08:18)
[2019-07-03] MEDS: FAMOTIDINE 20MG TABLET PO SCH ×2 (08:19→17:29)
[2019-07-03] MEDS ORDERED: THIAMINE HCL 100MG TABLET PO SCH (09:00)
[2019-07-03] MEDS ORDERED: MULTIVITAMINS,THER W-MINERALS TABLET PO SCH (09:00)
[2019-07-03] MEDS: INSULIN GLARGINE UD 100 UNITS/ML SYR SUBCUT SCH (09:00)
[2019-07-03] MEDS ORDERED: FOLIC ACID 1MG TABLET PO SCH (09:00)
[2019-07-03 12:00] VITALS: BP 150/91
[2019-07-03] MEDS: ENOXAPARIN 40MG/0.4ML SYR SUBCUT SCH (14:00)
[2019-07-03 16:00] VITALS: BP 128/82
[2019-07-03 17:56] VITALS: BP 128/82
== END 2019-07-03 19:10 | disposition home or self-care (01) | DRG 251 ==
LOC: ER 14:27 → ENRESERV 23:12 → CANRESERV 23:12 → ENRESERV 07-01 08:09 → CANRESERV 07-01 08:09 → EDBEDREQSVC 07-01 09:06 → 8WST 07-01 09:12 → ENRESERV 07-01 10:26
PROVIDERS: ADMIT Internal Medicine; ATTEND Internal Medicine
DX: R10.9 Unspecified abdominal pain (principal); E11.42 Type 2 diabetes mellitus with diabetic polyneuropathy; E44.0 Moderate protein-calorie malnutrition; E11.65 Type 2 diabetes mellitus with hyperglycemia; F41.9 Anxiety disorder, unspecified; N32.89 Other specified disorders of bladder; M48.02 Spinal stenosis, cervical region; E78.5 Hyperlipidemia, unspecified; D64.9 Anemia, unspecified; K21.9 Gastro-esophageal reflux disease without esophagitis; F11.10 Opioid abuse, uncomplicated; I10 Essential (primary) hypertension; M48.061 Spinal stenosis, lumbar region without neurogenic claudication; F15.10 Other stimulant abuse, uncomplicated; Z86.718 Personal history of other venous thrombosis and embolism; Z91.14 Patient's other noncompliance with medication regimen; Z91.19 Patient's noncompliance with other medical treatment and regimen; Z76.5 Malingerer [conscious simulation]; Z88.0 Allergy status to penicillin; Z88.9 Allergy status to unspecified drugs, medicaments and biological substances; Z88.2 Allergy status to sulfonamides; Z82.49 Family history of ischemic heart disease and other diseases of the circulatory system; Z83.3 Family history of diabetes mellitus; Z71.51 Drug abuse counseling and surveillance of drug abuser; Z68.22 Body mass index [BMI] 22.0-22.9, adult; Z79.4 Long term (current) use of insulin
CPT/HCPCS: 36415; 71045; 74176; 80048; 80305; 80320; 81003; 82962; 83880; 84484; 84703; 93005; 93970; 93971; 96374; 96375; 97162; 99285; J1650; J1815; J2270; J2405; J3490; Q0163; G0480

== ENCOUNTER 2019-07-04 13:43 | Inpatient (IN) | payer MEDICAID ==
[~2019-07-04] VITALS: Ht 165.1 cm; Wt 56.7 kg
[2019-07-04] MEDS ORDERED: SODIUM CHLORIDE 0.9% 1,000 ML IV ONE (14:15)
[2019-07-04] MEDS ORDERED: ONDANSETRON HCL 4MG/2ML INJ IV ONE (14:15)
[2019-07-04] MEDS ORDERED: HALOPERIDOL LACTATE 5MG/ML VIAL IM ONE (14:15)
[2019-07-04] MEDS ORDERED: FAMOTIDINE 20MG/2ML VIAL IV STA (14:15)
[2019-07-04 14:50] LABS: BASOPHILS % 0.6 % (0.0-2.0); EOSINOPHILS % 0.3 % (0.0-5.0); LYMPHOCYTES % 15.7 % (20.0-50.0); MEAN CORPUSCULAR HEMOGLOBIN 26.9 pg (28.0-32.0); MEAN CORPUSCULAR VOLUME 83.3 fL (81.0-99.0); MEAN PLATELET VOLUME 7.2 fl (7.4-10.4); MONOCYTES % 3.1 % (2.0-8.0); NEUTROPHILS % 80.3 % (40.0-76.0); PLATELET 502 x1000/uL (130-400); RED BLOOD CELL COUNT 3.38 mill/uL (4.2-5.4); RED CELL DISTRIBUTION WIDTH 15.2 % (11.6-14.6)
[2019-07-04 14:53] LABS: CHLORIDE 99 mEq/L (98-107)
[2019-07-04 14:54] LABS: INR 0.9; PROTHROMBIN TIME 9.8 sec (9.6-11.0)
[2019-07-04 14:57] LABS: ETHANOL BLOOD < 10 mg/dL; HEMOGLOBIN. 9.1 g/dL (12.0-16.0)
[2019-07-04 14:58] LABS: HEMATOCRIT. 28.1 % (36.0-48.0)
[2019-07-04 15:08] LABS: HCG SCREEN NEGATIVE
[2019-07-04 15:29] LABS: BG BASE EXCESS 3.8 mmol/L (-2.0-2.0); BG CARBOXYHEMOGLOBIN 0.3 % (0.5-1.5); BG DEOXYHEMOGLOBIN 5.9 % (0.0-5.0); BG FRACTION INSPIRED OXYGEN 21; BG HCO3 ACT 29.3 mmol/L (22.0-26.0); BG METHEMOGLOBIN 0.3 % (0.0-1.5); BG OXYGEN SATURATION 94.1 % (92.0-98.5); BG OXYHEMOGLOBIN 93.5 % (94.0-97.0); BG PCO2 49.3 mmHg (35.0-45.0); BG PH 7.392 (7.350-7.450); BG PO2 74.1 mmHg (75.0-100.0); BG SAMPLE SITE RIGHT BRACHIAL; BG TOTAL HEMOGLOBIN 9.5 g/dL (12.0-18.0); BG VENT MODE ROOM AIR
[2019-07-04] MEDS ORDERED: INSULIN REGULAR (HUMULIN R) 300UNITS/3ML SUBCUT NR (15:50)
[2019-07-04 16:31] LABS: CLARITY URINE CLEAR (CLEAR); COLOR URINE YELLOW (YELLOW); KETONES URINE NEGATIVE (NEGATIVE); LEUKOCYTE ESTERASE URINE NEGATIVE (NEGATIVE); NITRITE URINE NEGATIVE (NEGATIVE); OCCULT BLOOD URINE 1+ (NEGATIVE); PROTEIN URINE 3+ (NEGATIVE); SPECIFIC GRAVITY URINE 1.022 (1.005-1.030); UROBILINOGEN URINE 0.2 E.U./dL (0.2-1.0)
[2019-07-04] MEDS ORDERED: HYDRALAZINE 20MG/ML VIAL IV ONE (16:45)
[2019-07-04 16:46] LABS: *BARBITURATES SCREEN URINE NEGATIVE (NEGATIVE); *COCAINE SCREEN URINE NEGATIVE (NEGATIVE); METHADONE URINE SCREEN NEGATIVE (NEGATIVE)
[2019-07-04 16:47] LABS: *AMPHETAMINES SCREEN URINE NEGATIVE (NEGATIVE); CANNABINOID URINE SCREEN NEGATIVE (NEGATIVE); OPIATES URINE SCREEN NEGATIVE (NEGATIVE); PHENCYCLIDINE URINE SCREEN NEGATIVE (NEGATIVE)
[2019-07-04 16:51] LABS: *BENZODIAZEPINES SCREEN URINE PRESUMTIVE POSITIVE (NEGATIVE)
[2019-07-04 17:45] VITALS: BP 186/113
[2019-07-04 18:01] VITALS: BP 195/118
[2019-07-04] MEDS ORDERED: DIPHENHYDRAMINE 25MG CAPSULE PO SCH (18:45)
[2019-07-04] MEDS ORDERED: ONDANSETRON HCL 4MG/2ML INJ IV PRN (19:00)
[2019-07-04] MEDS ORDERED: CLONIDINE 0.1MG TABLET PO PRN (19:00)
[2019-07-04] MEDS ORDERED: DEXTROSE 50% WATER 50ML SYRINGE IV PRN (19:30)
[2019-07-04 20:00] VITALS: BP 178/118
[2019-07-04] MEDS: AMLODIPINE 10MG TABLET PO SCH (20:01)
[2019-07-04] MEDS: HYDROCODONE/ACETAMINOPHEN 10/325MG TABLET PO PRN (20:01)
[2019-07-04] MEDS: LOSARTAN POTASSIUM 50 MG TABLET PO SCH (20:01)
[2019-07-04] MEDS: ALPRAZOLAM 0.5 MG TABLET PO SCH (20:01)
[2019-07-04] MEDS: OLANZAPINE 10MG TABLET PO SCH (20:01)
[2019-07-04] MEDS: FAMOTIDINE 20MG TABLET PO SCH (20:01)
[2019-07-04] MEDS: DIPHENHYDRAMINE 50MG CAPSULE PO PRN (20:02)
[2019-07-04] MEDS: BLOOD SUGAR DIAGNOSTIC STRIP TEST SCH (21:31)
[2019-07-04] MEDS: INSULIN LISPRO 100 UNITS/ML SUBCUT SCH (21:35)
[2019-07-04] MEDS: INSULIN GLARGINE UD 100 UNITS/ML SYR SUBCUT SCH (21:38)
[2019-07-04 22:00] VITALS: BP 163/102
[2019-07-05] VITALS (10 sets, daily range): BP systolic 105–162; BP diastolic 62–102
[2019-07-05] MEDS: BLOOD SUGAR DIAGNOSTIC STRIP TEST SCH ×4 (07:30→21:00)
[2019-07-05] MEDS: INSULIN LISPRO 100 UNITS/ML SUBCUT SCH ×7 (09:19→22:28)
[2019-07-05] MEDS: ATORVASTATIN CALCIUM 20MG TABLET PO SCH (09:20)
[2019-07-05] MEDS: FAMOTIDINE 20MG TABLET PO SCH ×2 (09:21→22:29)
[2019-07-05] MEDS: LOSARTAN POTASSIUM 50 MG TABLET PO SCH (09:21)
[2019-07-05] MEDS: ALPRAZOLAM 0.5 MG TABLET PO SCH ×2 (09:21→22:29)
[2019-07-05] MEDS: AMLODIPINE 10MG TABLET PO SCH (09:21)
[2019-07-05] MEDS: INSULIN GLARGINE UD 100 UNITS/ML SYR SUBCUT SCH ×2 (10:22→22:28)
[2019-07-05] MEDS: METOCLOPRAMIDE HCL 10MG/2ML VIAL IV SCH ×2 (14:06→17:24)
[2019-07-05] MEDS: OLANZAPINE 10MG TABLET PO SCH (22:29)
[2019-07-05] MEDS ORDERED: MORPHINE SULFATE 2 MG/ML CPJ (NOT FOR IM USE) IV PRN (22:45)
[2019-07-05] MEDS: DIPHENHYDRAMINE 50MG CAPSULE PO PRN (22:54)
[2019-07-06] VITALS: BP 112/56
[2019-07-06] MEDS: METOCLOPRAMIDE HCL 10MG/2ML VIAL IV SCH ×4 (00:38→18:25)
[2019-07-06 04:00] VITALS: BP 140/42
[2019-07-06] MEDS: BLOOD SUGAR DIAGNOSTIC STRIP TEST SCH ×3 (07:00→17:20)
[2019-07-06] MEDS: INSULIN LISPRO 100 UNITS/ML SUBCUT SCH ×7 (07:03→18:39)
[2019-07-06] MEDS ORDERED: DEXTROSE 50% WATER 50ML SYRINGE IV ONE (07:15)
[2019-07-06] MEDS ORDERED: DEXTROSE 50% WATER 50ML SYRINGE IV NR (07:15)
[2019-07-06 07:35] LABS: BASOPHILS % 0.7 % (0.0-2.0); EOSINOPHILS % 0.7 % (0.0-5.0); HEMATOCRIT. 23.6 % (36.0-48.0); HEMOGLOBIN. 7.8 g/dL (12.0-16.0); LYMPHOCYTES % 34.7 % (20.0-50.0); MEAN CORPUSCULAR HEMOGLOBIN 27.2 pg (28.0-32.0); MEAN CORPUSCULAR VOLUME 82.2 fL (81.0-99.0); NEUTROPHILS % 58.9 % (40.0-76.0); PLATELET 476 x1000/uL (130-400); RED BLOOD CELL COUNT 2.87 mill/uL (4.2-5.4); RED CELL DISTRIBUTION WIDTH 15.8 % (11.6-14.6)
[2019-07-06 08:00] VITALS: BP 116/89
[2019-07-06] MEDS: ALPRAZOLAM 0.5 MG TABLET PO SCH (09:00)
[2019-07-06] MEDS: AMLODIPINE 10MG TABLET PO SCH (10:13)
[2019-07-06] MEDS: ATORVASTATIN CALCIUM 20MG TABLET PO SCH (10:13)
[2019-07-06] MEDS: FAMOTIDINE 20MG TABLET PO SCH (10:13)
[2019-07-06] MEDS: HYDROCODONE/ACETAMINOPHEN 10/325MG TABLET PO PRN (10:15)
[2019-07-06] MEDS: LOSARTAN POTASSIUM 50 MG TABLET PO SCH (10:23)
[2019-07-06] MEDS: OLANZAPINE 5MG TABLET PO SCH ×3 (10:30→18:39)
[2019-07-06] MEDS ORDERED: POTASSIUM CHLORIDE 20MEQ TABLET SR PO NR (10:30)
[2019-07-06] MEDS ORDERED: INSULIN GLARGINE UD 100 UNITS/ML SYR SUBCUT SCH (11:30)
[2019-07-06 12:00] VITALS: BP 103/73
[2019-07-06 19:00] VITALS: BP 120/88
== END 2019-07-06 19:35 | disposition home or self-care (01) | DRG 48 ==
LOC: ER 13:43 → 5EST 16:12 → EDBEDREQTM 16:18 → EDBEDREQ 16:18 → EDBEDREQSVC 16:18 → ENRESERV 16:34 → 6WST 07-05 11:35
PROVIDERS: ADMIT Internal Medicine; ATTEND Internal Medicine
DX: E11.43 Type 2 diabetes mellitus with diabetic autonomic (poly)neuropathy (principal); E43 Unspecified severe protein-calorie malnutrition; E11.65 Type 2 diabetes mellitus with hyperglycemia; K31.84 Gastroparesis; D64.9 Anemia, unspecified; E87.1 Hypo-osmolality and hyponatremia; E78.5 Hyperlipidemia, unspecified; I10 Essential (primary) hypertension; I16.0 Hypertensive urgency; Z76.5 Malingerer [conscious simulation]; Z79.4 Long term (current) use of insulin; Z91.19 Patient's noncompliance with other medical treatment and regimen; Z98.891 History of uterine scar from previous surgery; Z88.2 Allergy status to sulfonamides; Z88.1 Allergy status to other antibiotic agents; Z88.9 Allergy status to unspecified drugs, medicaments and biological substances; F41.9 Anxiety disorder, unspecified; K52.9 Noninfective gastroenteritis and colitis, unspecified; Z68.20 Body mass index [BMI] 20.0-20.9, adult
CPT/HCPCS: 36415; 36600; 71045; 80048; 80305; 80320; 81003; 82010; 82375; 82805; 82962; 83605; 84703; 93005; 96361; 96372; 96374; 96375; 99291; J0360; J1630; J1815; J2270; J2405; J2765; J3490; J7030; Q0163; G0480

== ENCOUNTER 2019-07-15 14:27 | Emergency (ER) | payer MEDICAID ==
[~2019-07-15] VITALS: Ht 165.1 cm; Wt 61.0 kg
[2019-07-15] MEDS ORDERED: MORPHINE SULFATE 4 MG/ML CPJ (NOT FOR IM USE) IV STA (14:55)
[2019-07-15] MEDS ORDERED: ONDANSETRON HCL 4MG/2ML INJ IV STA (14:55)
[2019-07-15] MEDS ORDERED: DIPHENHYDRAMINE 50MG/ML VIAL IV ONE (15:00)
[2019-07-15 15:39] LABS: CHLORIDE 101 mEq/L (98-107); EOSINOPHILS % 0.5 % (0.0-5.0); HEMATOCRIT. 29.4 % (36.0-48.0); HEMOGLOBIN. 9.6 g/dL (12.0-16.0); LYMPHOCYTES % 27.2 % (20.0-50.0); MEAN CORPUSCULAR HEMOGLOBIN 26.6 pg (28.0-32.0); MEAN PLATELET VOLUME 6.7 fl (7.4-10.4); MONOCYTES % 3.6 % (2.0-8.0); NEUTROPHILS % 67.7 % (40.0-76.0); PLATELET 812 x1000/uL (130-400); RED BLOOD CELL COUNT 3.63 mill/uL (4.2-5.4); RED CELL DISTRIBUTION WIDTH 15.6 % (11.6-14.6)
[2019-07-15 15:43] LABS: ETHANOL BLOOD < 10 mg/dL
[2019-07-15 15:45] LABS: PARTIAL THROMBOPLASTIN TIME 23.1 sec (23.4-31.0)
[2019-07-15 15:55] LABS: HCG SCREEN NEGATIVE
[2019-07-15] MEDS ORDERED: HYDRALAZINE 20MG/ML VIAL IV ONE (16:45)
[2019-07-15] MEDS ORDERED: LORAZEPAM 2MG/ML CPJ IV ONE (17:00)
[2019-07-15] MEDS ORDERED: ONDANSETRON HCL 4MG/2ML INJ IV ONE (17:00)
[2019-07-15] MEDS ORDERED: MORPHINE SULFATE 4 MG/ML CPJ (NOT FOR IM USE) IV ONE (17:00)
[2019-07-15 20:00] VITALS: BP 128/75
== END 2019-07-15 20:20 | disposition home or self-care (01) ==
LOC: ER 14:27
DX: R10.9 Unspecified abdominal pain (principal); E11.43 Type 2 diabetes mellitus with diabetic autonomic (poly)neuropathy; K31.84 Gastroparesis; I16.0 Hypertensive urgency; I12.9 Hypertensive chronic kidney disease with stage 1 through stage 4 chronic kidney disease, or unspecified chronic kidney disease; N18.9 Chronic kidney disease, unspecified; Z79.4 Long term (current) use of insulin; Z88.0 Allergy status to penicillin; Z88.2 Allergy status to sulfonamides; Z88.6 Allergy status to analgesic agent; Z88.8 Allergy status to other drugs, medicaments and biological substances
CPT/HCPCS: 36415; 70450; 71045; 80053; 80320; 83690; 83880; 84484; 84703; 85025; 85610; 85730; 93005; 96374; 96375; 96376; 99284; J0360; J1200; J2060; J2270; J2405; G0480

== ENCOUNTER 2019-07-20 09:36 | Inpatient (IN) | payer MEDICAID ==
[~2019-07-20] VITALS: Ht 162.6 cm; Wt 66.7 kg
[2019-07-20] VITALS (8 sets, daily range): BP systolic 109–149; BP diastolic 73–99
[2019-07-20] MEDS ORDERED: SODIUM CHLORIDE 0.9% 1,000 ML IV ONE ×2 (09:47→12:15)
[2019-07-20 10:08] LABS: BG BASE EXCESS -1.4 mmol/L (-2.0-2.0); BG CARBOXYHEMOGLOBIN 0.3 % (0.5-1.5); BG DEOXYHEMOGLOBIN 5.3 % (0.0-5.0); BG FRACTION INSPIRED OXYGEN 21; BG HCO3 ACT 24.3 mmol/L (22.0-26.0); BG METHEMOGLOBIN 0.3 % (0.0-1.5); BG OXYGEN SATURATION 94.7 % (92.0-98.5); BG OXYHEMOGLOBIN 94.1 % (94.0-97.0); BG PCO2 44.9 mmHg (35.0-45.0); BG PH 7.351 (7.350-7.450); BG PO2 78.2 mmHg (75.0-100.0); BG SAMPLE SITE LEFT RADIAL; BG TOTAL HEMOGLOBIN 10.1 g/dL (12.0-18.0); BG VENT MODE ROOM AIR
[2019-07-20] MEDS ORDERED: DICYCLOMINE HCL 10MG/ML 2ML AMP IM ONE (10:15)
[2019-07-20] MEDS ORDERED: ACETAMINOPHEN 325MG TABLET PO ONE (10:15)
[2019-07-20] MEDS ORDERED: DIPHENHYDRAMINE 50MG/ML VIAL IV ONE (10:15)
[2019-07-20] MEDS ORDERED: INSULIN REGULAR (HUMULIN R) 300UNITS/3ML SUBCUT ONE (10:15)
[2019-07-20] MEDS ORDERED: METOCLOPRAMIDE HCL 10MG/2ML VIAL IV ONE (10:15)
[2019-07-20 10:25] LABS: BASOPHILS % 0.4 % (0.0-2.0); EOSINOPHILS % 0.2 % (0.0-5.0); HEMATOCRIT. 34.7 % (36.0-48.0); HEMOGLOBIN. 10.5 g/dL (12.0-16.0); MEAN CORPUSCULAR HEMOGLOBIN 26.7 pg (28.0-32.0); MEAN CORPUSCULAR VOLUME 88.3 fL (81.0-99.0); MEAN PLATELET VOLUME 7.5 fl (7.4-10.4); NEUTROPHILS % 87.4 % (40.0-76.0); PLATELET 545 x1000/uL (130-400); RED BLOOD CELL COUNT 3.93 mill/uL (4.2-5.4); RED CELL DISTRIBUTION WIDTH 15.3 % (11.6-14.6)
[2019-07-20 10:30] LABS: CHLORIDE 81 mEq/L (98-107)
[2019-07-20 10:40] LABS: BETA HYDROXYBUTYRATE 1.6 mMol/L (0.0-0.3)
[2019-07-20 12:09] LABS: CLARITY URINE CLEAR (CLEAR); COLOR URINE YELLOW (YELLOW); KETONES URINE NEGATIVE (NEGATIVE); LEUKOCYTE ESTERASE URINE NEGATIVE (NEGATIVE); NITRITE URINE NEGATIVE (NEGATIVE); OCCULT BLOOD URINE NEGATIVE (NEGATIVE); PH URINE 6.5 (4.5-8.0); PROTEIN URINE 2+ (NEGATIVE); SPECIFIC GRAVITY URINE 1.025 (1.005-1.030); UROBILINOGEN URINE 0.2 E.U./dL (0.2-1.0)
[2019-07-20] MEDS ORDERED: SODIUM CHLORIDE 0.9% 1,000 ML IV NR ×2 (13:00→13:30)
[2019-07-20] MEDS ORDERED: INSULIN REGULAR (HUMULIN R) 300UNITS/3ML SUBCUT NR (13:26)
[2019-07-20] MEDS ORDERED: ONDANSETRON HCL 4MG/2ML INJ IV PRN (14:45)
[2019-07-20] MEDS ORDERED: SODIUM POLYSTYRENE SULFONATE 15 G/60 ML BOT PO ONE (14:45)
[2019-07-20] MEDS ORDERED: ACETAMINOPHEN 325MG TABLET PO PRN (14:45)
[2019-07-20] MEDS ORDERED: CLONIDINE 0.1MG TABLET PO PRN (14:45)
[2019-07-20] MEDS ORDERED: DEXTROSE 50% WATER 50ML SYRINGE IV PRN (14:45)
[2019-07-20] MEDS ORDERED: HYDROCODONE/ACETAMINOPHEN 5/325MG TABLET PO PRN (15:00)
[2019-07-20] MEDS ORDERED: LORAZEPAM 2MG/ML CPJ IV PRN (15:00)
[2019-07-20 15:57] LABS: CHLORIDE 93 mEq/L (98-107)
[2019-07-20] MEDS: INSULIN LISPRO 100 UNITS/ML SUBCUT SCH ×2 (17:20→21:00)
[2019-07-20] MEDS: BLOOD SUGAR DIAGNOSTIC STRIP TEST SCH ×2 (17:48→21:49)
[2019-07-20] MEDS: METOCLOPRAMIDE HCL 10MG/2ML VIAL IV SCH ×2 (18:47→23:58)
[2019-07-20] MEDS: SODIUM CHLORIDE 0.9% 1,000 ML IV SCH (18:57)
[2019-07-20 20:24] LABS: CHLORIDE 98 mEq/L (98-107)
[2019-07-20] MEDS ORDERED: ATORVASTATIN CALCIUM 40MG TABLET PO SCH (21:00)
[2019-07-20] MEDS: AMLODIPINE 5MG TABLET PO SCH (21:00)
[2019-07-20] MEDS: GABAPENTIN 300MG CAPSULE PO SCH (22:00)
[2019-07-20] MEDS: INSULIN GLARGINE UD 100 UNITS/ML SYR SUBCUT SCH (22:07)
[2019-07-21] VITALS (10 sets, daily range): BP systolic 96–155; BP diastolic 59–97
[2019-07-21] MEDS: SODIUM CHLORIDE 0.9% 1,000 ML IV SCH ×2 (02:00→09:18)
[2019-07-21] MEDS: GABAPENTIN 300MG CAPSULE PO SCH ×2 (06:00→12:27)
[2019-07-21] MEDS: BLOOD SUGAR DIAGNOSTIC STRIP TEST SCH ×3 (06:13→16:50)
[2019-07-21] MEDS: INSULIN LISPRO 100 UNITS/ML SUBCUT SCH ×3 (06:14→17:21)
[2019-07-21] MEDS: METOCLOPRAMIDE HCL 10MG/2ML VIAL IV SCH ×2 (06:16→12:00)
[2019-07-21 08:46] LABS: BASOPHILS % 1.4 % (0.0-2.0); EOSINOPHILS % 1.9 % (0.0-5.0); HEMATOCRIT. 30.2 % (36.0-48.0); HEMOGLOBIN. 9.9 g/dL (12.0-16.0); LYMPHOCYTES % 52.6 % (20.0-50.0); MEAN CORPUSCULAR HEMOGLOBIN 26.9 pg (28.0-32.0); MEAN CORPUSCULAR VOLUME 81.5 fL (81.0-99.0); MEAN PLATELET VOLUME 6.9 fl (7.4-10.4); MONOCYTES % 4.2 % (2.0-8.0); NEUTROPHILS % 39.9 % (40.0-76.0); PLATELET 461 x1000/uL (130-400); RED CELL DISTRIBUTION WIDTH 15.7 % (11.6-14.6)
[2019-07-21 08:58] LABS: CHLORIDE 100 mEq/L (98-107)
[2019-07-21] MEDS: AMLODIPINE 5MG TABLET PO SCH (09:19)
[2019-07-21] MEDS ORDERED: OLANZAPINE 10MG TABLET PO NR (11:05)
[2019-07-21] MEDS: INSULIN GLARGINE UD 100 UNITS/ML SYR SUBCUT SCH (11:17)
== END 2019-07-21 18:01 | disposition home or self-care (01) | DRG 420 ==
LOC: ER 09:36 → 3WST 12:54 → ENRESERV 13:49
PROVIDERS: ADMIT Internal Medicine; ATTEND Internal Medicine
DX: E11.65 Type 2 diabetes mellitus with hyperglycemia (principal); E43 Unspecified severe protein-calorie malnutrition; E87.8 Other disorders of electrolyte and fluid balance, not elsewhere classified; K31.84 Gastroparesis; E11.43 Type 2 diabetes mellitus with diabetic autonomic (poly)neuropathy; E87.5 Hyperkalemia; D64.9 Anemia, unspecified; E78.5 Hyperlipidemia, unspecified; E87.1 Hypo-osmolality and hyponatremia; I10 Essential (primary) hypertension; Z76.5 Malingerer [conscious simulation]; Z68.25 Body mass index [BMI] 25.0-25.9, adult; Z91.19 Patient's noncompliance with other medical treatment and regimen; Z98.891 History of uterine scar from previous surgery; Z88.6 Allergy status to analgesic agent; Z88.0 Allergy status to penicillin; Z88.2 Allergy status to sulfonamides; Z88.8 Allergy status to other drugs, medicaments and biological substances; Z79.899 Other long term (current) drug therapy; F99 Mental disorder, not otherwise specified
CPT/HCPCS: 36415; 36600; 80048; 81003; 82010; 82375; 82805; 82962; 96374; 99285; J0500; J1200; J1815; J2060; J2765; J7030

== ENCOUNTER 2019-07-23 19:42 | Inpatient (IN) | payer MEDICAID ==
[~2019-07-23] VITALS: Ht 165.1 cm; Wt 62.6 kg
[2019-07-23] MEDS ORDERED: ONDANSETRON HCL 4MG/2ML INJ IV STA (22:22)
[2019-07-23] MEDS ORDERED: MORPHINE SULFATE 4 MG/ML CPJ (NOT FOR IM USE) IV STA (22:22)
[2019-07-23] MEDS ORDERED: SODIUM CHLORIDE 0.9% 1,000 ML IV ONE (22:22)
[2019-07-23] MEDS ORDERED: LEVOFLOXACIN 750MG PREMIX 150 ML IV ONE (22:30)
[2019-07-23 23:25] LABS: BASOPHILS % 0.8 % (0.0-2.0); HEMATOCRIT. 24.6 % (36.0-48.0); HEMOGLOBIN. 8.1 g/dL (12.0-16.0); LYMPHOCYTES % 48.3 % (20.0-50.0); MEAN CORPUSCULAR HEMOGLOBIN 27.2 pg (28.0-32.0); MEAN CORPUSCULAR VOLUME 82.3 fL (81.0-99.0); MEAN PLATELET VOLUME 7.3 fl (7.4-10.4); MONOCYTES % 6.1 % (2.0-8.0); NEUTROPHILS % 43.8 % (40.0-76.0); PLATELET 313 x1000/uL (130-400); RED BLOOD CELL COUNT 2.99 mill/uL (4.2-5.4)
[2019-07-23 23:30] LABS: CHLORIDE 108 mEq/L (98-107)
[2019-07-23] MEDS ORDERED: DIPHENHYDRAMINE 50MG/ML VIAL IV ONE (23:30)
[2019-07-23 23:31] LABS: CLARITY URINE CLOUDY (CLEAR); COLOR URINE YELLOW (YELLOW); KETONES URINE NEGATIVE (NEGATIVE); LEUKOCYTE ESTERASE URINE NEGATIVE (NEGATIVE); NITRITE URINE NEGATIVE (NEGATIVE); OCCULT BLOOD URINE 2+ (NEGATIVE); PROTEIN URINE 4+ (NEGATIVE); SPECIFIC GRAVITY URINE 1.021 (1.005-1.030); UROBILINOGEN URINE 0.2 E.U./dL (0.2-1.0)
[2019-07-23 23:39] LABS: BETA HYDROXYBUTYRATE 0.1 mMol/L (0.0-0.3)
[2019-07-24 00:09] LABS: HCG SCREEN NEGATIVE
[2019-07-24] MEDS ORDERED: ONDANSETRON HCL 4MG/2ML INJ IV STA (00:32)
[2019-07-24] MEDS ORDERED: MORPHINE SULFATE 4 MG/ML CPJ (NOT FOR IM USE) IV STA (00:32)
[2019-07-24] MEDS ORDERED: DIPHENHYDRAMINE 50MG/ML VIAL IV ONE (00:45)
[2019-07-24 03:00] VITALS: BP 100/65
[2019-07-24] MEDS ORDERED: DEXTROSE 50% WATER 50ML SYRINGE IV PRN (04:15)
[2019-07-24] MEDS ORDERED: ALPRAZOLAM 0.5 MG TABLET PO PRN (04:15)
[2019-07-24] MEDS ORDERED: ONDANSETRON HCL 4MG/2ML INJ IV PRN (04:15)
[2019-07-24] MEDS: SODIUM CHLORIDE 0.45% 1,000 ML IV SCH ×2 (05:53→17:07)
[2019-07-24] MEDS: DIPHENHYDRAMINE 50MG/ML VIAL IV PRN ×2 (06:30→15:10)
[2019-07-24] MEDS: MORPHINE SULFATE 2 MG/ML CPJ (NOT FOR IM USE) IV PRN ×4 (06:31→22:03)
[2019-07-24] MEDS: BLOOD SUGAR DIAGNOSTIC STRIP TEST SCH ×4 (07:03→21:52)
[2019-07-24] MEDS: INSULIN LISPRO 100 UNITS/ML SUBCUT SCH ×4 (07:47→21:00)
[2019-07-24 08:00] VITALS: BP 126/79
[2019-07-24] MEDS: NIFEDIPINE XL 30MG TAB PO SCH (08:45)
[2019-07-24] MEDS: LOSARTAN POTASSIUM 50 MG TABLET PO SCH ×2 (08:45→21:39)
[2019-07-24] MEDS: PANTOPRAZOLE SODIUM 40 MG/VIAL IV SCH (08:45)
[2019-07-24] MEDS: HYDROCHLOROTHIAZIDE 12.5MG CAPSULE PO SCH (08:46)
[2019-07-24] MEDS: INSULIN GLARGINE UD 100 UNITS/ML SYR SUBCUT SCH ×2 (10:31→22:00)
[2019-07-24 12:00] VITALS: BP 118/67
[2019-07-24 16:00] VITALS: BP 114/74
[2019-07-24 20:00] VITALS: BP 156/82
[2019-07-24] MEDS: ATORVASTATIN CALCIUM 20MG TABLET PO SCH (21:39)
[2019-07-24] MEDS: OLANZAPINE 10MG TABLET PO SCH (21:39)
[2019-07-24] MEDS: DEXTROSE 5% WATER 1,000 ML IV SCH (21:47)
[2019-07-24] MEDS: LEVOFLOXACIN 500MG PREMIX 100 ML IV SCH (22:02)
[2019-07-25] VITALS: BP 101/61
[2019-07-25 04:00] VITALS: BP 103/61
[2019-07-25] MEDS: MORPHINE SULFATE 2 MG/ML CPJ (NOT FOR IM USE) IV PRN ×3 (05:38→20:44)
[2019-07-25] MEDS: DIPHENHYDRAMINE 50MG/ML VIAL IV PRN ×3 (06:32→20:44)
[2019-07-25] MEDS: BLOOD SUGAR DIAGNOSTIC STRIP TEST SCH ×4 (06:33→21:03)
[2019-07-25] MEDS: INSULIN LISPRO 100 UNITS/ML SUBCUT SCH ×4 (07:40→21:03)
[2019-07-25 08:00] VITALS: BP 150/77
[2019-07-25] MEDS: PANTOPRAZOLE SODIUM 40 MG/VIAL IV SCH (09:01)
[2019-07-25] MEDS: LOSARTAN POTASSIUM 50 MG TABLET PO SCH ×2 (09:02→20:43)
[2019-07-25] MEDS: HYDROCHLOROTHIAZIDE 12.5MG CAPSULE PO SCH (09:02)
[2019-07-25] MEDS: NIFEDIPINE XL 30MG TAB PO SCH (09:02)
[2019-07-25] MEDS ORDERED: ACETAMINOPHEN 325MG TABLET PO PRN (09:15)
[2019-07-25] MEDS: DEXTROSE 5% WATER 1,000 ML IV SCH (09:22)
[2019-07-25] MEDS: INSULIN GLARGINE UD 100 UNITS/ML SYR SUBCUT SCH ×2 (10:00→20:57)
[2019-07-25 12:00] VITALS: BP 136/73
[2019-07-25 16:00] VITALS: BP 121/66
[2019-07-25 16:26] LABS: BASOPHILS % 0.3 % (0.0-2.0); EOSINOPHILS % 0.3 % (0.0-5.0); HEMATOCRIT. 22.6 % (36.0-48.0); HEMOGLOBIN. 7.4 g/dL (12.0-16.0); LYMPHOCYTES % 12.5 % (20.0-50.0); MEAN CORPUSCULAR HEMOGLOBIN 26.8 pg (28.0-32.0); MEAN CORPUSCULAR VOLUME 82.3 fL (81.0-99.0); MEAN PLATELET VOLUME 7.7 fl (7.4-10.4); MONOCYTES % 4.4 % (2.0-8.0); NEUTROPHILS % 82.5 % (40.0-76.0); PLATELET 350 x1000/uL (130-400); RED BLOOD CELL COUNT 2.74 mill/uL (4.2-5.4); RED CELL DISTRIBUTION WIDTH 15.9 % (11.6-14.6)
[2019-07-25 16:44] LABS: CHLORIDE 104 mEq/L (98-107)
[2019-07-25 20:00] VITALS: BP 135/62
[2019-07-25] MEDS: ATORVASTATIN CALCIUM 20MG TABLET PO SCH (20:43)
[2019-07-25] MEDS: OLANZAPINE 10MG TABLET PO SCH (20:43)
[2019-07-25] MEDS: LEVOFLOXACIN 500MG PREMIX 100 ML IV SCH (20:46)
[2019-07-26] VITALS: BP 114/81
[2019-07-26 04:00] VITALS: BP 136/77
[2019-07-26] MEDS: MORPHINE SULFATE 2 MG/ML CPJ (NOT FOR IM USE) IV PRN ×4 (04:23→22:23)
[2019-07-26] MEDS: DIPHENHYDRAMINE 50MG/ML VIAL IV PRN ×3 (04:24→18:58)
[2019-07-26] MEDS: DEXTROSE 5% WATER 1,000 ML IV SCH (05:20)
[2019-07-26] MEDS: BLOOD SUGAR DIAGNOSTIC STRIP TEST SCH ×4 (06:41→21:00)
[2019-07-26 08:00] VITALS: BP 133/79
[2019-07-26] MEDS: LOSARTAN POTASSIUM 50 MG TABLET PO SCH ×2 (09:28→21:56)
[2019-07-26] MEDS: HYDROCHLOROTHIAZIDE 12.5MG CAPSULE PO SCH (09:28)
[2019-07-26] MEDS: PANTOPRAZOLE SODIUM 40 MG/VIAL IV SCH (09:28)
[2019-07-26] MEDS: NIFEDIPINE XL 30MG TAB PO SCH (09:28)
[2019-07-26] MEDS: INSULIN LISPRO 100 UNITS/ML SUBCUT SCH ×4 (09:37→21:00)
[2019-07-26 09:41] LABS: BASOPHILS % 0.4 % (0.0-2.0); EOSINOPHILS % 0.9 % (0.0-5.0); HEMATOCRIT. 22.5 % (36.0-48.0); HEMOGLOBIN. 7.4 g/dL (12.0-16.0); LYMPHOCYTES % 21.3 % (20.0-50.0); MEAN CORPUSCULAR HEMOGLOBIN 27.2 pg (28.0-32.0); MEAN CORPUSCULAR VOLUME 82.8 fL (81.0-99.0); MEAN PLATELET VOLUME 7.1 fl (7.4-10.4); MONOCYTES % 6.2 % (2.0-8.0); NEUTROPHILS % 71.2 % (40.0-76.0); PLATELET 341 x1000/uL (130-400); RED BLOOD CELL COUNT 2.72 mill/uL (4.2-5.4); RED CELL DISTRIBUTION WIDTH 15.8 % (11.6-14.6)
[2019-07-26] MEDS: INSULIN GLARGINE UD 100 UNITS/ML SYR SUBCUT SCH ×2 (10:11→22:00)
[2019-07-26 10:23] LABS: CHLORIDE 104 mEq/L (98-107)
[2019-07-26 12:00] VITALS: BP 138/85
[2019-07-26 16:00] VITALS: BP 116/72
[2019-07-26 20:00] VITALS: BP 136/73
[2019-07-26] MEDS: OLANZAPINE 10MG TABLET PO SCH (21:56)
[2019-07-26] MEDS: ATORVASTATIN CALCIUM 20MG TABLET PO SCH (21:56)
[2019-07-26] MEDS: LEVOFLOXACIN 500MG PREMIX 100 ML IV SCH (21:57)
[2019-07-27] VITALS: BP 133/71
[2019-07-27] MEDS: DEXTROSE 5% WATER 1,000 ML IV SCH ×2 (01:20→20:39)
[2019-07-27] MEDS: DIPHENHYDRAMINE 50MG/ML VIAL IV PRN ×3 (02:16→20:40)
[2019-07-27] MEDS: MORPHINE SULFATE 2 MG/ML CPJ (NOT FOR IM USE) IV PRN ×5 (02:51→23:29)
[2019-07-27 04:00] VITALS: BP 125/80
[2019-07-27] MEDS: BLOOD SUGAR DIAGNOSTIC STRIP TEST SCH ×4 (07:20→20:41)
[2019-07-27] MEDS: INSULIN LISPRO 100 UNITS/ML SUBCUT SCH ×4 (08:23→21:12)
[2019-07-27] MEDS: NIFEDIPINE XL 30MG TAB PO SCH (10:25)
[2019-07-27] MEDS: HYDROCHLOROTHIAZIDE 12.5MG CAPSULE PO SCH (10:25)
[2019-07-27] MEDS: PANTOPRAZOLE SODIUM 40 MG/VIAL IV SCH (10:25)
[2019-07-27] MEDS: INSULIN GLARGINE UD 100 UNITS/ML SYR SUBCUT SCH ×2 (10:26→21:12)
[2019-07-27] MEDS: LOSARTAN POTASSIUM 50 MG TABLET PO SCH ×2 (10:26→20:40)
[2019-07-27 12:00] VITALS: BP 145/79
[2019-07-27 16:00] VITALS: BP 109/82
[2019-07-27 20:00] VITALS: BP 115/69
[2019-07-27] MEDS: OLANZAPINE 10MG TABLET PO SCH (20:40)
[2019-07-27] MEDS: ATORVASTATIN CALCIUM 20MG TABLET PO SCH (20:40)
[2019-07-27] MEDS: LEVOFLOXACIN 500MG PREMIX 100 ML IV SCH (23:28)
[2019-07-27 23:52] VITALS: BP 135/83
[2019-07-28] VITALS (7 sets, daily range): BP systolic 123–150; BP diastolic 74–91
[2019-07-28] MEDS: MORPHINE SULFATE 2 MG/ML CPJ (NOT FOR IM USE) IV PRN ×4 (05:32→22:18)
[2019-07-28] MEDS: BLOOD SUGAR DIAGNOSTIC STRIP TEST SCH ×4 (05:59→21:07)
[2019-07-28] MEDS: DIPHENHYDRAMINE 50MG/ML VIAL IV PRN ×3 (06:48→19:50)
[2019-07-28 08:44] LABS: BASOPHILS % 1.7 % (0.0-2.0); EOSINOPHILS % 2.4 % (0.0-5.0); HEMATOCRIT. 21.1 % (36.0-48.0); LYMPHOCYTES % 33.5 % (20.0-50.0); MEAN CORPUSCULAR HEMOGLOBIN 26.7 pg (28.0-32.0); MEAN CORPUSCULAR VOLUME 82.9 fL (81.0-99.0); MEAN PLATELET VOLUME 7.4 fl (7.4-10.4); MONOCYTES % 7.1 % (2.0-8.0); NEUTROPHILS % 55.3 % (40.0-76.0); PLATELET 457 x1000/uL (130-400); RED BLOOD CELL COUNT 2.55 mill/uL (4.2-5.4); RED CELL DISTRIBUTION WIDTH 16.3 % (11.6-14.6)
[2019-07-28 08:53] LABS: HEMOGLOBIN. 6.8 g/dL (12.0-16.0)
[2019-07-28] MEDS: LOSARTAN POTASSIUM 50 MG TABLET PO SCH ×2 (08:59→21:06)
[2019-07-28] MEDS: NIFEDIPINE XL 30MG TAB PO SCH (08:59)
[2019-07-28] MEDS: HYDROCHLOROTHIAZIDE 12.5MG CAPSULE PO SCH (08:59)
[2019-07-28] MEDS ORDERED: FAMOTIDINE 20MG/2ML VIAL IV SCH (09:00)
[2019-07-28] MEDS: INSULIN LISPRO 100 UNITS/ML SUBCUT SCH ×4 (09:06→21:24)
[2019-07-28] MEDS: INSULIN GLARGINE UD 100 UNITS/ML SYR SUBCUT SCH ×2 (10:49→21:24)
[2019-07-28] MEDS: DEXTROSE 5% WATER 1,000 ML IV SCH (17:38)
[2019-07-28] MEDS: LEVOFLOXACIN 500MG TABLET PO SCH (21:07)
[2019-07-28] MEDS: FAMOTIDINE 20MG TABLET PO SCH (21:07)
[2019-07-28] MEDS: OLANZAPINE 10MG TABLET PO SCH (21:07)
[2019-07-28] MEDS: ATORVASTATIN CALCIUM 20MG TABLET PO SCH (21:07)
[2019-07-28 22:08] LABS: HEMATOCRIT. 24.5 % (36.0-48.0); HEMOGLOBIN. 8.2 g/dL (12.0-16.0); MEAN CORPUSCULAR HEMOGLOBIN 27.9 pg (28.0-32.0); MEAN CORPUSCULAR VOLUME 83.4 fL (81.0-99.0); MEAN PLATELET VOLUME 6.9 fl (7.4-10.4); PLATELET 462 x1000/uL (130-400); RED BLOOD CELL COUNT 2.94 mill/uL (4.2-5.4)
[2019-07-28 22:40] LABS: PLATELET ESTIMATE INCREASED
[2019-07-29] VITALS: BP 130/82
[2019-07-29 04:00] VITALS: BP 127/73
[2019-07-29] MEDS: DIPHENHYDRAMINE 50MG/ML VIAL IV PRN ×3 (04:38→17:32)
[2019-07-29] MEDS: BLOOD SUGAR DIAGNOSTIC STRIP TEST SCH ×4 (06:31→21:00)
[2019-07-29] MEDS: INSULIN LISPRO 100 UNITS/ML SUBCUT SCH ×4 (07:21→22:09)
[2019-07-29 07:57] LABS: CHLORIDE 109 mEq/L (98-107)
[2019-07-29 08:00] VITALS: BP 153/83
[2019-07-29] MEDS: FAMOTIDINE 20MG TABLET PO SCH ×2 (09:15→21:00)
[2019-07-29] MEDS: LOSARTAN POTASSIUM 50 MG TABLET PO SCH ×2 (09:15→21:00)
[2019-07-29] MEDS: HYDROCHLOROTHIAZIDE 12.5MG CAPSULE PO SCH (09:15)
[2019-07-29] MEDS: NIFEDIPINE XL 30MG TAB PO SCH (09:15)
[2019-07-29] MEDS: INSULIN GLARGINE UD 100 UNITS/ML SYR SUBCUT SCH ×2 (11:06→22:10)
[2019-07-29 12:00] VITALS: BP 152/101
[2019-07-29 12:29] LABS: BASOPHILS % 1.3 % (0.0-2.0); EOSINOPHILS % 1.3 % (0.0-5.0); HEMATOCRIT. 25.2 % (36.0-48.0); HEMOGLOBIN. 8.4 g/dL (12.0-16.0); LYMPHOCYTES % 17.2 % (20.0-50.0); MEAN CORPUSCULAR HEMOGLOBIN 27.5 pg (28.0-32.0); MEAN CORPUSCULAR VOLUME 82.1 fL (81.0-99.0); MEAN PLATELET VOLUME 7.9 fl (7.4-10.4); MONOCYTES % 8.3 % (2.0-8.0); NEUTROPHILS % 71.9 % (40.0-76.0); PLATELET 496 x1000/uL (130-400); RED BLOOD CELL COUNT 3.07 mill/uL (4.2-5.4)
[2019-07-29] MEDS: MORPHINE SULFATE 2 MG/ML CPJ (NOT FOR IM USE) IV PRN ×2 (13:14→18:40)
[2019-07-29] MEDS: DEXTROSE 5% WATER 1,000 ML IV SCH (13:24)
[2019-07-29 16:00] VITALS: BP 130/81
[2019-07-29 20:00] VITALS: BP 136/84
[2019-07-29] MEDS: ATORVASTATIN CALCIUM 20MG TABLET PO SCH (20:59)
[2019-07-29] MEDS: OLANZAPINE 10MG TABLET PO SCH (21:00)
[2019-07-29] MEDS: LEVOFLOXACIN 500MG TABLET PO SCH (21:00)
[2019-07-30] VITALS: BP 129/81
[2019-07-30] MEDS: DIPHENHYDRAMINE 50MG/ML VIAL IV PRN (02:58)
[2019-07-30 04:00] VITALS: BP 152/85
[2019-07-30] MEDS: INSULIN LISPRO 100 UNITS/ML SUBCUT SCH (06:19)
[2019-07-30] MEDS: BLOOD SUGAR DIAGNOSTIC STRIP TEST SCH (06:19)
[2019-07-30 08:00] VITALS: BP_SYST 120; BP_SYST 152; BP_DIAS 73; BP_DIAS 90
[2019-07-30] MEDS: NIFEDIPINE XL 30MG TAB PO SCH (08:34)
[2019-07-30] MEDS: FAMOTIDINE 20MG TABLET PO SCH (08:34)
[2019-07-30] MEDS: MORPHINE SULFATE 2 MG/ML CPJ (NOT FOR IM USE) IV PRN (08:34)
[2019-07-30] MEDS: HYDROCHLOROTHIAZIDE 12.5MG CAPSULE PO SCH (08:34)
[2019-07-30] MEDS: LOSARTAN POTASSIUM 50 MG TABLET PO SCH (08:34)
[2019-07-30] MEDS: DEXTROSE 5% WATER 1,000 ML IV SCH (09:28)
[2019-07-30] MEDS: INSULIN GLARGINE UD 100 UNITS/ML SYR SUBCUT SCH (10:25)
[2019-07-30 11:26] VITALS: BP 152/90
== END 2019-07-30 11:51 | disposition home or self-care (01) | DRG 48 ==
LOC: ER 19:42 → 6EST 07-24 00:11 → ENRESERV 07-24 01:17
PROVIDERS: ADMIT Internal Medicine; ATTEND Internal Medicine
DX: E11.43 Type 2 diabetes mellitus with diabetic autonomic (poly)neuropathy (principal); E44.0 Moderate protein-calorie malnutrition; E11.22 Type 2 diabetes mellitus with diabetic chronic kidney disease; K31.84 Gastroparesis; N39.0 Urinary tract infection, site not specified; N18.9 Chronic kidney disease, unspecified; I12.9 Hypertensive chronic kidney disease with stage 1 through stage 4 chronic kidney disease, or unspecified chronic kidney disease; D64.9 Anemia, unspecified; Z91.19 Patient's noncompliance with other medical treatment and regimen; Z79.899 Other long term (current) drug therapy; Z88.0 Allergy status to penicillin; Z88.1 Allergy status to other antibiotic agents; Z88.2 Allergy status to sulfonamides; Z98.891 History of uterine scar from previous surgery; Z68.23 Body mass index [BMI] 23.0-23.9, adult
CPT/HCPCS: 36415; 71045; 74176; 80048; 81003; 82010; 82962; 84703; 86850; 86900; 86920; 93005; 99285; C9113; J1200; J1815; J1956; J2270; J2405; J3490; J7030; J7070; P9016

== ENCOUNTER 2019-07-30 16:46 | Emergency (ER) | payer MEDICAID ==
[~2019-07-30] VITALS: Ht 167.6 cm; Wt 72.0 kg
[2019-07-30 18:36] LABS: CHLORIDE 107 mEq/L (98-107)
[2019-07-30 18:37] LABS: INR 0.9; PROTHROMBIN TIME 9.7 sec (9.6-11.0)
[2019-07-30 18:39] LABS: BASOPHILS % 0.3 % (0.0-2.0); EOSINOPHILS % 0.6 % (0.0-5.0); HEMATOCRIT. 24.5 % (36.0-48.0); HEMOGLOBIN. 8.2 g/dL (12.0-16.0); LYMPHOCYTES % 19.4 % (20.0-50.0); MEAN CORPUSCULAR HEMOGLOBIN 27.6 pg (28.0-32.0); MEAN CORPUSCULAR VOLUME 82.5 fL (81.0-99.0); MEAN PLATELET VOLUME 6.3 fl (7.4-10.4); MONOCYTES % 6.4 % (2.0-8.0); NEUTROPHILS % 73.3 % (40.0-76.0); PLATELET 567 x1000/uL (130-400); RED BLOOD CELL COUNT 2.97 mill/uL (4.2-5.4); RED CELL DISTRIBUTION WIDTH 15.7 % (11.6-14.6)
[2019-07-30] MEDS ORDERED: METOCLOPRAMIDE HCL 10MG/2ML VIAL IM ONE (19:00)
[2019-07-30 19:04] LABS: HCG SCREEN NEGATIVE
[2019-07-30 21:08] LABS: CLARITY URINE CLOUDY (CLEAR); COLOR URINE YELLOW (YELLOW); KETONES URINE NEGATIVE (NEGATIVE); LEUKOCYTE ESTERASE URINE NEGATIVE (NEGATIVE); NITRITE URINE NEGATIVE (NEGATIVE); OCCULT BLOOD URINE 2+ (NEGATIVE); PH URINE 7.5 (4.5-8.0); PROTEIN URINE 3+ (NEGATIVE); SPECIFIC GRAVITY URINE 1.013 (1.005-1.030); UROBILINOGEN URINE 0.2 E.U./dL (0.2-1.0)
[2019-07-30] MEDS ORDERED: LORAZEPAM 2MG/ML CPJ IM ONE (22:45)
[2019-07-30] MEDS ORDERED: MORPHINE SULFATE 4 MG/ML CPJ (NOT FOR IM USE) IV ONE (22:45)
[2019-07-30] MEDS ORDERED: ONDANSETRON HCL 4MG/2ML INJ IM ONE (22:45)
[2019-07-31 00:39] VITALS: BP 176/98
== END 2019-07-31 00:43 | disposition home or self-care (01) ==
LOC: ER 16:46
DX: R10.13 Epigastric pain (principal); E11.22 Type 2 diabetes mellitus with diabetic chronic kidney disease; I12.9 Hypertensive chronic kidney disease with stage 1 through stage 4 chronic kidney disease, or unspecified chronic kidney disease; N18.9 Chronic kidney disease, unspecified; Z88.6 Allergy status to analgesic agent; Z88.0 Allergy status to penicillin; Z88.2 Allergy status to sulfonamides; Z88.8 Allergy status to other drugs, medicaments and biological substances
CPT/HCPCS: 36415; 80053; 81003; 81025; 83690; 84703; 85025; 85610; 96372; 96374; 99283; J2060; J2270; J2405; J2765

== ENCOUNTER 2019-08-04 06:40 | Emergency (ER) | payer MEDICAID ==
[~2019-08-04] VITALS: Ht 172.7 cm; Wt 78.0 kg
[2019-08-04] MEDS ORDERED: ONDANSETRON HCL 4MG/2ML INJ IV STA (06:58)
[2019-08-04] MEDS ORDERED: SODIUM CHLORIDE 0.9% 1,000 ML IV ONE (06:58)
[2019-08-04] MEDS ORDERED: MORPHINE SULFATE 4 MG/ML CPJ (NOT FOR IM USE) IV STA (06:58)
[2019-08-04] MEDS ORDERED: FAMOTIDINE 20MG/2ML VIAL IV STA (06:58)
[2019-08-04] MEDS ORDERED: LORAZEPAM 2MG/ML CPJ IV ONE (07:00)
[2019-08-04] MEDS ORDERED: LABETALOL 5MG/ML SYR 20 MG/4 ML SYRINGE IV ONE (07:15)
[2019-08-04 08:26] LABS: BASOPHILS % 0.8 % (0.0-2.0); EOSINOPHILS % 0.1 % (0.0-5.0); HEMATOCRIT. 23.4 % (36.0-48.0); HEMOGLOBIN. 7.8 g/dL (12.0-16.0); MEAN CORPUSCULAR HEMOGLOBIN 27.4 pg (28.0-32.0); MEAN CORPUSCULAR VOLUME 81.9 fL (81.0-99.0); MEAN PLATELET VOLUME 6.5 fl (7.4-10.4); MONOCYTES % 4.6 % (2.0-8.0); NEUTROPHILS % 78.5 % (40.0-76.0); PLATELET 700 x1000/uL (130-400); RED BLOOD CELL COUNT 2.85 mill/uL (4.2-5.4); RED CELL DISTRIBUTION WIDTH 15.4 % (11.6-14.6)
[2019-08-04 08:37] LABS: PROTHROMBIN TIME 10.4 sec (9.6-11.0)
[2019-08-04 08:38] LABS: CHLORIDE 99 mEq/L (98-107)
[2019-08-04] MEDS ORDERED: INSULIN REGULAR (HUMULIN R) 300UNITS/3ML IV ONE (09:00)
[2019-08-04 09:06] LABS: HCG SCREEN NEGATIVE
[2019-08-04 12:39] VITALS: BP 142/84
== END 2019-08-04 12:39 | disposition home or self-care (01) ==
LOC: ER 07:16
DX: R10.13 Epigastric pain (principal); I10 Essential (primary) hypertension; E11.65 Type 2 diabetes mellitus with hyperglycemia; Z79.899 Other long term (current) drug therapy; Z88.0 Allergy status to penicillin; Z88.2 Allergy status to sulfonamides; Z88.6 Allergy status to analgesic agent; Z88.8 Allergy status to other drugs, medicaments and biological substances
CPT/HCPCS: 36415; 71045; 80053; 82962; 83690; 84703; 85025; 85610; 86850; 86900; 86901; 93005; 96361; 96374; 96375; 99284; J1815; J2060; J2270; J2405; J3490; J7030

== ENCOUNTER 2019-08-06 21:38 | Inpatient (IN) | payer MEDICAID ==
[~2019-08-06] VITALS: Ht 165.1 cm; Wt 71.7 kg
[~2019-08-06 21:38] MED LIST changes: +NIFE-33 PO; -NIFE30TA83 PO
[2019-08-07] MEDS ORDERED: KETOROLAC 60MG/2ML VIAL IM ONE (03:45)
[2019-08-07] MEDS ORDERED: DIPHENHYDRAMINE 25MG CAPSULE PO ONE (04:00)
[2019-08-07 04:30] LABS: CHLORIDE 101 mEq/L (98-107)
[2019-08-07 04:35] LABS: HEMATOCRIT 32.7 % (36.0-48.0); HEMOGLOBIN 10.5 g/dL (12.0-16.0); MEAN CORPUSCULAR HEMOGLOBIN 26.7 pg (28.0-32.0); PLATELET 650 x1000/uL (130-400); RED BLOOD CELL COUNT 3.94 mill/uL (4.2-5.4); RED CELL DISTRIBUTION WIDTH 15.6 % (11.6-14.6)
[2019-08-07 04:36] LABS: BETA HYDROXYBUTYRATE 0.1 mMol/L (0.0-0.3)
[2019-08-07 05:31] LABS: CLARITY URINE CLOUDY (CLEAR); COLOR URINE YELLOW (YELLOW); KETONES URINE NEGATIVE (NEGATIVE); LEUKOCYTE ESTERASE URINE NEGATIVE (NEGATIVE); NITRITE URINE NEGATIVE (NEGATIVE); OCCULT BLOOD URINE 2+ (NEGATIVE); PH URINE 6.5 (4.5-8.0); PROTEIN URINE 3+ (NEGATIVE); SPECIFIC GRAVITY URINE 1.024 (1.005-1.030); UROBILINOGEN URINE 0.2 E.U./dL (0.2-1.0)
[2019-08-07] MEDS ORDERED: AMLODIPINE 10MG TABLET PO SCH (06:00)
[2019-08-07] MEDS ORDERED: ONDANSETRON HCL 4MG/2ML INJ IV STA (07:10)
[2019-08-07] MEDS ORDERED: MORPHINE SULFATE 4 MG/ML CPJ (NOT FOR IM USE) IV STA (07:10)
[2019-08-07] MEDS ORDERED: METOCLOPRAMIDE HCL 10MG/2ML VIAL IV ONE (08:00)
[2019-08-07] MEDS ORDERED: DIPHENHYDRAMINE 50MG/ML VIAL IV ONE (08:00)
[2019-08-07] MEDS ORDERED: HYDRALAZINE 20MG/ML VIAL IV ONE (08:15)
[2019-08-07] MEDS ORDERED: MORPHINE SULFATE 4 MG/ML CPJ (NOT FOR IM USE) IV ONE (11:45)
[2019-08-07] MEDS ORDERED: ACETAMINOPHEN 325MG TABLET PO PRN (14:30)
[2019-08-07] MEDS ORDERED: ONDANSETRON HCL 4MG/2ML INJ IV PRN (14:30)
[2019-08-07] MEDS ORDERED: IPRATROPIUM/ALBUTEROL 0.5-3(2.5)MG/3ML NEB NEB PRN (14:30)
[2019-08-07] MEDS ORDERED: ENOXAPARIN 40MG/0.4ML SYR SUBCUT NR (15:15)
[2019-08-07] MEDS ORDERED: PANTOPRAZOLE SODIUM 40 MG/VIAL IV NR (15:15)
[2019-08-07] MEDS ORDERED: METOCLOPRAMIDE HCL 10MG/2ML VIAL IV NR (15:30)
[2019-08-07] MEDS ORDERED: DEXT 5%/0.9% NACL 1,000 ML IV SCH (17:30)
[2019-08-07 17:35] VITALS: BP 166/83
[2019-08-07] MEDS ORDERED: DEXTROSE 50% WATER 50ML SYRINGE IV PRN (17:45)
[2019-08-07] MEDS: INSULIN LISPRO 100 UNITS/ML SUBCUT SCH ×2 (18:15→20:58)
[2019-08-07] MEDS: HYDROCHLOROTHIAZIDE 12.5MG CAPSULE PO SCH (18:17)
[2019-08-07] MEDS: NIFEDIPINE XL 30MG TAB PO SCH (18:17)
[2019-08-07] MEDS: LOSARTAN POTASSIUM 50 MG TABLET PO SCH (18:17)
[2019-08-07] MEDS: DIPHENHYDRAMINE 50MG/ML VIAL IV PRN ×2 (18:23→22:37)
[2019-08-07] MEDS: MORPHINE SULFATE 2 MG/ML CPJ (NOT FOR IM USE) IV PRN ×2 (18:24→22:38)
[2019-08-07] MEDS ORDERED: INSULIN GLARGINE UD 100 UNITS/ML SYR SUBCUT SCH ×2 (18:45→22:00)
[2019-08-07 20:00] VITALS: BP 170/105
[2019-08-07] MEDS: BLOOD SUGAR DIAGNOSTIC STRIP TEST SCH (20:59)
[2019-08-07] MEDS: OLANZAPINE 10MG TABLET PO SCH (21:00)
[2019-08-07] MEDS: METOCLOPRAMIDE HCL 10MG/2ML VIAL IV SCH (21:00)
[2019-08-07 22:30] VITALS: BP 129/93
[2019-08-07] MEDS: SODIUM CHLORIDE 0.9% 1,000 ML IV SCH (22:41)
[2019-08-08] VITALS: BP 126/74
[2019-08-08] MEDS: DIPHENHYDRAMINE 50MG/ML VIAL IV PRN ×3 (03:56→18:00)
[2019-08-08] MEDS: MORPHINE SULFATE 2 MG/ML CPJ (NOT FOR IM USE) IV PRN ×4 (03:57→20:13)
[2019-08-08 04:00] VITALS: BP 133/78
[2019-08-08] MEDS: METOCLOPRAMIDE HCL 10MG/2ML VIAL IV SCH ×3 (05:58→22:03)
[2019-08-08] MEDS: INSULIN LISPRO 100 UNITS/ML SUBCUT SCH ×4 (06:27→20:33)
[2019-08-08] MEDS: BLOOD SUGAR DIAGNOSTIC STRIP TEST SCH ×4 (06:27→20:32)
[2019-08-08 08:00] VITALS: BP 127/71
[2019-08-08 08:19] LABS: BASOPHILS % 0.9 % (0.0-2.0); EOSINOPHILS % 0.9 % (0.0-5.0); HEMATOCRIT. 25.7 % (36.0-48.0); HEMOGLOBIN. 8.4 g/dL (12.0-16.0); LYMPHOCYTES % 25.9 % (20.0-50.0); MEAN CORPUSCULAR HEMOGLOBIN 26.7 pg (28.0-32.0); MEAN CORPUSCULAR VOLUME 81.6 fL (81.0-99.0); MEAN PLATELET VOLUME 6.5 fl (7.4-10.4); MONOCYTES % 5.3 % (2.0-8.0); PLATELET 636 x1000/uL (130-400); RED BLOOD CELL COUNT 3.15 mill/uL (4.2-5.4); RED CELL DISTRIBUTION WIDTH 15.7 % (11.6-14.6)
[2019-08-08 08:31] LABS: CHLORIDE 101 mEq/L (98-107)
[2019-08-08] MEDS: ATORVASTATIN CALCIUM 20MG TABLET PO SCH (08:43)
[2019-08-08] MEDS: NIFEDIPINE XL 30MG TAB PO SCH (08:44)
[2019-08-08] MEDS: HYDROCHLOROTHIAZIDE 12.5MG CAPSULE PO SCH (08:44)
[2019-08-08] MEDS: LOSARTAN POTASSIUM 50 MG TABLET PO SCH ×2 (08:44→20:31)
[2019-08-08] MEDS: PANTOPRAZOLE SODIUM 40 MG/VIAL IV SCH (08:45)
[2019-08-08] MEDS: SODIUM CHLORIDE 0.9% 1,000 ML IV SCH ×3 (08:46→23:02)
[2019-08-08 12:00] VITALS: BP 130/85
[2019-08-08 16:00] VITALS: BP_SYST 112; BP_SYST 156; BP_DIAS 73; BP_DIAS 74
[2019-08-08] MEDS: ENOXAPARIN 40MG/0.4ML SYR SUBCUT SCH (16:48)
[2019-08-08 20:00] VITALS: BP 160/97
[2019-08-08] MEDS: OLANZAPINE 10MG TABLET PO SCH (20:31)
[2019-08-08] MEDS ORDERED: INSULIN GLARGINE UD 100 UNITS/ML SYR SUBCUT SCH (22:00)
[2019-08-09] VITALS: BP 124/73
[2019-08-09] MEDS: MORPHINE SULFATE 2 MG/ML CPJ (NOT FOR IM USE) IV PRN ×5 (03:24→21:17)
[2019-08-09] MEDS: DIPHENHYDRAMINE 50MG/ML VIAL IV PRN ×4 (03:24→17:10)
[2019-08-09 04:00] VITALS: BP 155/92
[2019-08-09] MEDS: METOCLOPRAMIDE HCL 10MG/2ML VIAL IV SCH ×3 (05:38→21:16)
[2019-08-09] MEDS: INSULIN LISPRO 100 UNITS/ML SUBCUT SCH ×4 (06:28→21:00)
[2019-08-09] MEDS: BLOOD SUGAR DIAGNOSTIC STRIP TEST SCH ×4 (06:28→21:04)
[2019-08-09 08:00] VITALS: BP 155/87
[2019-08-09] MEDS: HYDROCHLOROTHIAZIDE 12.5MG CAPSULE PO SCH (08:55)
[2019-08-09] MEDS: ATORVASTATIN CALCIUM 20MG TABLET PO SCH (08:55)
[2019-08-09] MEDS: PANTOPRAZOLE SODIUM 40 MG/VIAL IV SCH (08:55)
[2019-08-09] MEDS: NIFEDIPINE XL 30MG TAB PO SCH (08:56)
[2019-08-09] MEDS: LOSARTAN POTASSIUM 50 MG TABLET PO SCH ×2 (08:56→21:15)
[2019-08-09 12:00] VITALS: BP 154/65
[2019-08-09] MEDS ORDERED: DEXTROSE 50% WATER 50ML SYRINGE IV PRN (12:15)
[2019-08-09] MEDS ORDERED: FUROSEMIDE 40MG/4ML VIAL IVP SCH (13:30)
[2019-08-09] MEDS: METRONIDAZOLE 500MG TABLET PO SCH ×3 (14:00→21:22)
[2019-08-09] MEDS: ENOXAPARIN 40MG/0.4ML SYR SUBCUT SCH (15:41)
[2019-08-09 16:00] VITALS: BP 148/73
[2019-08-09] MEDS: DOXYCYCLINE 100 MG in DEXT 5% WATER 100 ML IV SCH (17:10)
[2019-08-09 20:00] VITALS: BP 174/97
[2019-08-09] MEDS: OLANZAPINE 10MG TABLET PO SCH (21:15)
[2019-08-09] MEDS: INSULIN GLARGINE UD 100 UNITS/ML SYR SUBCUT SCH (21:32)
[2019-08-09] MEDS: CLONIDINE 0.1MG TABLET PO PRN (22:16)
[2019-08-10] VITALS (7 sets, daily range): BP systolic 147–177; BP diastolic 79–94
[2019-08-10] MEDS: DIPHENHYDRAMINE 50MG/ML VIAL IV PRN ×5 (01:11→22:09)
[2019-08-10] MEDS: MORPHINE SULFATE 2 MG/ML CPJ (NOT FOR IM USE) IV PRN ×6 (01:21→22:10)
[2019-08-10] MEDS: DOXYCYCLINE 100 MG in DEXT 5% WATER 100 ML IV SCH ×2 (04:44→15:30)
[2019-08-10] MEDS: METOCLOPRAMIDE HCL 10MG/2ML VIAL IV SCH ×3 (05:22→21:20)
[2019-08-10] MEDS: METRONIDAZOLE 500MG TABLET PO SCH ×3 (05:25→13:50)
[2019-08-10] MEDS: BLOOD SUGAR DIAGNOSTIC STRIP TEST SCH ×4 (06:07→21:20)
[2019-08-10] MEDS: INSULIN LISPRO 100 UNITS/ML SUBCUT SCH ×4 (06:07→22:35)
[2019-08-10] MEDS: ATORVASTATIN CALCIUM 20MG TABLET PO SCH (08:40)
[2019-08-10] MEDS: HYDROCHLOROTHIAZIDE 12.5MG CAPSULE PO SCH (08:40)
[2019-08-10] MEDS: NIFEDIPINE XL 30MG TAB PO SCH (08:41)
[2019-08-10] MEDS: LOSARTAN POTASSIUM 50 MG TABLET PO SCH ×2 (08:41→21:20)
[2019-08-10 12:04] LABS: BASOPHILS % 1.3 % (0.0-2.0); EOSINOPHILS % 1.2 % (0.0-5.0); HEMATOCRIT. 24.8 % (36.0-48.0); LYMPHOCYTES % 37.3 % (20.0-50.0); MEAN CORPUSCULAR HEMOGLOBIN 26.6 pg (28.0-32.0); MEAN CORPUSCULAR VOLUME 82.8 fL (81.0-99.0); MONOCYTES % 6.7 % (2.0-8.0); NEUTROPHILS % 53.5 % (40.0-76.0); PLATELET 464 x1000/uL (130-400); RED BLOOD CELL COUNT 2.99 mill/uL (4.2-5.4); RED CELL DISTRIBUTION WIDTH 15.9 % (11.6-14.6)
[2019-08-10] MEDS: CLONIDINE 0.1MG TABLET PO PRN (13:51)
[2019-08-10] MEDS: ENOXAPARIN 40MG/0.4ML SYR SUBCUT SCH (15:30)
[2019-08-10] MEDS: METRONIDAZOLE 500 MG PREMIX 100 ML IV SCH (21:20)
[2019-08-10] MEDS: OLANZAPINE 10MG TABLET PO SCH (21:20)
[2019-08-10] MEDS: INSULIN GLARGINE UD 100 UNITS/ML SYR SUBCUT SCH (22:34)
[2019-08-11] VITALS: BP 167/87
[2019-08-11] MEDS: CLONIDINE 0.1MG TABLET PO PRN ×2 (01:42→13:08)
[2019-08-11 04:00] VITALS: BP 133/89
[2019-08-11] MEDS: DOXYCYCLINE 100 MG in DEXT 5% WATER 100 ML IV SCH ×2 (04:34→16:01)
[2019-08-11] MEDS: METRONIDAZOLE 500 MG PREMIX 100 ML IV SCH ×2 (04:34→11:55)
[2019-08-11] MEDS: BLOOD SUGAR DIAGNOSTIC STRIP TEST SCH ×3 (05:44→16:25)
[2019-08-11] MEDS: METOCLOPRAMIDE HCL 10MG/2ML VIAL IV SCH ×2 (05:44→14:56)
[2019-08-11] MEDS: MORPHINE SULFATE 2 MG/ML CPJ (NOT FOR IM USE) IV PRN ×3 (06:03→14:56)
[2019-08-11] MEDS: DIPHENHYDRAMINE 50MG/ML VIAL IV PRN ×3 (06:03→17:28)
[2019-08-11] MEDS: INSULIN LISPRO 100 UNITS/ML SUBCUT SCH ×3 (07:40→17:29)
[2019-08-11 08:00] VITALS: BP 163/82
[2019-08-11] MEDS: HYDROCHLOROTHIAZIDE 12.5MG CAPSULE PO SCH (09:09)
[2019-08-11] MEDS: LOSARTAN POTASSIUM 50 MG TABLET PO SCH (09:09)
[2019-08-11] MEDS: NIFEDIPINE XL 30MG TAB PO SCH (09:09)
[2019-08-11] MEDS: ATORVASTATIN CALCIUM 20MG TABLET PO SCH (09:09)
[2019-08-11 12:00] VITALS: BP 169/86
[2019-08-11] MEDS: ENOXAPARIN 40MG/0.4ML SYR SUBCUT SCH (14:57)
[2019-08-11 16:00] VITALS: BP 146/75
[2019-09-12] MEDS ORDERED: METO10TA3 MT (12:25)
[2019-09-12] MEDS ORDERED: FAMO20TA8 PO (12:25)
[2019-09-12] MEDS ORDERED: NIFE-33 PO (12:25)
[2019-09-12] MEDS ORDERED: OLAN10TA19 PO (12:25)
[2019-09-12] MEDS ORDERED: LANTUSUD SUBCUT (12:25)
[2019-09-12] MEDS ORDERED: LOSA50TA3 PO (12:25)
[2019-09-12] MEDS ORDERED: SPIR25TA PO (12:25)
[2019-09-12] MEDS ORDERED: ATOR20TA65 MT (12:25)
[2019-09-19] MEDS ORDERED: FURO40TA5 MT (11:57)
[2019-09-19] MEDS ORDERED: NIFE-32 PO (11:57)
== END 2019-08-11 17:00 | disposition home or self-care (01) | DRG 48 ==
LOC: ER 21:38 → 8WST 08-07 09:36 → EDBEDREQ 08-07 09:47 → EDBEDREQTM 08-07 09:47 → ENRESERV 08-07 16:02
PROVIDERS: ADMIT Internal Medicine; ATTEND Internal Medicine
DX: E11.43 Type 2 diabetes mellitus with diabetic autonomic (poly)neuropathy (principal); E11.649 Type 2 diabetes mellitus with hypoglycemia without coma; E44.0 Moderate protein-calorie malnutrition; E11.65 Type 2 diabetes mellitus with hyperglycemia; K31.84 Gastroparesis; I10 Essential (primary) hypertension; E78.5 Hyperlipidemia, unspecified; N73.9 Female pelvic inflammatory disease, unspecified; K52.9 Noninfective gastroenteritis and colitis, unspecified; Z87.440 Personal history of urinary (tract) infections; Z91.19 Patient's noncompliance with other medical treatment and regimen; Z79.4 Long term (current) use of insulin; Z88.0 Allergy status to penicillin; Z88.2 Allergy status to sulfonamides; Z88.8 Allergy status to other drugs, medicaments and biological substances; Z79.01 Long term (current) use of anticoagulants; Z79.899 Other long term (current) drug therapy
CPT/HCPCS: 36415; 74176; 76705; 76830; 76856; 80048; 80053; 81003; 82010; 82962; 85025; 85027; 99285; C9113; J0360; J1200; J1650; J1815; J1885; J1940; J2270; J2405; J2765; J3490; J7030; J7040; J7060; Q0163

== ENCOUNTER 2019-08-15 20:09 | Inpatient (IN) | payer MEDICAID ==
[~2019-08-15] VITALS: Ht 165.1 cm; Wt 71.2 kg
[2019-08-15] MEDS ORDERED: SODIUM CHLORIDE 0.9% 1,000 ML IV ONE (20:43)
[2019-08-15] MEDS ORDERED: ONDANSETRON HCL 4MG/2ML INJ IV STA (20:43)
[2019-08-15] MEDS ORDERED: MORPHINE SULFATE 4 MG/ML CPJ (NOT FOR IM USE) IV STA (20:43)
[2019-08-15] MEDS ORDERED: DIPHENHYDRAMINE 50MG/ML VIAL IV ONE (20:45)
[2019-08-15] MEDS ORDERED: LORAZEPAM 2MG/ML CPJ IV ONE (20:45)
[2019-08-15 21:32] LABS: BASOPHILS % 0.3 % (0.0-2.0); HEMATOCRIT. 30.8 % (36.0-48.0); HEMOGLOBIN. 8.4 g/dL (12.0-16.0); LYMPHOCYTES % 11.4 % (20.0-50.0); MEAN PLATELET VOLUME 7.4 fl (7.4-10.4); NEUTROPHILS % 80.3 % (40.0-76.0); PLATELET 457 x1000/uL (130-400); RED BLOOD CELL COUNT 3.11 mill/uL (4.2-5.4); RED CELL DISTRIBUTION WIDTH 16.3 % (11.6-14.6)
[2019-08-15 21:38] LABS: CHLORIDE 80 mEq/L (98-107)
[2019-08-15 21:41] LABS: ETHANOL BLOOD < 10 mg/dL
[2019-08-15] MEDS ORDERED: INSULIN REGULAR (DRIP) 100 UNITS in SODIUM CHLORIDE 0.9% 100 ML IV ONE (21:53)
[2019-08-15] MEDS ORDERED: SODIUM CHLORIDE 0.9% 1,000 ML IV STA (21:53)
[2019-08-15 21:57] LABS: HCG SCREEN NEGATIVE
[2019-08-15 22:05] LABS: PARTIAL THROMBOPLASTIN TIME 26.9 sec (23.4-31.0); PROTHROMBIN TIME 10.7 sec (9.6-11.0)
[2019-08-15 23:15] LABS: PHOSPHORUS 8.7 mg/dL (2.5-4.9)
[2019-08-15] MEDS ORDERED: CALCIUM CHLORIDE 1GM/10ML SYR IV ONE (23:30)
[2019-08-15] MEDS ORDERED: SODIUM POLYSTYRENE SULFONATE 15 G/60 ML BOT PO ONE (23:30)
[2019-08-15] MEDS ORDERED: SODIUM BICARBONATE 8.4% 1 MEQ/ML 50ML SYR IV ONE (23:30)
[2019-08-16] VITALS (38 sets, daily range): BP systolic 93–152; BP diastolic 55–97
[2019-08-16 01:07] LABS: PHOSPHORUS 8.5 mg/dL (2.5-4.9)
[2019-08-16 03:04] LABS: PHOSPHORUS 7.7 mg/dL (2.5-4.9)
[2019-08-16] MEDS ORDERED: DEXTROSE 50% WATER 50ML SYRINGE IV PRN ×3 (04:00→20:30)
[2019-08-16] MEDS ORDERED: INSULIN REGULAR (DRIP) 100 UNITS in SODIUM CHLORIDE 0.9% 99 ML IV PRN (04:00)
[2019-08-16] MEDS: BLOOD SUGAR DIAGNOSTIC STRIP TEST SCH ×18 (04:50→23:49)
[2019-08-16] MEDS: INSULIN REGULAR (DRIP) 100 UNITS in SODIUM CHLORIDE 0.9% 100 ML IV SCH ×3 (04:51→13:05)
[2019-08-16] MEDS ORDERED: SODIUM CHLORIDE 0.9% 100 ML IV ONE (05:15)
[2019-08-16 05:23] LABS: BG BASE EXCESS -3.7 mmol/L (-2.0-2.0); BG CARBOXYHEMOGLOBIN 0.6 % (0.5-1.5); BG DEOXYHEMOGLOBIN 2.8 % (0.0-5.0); BG FRACTION INSPIRED OXYGEN 21; BG HCO3 ACT 22.4 mmol/L (22.0-26.0); BG METHEMOGLOBIN 0.1 % (0.0-1.5); BG OXYGEN SATURATION 97.2 % (92.0-98.5); BG OXYHEMOGLOBIN 96.5 % (94.0-97.0); BG PCO2 46.1 mmHg (35.0-45.0); BG PH 7.304 (7.350-7.450); BG PO2 103.1 mmHg (75.0-100.0); BG SAMPLE SITE LEFT RADIAL; BG TOTAL HEMOGLOBIN 7.4 g/dL (12.0-18.0); BG VENT MODE ROOM AIR
[2019-08-16] MEDS: SODIUM CHLORIDE 0.9% 1,000 ML IV SCH ×4 (06:27→21:30)
[2019-08-16 08:55] LABS: BASOPHILS % 0.3 % (0.0-2.0); EOSINOPHILS % 0.1 % (0.0-5.0); HEMATOCRIT. 27.3 % (36.0-48.0); HEMOGLOBIN. 8.8 g/dL (12.0-16.0); LYMPHOCYTES % 11.7 % (20.0-50.0); MEAN CORPUSCULAR HEMOGLOBIN 26.9 pg (28.0-32.0); MEAN CORPUSCULAR VOLUME 83.7 fL (81.0-99.0); MEAN PLATELET VOLUME 7.3 fl (7.4-10.4); MONOCYTES % 8.3 % (2.0-8.0); NEUTROPHILS % 79.6 % (40.0-76.0); PLATELET 423 x1000/uL (130-400); RED BLOOD CELL COUNT 3.27 mill/uL (4.2-5.4); RED CELL DISTRIBUTION WIDTH 15.3 % (11.6-14.6)
[2019-08-16 09:04] LABS: PHOSPHORUS 5.9 mg/dL (2.5-4.9)
[2019-08-16 09:13] LABS: CREATINE KINASE MB FRACTION 22.7 ng/mL (0.5-3.6)
[2019-08-16] MEDS: ENOXAPARIN 30MG/0.3ML SYR SUBCUT SCH (09:37)
[2019-08-16] MEDS ORDERED: LORAZEPAM 2MG/ML CPJ IV PRN (13:52)
[2019-08-16] MEDS ORDERED: LIDOCAINE HCL 1% 20ML VIAL (Pyxis) INJ ONE (14:02)
[2019-08-16] MEDS ORDERED: POTASSIUM CHLORIDE INJ 20 MEQ in DEXT 5%/0.9% NACL 1,000 ML IV SCH (16:00)
[2019-08-16] MEDS ORDERED: DEXT 5%/0.9% NACL 1,000 ML IV SCH (16:00)
[2019-08-16] MEDS ORDERED: DEXT 5%/0.9% NACL KCL 20MEQ/L 1,000 ML IV SCH (17:00)
[2019-08-16] MEDS ORDERED: BLOOD SUGAR DIAGNOSTIC STRIP TEST SCH (21:00)
[2019-08-16] MEDS ORDERED: INSULIN LISPRO 100 UNITS/ML SUBCUT SCH (21:00)
[2019-08-16] MEDS ORDERED: INSULIN GLARGINE UD 100 UNITS/ML SYR SUBCUT NR (22:00)
[2019-08-16 23:01] LABS: CLARITY URINE CLEAR (CLEAR); COLOR URINE YELLOW (YELLOW); KETONES URINE NEGATIVE (NEGATIVE); LEUKOCYTE ESTERASE URINE NEGATIVE (NEGATIVE); NITRITE URINE NEGATIVE (NEGATIVE); OCCULT BLOOD URINE TRACE (NEGATIVE); PROTEIN URINE 2+ (NEGATIVE); SPECIFIC GRAVITY URINE 1.018 (1.005-1.030); UROBILINOGEN URINE 0.2 E.U./dL (0.2-1.0)
[2019-08-16] MEDS: INSULIN LISPRO 100 UNITS/ML SUBCUT SCH (23:49)
[2019-08-17] VITALS (54 sets, daily range): BP systolic 123–176; BP diastolic 56–119
[2019-08-17] MEDS: BLOOD SUGAR DIAGNOSTIC STRIP TEST SCH ×5 (04:01→20:00)
[2019-08-17] MEDS: INSULIN LISPRO 100 UNITS/ML SUBCUT SCH ×5 (04:17→20:26)
[2019-08-17] MEDS ORDERED: OLAN15TA17 PO (06:30)
[2019-08-17] MEDS: ENOXAPARIN 30MG/0.3ML SYR SUBCUT SCH (09:24)
[2019-08-17] MEDS: SODIUM CHLORIDE 0.9% 1,000 ML IV SCH (09:24)
[2019-08-17] MEDS: CLONIDINE 0.1MG TABLET PO PRN (10:02)
[2019-08-17] MEDS: DILTIAZEM HCL 60MG TABLET PO SCH ×2 (11:23→17:17)
[2019-08-17] MEDS ORDERED: CALCIUM CARBONATE 1250MG TABLET (500MG ELEMENTAL CALCIUM) PO NR (15:30)
[2019-08-17] MEDS: OLANZAPINE 10MG TABLET PO SCH (20:26)
[2019-08-18] VITALS: BP 136/81
[2019-08-18] MEDS: DILTIAZEM HCL 60MG TABLET PO SCH ×4 (00:52→17:50)
[2019-08-18] MEDS: INSULIN LISPRO 100 UNITS/ML SUBCUT SCH ×7 (00:57→21:35)
[2019-08-18] MEDS: SODIUM CHLORIDE 0.9% 1,000 ML IV SCH ×2 (01:02→10:00)
[2019-08-18 04:00] VITALS: BP 127/73
[2019-08-18] MEDS: BLOOD SUGAR DIAGNOSTIC STRIP TEST SCH ×6 (04:00→20:00)
[2019-08-18 07:20] LABS: BASOPHILS % 0.3 % (0.0-2.0); EOSINOPHILS % 0.4 % (0.0-5.0); HEMATOCRIT. 22.4 % (36.0-48.0); HEMOGLOBIN. 7.4 g/dL (12.0-16.0); LYMPHOCYTES % 21.6 % (20.0-50.0); MEAN CORPUSCULAR HEMOGLOBIN 27.1 pg (28.0-32.0); MEAN CORPUSCULAR VOLUME 81.7 fL (81.0-99.0); MEAN PLATELET VOLUME 7.2 fl (7.4-10.4); MONOCYTES % 5.4 % (2.0-8.0); NEUTROPHILS % 72.3 % (40.0-76.0); PLATELET 340 x1000/uL (130-400); RED BLOOD CELL COUNT 2.74 mill/uL (4.2-5.4); RED CELL DISTRIBUTION WIDTH 15.9 % (11.6-14.6)
[2019-08-18 07:50] LABS: CHLORIDE 109 mEq/L (98-107)
[2019-08-18 08:00] VITALS: BP 136/76
[2019-08-18 08:10] LABS: CREATINE KINASE 134 IU/L (26-192)
[2019-08-18] MEDS: ENOXAPARIN 40MG/0.4ML SYR SUBCUT SCH (10:06)
[2019-08-18 12:00] VITALS: BP 134/71
[2019-08-18 16:00] VITALS: BP 142/87
[2019-08-18 17:43] LABS: CANNABINOID URINE SCREEN NEGATIVE (NEGATIVE); OPIATES URINE SCREEN NEGATIVE (NEGATIVE); PHENCYCLIDINE URINE SCREEN NEGATIVE (NEGATIVE)
[2019-08-18 17:45] LABS: *AMPHETAMINES SCREEN URINE NEGATIVE (NEGATIVE); *BARBITURATES SCREEN URINE NEGATIVE (NEGATIVE); *BENZODIAZEPINES SCREEN URINE NEGATIVE (NEGATIVE); *COCAINE SCREEN URINE NEGATIVE (NEGATIVE); METHADONE URINE SCREEN NEGATIVE (NEGATIVE)
[2019-08-18] MEDS: HYDROCODONE/ACETAMINOPHEN 5/325MG TABLET PO PRN (19:16)
[2019-08-18 20:00] VITALS: BP 133/88
[2019-08-18] MEDS: OLANZAPINE 10MG TABLET PO SCH (21:33)
[2019-08-18] MEDS: INSULIN GLARGINE UD 100 UNITS/ML SYR SUBCUT SCH (21:36)
[2019-08-19] VITALS: BP 169/99
[2019-08-19] MEDS: DILTIAZEM HCL 60MG TABLET PO SCH ×4 (00:50→17:31)
[2019-08-19] MEDS: CLONIDINE 0.1MG TABLET PO PRN (00:51)
[2019-08-19] MEDS: INSULIN LISPRO 100 UNITS/ML SUBCUT SCH ×9 (01:00→20:00)
[2019-08-19 04:00] VITALS: BP 133/83
[2019-08-19] MEDS: BLOOD SUGAR DIAGNOSTIC STRIP TEST SCH ×7 (04:00→23:59)
[2019-08-19 07:03] LABS: BASOPHILS % 0.9 % (0.0-2.0); EOSINOPHILS % 1.7 % (0.0-5.0); HEMATOCRIT. 24.4 % (36.0-48.0); LYMPHOCYTES % 36.3 % (20.0-50.0); MEAN CORPUSCULAR HEMOGLOBIN 26.9 pg (28.0-32.0); MEAN CORPUSCULAR VOLUME 82.4 fL (81.0-99.0); MEAN PLATELET VOLUME 7.3 fl (7.4-10.4); MONOCYTES % 6.2 % (2.0-8.0); NEUTROPHILS % 54.9 % (40.0-76.0); PLATELET 303 x1000/uL (130-400); RED BLOOD CELL COUNT 2.96 mill/uL (4.2-5.4); RED CELL DISTRIBUTION WIDTH 15.8 % (11.6-14.6)
[2019-08-19 07:20] LABS: CHLORIDE 110 mEq/L (98-107)
[2019-08-19 08:00] VITALS: BP 129/79
[2019-08-19] MEDS: ENOXAPARIN 40MG/0.4ML SYR SUBCUT SCH (08:42)
[2019-08-19] MEDS: HYDROCODONE/ACETAMINOPHEN 5/325MG TABLET PO PRN ×2 (09:09→13:53)
[2019-08-19] MEDS: INSULIN GLARGINE UD 100 UNITS/ML SYR SUBCUT SCH ×2 (11:26→22:16)
[2019-08-19 12:00] VITALS: BP 138/76
[2019-08-19 16:00] VITALS: BP 135/68
[2019-08-19 20:00] VITALS: BP 128/78
[2019-08-19] MEDS: OLANZAPINE 10MG TABLET PO SCH (20:59)
[2019-08-19] MEDS: SODIUM CHLORIDE 0.9% 1,000 ML IV SCH (21:25)
[2019-08-20] VITALS (8 sets, daily range): BP systolic 154–187; BP diastolic 87–110
[2019-08-20] MEDS: DILTIAZEM HCL 60MG TABLET PO SCH ×4 (00:08→18:03)
[2019-08-20] MEDS: INSULIN LISPRO 100 UNITS/ML SUBCUT SCH ×8 (00:10→20:00)
[2019-08-20] MEDS: BLOOD SUGAR DIAGNOSTIC STRIP TEST SCH ×5 (04:04→20:15)
[2019-08-20] MEDS: CLONIDINE 0.1MG TABLET PO PRN ×2 (04:22→14:03)
[2019-08-20] MEDS: ENOXAPARIN 40MG/0.4ML SYR SUBCUT SCH (08:10)
[2019-08-20] MEDS: SODIUM CHLORIDE 0.9% 1,000 ML IV SCH (10:00)
[2019-08-20] MEDS: INSULIN GLARGINE UD 100 UNITS/ML SYR SUBCUT SCH ×2 (10:00→21:50)
[2019-08-20] MEDS: HYDROCODONE/ACETAMINOPHEN 5/325MG TABLET PO PRN (10:57)
[2019-08-20] MEDS ORDERED: LOSARTAN POTASSIUM 50 MG TABLET PO NR ×2 (16:15→19:15)
[2019-08-20] MEDS ORDERED: AMLODIPINE 5MG TABLET PO SCH ×3 (16:45→21:00)
[2019-08-20] MEDS ORDERED: CLONIDINE 0.1MG TABLET PO NR (19:15)
[2019-08-20] MEDS: OLANZAPINE 10MG TABLET PO SCH (21:00)
[2019-09-12] MEDS ORDERED: ATOR20TA65 MT (12:25)
[2019-09-12] MEDS ORDERED: SPIR25TA PO (12:25)
[2019-09-12] MEDS ORDERED: FAMO20TA8 PO (12:25)
[2019-09-12] MEDS ORDERED: NIFE-33 PO (12:25)
[2019-09-12] MEDS ORDERED: LANTUSUD SUBCUT (12:25)
[2019-09-12] MEDS ORDERED: METO10TA3 MT (12:25)
[2019-09-12] MEDS ORDERED: OLAN10TA19 PO (12:25)
[2019-09-12] MEDS ORDERED: LOSA50TA3 PO (12:25)
== END 2019-08-20 21:55 | disposition home or self-care (01) | DRG 469 ==
LOC: ER 20:09 → EDBEDREQ 23:31 → MICUSO 23:51 → EDBEDREQ 08-16 00:05 → EDBEDREQTM 08-16 00:05 → ENRESERV 08-16 02:23 → 6WST 08-17 22:07
PROVIDERS: ADMIT Internal Medicine; ATTEND Internal Medicine
PROC: 02HV33Z Insertion of Infusion Device into Superior Vena Cava, Percutaneous Approach (ICD-10-PCS; principal; 2019-08-15)
PROC: B548ZZA Ultrasonography of Superior Vena Cava, Guidance (ICD-10-PCS; 2019-08-15)
DX: N17.9 Acute kidney failure, unspecified (principal); E11.01 Type 2 diabetes mellitus with hyperosmolarity with coma; E11.22 Type 2 diabetes mellitus with diabetic chronic kidney disease; K31.84 Gastroparesis; E83.39 Other disorders of phosphorus metabolism; E11.43 Type 2 diabetes mellitus with diabetic autonomic (poly)neuropathy; I42.2 Other hypertrophic cardiomyopathy; E87.1 Hypo-osmolality and hyponatremia; E87.5 Hyperkalemia; E86.0 Dehydration; D64.9 Anemia, unspecified; N18.9 Chronic kidney disease, unspecified; E78.5 Hyperlipidemia, unspecified; G89.29 Other chronic pain; I12.9 Hypertensive chronic kidney disease with stage 1 through stage 4 chronic kidney disease, or unspecified chronic kidney disease; R74.0 Nonspecific elevation of levels of transaminase and lactic acid dehydrogenase [LDH]; R74.8 Abnormal levels of other serum enzymes; D47.3 Essential (hemorrhagic) thrombocythemia; Z79.4 Long term (current) use of insulin; Z82.49 Family history of ischemic heart disease and other diseases of the circulatory system; Z83.3 Family history of diabetes mellitus; Z88.8 Allergy status to other drugs, medicaments and biological substances; Z88.0 Allergy status to penicillin; Z88.2 Allergy status to sulfonamides; Z88.6 Allergy status to analgesic agent; Z79.899 Other long term (current) drug therapy; Z80.8 Family history of malignant neoplasm of other organs or systems; Z91.19 Patient's noncompliance with other medical treatment and regimen
CPT/HCPCS: 36415; 36600; 71045; 76937; 80048; 80053; 80076; 80305; 80320; 81003; 82375; 82550; 82553; 82805; 82962; 83036; 83735; 83880; 84100; 84443; 84484; 84703; 85025; 93005; 93306; 93970; 96361; 96365; 96375; 99291; C1725; J1200; J1650; J1815; J2060; J2270; J2405; J3490; J7030; J7050; A4315; G0480

== ENCOUNTER 2019-08-22 12:24 | Inpatient (IN) | payer MEDICAID ==
[~2019-08-22] VITALS: Ht 172.7 cm; Wt 68.9 kg
[~2019-08-22 12:24] MED LIST changes: -BACL-141 PO; -MUPI15CR11 TP; -NEOM28.38 TP; -NIFE-33 PO; +NIFE30TA83 PO; +OLAN15TA17 PO; -PSYL3.4P5 PO; -SILV50CR31 TP
[2019-08-22] MEDS ORDERED: LIDOCAINE HCL/PF 1% 2ML VIAL ONE (12:38)
[2019-08-22] MEDS ORDERED: SODIUM CHLORIDE 0.9% 1,000 ML IV ONE ×2 (12:44→14:11)
[2019-08-22 13:30] LABS: BG BASE EXCESS -1.1 mmol/L (-2.0-2.0); BG CARBOXYHEMOGLOBIN 0.1 % (0.5-1.5); BG DEOXYHEMOGLOBIN 3.9 % (0.0-5.0); BG FRACTION INSPIRED OXYGEN 21; BG HCO3 ACT 23.7 mmol/L (22.0-26.0); BG METHEMOGLOBIN 0.2 % (0.0-1.5); BG OXYGEN SATURATION 96.1 % (92.0-98.5); BG OXYHEMOGLOBIN 95.8 % (94.0-97.0); BG PCO2 39.6 mmHg (35.0-45.0); BG PH 7.394 (7.350-7.450); BG PO2 91.7 mmHg (75.0-100.0); BG SAMPLE SITE LEFT RADIAL; BG TOTAL HEMOGLOBIN 8.6 g/dL (12.0-18.0); BG VENT MODE ROOM AIR
[2019-08-22 13:38] LABS: BASOPHILS % 1.1 % (0.0-2.0); EOSINOPHILS % 0.6 % (0.0-5.0); HEMATOCRIT. 27.9 % (36.0-48.0); HEMOGLOBIN. 9.1 g/dL (12.0-16.0); LYMPHOCYTES % 27.5 % (20.0-50.0); MEAN CORPUSCULAR HEMOGLOBIN 26.7 pg (28.0-32.0); MEAN CORPUSCULAR VOLUME 82.4 fL (81.0-99.0); MEAN PLATELET VOLUME 7.2 fl (7.4-10.4); MONOCYTES % 3.6 % (2.0-8.0); NEUTROPHILS % 67.2 % (40.0-76.0); PLATELET 593 x1000/uL (130-400); RED BLOOD CELL COUNT 3.39 mill/uL (4.2-5.4); RED CELL DISTRIBUTION WIDTH 15.4 % (11.6-14.6)
[2019-08-22 13:41] LABS: CLARITY URINE CLEAR (CLEAR); COLOR URINE YELLOW (YELLOW); KETONES URINE NEGATIVE (NEGATIVE); LEUKOCYTE ESTERASE URINE NEGATIVE (NEGATIVE); NITRITE URINE NEGATIVE (NEGATIVE); OCCULT BLOOD URINE 1+ (NEGATIVE); PROTEIN URINE 2+ (NEGATIVE); SPECIFIC GRAVITY URINE 1.023 (1.005-1.030); UROBILINOGEN URINE 0.2 E.U./dL (0.2-1.0)
[2019-08-22 13:44] LABS: CHLORIDE 102 mEq/L (98-107)
[2019-08-22 13:46] LABS: HCG SCREEN NEGATIVE
[2019-08-22 13:55] LABS: BETA HYDROXYBUTYRATE 0.1 mMol/L (0.0-0.3)
[2019-08-22] MEDS ORDERED: ONDANSETRON HCL 4MG/2ML INJ IV STA (14:11)
[2019-08-22] MEDS ORDERED: CLONIDINE 0.2MG TABLET PO ONE (14:15)
[2019-08-22] MEDS ORDERED: DIPHENHYDRAMINE 25MG CAPSULE PO ONE (14:45)
[2019-08-22] MEDS ORDERED: KETOROLAC 15MG/ML VIAL IV ONE (15:00)
[2019-08-22] MEDS ORDERED: HYDRALAZINE 20MG/ML VIAL IV NR (15:45)
[2019-08-22] MEDS ORDERED: INSULIN LISPRO 100 UNITS/ML SUBCUT NR (15:45)
[2019-08-22 16:53] LABS: CHLORIDE 105 mEq/L (98-107)
[2019-08-22] MEDS ORDERED: INSULIN LISPRO 100 UNITS/ML SUBCUT ONE (21:00)
[2019-08-22] MEDS ORDERED: CLONIDINE 0.1MG TABLET PO ONE (21:00)
[2019-08-22 21:46] VITALS: BP 186/118
[2019-08-22 21:52] VITALS: BP 186/118
[2019-08-22] MEDS ORDERED: ONDANSETRON HCL 4MG/2ML INJ IV PRN (22:15)
[2019-08-22] MEDS ORDERED: DEXTROSE 50% WATER 50ML SYRINGE IV PRN (22:15)
[2019-08-22] MEDS: DIPHENHYDRAMINE 50MG/ML VIAL IV PRN (22:56)
[2019-08-22] MEDS: HYDROCODONE/ACETAMINOPHEN 5/325MG TABLET PO PRN (22:56)
[2019-08-22] MEDS: INSULIN GLARGINE UD 100 UNITS/ML SYR SUBCUT SCH (23:15)
[2019-08-23 00:09] VITALS: BP 153/89
[2019-08-23 04:00] VITALS: BP 148/87
[2019-08-23] MEDS: BLOOD SUGAR DIAGNOSTIC STRIP TEST SCH ×4 (05:43→20:57)
[2019-08-23] MEDS: INSULIN LISPRO 100 UNITS/ML SUBCUT SCH ×4 (06:15→20:57)
[2019-08-23] MEDS: PANTOPRAZOLE SODIUM 40 MG/VIAL IV SCH (09:31)
[2019-08-23] MEDS: ENOXAPARIN 40MG/0.4ML SYR SUBCUT SCH (09:31)
[2019-08-23] MEDS: DIPHENHYDRAMINE 50MG/ML VIAL IV PRN ×2 (09:31→19:45)
[2019-08-23 12:00] VITALS: BP 177/95
[2019-08-23 16:00] VITALS: BP 182/112
[2019-08-23] MEDS: HYDRALAZINE 20MG/ML VIAL IV PRN (16:30)
[2019-08-23] MEDS: FUROSEMIDE 40MG/4ML VIAL IVP SCH (16:30)
[2019-08-23] MEDS: LOSARTAN POTASSIUM 50 MG TABLET PO SCH (16:31)
[2019-08-23 20:00] VITALS: BP 141/107
[2019-08-23] MEDS: HYDROCODONE/ACETAMINOPHEN 5/325MG TABLET PO PRN (20:07)
[2019-08-23] MEDS: INSULIN GLARGINE UD 100 UNITS/ML SYR SUBCUT SCH (22:09)
[2019-08-24 00:05] VITALS: BP 151/96
[2019-08-24] MEDS: DIPHENHYDRAMINE 50MG/ML VIAL IV PRN ×3 (03:37→14:33)
[2019-08-24] MEDS: HYDROCODONE/ACETAMINOPHEN 5/325MG TABLET PO PRN ×4 (03:37→18:59)
[2019-08-24 04:00] VITALS: BP_SYST 166; BP_SYST 186; BP_DIAS 102; BP_DIAS 99
[2019-08-24] MEDS: HYDRALAZINE 20MG/ML VIAL IV PRN ×2 (05:41→16:37)
[2019-08-24] MEDS: BLOOD SUGAR DIAGNOSTIC STRIP TEST SCH ×4 (06:18→21:00)
[2019-08-24 07:08] LABS: BASOPHILS % 1.1 % (0.0-2.0); EOSINOPHILS % 1.5 % (0.0-5.0); HEMATOCRIT. 29.1 % (36.0-48.0); HEMOGLOBIN. 9.6 g/dL (12.0-16.0); LYMPHOCYTES % 39.1 % (20.0-50.0); MEAN CORPUSCULAR HEMOGLOBIN 27.1 pg (28.0-32.0); MEAN CORPUSCULAR VOLUME 82.1 fL (81.0-99.0); MEAN PLATELET VOLUME 7.4 fl (7.4-10.4); MONOCYTES % 4.6 % (2.0-8.0); NEUTROPHILS % 53.7 % (40.0-76.0); PLATELET 601 x1000/uL (130-400); RED BLOOD CELL COUNT 3.55 mill/uL (4.2-5.4); RED CELL DISTRIBUTION WIDTH 15.6 % (11.6-14.6)
[2019-08-24 07:21] LABS: CHLORIDE 106 mEq/L (98-107)
[2019-08-24 08:00] VITALS: BP 158/99
[2019-08-24] MEDS: INSULIN LISPRO 100 UNITS/ML SUBCUT SCH ×4 (08:02→21:00)
[2019-08-24] MEDS: ENOXAPARIN 40MG/0.4ML SYR SUBCUT SCH (08:43)
[2019-08-24] MEDS: PANTOPRAZOLE SODIUM 40 MG/VIAL IV SCH (08:43)
[2019-08-24] MEDS: FUROSEMIDE 40MG/4ML VIAL IVP SCH (08:43)
[2019-08-24] MEDS: LOSARTAN POTASSIUM 50 MG TABLET PO SCH (08:48)
[2019-08-24 16:58] VITALS: BP 158/99
[2019-08-24] MEDS ORDERED: ACETAMINOPHEN 325MG TABLET PO PRN (17:00)
[2019-08-24 20:00] VITALS: BP 161/93
[2019-08-24] MEDS ORDERED: DIPHENHYDRAMINE 50MG/ML VIAL IV PRN (21:45)
[2019-08-25] MEDS ORDERED: FAMOTIDINE 20MG/2ML VIAL IV SCH (09:00)
== END 2019-08-24 22:10 | disposition home or self-care (01) | DRG 199 ==
LOC: ER 12:40 → 7WST 15:47 → ENRESERV 20:07
PROVIDERS: ADMIT Internal Medicine; ATTEND Internal Medicine
DX: I16.1 Hypertensive emergency (principal); I50.21 Acute systolic (congestive) heart failure; E11.22 Type 2 diabetes mellitus with diabetic chronic kidney disease; K31.84 Gastroparesis; E11.65 Type 2 diabetes mellitus with hyperglycemia; E11.43 Type 2 diabetes mellitus with diabetic autonomic (poly)neuropathy; I13.0 Hypertensive heart and chronic kidney disease with heart failure and stage 1 through stage 4 chronic kidney disease, or unspecified chronic kidney disease; N18.9 Chronic kidney disease, unspecified; Z91.14 Patient's other noncompliance with medication regimen; Z83.3 Family history of diabetes mellitus; Z88.0 Allergy status to penicillin; Z88.1 Allergy status to other antibiotic agents; Z88.2 Allergy status to sulfonamides; Z88.8 Allergy status to other drugs, medicaments and biological substances; Z79.899 Other long term (current) drug therapy
CPT/HCPCS: 36415; 36600; 71045; 80048; 80053; 81003; 82010; 82375; 82805; 82962; 83880; 84484; 84703; 85025; 93005; 99291; C1893; C9113; J0360; J1200; J1650; J1815; J1885; J1940; J2405; J3490; J7030; Q0163

== ENCOUNTER 2019-08-30 23:35 | Inpatient (IN) | payer MEDICAID ==
[~2019-08-30] VITALS: Ht 162.6 cm; Wt 63.5 kg
[~2019-08-30 23:35] MED LIST changes: +NIFE-33 PO; -NIFE30TA83 PO
[2019-08-31] MEDS ORDERED: SODIUM CHLORIDE 0.9% 1,000 ML IV ONE (05:35)
[2019-08-31] MEDS ORDERED: ONDANSETRON HCL 4MG/2ML INJ IV ONE (05:45)
[2019-08-31] MEDS ORDERED: FAMOTIDINE 20MG/2ML VIAL IV ONE (05:45)
[2019-08-31 05:57] LABS: BASOPHILS % 1.2 % (0.0-2.0); EOSINOPHILS % 1.1 % (0.0-5.0); HEMATOCRIT. 23.5 % (36.0-48.0); HEMOGLOBIN. 7.6 g/dL (12.0-16.0); LYMPHOCYTES % 34.5 % (20.0-50.0); MEAN CORPUSCULAR HEMOGLOBIN 26.7 pg (28.0-32.0); MEAN PLATELET VOLUME 6.3 fl (7.4-10.4); MONOCYTES % 5.4 % (2.0-8.0); NEUTROPHILS % 57.8 % (40.0-76.0); PLATELET 668 x1000/uL (130-400); RED BLOOD CELL COUNT 2.86 mill/uL (4.2-5.4); RED CELL DISTRIBUTION WIDTH 15.8 % (11.6-14.6)
[2019-08-31 06:03] LABS: CHLORIDE 110 mEq/L (98-107)
[2019-08-31 06:06] LABS: PROTHROMBIN TIME 10.3 sec (9.6-11.0)
[2019-08-31 06:08] LABS: ETHANOL BLOOD < 10 mg/dL
[2019-08-31] MEDS ORDERED: HYDRALAZINE 20MG/ML VIAL IV ONE (06:15)
[2019-08-31] MEDS ORDERED: MORPHINE SULFATE 4 MG/ML CPJ (NOT FOR IM USE) IV ONE ×2 (06:30→09:00)
[2019-08-31] MEDS ORDERED: DEXTROSE 50% WATER 50ML SYRINGE IV ONE (19:30)
[2019-08-31] MEDS ORDERED: MORPHINE SULFATE 2 MG/ML CPJ (NOT FOR IM USE) IV PRN ×3 (20:15→23:00)
[2019-08-31] MEDS ORDERED: DIPHENHYDRAMINE 50MG/ML VIAL IV PRN ×3 (20:30→23:00)
[2019-08-31] MEDS ORDERED: ONDANSETRON HCL 4MG TABLET PO PRN (23:30)
[2019-08-31 23:53] VITALS: BP 174/109
[2019-09-01] VITALS: BP 170/99
[2019-09-01] MEDS ORDERED: DEXTROSE 50% WATER 50ML SYRINGE IV PRN (01:15)
[2019-09-01] MEDS ORDERED: HYDROCODONE/ACETAMINOPHEN 5/325MG TABLET PO PRN (01:15)
[2019-09-01 04:00] VITALS: BP 158/89
[2019-09-01] MEDS: HYDRALAZINE HCL 25MG TABLET PO SCH ×2 (06:17→13:37)
[2019-09-01] MEDS: BLOOD SUGAR DIAGNOSTIC STRIP TEST SCH ×3 (07:46→17:49)
[2019-09-01 08:00] VITALS: BP 146/91
[2019-09-01] MEDS ORDERED: NIFEDIPINE XL 30MG TAB PO SCH (09:00)
[2019-09-01] MEDS ORDERED: OLANZAPINE 5MG TABLET PO SCH (09:00)
[2019-09-01] MEDS ORDERED: AMLODIPINE 10MG TABLET PO SCH (09:00)
[2019-09-01] MEDS ORDERED: PANTOPRAZOLE 40MG DR TABLET PO SCH (09:00)
[2019-09-01] MEDS: INSULIN LISPRO 100 UNITS/ML SUBCUT SCH ×3 (09:06→18:08)
[2019-09-01 12:00] VITALS: BP 142/75
[2019-09-01 14:24] LABS: BASOPHILS % 1.3 % (0.0-2.0); EOSINOPHILS % 1.6 % (0.0-5.0); HEMATOCRIT. 24.3 % (36.0-48.0); HEMOGLOBIN. 7.9 g/dL (12.0-16.0); LYMPHOCYTES % 39.6 % (20.0-50.0); MEAN CORPUSCULAR HEMOGLOBIN 26.9 pg (28.0-32.0); MEAN CORPUSCULAR VOLUME 82.5 fL (81.0-99.0); MEAN PLATELET VOLUME 6.9 fl (7.4-10.4); MONOCYTES % 5.3 % (2.0-8.0); NEUTROPHILS % 52.2 % (40.0-76.0); PLATELET 635 x1000/uL (130-400); RED BLOOD CELL COUNT 2.94 mill/uL (4.2-5.4); RED CELL DISTRIBUTION WIDTH 16.1 % (11.6-14.6)
[2019-09-01 14:31] LABS: CHLORIDE 107 mEq/L (98-107)
[2019-09-01 16:00] VITALS: BP 136/62
[2019-09-01 18:23] LABS: BG BASE EXCESS 2.6 mmol/L (-2.0-2.0); BG CARBOXYHEMOGLOBIN 0.1 % (0.5-1.5); BG FRACTION INSPIRED OXYGEN 21; BG HCO3 ACT 28.5 mmol/L (22.0-26.0); BG OXYHEMOGLOBIN 95.9 % (94.0-97.0); BG PCO2 50.2 mmHg (35.0-45.0); BG PH 7.372 (7.350-7.450); BG PO2 85.7 mmHg (75.0-100.0); BG SAMPLE SITE RIGHT RADIAL; BG TOTAL HEMOGLOBIN 10.3 g/dL (12.0-18.0); BG VENT MODE ROOM AIR
[2019-09-01 19:40] VITALS: BP 136/62
[2019-09-12] MEDS ORDERED: ATOR20TA65 MT (12:25)
[2019-09-12] MEDS ORDERED: LANTUSUD SUBCUT (12:25)
[2019-09-12] MEDS ORDERED: SPIR25TA PO (12:25)
[2019-09-12] MEDS ORDERED: NIFE-33 PO (12:25)
[2019-09-12] MEDS ORDERED: LOSA50TA3 PO (12:25)
[2019-09-12] MEDS ORDERED: METO10TA3 MT (12:25)
[2019-09-12] MEDS ORDERED: OLAN10TA19 PO (12:25)
[2019-09-12] MEDS ORDERED: FAMO20TA8 PO (12:25)
[2019-09-19] MEDS ORDERED: FURO40TA5 MT (11:57)
[2019-09-19] MEDS ORDERED: NIFE-32 PO (11:57)
[2019-11-02] MEDS ORDERED: LANTUSUD SUBCUT (15:08)
[2019-11-02] MEDS ORDERED: METO-539 PO (15:08)
== END 2019-09-01 20:54 | disposition home or self-care (01) | DRG 199 ==
LOC: ER 23:35 → EDBEDREQ 08-31 10:30 → SUPCPDRO 08-31 20:26 → ENRESERV 08-31 20:45 → 7WST 08-31 22:27
PROVIDERS: ADMIT Internal Medicine; ATTEND Internal Medicine
DX: I16.0 Hypertensive urgency (principal); E11.22 Type 2 diabetes mellitus with diabetic chronic kidney disease; E11.649 Type 2 diabetes mellitus with hypoglycemia without coma; E11.65 Type 2 diabetes mellitus with hyperglycemia; D64.9 Anemia, unspecified; F17.290 Nicotine dependence, other tobacco product, uncomplicated; I12.9 Hypertensive chronic kidney disease with stage 1 through stage 4 chronic kidney disease, or unspecified chronic kidney disease; N18.9 Chronic kidney disease, unspecified; Z88.0 Allergy status to penicillin; Z88.2 Allergy status to sulfonamides; Z88.8 Allergy status to other drugs, medicaments and biological substances; Z79.01 Long term (current) use of anticoagulants; Z79.4 Long term (current) use of insulin; Z79.899 Other long term (current) drug therapy; Z76.5 Malingerer [conscious simulation]; Z91.19 Patient's noncompliance with other medical treatment and regimen
CPT/HCPCS: 36415; 36600; 80048; 80053; 80320; 82375; 82805; 82962; 85025; 96374; 96375; 96376; 99285; J0360; J1200; J1815; J2270; J2405; J3490; J7030; G0480

== ENCOUNTER 2019-09-29 09:29 | Inpatient (IN) | payer MEDICAID ==
[~2019-09-29] VITALS: Ht 154.9 cm; Wt 64.5 kg
[~2019-09-29 09:29] MED LIST changes: +FURO40TA5 MT; -HYDR-4009 MT; -HYDR12.529 PO; +NIFE-32 PO; -NIFE-33 PO; -OLAN15TA17 PO; +SPIR25TA PO
[2019-09-29] MEDS ORDERED: SODIUM CHLORIDE 0.9% 1,000 ML IV ONE ×2 (09:59→11:06)
[2019-09-29 10:31] LABS: CHLORIDE 107 mEq/L (98-107)
[2019-09-29 10:37] LABS: BASOPHILS % 0.2 % (0.0-2.0); EOSINOPHILS % 0.7 % (0.0-5.0); HEMATOCRIT. 25.1 % (36.0-48.0); HEMOGLOBIN. 8.3 g/dL (12.0-16.0); MEAN CORPUSCULAR HEMOGLOBIN 27.2 pg (28.0-32.0); MEAN CORPUSCULAR VOLUME 82.6 fL (81.0-99.0); MEAN PLATELET VOLUME 6.9 fl (7.4-10.4); MONOCYTES % 5.9 % (2.0-8.0); NEUTROPHILS % 77.2 % (40.0-76.0); PLATELET 510 x1000/uL (130-400); RED BLOOD CELL COUNT 3.04 mill/uL (4.2-5.4); RED CELL DISTRIBUTION WIDTH 17.7 % (11.6-14.6)
[2019-09-29 10:41] LABS: BETA HYDROXYBUTYRATE 0.1 mMol/L (0.0-0.3)
[2019-09-29 10:54] LABS: HCG SCREEN NEGATIVE
[2019-09-29] MEDS ORDERED: ONDANSETRON HCL 4MG/2ML INJ IV STA (11:06)
[2019-09-29] MEDS ORDERED: MORPHINE SULFATE 4 MG/ML CPJ (NOT FOR IM USE) IV STA (11:06)
[2019-09-29] MEDS ORDERED: HYDRALAZINE 20MG/ML VIAL IV ONE (11:15)
[2019-09-29 14:23] LABS: CLARITY URINE CLEAR (CLEAR); COLOR URINE YELLOW (YELLOW); KETONES URINE NEGATIVE (NEGATIVE); LEUKOCYTE ESTERASE URINE NEGATIVE (NEGATIVE); NITRITE URINE NEGATIVE (NEGATIVE); OCCULT BLOOD URINE 1+ (NEGATIVE); PROTEIN URINE 3+ (NEGATIVE); SPECIFIC GRAVITY URINE 1.015 (1.005-1.030); UROBILINOGEN URINE 0.2 E.U./dL (0.2-1.0)
[2019-09-29 18:00] VITALS: BP 189/119
[2019-09-29 18:25] VITALS: BP 189/119
[2019-09-29] MEDS: SODIUM CHLORIDE 0.45% 1,000 ML IV SCH (19:17)
[2019-09-29] MEDS ORDERED: IPRATROPIUM/ALBUTEROL 0.5-3(2.5)MG/3ML NEB NEB PRN (19:30)
[2019-09-29] MEDS ORDERED: DIPHENHYDRAMINE 50MG/ML VIAL IV PRN (19:30)
[2019-09-29] MEDS ORDERED: HYDROCODONE/ACETAMINOPHEN 10/325MG TABLET PO PRN (19:30)
[2019-09-29] MEDS ORDERED: ONDANSETRON HCL 4MG/2ML INJ IV PRN (19:30)
[2019-09-29] MEDS ORDERED: DEXTROSE 50% WATER 50ML SYRINGE IV PRN (19:30)
[2019-09-29] MEDS ORDERED: HYDRALAZINE 20MG/ML VIAL IV PRN (19:30)
[2019-09-29] MEDS ORDERED: DOCUSATE SODIUM 100MG CAPSULE PO PRN (19:30)
[2019-09-29] MEDS ORDERED: GUAIFENESIN 200MG/10ML SUGAR FREE UDC PO PRN (19:30)
[2019-09-29] MEDS ORDERED: ACETAMINOPHEN 325MG TABLET PO PRN (19:30)
[2019-09-29] MEDS ORDERED: MORPHINE SULFATE 2 MG/ML CPJ (NOT FOR IM USE) IV PRN (19:30)
[2019-09-29] MEDS ORDERED: LORAZEPAM 2MG/ML CPJ IV PRN (19:30)
[2019-09-29] MEDS ORDERED: ONDANSETRON HCL 4MG/2ML INJ IV NR (19:30)
[2019-09-29] MEDS ORDERED: MAGNESIUM/ALUMINUM HYDROXIDE/SIMETHICONE 30ML UDC PO PRN (19:30)
[2019-09-29 20:00] VITALS: BP 194/116
[2019-09-29] MEDS: CLONIDINE 0.1MG TABLET PO PRN (20:41)
[2019-09-29] MEDS: BLOOD SUGAR DIAGNOSTIC STRIP TEST SCH (21:30)
[2019-09-29] MEDS: ENOXAPARIN 40MG/0.4ML SYR SUBCUT SCH (21:36)
[2019-09-29] MEDS: INSULIN LISPRO 100 UNITS/ML SUBCUT SCH (21:54)
[2019-09-29 22:00] VITALS: BP 176/99
[2019-09-29] MEDS: SODIUM CHLORIDE 0.9% INJ 3ML FLUSH IVF SCH (22:00)
[2019-09-29] MEDS ORDERED: MAGNESIUM HYDROXIDE 400MG/5ML 30ML UDC PO PRN (22:45)
[2019-09-29] MEDS: BISACODYL 10MG SUPP PR NR (22:45)
[2019-09-30] VITALS (12 sets, daily range): BP systolic 101–150; BP diastolic 56–95
[2019-09-30] MEDS: BISACODYL 10MG SUPP PR NR (00:38)
[2019-09-30] MEDS: MORPHINE SULFATE 2 MG/ML CPJ (NOT FOR IM USE) IV PRN ×4 (04:35→23:04)
[2019-09-30] MEDS: BLOOD SUGAR DIAGNOSTIC STRIP TEST SCH ×5 (06:10→20:36)
[2019-09-30 06:30] LABS: CHLORIDE 102 mEq/L (98-107)
[2019-09-30 06:39] LABS: CREATINE KINASE 101 IU/L (26-192)
[2019-09-30 06:42] LABS: CREATINE KINASE MB FRACTION 3.8 ng/mL (0.5-3.6)
[2019-09-30 07:09] LABS: BASOPHILS % 0.4 % (0.0-2.0); EOSINOPHILS % 0.2 % (0.0-5.0); HEMATOCRIT. 25.8 % (36.0-48.0); HEMOGLOBIN. 8.1 g/dL (12.0-16.0); MEAN CORPUSCULAR VOLUME 85.6 fL (81.0-99.0); MEAN PLATELET VOLUME 7.6 fl (7.4-10.4); MONOCYTES % 6.3 % (2.0-8.0); NEUTROPHILS % 76.1 % (40.0-76.0); PLATELET 535 x1000/uL (130-400); RED BLOOD CELL COUNT 3.01 mill/uL (4.2-5.4); RED CELL DISTRIBUTION WIDTH 18.1 % (11.6-14.6)
[2019-09-30] MEDS: SODIUM CHLORIDE 0.9% INJ 3ML FLUSH IVF SCH ×3 (07:16→22:09)
[2019-09-30] MEDS: INSULIN LISPRO 100 UNITS/ML SUBCUT SCH ×5 (07:19→22:08)
[2019-09-30] MEDS ORDERED: DEXTROSE 50% WATER 50ML SYRINGE IV PRN (07:45)
[2019-09-30] MEDS ORDERED: SODIUM POLYSTYRENE SULFONATE 15 G/60 ML BOT PO NR (08:00)
[2019-09-30] MEDS: SODIUM CHLORIDE 0.45% 1,000 ML IV SCH ×2 (10:36→21:57)
[2019-09-30] MEDS: DOCUSATE SODIUM 250MG CAPSULE PO SCH (18:35)
[2019-09-30] MEDS: METOCLOPRAMIDE HCL 10MG/2ML VIAL IV SCH ×2 (18:35→23:52)
[2019-09-30] MEDS ORDERED: MINERAL OIL ENEMA 133ML PR NR (20:00)
[2019-09-30] MEDS: HYDROCORTISONE ACETATE 25MG SUPP PR SCH (21:00)
[2019-09-30] MEDS ORDERED: INSULIN LISPRO 100 UNITS/ML SUBCUT NR (22:00)
[2019-09-30] MEDS: ENOXAPARIN 40MG/0.4ML SYR SUBCUT SCH (22:05)
[2019-09-30] MEDS: OMEPRAZOLE 20MG CAPSULE EXTENDED RELEASE PO SCH (22:06)
[2019-10-01] VITALS (11 sets, daily range): BP systolic 109–237; BP diastolic 53–100
[2019-10-01] MEDS: METOCLOPRAMIDE HCL 10MG/2ML VIAL IV SCH ×3 (05:43→17:18)
[2019-10-01] MEDS: SODIUM CHLORIDE 0.9% INJ 3ML FLUSH IVF SCH ×3 (05:44→21:08)
[2019-10-01] MEDS: OMEPRAZOLE 20MG CAPSULE EXTENDED RELEASE PO SCH ×2 (06:22→20:41)
[2019-10-01] MEDS: BLOOD SUGAR DIAGNOSTIC STRIP TEST SCH ×4 (06:32→20:42)
[2019-10-01] MEDS: INSULIN LISPRO 100 UNITS/ML SUBCUT SCH ×4 (07:24→21:19)
[2019-10-01] MEDS ORDERED: BISACODYL 5MG TABLET PO PRN (08:00)
[2019-10-01] MEDS: HYDROCORTISONE ACETATE 25MG SUPP PR SCH ×3 (08:54→21:00)
[2019-10-01] MEDS: DOCUSATE SODIUM 250MG CAPSULE PO SCH ×2 (08:54→17:08)
[2019-10-01] MEDS: INSULIN GLARGINE UD 100 UNITS/ML SYR SUBCUT SCH (10:28)
[2019-10-01] MEDS: SODIUM CHLORIDE 0.45% 1,000 ML IV SCH (11:17)
[2019-10-01] MEDS: MORPHINE SULFATE 2 MG/ML CPJ (NOT FOR IM USE) IV PRN (17:08)
[2019-10-01 17:40] LABS: BASOPHILS % 0.5 % (0.0-2.0); EOSINOPHILS % 2.7 % (0.0-5.0); HEMATOCRIT. 22.9 % (36.0-48.0); HEMOGLOBIN. 7.5 g/dL (12.0-16.0); LYMPHOCYTES % 26.1 % (20.0-50.0); MEAN CORPUSCULAR VOLUME 82.1 fL (81.0-99.0); MEAN PLATELET VOLUME 7.1 fl (7.4-10.4); MONOCYTES % 7.1 % (2.0-8.0); NEUTROPHILS % 63.6 % (40.0-76.0); PLATELET 486 x1000/uL (130-400); RED BLOOD CELL COUNT 2.79 mill/uL (4.2-5.4); RED CELL DISTRIBUTION WIDTH 17.6 % (11.6-14.6)
[2019-10-01 17:48] LABS: CHLORIDE 102 mEq/L (98-107)
[2019-10-01 17:56] LABS: CREATINE KINASE 95 IU/L (26-192)
[2019-10-01 17:58] LABS: CREATINE KINASE MB FRACTION 3.7 ng/mL (0.5-3.6)
[2019-10-01] MEDS: ENOXAPARIN 40MG/0.4ML SYR SUBCUT SCH (20:41)
[2019-10-02] VITALS (10 sets, daily range): BP systolic 126–177; BP diastolic 88–104
[2019-10-02] MEDS: SODIUM CHLORIDE 0.45% 1,000 ML IV SCH ×2 (00:10→13:53)
[2019-10-02] MEDS: METOCLOPRAMIDE HCL 10MG/2ML VIAL IV SCH ×3 (00:10→11:59)
[2019-10-02] MEDS: MORPHINE SULFATE 2 MG/ML CPJ (NOT FOR IM USE) IV PRN ×3 (01:00→13:45)
[2019-10-02] MEDS: SODIUM CHLORIDE 0.9% INJ 3ML FLUSH IVF SCH ×2 (05:11→12:00)
[2019-10-02] MEDS: OMEPRAZOLE 20MG CAPSULE EXTENDED RELEASE PO SCH (05:50)
[2019-10-02] MEDS: BLOOD SUGAR DIAGNOSTIC STRIP TEST SCH ×2 (05:51→11:58)
[2019-10-02] MEDS: INSULIN LISPRO 100 UNITS/ML SUBCUT SCH ×2 (06:00→12:52)
[2019-10-02] MEDS: HYDROCORTISONE ACETATE 25MG SUPP PR SCH (09:00)
[2019-10-02] MEDS: DOCUSATE SODIUM 250MG CAPSULE PO SCH (09:01)
[2019-10-02 09:39] LABS: EOSINOPHILS % 1.9 % (0.0-5.0); HEMATOCRIT. 29.1 % (36.0-48.0); HEMOGLOBIN. 9.4 g/dL (12.0-16.0); MEAN CORPUSCULAR HEMOGLOBIN 26.7 pg (28.0-32.0); MEAN PLATELET VOLUME 7.2 fl (7.4-10.4); MONOCYTES % 8.2 % (2.0-8.0); NEUTROPHILS % 57.9 % (40.0-76.0); PLATELET 538 x1000/uL (130-400); RED BLOOD CELL COUNT 3.51 mill/uL (4.2-5.4); RED CELL DISTRIBUTION WIDTH 17.8 % (11.6-14.6)
[2019-10-02 09:52] LABS: CHLORIDE 103 mEq/L (98-107)
[2019-10-02] MEDS: INSULIN GLARGINE UD 100 UNITS/ML SYR SUBCUT SCH (10:05)
[2019-10-02] MEDS ORDERED: LOSARTAN POTASSIUM 50 MG TABLET PO SCH (12:45)
[2019-10-02] MEDS: CLONIDINE 0.1MG TABLET PO PRN (12:50)
== END 2019-10-02 15:18 | disposition home or self-care (01) | DRG 247 ==
LOC: ER 09:40 → 6WST 14:26 → EDBEDREQ 14:28 → ENRESERV 14:50 → 3WST 17:05
PROVIDERS: ADMIT Internal Medicine; ATTEND Internal Medicine
DX: K56.41 Fecal impaction (principal); E11.22 Type 2 diabetes mellitus with diabetic chronic kidney disease; K31.84 Gastroparesis; E11.43 Type 2 diabetes mellitus with diabetic autonomic (poly)neuropathy; E44.1 Mild protein-calorie malnutrition; D64.9 Anemia, unspecified; I12.9 Hypertensive chronic kidney disease with stage 1 through stage 4 chronic kidney disease, or unspecified chronic kidney disease; Z79.4 Long term (current) use of insulin; Z79.899 Other long term (current) drug therapy; Z88.0 Allergy status to penicillin; Z88.2 Allergy status to sulfonamides; Z88.8 Allergy status to other drugs, medicaments and biological substances; Z87.19 Personal history of other diseases of the digestive system; N18.3 Chronic kidney disease, stage 3 (moderate)
CPT/HCPCS: 36415; 71045; 74018; 74176; 80048; 80053; 81003; 82010; 82550; 82553; 82962; 84484; 84703; 85025; 93005; 99285; C1893; J0360; J1650; J1815; J2060; J2270; J2405; J2765; J7030

== ENCOUNTER 2019-10-07 20:06 | Inpatient (IN) | payer SELFPAY ==
[~2019-10-07] VITALS: Ht 162.6 cm; Wt 63.5 kg
[2019-10-07] MEDS ORDERED: ONDANSETRON HCL 4MG/2ML INJ IV ONE (21:45)
[2019-10-07] MEDS ORDERED: KETOROLAC 30MG/ML VIAL IV ONE (21:45)
[2019-10-07] MEDS ORDERED: SODIUM CHLORIDE 0.9% 1,000 ML IV ONE (22:07)
[2019-10-07] MEDS ORDERED: CLONIDINE 0.2MG TABLET PO ONE (22:45)
[2019-10-07 22:48] LABS: BASOPHILS % 0.7 % (0.0-2.0); EOSINOPHILS % 1.9 % (0.0-5.0); HEMATOCRIT. 32.2 % (36.0-48.0); HEMOGLOBIN. 10.2 g/dL (12.0-16.0); LYMPHOCYTES % 42.6 % (20.0-50.0); MEAN CORPUSCULAR HEMOGLOBIN 26.4 pg (28.0-32.0); MEAN PLATELET VOLUME 6.9 fl (7.4-10.4); MONOCYTES % 2.9 % (2.0-8.0); NEUTROPHILS % 51.9 % (40.0-76.0); PLATELET 718 x1000/uL (130-400); RED BLOOD CELL COUNT 3.88 mill/uL (4.2-5.4); RED CELL DISTRIBUTION WIDTH 18.4 % (11.6-14.6)
[2019-10-07 22:54] LABS: CHLORIDE 109 mEq/L (98-107)
[2019-10-07] MEDS ORDERED: DEXTROSE 50% WATER 50ML SYRINGE IV NR (23:15)
[2019-10-08] MEDS ORDERED: ASPIRIN 81MG TABLET PO ONE
[2019-10-08] MEDS ORDERED: KETOROLAC 30MG/ML VIAL IV NR (00:45)
[2019-10-08] MEDS ORDERED: HYDRALAZINE 20MG/ML VIAL IV ONE (01:30)
[2019-10-08] MEDS ORDERED: HYDROCODONE/ACETAMINOPHEN 5/325MG TABLET PO PRN (09:00)
[2019-10-08] MEDS ORDERED: NA PHOS,M-B/NA PHOS,DI-BA ENEMA 118ML PR PRN (09:00)
[2019-10-08] MEDS ORDERED: DIPHENHYDRAMINE 50MG/ML VIAL IV PRN (09:00)
[2019-10-08] MEDS ORDERED: ACETAMINOPHEN 650MG SUPP PR PRN (09:00)
[2019-10-08] MEDS ORDERED: ACETAMINOPHEN 325MG TABLET PO PRN (09:00)
[2019-10-08] MEDS ORDERED: ACETAMINOPHEN 650MG/20.3ML UDC GT PRN (09:00)
[2019-10-08] MEDS ORDERED: MAGNESIUM/ALUMINUM HYDROXIDE/SIMETHICONE 30ML UDC PO PRN (09:00)
[2019-10-08] MEDS ORDERED: AMLODIPINE 10MG TABLET PO SCH (10:00)
[2019-10-08 10:25] LABS: T4 FREE 0.94 ng/dL (0.76-1.46)
[2019-10-08 11:58] LABS: BASOPHILS % 0.9 % (0.0-2.0); EOSINOPHILS % 2.5 % (0.0-5.0); HEMATOCRIT. 21.9 % (36.0-48.0); HEMOGLOBIN. 7.4 g/dL (12.0-16.0); MEAN CORPUSCULAR HEMOGLOBIN 27.9 pg (28.0-32.0); MEAN CORPUSCULAR VOLUME 82.6 fL (81.0-99.0); MEAN PLATELET VOLUME 6.9 fl (7.4-10.4); NEUTROPHILS % 47.6 % (40.0-76.0); PLATELET 492 x1000/uL (130-400); RED BLOOD CELL COUNT 2.66 mill/uL (4.2-5.4); RED CELL DISTRIBUTION WIDTH 18.2 % (11.6-14.6)
[2019-10-08 12:03] LABS: CHLORIDE 111 mEq/L (98-107)
[2019-10-08 14:57] LABS: CREATINE KINASE 296 IU/L (26-192)
[2019-10-08 14:58] LABS: CREATINE KINASE MB FRACTION 4.3 ng/mL (0.5-3.6)
[2019-10-08 16:10] VITALS: BP 177/110
[2019-10-08 17:00] VITALS: BP 177/110
[2019-10-08] MEDS ORDERED: DEXTROSE 50% WATER 50ML SYRINGE IV PRN (17:00)
[2019-10-08] MEDS: CLONIDINE 0.1MG TABLET PO PRN (17:02)
[2019-10-08 18:02] VITALS: BP 165/90
[2019-10-08] MEDS: BLOOD SUGAR DIAGNOSTIC STRIP TEST SCH ×2 (18:14→21:56)
[2019-10-08] MEDS: DIPHENHYDRAMINE 50MG/ML VIAL IV PRN ×2 (18:15→21:34)
[2019-10-08] MEDS: INSULIN LISPRO 100 UNITS/ML SUBCUT SCH ×2 (18:19→21:56)
[2019-10-08 20:00] VITALS: BP 151/82
[2019-10-08 21:50] VITALS: BP 145/80
[2019-10-08] MEDS ORDERED: MORPHINE SULFATE 2 MG/ML CPJ (NOT FOR IM USE) IV NR (22:30)
[2019-10-08] MEDS: INSULIN GLARGINE UD 100 UNITS/ML SYR SUBCUT SCH (23:43)
[2019-10-09] VITALS (11 sets, daily range): BP systolic 139–172; BP diastolic 86–113
[2019-10-09 00:45] LABS: CREATINE KINASE 341 IU/L (26-192)
[2019-10-09 00:46] LABS: CREATINE KINASE MB FRACTION 6.6 ng/mL (0.5-3.6)
[2019-10-09] MEDS: DIPHENHYDRAMINE 50MG/ML VIAL IV PRN ×5 (01:58→22:57)
[2019-10-09] MEDS: HYDROCODONE/ACETAMINOPHEN 10/325MG TABLET PO PRN ×3 (01:58→14:09)
[2019-10-09] MEDS: BLOOD SUGAR DIAGNOSTIC STRIP TEST SCH ×4 (07:20→21:00)
[2019-10-09] MEDS: INSULIN LISPRO 100 UNITS/ML SUBCUT SCH ×4 (07:50→21:00)
[2019-10-09] MEDS: SPIRONOLACTONE 25MG TABLET PO SCH (08:24)
[2019-10-09] MEDS: LOSARTAN POTASSIUM 50 MG TABLET PO SCH (08:24)
[2019-10-09] MEDS: CLONIDINE 0.1MG TABLET PO PRN (08:24)
[2019-10-09] MEDS: INSULIN GLARGINE UD 100 UNITS/ML SYR SUBCUT SCH ×2 (09:00→22:00)
[2019-10-09] MEDS ORDERED: SODIUM BICARBONATE 4% (2.4MEQ) 5ML VIAL IV ONE (12:15)
[2019-10-09] MEDS ORDERED: LIDOCAINE HCL 1% 20ML VIAL (Pyxis) INJ ONE (12:15)
[2019-10-09] MEDS ORDERED: BISACODYL 5MG TABLET PO PRN (15:15)
[2019-10-09] MEDS: METOCLOPRAMIDE HCL 10MG/2ML VIAL IV SCH ×2 (17:03→23:51)
[2019-10-09] MEDS: MORPHINE SULFATE 2 MG/ML CPJ (NOT FOR IM USE) IV PRN ×2 (18:24→22:57)
[2019-10-10] VITALS: BP 156/92
[2019-10-10 00:06] LABS: HEMATOCRIT 30.2 % (36.0-48.0); HEMOGLOBIN 9.9 g/dL (12.0-16.0)
[2019-10-10 00:13] LABS: PROTHROMBIN TIME 10.2 sec (9.6-11.0)
[2019-10-10 04:00] VITALS: BP 146/94
[2019-10-10] MEDS: METOCLOPRAMIDE HCL 10MG/2ML VIAL IV SCH ×2 (06:20→12:30)
[2019-10-10] MEDS: BLOOD SUGAR DIAGNOSTIC STRIP TEST SCH ×2 (06:32→12:07)
[2019-10-10] MEDS: INSULIN LISPRO 100 UNITS/ML SUBCUT SCH ×2 (07:50→12:28)
[2019-10-10 08:00] VITALS: BP 156/101
[2019-10-10] MEDS: LOSARTAN POTASSIUM 50 MG TABLET PO SCH (08:27)
[2019-10-10] MEDS: MORPHINE SULFATE 2 MG/ML CPJ (NOT FOR IM USE) IV PRN ×2 (08:27→12:39)
[2019-10-10] MEDS: SPIRONOLACTONE 25MG TABLET PO SCH (08:27)
[2019-10-10] MEDS: DIPHENHYDRAMINE 50MG/ML VIAL IV PRN ×2 (08:27→12:38)
[2019-10-10] MEDS: INSULIN GLARGINE UD 100 UNITS/ML SYR SUBCUT SCH (11:13)
[2019-10-10 12:00] VITALS: BP 175/109
[2019-10-10 14:46] VITALS: BP 175/109
== END 2019-10-10 15:45 | disposition home or self-care (01) | DRG 199 ==
LOC: ER 20:06 → 6WST 10-08 01:36 → ENRESERV 10-08 15:13
PROVIDERS: ADMIT Family Medicine; ATTEND Family Medicine
PROC: 30233N1 Transfusion of Nonautologous Red Blood Cells into Peripheral Vein, Percutaneous Approach (ICD-10-PCS; principal; 2019-10-09)
PROC: 02HV33Z Insertion of Infusion Device into Superior Vena Cava, Percutaneous Approach (ICD-10-PCS; 2019-10-09)
PROC: B518ZZA Fluoroscopy of Superior Vena Cava, Guidance (ICD-10-PCS; 2019-10-09)
PROC: B548ZZA Ultrasonography of Superior Vena Cava, Guidance (ICD-10-PCS; 2019-10-09)
DX: I16.1 Hypertensive emergency (principal); E11.22 Type 2 diabetes mellitus with diabetic chronic kidney disease; K31.84 Gastroparesis; E11.43 Type 2 diabetes mellitus with diabetic autonomic (poly)neuropathy; Z76.5 Malingerer [conscious simulation]; E66.9 Obesity, unspecified; E78.5 Hyperlipidemia, unspecified; D64.9 Anemia, unspecified; F17.200 Nicotine dependence, unspecified, uncomplicated; N18.9 Chronic kidney disease, unspecified; I12.9 Hypertensive chronic kidney disease with stage 1 through stage 4 chronic kidney disease, or unspecified chronic kidney disease; Z88.9 Allergy status to unspecified drugs, medicaments and biological substances; Z68.24 Body mass index [BMI] 24.0-24.9, adult; Z88.8 Allergy status to other drugs, medicaments and biological substances; Z88.2 Allergy status to sulfonamides; Z88.0 Allergy status to penicillin
CPT/HCPCS: 36415; 36573; 71045; 71100; 74018; 76937; 80053; 80061; 82550; 82553; 82962; 83036; 83880; 84439; 84443; 84484; 85014; 85018; 85025; 85049; 85379; 85384; 86850; 86900; 86920; 93005; 93306; 99291; C1725; J0360; J1200; J1815; J1885; J2270; J2405; J2765; J3490; P9016

== ENCOUNTER 2019-10-13 19:23 | Inpatient (IN) | payer SELFPAY ==
[~2019-10-13] VITALS: Ht 162.6 cm; Wt 67.8 kg
[2019-10-13] MEDS ORDERED: GLUCAGON,HUMAN RECOMBINANT 1MG/VIAL ONE (21:36)
[2019-10-13] MEDS ORDERED: DIPHENHYDRAMINE 50MG/ML VIAL IV ONE (21:45)
[2019-10-13] MEDS ORDERED: MORPHINE SULFATE 2 MG/ML CPJ (NOT FOR IM USE) IV ONE (21:45)
[2019-10-13] MEDS ORDERED: LABETALOL 5MG/ML SYR 20 MG/4 ML SYRINGE IV ONE (21:45)
[2019-10-13] MEDS ORDERED: ONDANSETRON HCL 4MG/2ML INJ IV ONE (21:45)
[2019-10-13] MEDS ORDERED: GLUCAGON,HUMAN RECOMBINANT 1MG/VIAL IM ONE (22:15)
[2019-10-13 22:58] LABS: BASOPHILS % 0.8 % (0.0-2.0); EOSINOPHILS % 1.2 % (0.0-5.0); HEMATOCRIT. 28.8 % (36.0-48.0); HEMOGLOBIN. 9.8 g/dL (12.0-16.0); LYMPHOCYTES % 19.8 % (20.0-50.0); MEAN CORPUSCULAR HEMOGLOBIN 28.9 pg (28.0-32.0); MEAN CORPUSCULAR VOLUME 84.8 fL (81.0-99.0); MEAN PLATELET VOLUME 6.8 fl (7.4-10.4); MONOCYTES % 3.7 % (2.0-8.0); NEUTROPHILS % 74.5 % (40.0-76.0); PLATELET 486 x1000/uL (130-400); RED BLOOD CELL COUNT 3.39 mill/uL (4.2-5.4); RED CELL DISTRIBUTION WIDTH 18.6 % (11.6-14.6)
[2019-10-13 23:05] LABS: CHLORIDE 112 mEq/L (98-107)
[2019-10-13 23:43] LABS: CLARITY URINE CLOUDY (CLEAR); COLOR URINE YELLOW (YELLOW); KETONES URINE NEGATIVE (NEGATIVE); LEUKOCYTE ESTERASE URINE TRACE (NEGATIVE); NITRITE URINE NEGATIVE (NEGATIVE); OCCULT BLOOD URINE 2+ (NEGATIVE); PH URINE 6.5 (4.5-8.0); PROTEIN URINE 4+ (NEGATIVE); SPECIFIC GRAVITY URINE 1.021 (1.005-1.030); UROBILINOGEN URINE 0.2 E.U./dL (0.2-1.0)
[2019-10-14] MEDS ORDERED: DEXTROSE 50% WATER 50ML SYRINGE IV PRN (01:00)
[2019-10-14] MEDS ORDERED: ONDANSETRON HCL 4MG/2ML INJ IV PRN (01:00)
[2019-10-14] MEDS ORDERED: LORAZEPAM 2MG/ML CPJ IV PRN (01:00)
[2019-10-14] MEDS ORDERED: ACETAMINOPHEN 325MG TABLET PO PRN (01:00)
[2019-10-14] MEDS: SODIUM CHLORIDE 0.9% 1,000 ML IV SCH ×3 (01:39→22:00)
[2019-10-14] MEDS: PANTOPRAZOLE SODIUM 40 MG/VIAL IV SCH ×2 (01:39→21:56)
[2019-10-14] MEDS: MORPHINE SULFATE 2 MG/ML CPJ (NOT FOR IM USE) IV PRN ×5 (01:40→21:57)
[2019-10-14] MEDS: DIPHENHYDRAMINE 50MG/ML VIAL IV PRN ×5 (01:40→22:57)
[2019-10-14] MEDS ORDERED: LEVOFLOXACIN 500MG PREMIX 100 ML IV SCH (02:00)
[2019-10-14] MEDS: BLOOD SUGAR DIAGNOSTIC STRIP TEST SCH ×4 (07:43→21:09)
[2019-10-14] MEDS: INSULIN LISPRO 100 UNITS/ML SUBCUT SCH ×4 (07:43→21:00)
[2019-10-14 08:20] VITALS: BP 157/106
[2019-10-14] MEDS: METOCLOPRAMIDE HCL 10MG/2ML VIAL IV SCH ×3 (09:39→17:30)
[2019-10-14] MEDS: ENOXAPARIN 40MG/0.4ML SYR SUBCUT SCH (09:40)
[2019-10-14] MEDS: CLONIDINE 0.1MG TABLET PO PRN ×2 (09:41→17:36)
[2019-10-14 10:00] VITALS: BP 157/106
[2019-10-14 12:00] VITALS: BP 146/92
[2019-10-14 16:00] VITALS: BP 160/90
[2019-10-14 20:00] VITALS: BP 157/101
[2019-10-15] VITALS (7 sets, daily range): BP systolic 109–178; BP diastolic 70–110
[2019-10-15] MEDS: METOCLOPRAMIDE HCL 10MG/2ML VIAL IV SCH ×5 (01:22→23:18)
[2019-10-15] MEDS: MORPHINE SULFATE 2 MG/ML CPJ (NOT FOR IM USE) IV PRN ×5 (02:44→22:21)
[2019-10-15] MEDS: HYDRALAZINE 20MG/ML VIAL IV PRN ×2 (02:46→21:31)
[2019-10-15] MEDS ORDERED: LEVOFLOXACIN 500MG PREMIX 100 ML IV SCH (03:00)
[2019-10-15] MEDS: DIPHENHYDRAMINE 50MG/ML VIAL IV PRN ×4 (03:38→21:14)
[2019-10-15] MEDS: BLOOD SUGAR DIAGNOSTIC STRIP TEST SCH ×4 (05:52→21:14)
[2019-10-15] MEDS: INSULIN LISPRO 100 UNITS/ML SUBCUT SCH ×4 (07:06→21:20)
[2019-10-15] MEDS: PANTOPRAZOLE SODIUM 40 MG/VIAL IV SCH (09:02)
[2019-10-15] MEDS: ENOXAPARIN 40MG/0.4ML SYR SUBCUT SCH (09:03)
[2019-10-15] MEDS: SODIUM CHLORIDE 0.9% 1,000 ML IV SCH (09:03)
[2019-10-15] MEDS: CLONIDINE 0.1MG TABLET PO PRN (12:37)
[2019-10-15 16:19] LABS: HEMATOCRIT. 25.9 % (36.0-48.0); HEMOGLOBIN. 8.6 g/dL (12.0-16.0); LYMPHOCYTES % 32.1 % (20.0-50.0); MEAN CORPUSCULAR HEMOGLOBIN 28.1 pg (28.0-32.0); MEAN CORPUSCULAR VOLUME 84.8 fL (81.0-99.0); MEAN PLATELET VOLUME 7.1 fl (7.4-10.4); MONOCYTES % 6.6 % (2.0-8.0); NEUTROPHILS % 58.3 % (40.0-76.0); PLATELET 372 x1000/uL (130-400); RED BLOOD CELL COUNT 3.06 mill/uL (4.2-5.4); RED CELL DISTRIBUTION WIDTH 18.3 % (11.6-14.6)
[2019-10-15 17:07] LABS: PHOSPHORUS 3.6 mg/dL (2.5-4.9)
[2019-10-15] MEDS ORDERED: NAPROXEN 250MG TABLET PO PRN (17:15)
[2019-10-15] MEDS ORDERED: ALPRAZOLAM 0.5 MG TABLET PO PRN (17:15)
[2019-10-15] MEDS ORDERED: MICONAZOLE NITRATE 100MG VAG SUPP VG SCH (21:00)
[2019-10-15] MEDS ORDERED: OLANZAPINE 10MG TABLET PO SCH (21:00)
[2019-10-15] MEDS ORDERED: AMITRIPTYLINE 10MG TABLET PO SCH (21:00)
[2019-10-16] VITALS: BP 129/79
[2019-10-16] MEDS: DIPHENHYDRAMINE 50MG/ML VIAL IV PRN ×3 (02:03→15:20)
[2019-10-16 04:00] VITALS: BP 108/56
[2019-10-16] MEDS: BLOOD SUGAR DIAGNOSTIC STRIP TEST SCH ×3 (05:55→17:03)
[2019-10-16] MEDS: METOCLOPRAMIDE HCL 10MG/2ML VIAL IV SCH ×2 (06:27→12:46)
[2019-10-16] MEDS: INSULIN LISPRO 100 UNITS/ML SUBCUT SCH ×3 (06:32→17:03)
[2019-10-16] MEDS ORDERED: OMEPRAZOLE 20MG CAPSULE EXTENDED RELEASE PO SCH (06:45)
[2019-10-16 08:00] VITALS: BP 152/109
[2019-10-16] MEDS: LOSARTAN POTASSIUM 50 MG TABLET PO SCH ×2 (08:58→17:02)
[2019-10-16] MEDS: ENOXAPARIN 40MG/0.4ML SYR SUBCUT SCH (08:58)
[2019-10-16] MEDS: MORPHINE SULFATE 2 MG/ML CPJ (NOT FOR IM USE) IV PRN ×2 (08:59→14:44)
[2019-10-16] MEDS ORDERED: FAMOTIDINE 20MG TABLET PO SCH (09:00)
[2019-10-16 12:55] VITALS: BP 160/88
[2019-10-16] MEDS: CLONIDINE 0.1MG TABLET PO PRN (14:44)
[2019-10-16 15:35] VITALS: BP 158/88
== END 2019-10-16 18:30 | disposition home or self-care (01) | DRG 48 ==
LOC: ER 19:23 → EDBEDREQTM 23:31 → EDBEDREQ 23:31 → ENRESERV 10-14 07:30 → 5WST 10-14 08:36
PROVIDERS: ADMIT Internal Medicine; ATTEND Internal Medicine
DX: E11.43 Type 2 diabetes mellitus with diabetic autonomic (poly)neuropathy (principal); E43 Unspecified severe protein-calorie malnutrition; G93.41 Metabolic encephalopathy; E11.22 Type 2 diabetes mellitus with diabetic chronic kidney disease; E11.649 Type 2 diabetes mellitus with hypoglycemia without coma; K31.84 Gastroparesis; F41.1 Generalized anxiety disorder; I12.9 Hypertensive chronic kidney disease with stage 1 through stage 4 chronic kidney disease, or unspecified chronic kidney disease; N12 Tubulo-interstitial nephritis, not specified as acute or chronic; N18.9 Chronic kidney disease, unspecified; Z86.74 Personal history of sudden cardiac arrest; Z68.25 Body mass index [BMI] 25.0-25.9, adult; Z83.3 Family history of diabetes mellitus; Z87.81 Personal history of (healed) traumatic fracture; Z88.2 Allergy status to sulfonamides; Z88.6 Allergy status to analgesic agent; Z88.0 Allergy status to penicillin; Z88.8 Allergy status to other drugs, medicaments and biological substances; Z79.899 Other long term (current) drug therapy
CPT/HCPCS: 36415; 71045; 76700; 80048; 80053; 81003; 82962; 83735; 83880; 84100; 84484; 85025; 93005; 96365; 99291; C9113; J0360; J1200; J1610; J1650; J1815; J1956; J2270; J2405; J2765; J3490

== ENCOUNTER 2019-10-20 16:52 | Inpatient (IN) | payer SELFPAY ==
[~2019-10-20] VITALS: Ht 165.1 cm; Wt 71.7 kg
[2019-10-20] MEDS ORDERED: MORPHINE SULFATE 4 MG/ML CPJ (NOT FOR IM USE) IV STA (19:50)
[2019-10-20] MEDS ORDERED: ONDANSETRON HCL 4MG/2ML INJ IV STA (19:50)
[2019-10-20] MEDS ORDERED: SODIUM CHLORIDE 0.9% 1,000 ML IV ONE (19:50)
[2019-10-20] MEDS ORDERED: METOCLOPRAMIDE HCL 10MG/2ML VIAL IV ONE (20:00)
[2019-10-20] MEDS ORDERED: DIPHENHYDRAMINE 25MG CAPSULE PO ONE (20:45)
[2019-10-20 21:12] LABS: BASOPHILS % 1.2 % (0.0-2.0); EOSINOPHILS % 0.3 % (0.0-5.0); HEMOGLOBIN. 9.6 g/dL (12.0-16.0); LYMPHOCYTES % 20.3 % (20.0-50.0); MEAN CORPUSCULAR HEMOGLOBIN 28.4 pg (28.0-32.0); MEAN CORPUSCULAR VOLUME 86.3 fL (81.0-99.0); MEAN PLATELET VOLUME 7.9 fl (7.4-10.4); MONOCYTES % 7.7 % (2.0-8.0); NEUTROPHILS % 70.5 % (40.0-76.0); PLATELET 463 x1000/uL (130-400); RED BLOOD CELL COUNT 3.36 mill/uL (4.2-5.4); RED CELL DISTRIBUTION WIDTH 18.1 % (11.6-14.6)
[2019-10-20 21:20] LABS: CHLORIDE 96 mEq/L (98-107)
[2019-10-20] MEDS ORDERED: INSULIN REGULAR (HUMULIN R) 300UNITS/3ML SUBCUT NR (21:30)
[2019-10-20 22:46] LABS: CLARITY URINE CLEAR (CLEAR); COLOR URINE YELLOW (YELLOW); KETONES URINE 1+ (NEGATIVE); LEUKOCYTE ESTERASE URINE NEGATIVE (NEGATIVE); NITRITE URINE NEGATIVE (NEGATIVE); OCCULT BLOOD URINE 2+ (NEGATIVE); PH URINE 5.5 (4.5-8.0); PROTEIN URINE 3+ (NEGATIVE); SPECIFIC GRAVITY URINE 1.023 (1.005-1.030); UROBILINOGEN URINE 0.2 E.U./dL (0.2-1.0)
[2019-10-20] MEDS ORDERED: LORAZEPAM 0.5MG TABLET PO PRN (23:00)
[2019-10-20] MEDS ORDERED: MAGNESIUM/ALUMINUM HYDROXIDE/SIMETHICONE 30ML UDC PO PRN (23:00)
[2019-10-20] MEDS ORDERED: DOCUSATE SODIUM 100MG CAPSULE PO PRN (23:00)
[2019-10-20] MEDS ORDERED: NITROGLYCERIN 0.4MG TABLET SL SL PRN (23:00)
[2019-10-20] MEDS ORDERED: CLONIDINE 0.1MG TABLET PO PRN (23:00)
[2019-10-20] MEDS ORDERED: IPRATROPIUM/ALBUTEROL 0.5-3(2.5)MG/3ML NEB NEB PRN (23:00)
[2019-10-20] MEDS ORDERED: GUAIFENESIN 200MG/10ML SUGAR FREE UDC PO PRN (23:00)
[2019-10-20] MEDS ORDERED: ONDANSETRON HCL 4MG/2ML INJ IV PRN (23:00)
[2019-10-20] MEDS ORDERED: DEXTROSE 50% WATER 50ML SYRINGE IV PRN (23:00)
[2019-10-21] MEDS: ACETAMINOPHEN 325MG TABLET PO PRN ×2 (00:25→14:26)
[2019-10-21] MEDS ORDERED: SODIUM POLYSTYRENE SULFONATE 15 G/60 ML BOT PO NR (03:00)
[2019-10-21] MEDS ORDERED: SODIUM CHLORIDE 0.9% 1,000 ML IV SCH (07:00)
[2019-10-21 07:53] VITALS: BP 134/94
[2019-10-21 08:00] VITALS: BP 137/97
[2019-10-21] MEDS: BLOOD SUGAR DIAGNOSTIC STRIP TEST SCH ×3 (08:10→18:04)
[2019-10-21] MEDS ORDERED: FAMOTIDINE 20MG TABLET PO SCH (09:00)
[2019-10-21] MEDS ORDERED: AMLODIPINE 10MG TABLET PO SCH (09:00)
[2019-10-21] MEDS: HYDRALAZINE HCL 50MG TABLET PO SCH ×2 (09:34→14:00)
[2019-10-21] MEDS: INSULIN LISPRO 100 UNITS/ML SUBCUT SCH ×6 (09:39→17:50)
[2019-10-21 09:46] LABS: *BARBITURATES SCREEN URINE NEGATIVE (NEGATIVE)
[2019-10-21 09:47] LABS: *BENZODIAZEPINES SCREEN URINE NEGATIVE (NEGATIVE); *COCAINE SCREEN URINE NEGATIVE (NEGATIVE); CANNABINOID URINE SCREEN NEGATIVE (NEGATIVE); METHADONE URINE SCREEN NEGATIVE (NEGATIVE); OPIATES URINE SCREEN NEGATIVE (NEGATIVE); PHENCYCLIDINE URINE SCREEN NEGATIVE (NEGATIVE)
[2019-10-21 09:48] LABS: *AMPHETAMINES SCREEN URINE PRESUMTIVE POSITIVE (NEGATIVE)
[2019-10-21] MEDS: METOCLOPRAMIDE 10MG/10 ML UDC PO SCH ×3 (09:51→18:24)
[2019-10-21] MEDS ORDERED: INSULIN GLARGINE UD 100 UNITS/ML SYR SUBCUT SCH ×2 (10:00→22:00)
[2019-10-21 10:12] LABS: EOSINOPHILS % 2.1 % (0.0-5.0); HEMATOCRIT. 27.1 % (36.0-48.0); LYMPHOCYTES % 34.8 % (20.0-50.0); MEAN CORPUSCULAR HEMOGLOBIN 27.7 pg (28.0-32.0); MEAN CORPUSCULAR VOLUME 83.5 fL (81.0-99.0); MEAN PLATELET VOLUME 7.1 fl (7.4-10.4); MONOCYTES % 6.2 % (2.0-8.0); NEUTROPHILS % 55.9 % (40.0-76.0); PLATELET 476 x1000/uL (130-400); RED BLOOD CELL COUNT 3.24 mill/uL (4.2-5.4)
[2019-10-21 10:26] LABS: CHLORIDE 104 mEq/L (98-107)
[2019-10-21 10:34] LABS: PHOSPHORUS 3.9 mg/dL (2.5-4.9)
[2019-10-21 10:35] LABS: LDL CHOLESTEROL 156 mg/dL (5-100)
[2019-10-21 10:37] LABS: HDL CHOLESTEROL 132 mg/dL (40-59)
[2019-10-21 12:00] VITALS: BP 127/78
[2019-10-21 15:52] VITALS: BP 140/96
[2019-10-21 16:02] VITALS: BP 140/96
[2019-10-21] MEDS ORDERED: ZOLPIDEM TARTRATE 5MG TABLET PO PRN (21:00)
== END 2019-10-21 20:00 | disposition home or self-care (01) | DRG 420 ==
LOC: ER 16:52 → 6WST 22:36 → ENRESERV 10-21 05:34
PROVIDERS: ADMIT Internal Medicine; ATTEND Internal Medicine
DX: E11.00 Type 2 diabetes mellitus with hyperosmolarity without nonketotic hyperglycemic-hyperosmolar coma (NKHHC) (principal); N17.0 Acute kidney failure with tubular necrosis; E43 Unspecified severe protein-calorie malnutrition; K31.84 Gastroparesis; E11.43 Type 2 diabetes mellitus with diabetic autonomic (poly)neuropathy; E87.5 Hyperkalemia; E11.22 Type 2 diabetes mellitus with diabetic chronic kidney disease; E87.1 Hypo-osmolality and hyponatremia; D63.8 Anemia in other chronic diseases classified elsewhere; E11.65 Type 2 diabetes mellitus with hyperglycemia; F12.10 Cannabis abuse, uncomplicated; F17.210 Nicotine dependence, cigarettes, uncomplicated; I12.9 Hypertensive chronic kidney disease with stage 1 through stage 4 chronic kidney disease, or unspecified chronic kidney disease; N18.9 Chronic kidney disease, unspecified; Z76.5 Malingerer [conscious simulation]; Z91.14 Patient's other noncompliance with medication regimen; Z68.26 Body mass index [BMI] 26.0-26.9, adult; Z71.6 Tobacco abuse counseling; Z71.51 Drug abuse counseling and surveillance of drug abuser; Z88.2 Allergy status to sulfonamides; Z88.0 Allergy status to penicillin; Z88.6 Allergy status to analgesic agent; Z88.8 Allergy status to other drugs, medicaments and biological substances; Z79.899 Other long term (current) drug therapy
CPT/HCPCS: 36415; 80053; 80061; 80305; 81003; 82962; 83036; 83735; 84100; 85025; 93970; 99285; J1815; J2270; J2405; J2765; J7030; J8597; Q0163

== ENCOUNTER 2019-10-22 10:07 | Inpatient (IN) | payer MEDICAID ==
[~2019-10-22] VITALS: Ht 165.1 cm; Wt 74.5 kg
[2019-10-22] MEDS ORDERED: DEXTROSE 50% WATER 50ML SYRINGE IV ONE ×2 (10:40→10:45)
[2019-10-22 11:04] LABS: BASOPHILS % 1.4 % (0.0-2.0); EOSINOPHILS % 1.4 % (0.0-5.0); HEMATOCRIT. 33.4 % (36.0-48.0); HEMOGLOBIN. 11.3 g/dL (12.0-16.0); LYMPHOCYTES % 25.9 % (20.0-50.0); MEAN CORPUSCULAR HEMOGLOBIN 28.2 pg (28.0-32.0); MEAN CORPUSCULAR VOLUME 83.2 fL (81.0-99.0); MONOCYTES % 2.7 % (2.0-8.0); NEUTROPHILS % 68.6 % (40.0-76.0); PLATELET 577 x1000/uL (130-400); RED BLOOD CELL COUNT 4.01 mill/uL (4.2-5.4); RED CELL DISTRIBUTION WIDTH 17.9 % (11.6-14.6)
[2019-10-22 11:05] LABS: INR 0.9
[2019-10-22 11:10] LABS: HCG SCREEN NEGATIVE
[2019-10-22 11:44] LABS: CHLORIDE 108 mEq/L (98-107)
[2019-10-22] MEDS ORDERED: LEVOFLOXACIN 750MG PREMIX 150 ML IV ONE (11:45)
[2019-10-22] MEDS ORDERED: ACETAMINOPHEN 325MG TABLET PO ONE (12:00)
[2019-10-22] MEDS ORDERED: HYDRALAZINE 20MG/ML VIAL IV ONE (12:45)
[2019-10-22 14:04] LABS: CLARITY URINE CLEAR (CLEAR); COLOR URINE YELLOW (YELLOW); KETONES URINE NEGATIVE (NEGATIVE); LEUKOCYTE ESTERASE URINE NEGATIVE (NEGATIVE); NITRITE URINE NEGATIVE (NEGATIVE); OCCULT BLOOD URINE 2+ (NEGATIVE); PH URINE 6.5 (4.5-8.0); PROTEIN URINE 3+ (NEGATIVE); SPECIFIC GRAVITY URINE 1.012 (1.005-1.030); UROBILINOGEN URINE 0.2 E.U./dL (0.2-1.0)
[2019-10-22 14:21] LABS: *BARBITURATES SCREEN URINE NEGATIVE (NEGATIVE); *BENZODIAZEPINES SCREEN URINE NEGATIVE (NEGATIVE); *COCAINE SCREEN URINE NEGATIVE (NEGATIVE); PHENCYCLIDINE URINE SCREEN NEGATIVE (NEGATIVE)
[2019-10-22 14:22] LABS: CANNABINOID URINE SCREEN NEGATIVE (NEGATIVE); METHADONE URINE SCREEN NEGATIVE (NEGATIVE)
[2019-10-22 14:35] LABS: *AMPHETAMINES SCREEN URINE PRESUMTIVE POSITIVE (NEGATIVE); OPIATES URINE SCREEN PRESUMTIVE POSITIVE (NEGATIVE)
[2019-10-22] MEDS ORDERED: ONDANSETRON HCL 4MG/2ML INJ IV PRN (15:30)
[2019-10-22] MEDS ORDERED: ACETAMINOPHEN 325MG TABLET PO PRN (15:30)
[2019-10-22] MEDS ORDERED: TRAMADOL 50MG TABLET PO PRN (15:30)
[2019-10-22] MEDS ORDERED: CLONIDINE 0.1MG TABLET PO PRN (15:30)
[2019-10-22] MEDS ORDERED: DEXTROSE 50% WATER 50ML SYRINGE IV PRN (15:45)
[2019-10-22] MEDS ORDERED: INSULIN LISPRO 100 UNITS/ML SUBCUT SCH (18:20)
[2019-10-22] MEDS: SODIUM CHLORIDE 0.9% 1,000 ML IV SCH (18:25)
[2019-10-22] MEDS ORDERED: IPRATROPIUM/ALBUTEROL 0.5-3(2.5)MG/3ML NEB HHN PRN (18:30)
[2019-10-22] MEDS ORDERED: LABETALOL 5MG/ML SYR 20 MG/4 ML SYRINGE IV ONE (18:30)
[2019-10-22] MEDS: BLOOD SUGAR DIAGNOSTIC STRIP TEST SCH ×2 (19:55→21:00)
[2019-10-22] MEDS ORDERED: HYDRALAZINE HCL 50MG TABLET PO SCH (21:00)
[2019-10-22] MEDS: MORPHINE SULFATE 2 MG/ML CPJ (NOT FOR IM USE) IV PRN (22:04)
[2019-10-22] MEDS: DIPHENHYDRAMINE 50MG/ML VIAL IV PRN (22:04)
[2019-10-23] MEDS: INSULIN LISPRO 100 UNITS/ML SUBCUT SCH ×3 (01:21→14:16)
[2019-10-23] MEDS: AMLODIPINE 5MG TABLET PO SCH ×2 (01:26→09:26)
[2019-10-23] MEDS: MORPHINE SULFATE 2 MG/ML CPJ (NOT FOR IM USE) IV PRN ×2 (02:56→08:15)
[2019-10-23] MEDS: DIPHENHYDRAMINE 50MG/ML VIAL IV PRN ×3 (02:56→12:24)
[2019-10-23] MEDS ORDERED: LABETALOL 5MG/ML SYR 20 MG/4 ML SYRINGE IV NR (04:30)
[2019-10-23] MEDS: SODIUM CHLORIDE 0.9% 1,000 ML IV SCH (07:30)
[2019-10-23 08:40] VITALS: BP 164/108
[2019-10-23 08:54] LABS: BASOPHILS % 0.5 % (0.0-2.0); EOSINOPHILS % 1.7 % (0.0-5.0); HEMATOCRIT. 25.9 % (36.0-48.0); HEMOGLOBIN. 8.8 g/dL (12.0-16.0); LYMPHOCYTES % 28.9 % (20.0-50.0); MEAN CORPUSCULAR VOLUME 82.6 fL (81.0-99.0); MONOCYTES % 6.2 % (2.0-8.0); NEUTROPHILS % 62.7 % (40.0-76.0); PLATELET 475 x1000/uL (130-400); RED BLOOD CELL COUNT 3.13 mill/uL (4.2-5.4); RED CELL DISTRIBUTION WIDTH 18.1 % (11.6-14.6)
[2019-10-23 09:27] VITALS: BP 164/108
[2019-10-23 12:00] VITALS: BP 154/89
[2019-10-23] MEDS ORDERED: LEVOFLOXACIN 250MG PREMIX 50 ML IV SCH (12:00)
[2019-10-23] MEDS: BLOOD SUGAR DIAGNOSTIC STRIP TEST SCH (12:24)
[2019-10-23] MEDS ORDERED: DIPHENHYDRAMINE 25MG CAPSULE PO PRN (13:00)
[2019-10-23] MEDS ORDERED: LEVO500T2 MT (14:39)
[2019-10-23 14:59] VITALS: BP 154/89
[2019-10-23] MEDS ORDERED: HYDRALAZINE HCL 100MG TABLET PO SCH (21:00)
== END 2019-10-23 15:50 | disposition home or self-care (01) | DRG 420 ==
LOC: ER 10:07 → 6WST 13:43 → EDBEDREQTM 13:47 → EDBEDREQ 13:47 → ENRESERV 10-23 07:54
PROVIDERS: ADMIT Internal Medicine; ATTEND Internal Medicine
DX: E11.649 Type 2 diabetes mellitus with hypoglycemia without coma (principal); N17.0 Acute kidney failure with tubular necrosis; E43 Unspecified severe protein-calorie malnutrition; J18.9 Pneumonia, unspecified organism; E87.8 Other disorders of electrolyte and fluid balance, not elsewhere classified; K31.84 Gastroparesis; E11.22 Type 2 diabetes mellitus with diabetic chronic kidney disease; E11.43 Type 2 diabetes mellitus with diabetic autonomic (poly)neuropathy; I13.0 Hypertensive heart and chronic kidney disease with heart failure and stage 1 through stage 4 chronic kidney disease, or unspecified chronic kidney disease; I16.0 Hypertensive urgency; F17.210 Nicotine dependence, cigarettes, uncomplicated; N18.9 Chronic kidney disease, unspecified; I50.22 Chronic systolic (congestive) heart failure; D64.9 Anemia, unspecified; Z79.4 Long term (current) use of insulin; Z91.19 Patient's noncompliance with other medical treatment and regimen; Z88.2 Allergy status to sulfonamides; Z88.0 Allergy status to penicillin; Z88.6 Allergy status to analgesic agent; Z88.8 Allergy status to other drugs, medicaments and biological substances; Z79.899 Other long term (current) drug therapy; Z68.27 Body mass index [BMI] 27.0-27.9, adult
CPT/HCPCS: 36415; 71045; 80048; 80053; 80305; 81003; 82962; 83880; 84484; 84703; 85025; 93005; 99285; J0360; J1200; J1815; J1956; J2270; J2405

== ENCOUNTER 2019-11-04 15:20 | Inpatient (IN) | payer MEDICAID ==
[~2019-11-04] VITALS: Ht 165.1 cm; Wt 70.3 kg
[~2019-11-04 15:20] MED LIST changes: +METO-539 PO
[2019-11-04] MEDS ORDERED: SODIUM CHLORIDE 0.9% 1,000 ML IV ONE (15:29)
[2019-11-04] MEDS ORDERED: FAMOTIDINE 20MG/2ML VIAL IV ONE (15:30)
[2019-11-04] MEDS ORDERED: ONDANSETRON HCL 4MG/2ML INJ IV ONE (15:30)
[2019-11-04] MEDS ORDERED: DIPHENHYDRAMINE 50MG/ML VIAL IV ONE (16:15)
[2019-11-04 16:41] LABS: BASOPHILS % 0.6 % (0.0-2.0); HEMATOCRIT. 31.6 % (36.0-48.0); HEMOGLOBIN. 10.5 g/dL (12.0-16.0); LYMPHOCYTES % 18.4 % (20.0-50.0); MEAN CORPUSCULAR VOLUME 84.1 fL (81.0-99.0); MEAN PLATELET VOLUME 6.9 fl (7.4-10.4); MONOCYTES % 4.7 % (2.0-8.0); NEUTROPHILS % 76.3 % (40.0-76.0); PLATELET 698 x1000/uL (130-400); RED BLOOD CELL COUNT 3.76 mill/uL (4.2-5.4); RED CELL DISTRIBUTION WIDTH 18.1 % (11.6-14.6)
[2019-11-04 16:47] LABS: CHLORIDE 99 mEq/L (98-107)
[2019-11-04 16:48] LABS: PROTHROMBIN TIME 10.6 sec (9.6-11.0)
[2019-11-04 16:55] LABS: BETA HYDROXYBUTYRATE 1.1 mMol/L (0.0-0.3)
[2019-11-04 16:57] LABS: HCG SCREEN NEGATIVE
[2019-11-04] MEDS ORDERED: MORPHINE SULFATE 2 MG/ML CPJ (NOT FOR IM USE) IV PRN (20:15)
[2019-11-04] MEDS ORDERED: CLONIDINE 0.1MG TABLET PO PRN (20:20)
[2019-11-04] MEDS ORDERED: INSULIN LISPRO 100 UNITS/ML SUBCUT ONE (20:30)
[2019-11-04] MEDS ORDERED: ACETAMINOPHEN 325MG TABLET PO PRN (22:00)
[2019-11-04] MEDS ORDERED: ONDANSETRON HCL 4MG/2ML INJ IV PRN (22:00)
[2019-11-04] MEDS ORDERED: DEXTROSE 50% WATER 50ML SYRINGE IV PRN (22:00)
[2019-11-04] MEDS ORDERED: SODIUM CHLORIDE 0.9% 1,000 ML IV SCH (22:30)
[2019-11-04] MEDS ORDERED: INSULIN GLARGINE UD 100 UNITS/ML SYR SUBCUT SCH (22:45)
[2019-11-04] MEDS ORDERED: HYDRALAZINE HCL 50MG TABLET PO NR (23:00)
[2019-11-05] MEDS ORDERED: DIPHENHYDRAMINE 50MG CAPSULE PO PRN (00:15)
[2019-11-05] MEDS: TRAMADOL 50MG TABLET PO PRN (01:44)
[2019-11-05] MEDS ORDERED: MORPHINE SULFATE 2 MG/ML CPJ (NOT FOR IM USE) IV PRN (06:30)
[2019-11-05] MEDS: HYDRALAZINE HCL 50MG TABLET PO SCH ×3 (06:53→21:42)
[2019-11-05 09:45] VITALS: BP 123/75
[2019-11-05 10:39] VITALS: BP 123/75
[2019-11-05] MEDS: AMLODIPINE 5MG TABLET PO SCH ×2 (11:01→21:00)
[2019-11-05] MEDS: PANTOPRAZOLE SODIUM 40 MG/VIAL IV SCH (11:01)
[2019-11-05] MEDS: METOCLOPRAMIDE HCL 10MG/2ML VIAL IV SCH ×3 (11:04→23:33)
[2019-11-05 12:00] VITALS: BP 116/73
[2019-11-05] MEDS ORDERED: INSULIN GLARGINE UD 100 UNITS/ML SYR SUBCUT SCH ×3 (12:00→22:00)
[2019-11-05] MEDS: BLOOD SUGAR DIAGNOSTIC STRIP TEST SCH ×3 (13:00→21:38)
[2019-11-05] MEDS: INSULIN LISPRO 100 UNITS/ML SUBCUT SCH ×3 (14:09→21:38)
[2019-11-05] MEDS ORDERED: SODIUM POLYSTYRENE SULFONATE 15 G/60 ML BOT PO NR (15:00)
[2019-11-05 16:00] VITALS: BP 120/84
[2019-11-05 20:00] VITALS: BP 106/65
[2019-11-05] MEDS ORDERED: DIPHENHYDRAMINE 50MG/ML VIAL IV PRN (22:30)
[2019-11-05] MEDS: DIPHENHYDRAMINE 50MG/ML VIAL IV PRN (23:29)
[2019-11-06] VITALS: BP 146/96
[2019-11-06] MEDS: TRAMADOL 50MG TABLET PO PRN ×2 (00:18→06:35)
[2019-11-06 04:00] VITALS: BP 146/76
[2019-11-06] MEDS: HYDRALAZINE HCL 50MG TABLET PO SCH (06:45)
[2019-11-06] MEDS: METOCLOPRAMIDE HCL 10MG/2ML VIAL IV SCH (06:45)
[2019-11-06] MEDS: INSULIN LISPRO 100 UNITS/ML SUBCUT SCH (07:09)
[2019-11-06] MEDS: BLOOD SUGAR DIAGNOSTIC STRIP TEST SCH (07:09)
[2019-11-06 08:00] VITALS: BP 123/77
[2019-11-06] MEDS: DIPHENHYDRAMINE 50MG/ML VIAL IV PRN (08:54)
[2019-11-06] MEDS: PANTOPRAZOLE SODIUM 40 MG/VIAL IV SCH (08:54)
[2019-11-06] MEDS: AMLODIPINE 5MG TABLET PO SCH (08:55)
[2019-11-06 10:14] VITALS: BP 123/77
== END 2019-11-06 11:10 | disposition home or self-care (01) | DRG 420 ==
LOC: ER 15:20 → 6WST 17:09 → ENRESERV 11-05 07:31
PROVIDERS: ADMIT Internal Medicine; ATTEND Internal Medicine
DX: E11.65 Type 2 diabetes mellitus with hyperglycemia (principal); E43 Unspecified severe protein-calorie malnutrition; N17.9 Acute kidney failure, unspecified; E11.22 Type 2 diabetes mellitus with diabetic chronic kidney disease; E87.1 Hypo-osmolality and hyponatremia; N18.9 Chronic kidney disease, unspecified; D63.8 Anemia in other chronic diseases classified elsewhere; I12.9 Hypertensive chronic kidney disease with stage 1 through stage 4 chronic kidney disease, or unspecified chronic kidney disease; Z98.891 History of uterine scar from previous surgery; D64.9 Anemia, unspecified; Z76.5 Malingerer [conscious simulation]; Z68.25 Body mass index [BMI] 25.0-25.9, adult; Z79.899 Other long term (current) drug therapy
CPT/HCPCS: 36415; 80048; 80053; 82010; 82962; 84132; 84703; 85025; 99285; C9113; J1200; J1815; J2270; J2405; J2765; J3490; J7030; Q0163

== ENCOUNTER 2019-12-01 11:25 | Emergency (ER) | payer MEDICAID ==
[~2019-12-01] VITALS: Ht 167.6 cm; Wt 73.0 kg
[2019-12-01] MEDS ORDERED: ACETAMINOPHEN 325MG TABLET PO STA (11:39)
[2019-12-01] MEDS ORDERED: ONDANSETRON 4MG ODT PO STA (11:39)
[2019-12-01] MEDS ORDERED: ONDANSETRON HCL 4MG/2ML INJ IV ONE ×2 (12:00→15:15)
[2019-12-01] MEDS ORDERED: ONDANSETRON HCL 4MG/2ML INJ ONE (12:02)
[2019-12-01 12:13] LABS: BASOPHILS % 0.9 % (0.0-2.0); EOSINOPHILS % 1.4 % (0.0-5.0); HEMATOCRIT. 24.6 % (36.0-48.0); HEMOGLOBIN. 8.1 g/dL (12.0-16.0); LYMPHOCYTES % 26.5 % (20.0-50.0); MEAN CORPUSCULAR HEMOGLOBIN 27.7 pg (28.0-32.0); MEAN PLATELET VOLUME 6.3 fl (7.4-10.4); MONOCYTES % 5.8 % (2.0-8.0); NEUTROPHILS % 65.4 % (40.0-76.0); PLATELET 741 x1000/uL (130-400); RED BLOOD CELL COUNT 2.93 mill/uL (4.2-5.4); RED CELL DISTRIBUTION WIDTH 17.9 % (11.6-14.6)
[2019-12-01 12:23] LABS: CHLORIDE 110 mEq/L (98-107)
[2019-12-01 12:27] LABS: ETHANOL BLOOD < 10 mg/dL
[2019-12-01 12:28] LABS: HCG SCREEN NEGATIVE
[2019-12-01 12:50] LABS: CLARITY URINE CLOUDY (CLEAR); COLOR URINE YELLOW (YELLOW); KETONES URINE NEGATIVE (NEGATIVE); LEUKOCYTE ESTERASE URINE NEGATIVE (NEGATIVE); NITRITE URINE NEGATIVE (NEGATIVE); OCCULT BLOOD URINE 3+ (NEGATIVE); PROTEIN URINE 4+ (NEGATIVE); SPECIFIC GRAVITY URINE 1.023 (1.005-1.030); UROBILINOGEN URINE 0.2 E.U./dL (0.2-1.0)
[2019-12-01 13:07] LABS: *BARBITURATES SCREEN URINE NEGATIVE (NEGATIVE)
[2019-12-01 13:08] LABS: *BENZODIAZEPINES SCREEN URINE NEGATIVE (NEGATIVE); *COCAINE SCREEN URINE NEGATIVE (NEGATIVE); METHADONE URINE SCREEN NEGATIVE (NEGATIVE); PHENCYCLIDINE URINE SCREEN NEGATIVE (NEGATIVE)
[2019-12-01 13:14] LABS: *AMPHETAMINES SCREEN URINE PRESUMTIVE POSITIVE (NEGATIVE); CANNABINOID URINE SCREEN PRESUMTIVE POSITIVE (NEGATIVE); OPIATES URINE SCREEN PRESUMTIVE POSITIVE (NEGATIVE)
[2019-12-01] MEDS ORDERED: ACETAMINOPHEN 160 MG/5 ML UD CUP PO ONE (13:45)
[2019-12-01] MEDS ORDERED: LORAZEPAM 1MG TABLET PO ONE (14:45)
[2019-12-01] MEDS ORDERED: PANTOPRAZOLE SODIUM 40 MG/VIAL IV ONE (15:15)
[2019-12-01] MEDS ORDERED: LORAZEPAM 2MG/ML CPJ IV ONE (15:30)
[2019-12-01 21:11] VITALS: BP 162/78
== END 2019-12-01 21:17 | disposition home or self-care (01) ==
LOC: ER 11:25
DX: R07.89 Other chest pain (principal); R10.9 Unspecified abdominal pain; N28.9 Disorder of kidney and ureter, unspecified; E11.9 Type 2 diabetes mellitus without complications; I10 Essential (primary) hypertension; Z88.2 Allergy status to sulfonamides; Z88.6 Allergy status to analgesic agent; Z88.0 Allergy status to penicillin; Z88.8 Allergy status to other drugs, medicaments and biological substances; Z79.899 Other long term (current) drug therapy; Z98.890 Other specified postprocedural states
CPT/HCPCS: 36415; 71045; 74176; 80053; 80305; 80320; 81003; 83690; 84703; 85025; 96374; 96375; 99285; C9113; J2060; J2405; G0480

== ENCOUNTER 2019-12-24 20:50 | Inpatient (IN) | payer MEDICAID ==
[~2019-12-24] VITALS: Ht 165.1 cm; Wt 79.9 kg
[2019-12-24] MEDS ORDERED: SODIUM CHLORIDE 0.9% 1,000 ML IV ONE (21:12)
[2019-12-24 22:01] LABS: BASOPHILS % 0.8 % (0.0-2.0); EOSINOPHILS % 0.3 % (0.0-5.0); HEMATOCRIT. 25.6 % (36.0-48.0); HEMOGLOBIN. 8.2 g/dL (12.0-16.0); LYMPHOCYTES % 20.8 % (20.0-50.0); MEAN CORPUSCULAR HEMOGLOBIN 27.9 pg (28.0-32.0); MEAN PLATELET VOLUME 7.6 fl (7.4-10.4); MONOCYTES % 11.3 % (2.0-8.0); NEUTROPHILS % 66.8 % (40.0-76.0); PLATELET 456 x1000/uL (130-400); RED BLOOD CELL COUNT 2.94 mill/uL (4.2-5.4); RED CELL DISTRIBUTION WIDTH 17.2 % (11.6-14.6)
[2019-12-24 22:07] LABS: CHLORIDE 101 mEq/L (98-107)
[2019-12-24 22:10] LABS: INR 0.9; PROTHROMBIN TIME 10.1 sec (9.6-11.0)
[2019-12-24 22:13] LABS: ETHANOL BLOOD < 10 mg/dL
[2019-12-24 22:14] LABS: BETA HYDROXYBUTYRATE 0.2 mMol/L (0.0-0.3)
[2019-12-24] MEDS ORDERED: MORPHINE SULFATE 4 MG/ML CPJ (NOT FOR IM USE) IV STA (22:26)
[2019-12-24] MEDS ORDERED: ONDANSETRON HCL 4MG/2ML INJ IV STA (22:26)
[2019-12-24] MEDS ORDERED: INSULIN REGULAR (DRIP) 100 UNITS in SODIUM CHLORIDE 0.9% 99 ML IV ONE ×2 (22:30→22:45)
[2019-12-24 22:54] LABS: BG BASE EXCESS -5.7 mmol/L (-2.0-2.0); BG CARBOXYHEMOGLOBIN 0.3 % (0.5-1.5); BG DEOXYHEMOGLOBIN 2.6 % (0.0-5.0); BG FRACTION INSPIRED OXYGEN 21; BG HCO3 ACT 19.8 mmol/L (22.0-26.0); BG METHEMOGLOBIN 0.4 % (0.0-1.5); BG OXYGEN SATURATION 97.4 % (92.0-98.5); BG OXYHEMOGLOBIN 96.7 % (94.0-97.0); BG PCO2 38.9 mmHg (35.0-45.0); BG PH 7.325 (7.350-7.450); BG PO2 114.6 mmHg (75.0-100.0); BG SAMPLE SITE RIGHT RADIAL; BG VENT MODE ROOM AIR
[2019-12-25 00:46] LABS: CHLORIDE 103 mEq/L (98-107)
[2019-12-25] MEDS: HYDROCODONE/ACETAMINOPHEN 5/325MG TABLET PO PRN ×3 (01:15→12:09)
[2019-12-25 01:42] LABS: CHLORIDE 103 mEq/L (98-107)
[2019-12-25 02:42] LABS: CHLORIDE 105 mEq/L (98-107)
[2019-12-25 03:48] LABS: CHLORIDE 103 mEq/L (98-107)
[2019-12-25] MEDS ORDERED: INSULIN GLARGINE UD 100 UNITS/ML SYR SUBCUT SCH (06:00)
[2019-12-25] MEDS: BLOOD SUGAR DIAGNOSTIC STRIP TEST SCH ×4 (08:23→21:00)
[2019-12-25 10:00] VITALS: BP 139/86
[2019-12-25 11:21] VITALS: BP 149/94
[2019-12-25 12:00] VITALS: BP 148/69
[2019-12-25] MEDS ORDERED: ACETAMINOPHEN 325MG TABLET PO PRN (14:00)
[2019-12-25] MEDS ORDERED: CLONIDINE 0.1MG TABLET PO PRN (14:00)
[2019-12-25] MEDS ORDERED: FUROSEMIDE 40MG TABLET PO SCH (14:00)
[2019-12-25] MEDS ORDERED: IPRATROPIUM/ALBUTEROL 0.5-3(2.5)MG/3ML NEB HHN PRN (14:00)
[2019-12-25 16:00] VITALS: BP 157/102
[2019-12-25] MEDS: DIPHENHYDRAMINE 12.5MG/5ML UDC PO PRN ×2 (16:30→23:22)
[2019-12-25] MEDS: PANTOPRAZOLE 40MG DR TABLET PO SCH (16:30)
[2019-12-25] MEDS: INSULIN LISPRO 100 UNITS/ML SUBCUT SCH ×2 (17:50→23:25)
[2019-12-25] MEDS: METOCLOPRAMIDE HCL 5MG TABLET PO SCH ×2 (18:04→22:57)
[2019-12-25] MEDS: HYDROCODONE/ACETAMINOPHEN 10/325MG TABLET PO PRN ×2 (19:11→22:59)
[2019-12-25 20:00] VITALS: BP 150/100
[2019-12-25] MEDS: METOPROLOL TARTRATE 50MG TABLET PO SCH (22:57)
[2019-12-25] MEDS: LOSARTAN POTASSIUM 50 MG TABLET PO SCH (22:57)
[2019-12-25] MEDS: ATORVASTATIN CALCIUM 20MG TABLET PO SCH (22:58)
[2019-12-25] MEDS: OLANZAPINE 10MG TABLET PO SCH (22:58)
[2019-12-25] MEDS: FUROSEMIDE 40MG/4ML VIAL IVP SCH (22:58)
[2019-12-25] MEDS: ALPRAZOLAM 0.5 MG TABLET PO PRN (23:16)
[2019-12-26] VITALS: BP 119/81
[2019-12-26 04:00] VITALS: BP 112/70
[2019-12-26] MEDS: BLOOD SUGAR DIAGNOSTIC STRIP TEST SCH ×4 (05:35→21:00)
[2019-12-26] MEDS: PANTOPRAZOLE 40MG DR TABLET PO SCH (05:36)
[2019-12-26] MEDS: INSULIN LISPRO 100 UNITS/ML SUBCUT SCH ×4 (05:36→22:12)
[2019-12-26 07:48] LABS: HEMATOCRIT. 23.9 % (36.0-48.0); HEMOGLOBIN. 7.9 g/dL (12.0-16.0); MEAN CORPUSCULAR HEMOGLOBIN 27.7 pg (28.0-32.0); MEAN CORPUSCULAR VOLUME 84.5 fL (81.0-99.0); MEAN PLATELET VOLUME 7.3 fl (7.4-10.4); PLATELET 343 x1000/uL (130-400); RED BLOOD CELL COUNT 2.83 mill/uL (4.2-5.4); RED CELL DISTRIBUTION WIDTH 17.6 % (11.6-14.6)
[2019-12-26 08:00] VITALS: BP 125/87
[2019-12-26 08:05] LABS: PHOSPHORUS 3.7 mg/dL (2.5-4.9)
[2019-12-26] MEDS: FUROSEMIDE 40MG/4ML VIAL IVP SCH ×3 (08:59→17:19)
[2019-12-26] MEDS: NIFEDIPINE XL 60MG TAB PO SCH (08:59)
[2019-12-26] MEDS: METOCLOPRAMIDE HCL 5MG TABLET PO SCH ×4 (09:00→22:07)
[2019-12-26] MEDS: METOPROLOL TARTRATE 50MG TABLET PO SCH ×2 (09:00→22:07)
[2019-12-26] MEDS: LOSARTAN POTASSIUM 50 MG TABLET PO SCH ×2 (09:00→22:07)
[2019-12-26] MEDS ORDERED: SPIRONOLACTONE 25MG TABLET PO SCH (09:00)
[2019-12-26] MEDS: METOLAZONE 5MG TABLET PO SCH (10:28)
[2019-12-26] MEDS: INSULIN GLARGINE UD 100 UNITS/ML SYR SUBCUT SCH (10:29)
[2019-12-26 12:00] VITALS: BP 119/67
[2019-12-26 14:17] LABS: PLATELET ESTIMATE NORMAL
[2019-12-26] MEDS: HYDROCODONE/ACETAMINOPHEN 10/325MG TABLET PO PRN (14:26)
[2019-12-26 16:00] VITALS: BP 109/73
[2019-12-26 20:00] VITALS: BP 119/70
[2019-12-26] MEDS: ATORVASTATIN CALCIUM 20MG TABLET PO SCH (22:07)
[2019-12-26] MEDS: OLANZAPINE 10MG TABLET PO SCH (22:07)
[2019-12-27] MEDS: BLOOD SUGAR DIAGNOSTIC STRIP TEST SCH ×4 (05:47→21:00)
[2019-12-27] MEDS: INSULIN LISPRO 100 UNITS/ML SUBCUT SCH ×4 (06:52→21:00)
[2019-12-27 07:32] LABS: PHOSPHORUS 3.7 mg/dL (2.5-4.9)
[2019-12-27 08:00] VITALS: BP 116/100
[2019-12-27] MEDS: FUROSEMIDE 40MG/4ML VIAL IVP SCH ×3 (08:37→17:14)
[2019-12-27] MEDS: METOLAZONE 5MG TABLET PO SCH (08:38)
[2019-12-27] MEDS: METOCLOPRAMIDE HCL 5MG TABLET PO SCH ×5 (08:38→22:33)
[2019-12-27] MEDS: FAMOTIDINE 20MG TABLET PO SCH (08:38)
[2019-12-27] MEDS: LOSARTAN POTASSIUM 50 MG TABLET PO SCH ×4 (08:38→23:34)
[2019-12-27] MEDS: METOPROLOL TARTRATE 50MG TABLET PO SCH ×3 (08:38→22:33)
[2019-12-27] MEDS: NIFEDIPINE XL 60MG TAB PO SCH (08:38)
[2019-12-27] MEDS: INSULIN GLARGINE UD 100 UNITS/ML SYR SUBCUT SCH (10:41)
[2019-12-27 12:00] VITALS: BP 146/100
[2019-12-27 16:00] VITALS: BP 134/87
[2019-12-27 20:00] VITALS: BP 145/88
[2019-12-27 20:20] LABS: PHOSPHORUS 4.1 mg/dL (2.5-4.9)
[2019-12-27] MEDS: OLANZAPINE 10MG TABLET PO SCH ×2 (21:00→22:33)
[2019-12-27] MEDS: EPOETIN ALFA 10000UNITS/ML VIAL SUBCUT SCH (22:32)
[2019-12-27] MEDS: ONDANSETRON HCL 4MG/2ML INJ IV PRN (22:32)
[2019-12-27] MEDS: ATORVASTATIN CALCIUM 20MG TABLET PO SCH ×2 (22:33→23:34)
[2019-12-27] MEDS ORDERED: DEXTROSE 50% WATER 50ML SYRINGE IV ONE (22:57)
[2019-12-27] MEDS ORDERED: DEXTROSE 50% WATER 50ML SYRINGE IV PRN (23:00)
[2019-12-28] VITALS: BP 131/100
[2019-12-28] MEDS ORDERED: HYDRALAZINE 20MG/ML VIAL IV PRN (03:30)
[2019-12-28] MEDS: METOCLOPRAMIDE HCL 10MG/2ML VIAL IV PRN ×2 (03:41→12:48)
[2019-12-28] MEDS: MORPHINE SULFATE 2 MG/ML CPJ (NOT FOR IM USE) IV PRN ×4 (03:42→21:25)
[2019-12-28 04:00] VITALS: BP 164/92
[2019-12-28] MEDS: BLOOD SUGAR DIAGNOSTIC STRIP TEST SCH ×4 (06:38→21:00)
[2019-12-28] MEDS: INSULIN LISPRO 100 UNITS/ML SUBCUT SCH ×4 (06:39→21:00)
[2019-12-28 08:00] VITALS: BP 131/86
[2019-12-28] MEDS: ONDANSETRON HCL 4MG/2ML INJ IV PRN (08:25)
[2019-12-28] MEDS: METOLAZONE 5MG TABLET PO SCH (09:00)
[2019-12-28] MEDS: FAMOTIDINE 20MG TABLET PO SCH (09:00)
[2019-12-28] MEDS: NIFEDIPINE XL 60MG TAB PO SCH (09:00)
[2019-12-28] MEDS: METOCLOPRAMIDE HCL 5MG TABLET PO SCH ×4 (09:00→20:49)
[2019-12-28] MEDS: METOPROLOL TARTRATE 50MG TABLET PO SCH ×2 (09:00→20:49)
[2019-12-28] MEDS: FUROSEMIDE 40MG/4ML VIAL IVP SCH ×3 (09:00→17:15)
[2019-12-28] MEDS: INSULIN GLARGINE UD 100 UNITS/ML SYR SUBCUT SCH (10:00)
[2019-12-28 19:43] LABS: HEMATOCRIT. 31.5 % (36.0-48.0); HEMOGLOBIN. 10.1 g/dL (12.0-16.0); MEAN CORPUSCULAR HEMOGLOBIN 27.2 pg (28.0-32.0); MEAN CORPUSCULAR VOLUME 84.7 fL (81.0-99.0); MEAN PLATELET VOLUME 8.3 fl (7.4-10.4); PLATELET 340 x1000/uL (130-400); RED BLOOD CELL COUNT 3.72 mill/uL (4.2-5.4); RED CELL DISTRIBUTION WIDTH 18.2 % (11.6-14.6)
[2019-12-28 20:00] VITALS: BP 146/84
[2019-12-28 20:41] LABS: PLATELET ESTIMATE NORMAL
[2019-12-28] MEDS: OLANZAPINE 10MG TABLET PO SCH (20:49)
[2019-12-28] MEDS: ALPRAZOLAM 0.5 MG TABLET PO PRN (20:49)
[2019-12-29] VITALS: BP 132/87
[2019-12-29 04:00] VITALS: BP 142/84
[2019-12-29] MEDS: MORPHINE SULFATE 2 MG/ML CPJ (NOT FOR IM USE) IV PRN ×3 (05:38→20:30)
[2019-12-29] MEDS: BLOOD SUGAR DIAGNOSTIC STRIP TEST SCH ×4 (05:49→20:43)
[2019-12-29] MEDS: INSULIN LISPRO 100 UNITS/ML SUBCUT SCH ×4 (06:33→20:42)
[2019-12-29 06:59] LABS: BASOPHILS % 0.7 % (0.0-2.0); EOSINOPHILS % 0.8 % (0.0-5.0); HEMATOCRIT. 26.6 % (36.0-48.0); HEMOGLOBIN. 8.7 g/dL (12.0-16.0); LYMPHOCYTES % 36.8 % (20.0-50.0); MEAN CORPUSCULAR HEMOGLOBIN 27.3 pg (28.0-32.0); MEAN CORPUSCULAR VOLUME 83.6 fL (81.0-99.0); MEAN PLATELET VOLUME 7.5 fl (7.4-10.4); MONOCYTES % 7.4 % (2.0-8.0); NEUTROPHILS % 54.3 % (40.0-76.0); PLATELET 445 x1000/uL (130-400); RED BLOOD CELL COUNT 3.18 mill/uL (4.2-5.4); RED CELL DISTRIBUTION WIDTH 17.3 % (11.6-14.6)
[2019-12-29 08:00] VITALS: BP 136/80
[2019-12-29] MEDS: FAMOTIDINE 20MG TABLET PO SCH (08:47)
[2019-12-29] MEDS: LOSARTAN POTASSIUM 50 MG TABLET PO SCH ×3 (08:47→20:45)
[2019-12-29] MEDS: METOLAZONE 5MG TABLET PO SCH (08:47)
[2019-12-29] MEDS: METOCLOPRAMIDE HCL 5MG TABLET PO SCH ×5 (08:48→20:45)
[2019-12-29] MEDS: METOPROLOL TARTRATE 50MG TABLET PO SCH ×3 (08:48→20:46)
[2019-12-29] MEDS: NIFEDIPINE XL 60MG TAB PO SCH (08:49)
[2019-12-29] MEDS: FUROSEMIDE 40MG/4ML VIAL IVP SCH ×4 (08:49→16:46)
[2019-12-29 12:00] VITALS: BP 131/63
[2019-12-29] MEDS: INSULIN GLARGINE UD 100 UNITS/ML SYR SUBCUT SCH (12:14)
[2019-12-29 16:00] VITALS: BP 148/94
[2019-12-29 20:00] VITALS: BP 144/83
[2019-12-29] MEDS: ATORVASTATIN CALCIUM 20MG TABLET PO SCH ×2 (20:30→20:45)
[2019-12-29] MEDS: OLANZAPINE 10MG TABLET PO SCH ×2 (20:30→20:45)
[2019-12-29] MEDS: EPOETIN ALFA 10000UNITS/ML VIAL SUBCUT SCH (20:42)
[2019-12-30] VITALS: BP 146/88
[2019-12-30] MEDS: MORPHINE SULFATE 2 MG/ML CPJ (NOT FOR IM USE) IV PRN ×5 (02:24→20:37)
[2019-12-30 04:00] VITALS: BP 138/82
[2019-12-30] MEDS: BLOOD SUGAR DIAGNOSTIC STRIP TEST SCH ×4 (06:06→20:35)
[2019-12-30] MEDS: INSULIN LISPRO 100 UNITS/ML SUBCUT SCH ×4 (06:19→20:42)
[2019-12-30] MEDS: DIPHENHYDRAMINE 12.5MG/5ML UDC PO PRN (06:21)
[2019-12-30 07:10] LABS: BASOPHILS % 0.5 % (0.0-2.0); EOSINOPHILS % 0.4 % (0.0-5.0); HEMATOCRIT. 28.3 % (36.0-48.0); HEMOGLOBIN. 9.2 g/dL (12.0-16.0); LYMPHOCYTES % 23.4 % (20.0-50.0); MEAN CORPUSCULAR HEMOGLOBIN 27.4 pg (28.0-32.0); MEAN CORPUSCULAR VOLUME 84.8 fL (81.0-99.0); MEAN PLATELET VOLUME 7.7 fl (7.4-10.4); MONOCYTES % 4.9 % (2.0-8.0); NEUTROPHILS % 70.8 % (40.0-76.0); PLATELET 487 x1000/uL (130-400); RED BLOOD CELL COUNT 3.34 mill/uL (4.2-5.4); RED CELL DISTRIBUTION WIDTH 17.8 % (11.6-14.6)
[2019-12-30 08:00] VITALS: BP 129/86
[2019-12-30] MEDS: FUROSEMIDE 40MG/4ML VIAL IVP SCH (09:00)
[2019-12-30] MEDS: METOLAZONE 5MG TABLET PO SCH (09:09)
[2019-12-30] MEDS: NIFEDIPINE XL 60MG TAB PO SCH (09:09)
[2019-12-30] MEDS: METOCLOPRAMIDE HCL 5MG TABLET PO SCH ×4 (09:09→20:24)
[2019-12-30] MEDS: METOPROLOL TARTRATE 50MG TABLET PO SCH ×2 (09:09→20:24)
[2019-12-30] MEDS: FAMOTIDINE 20MG TABLET PO SCH (09:09)
[2019-12-30] MEDS: LOSARTAN POTASSIUM 50 MG TABLET PO SCH ×2 (09:10→20:24)
[2019-12-30] MEDS: INSULIN GLARGINE UD 100 UNITS/ML SYR SUBCUT SCH (09:28)
[2019-12-30 12:00] VITALS: BP 117/75
[2019-12-30] MEDS: ONDANSETRON HCL 4MG/2ML INJ IV PRN (12:47)
[2019-12-30] MEDS: DIPHENHYDRAMINE 50MG/ML VIAL IV PRN ×2 (12:47→20:25)
[2019-12-30] MEDS: FUROSEMIDE 20MG/2ML VIAL IVP SCH ×3 (12:47→20:25)
[2019-12-30 16:00] VITALS: BP 122/85
[2019-12-30 20:00] VITALS: BP 144/80
[2019-12-30] MEDS: ATORVASTATIN CALCIUM 20MG TABLET PO SCH (20:24)
[2019-12-30] MEDS: OLANZAPINE 10MG TABLET PO SCH (20:24)
[2019-12-31] VITALS: BP 148/87
[2019-12-31] MEDS: MORPHINE SULFATE 2 MG/ML CPJ (NOT FOR IM USE) IV PRN ×5 (00:55→23:40)
[2019-12-31] MEDS: FUROSEMIDE 20MG/2ML VIAL IVP SCH ×3 (01:01→09:10)
[2019-12-31] MEDS: DIPHENHYDRAMINE 50MG/ML VIAL IV PRN ×4 (02:12→23:40)
[2019-12-31 04:00] VITALS: BP 144/81
[2019-12-31] MEDS: BLOOD SUGAR DIAGNOSTIC STRIP TEST SCH ×4 (06:25→21:00)
[2019-12-31] MEDS: INSULIN LISPRO 100 UNITS/ML SUBCUT SCH ×4 (06:31→21:05)
[2019-12-31 08:00] VITALS: BP 141/87
[2019-12-31] MEDS: METOCLOPRAMIDE HCL 5MG TABLET PO SCH ×4 (09:09→21:03)
[2019-12-31] MEDS: NIFEDIPINE XL 60MG TAB PO SCH (09:09)
[2019-12-31] MEDS: METOLAZONE 5MG TABLET PO SCH (09:09)
[2019-12-31] MEDS: METOPROLOL TARTRATE 50MG TABLET PO SCH ×2 (09:10→21:03)
[2019-12-31] MEDS: LOSARTAN POTASSIUM 50 MG TABLET PO SCH ×2 (09:10→21:03)
[2019-12-31] MEDS: FAMOTIDINE 20MG TABLET PO SCH (09:10)
[2019-12-31] MEDS: INSULIN GLARGINE UD 100 UNITS/ML SYR SUBCUT SCH (10:00)
[2019-12-31] MEDS: FUROSEMIDE 40MG/4ML VIAL IVP SCH ×2 (13:00→17:04)
[2019-12-31 17:42] LABS: BASOPHILS % 0.7 % (0.0-2.0); EOSINOPHILS % 0.8 % (0.0-5.0); HEMATOCRIT. 24.8 % (36.0-48.0); HEMOGLOBIN. 8.2 g/dL (12.0-16.0); LYMPHOCYTES % 24.6 % (20.0-50.0); MEAN CORPUSCULAR HEMOGLOBIN 27.9 pg (28.0-32.0); MEAN CORPUSCULAR VOLUME 84.2 fL (81.0-99.0); MEAN PLATELET VOLUME 7.3 fl (7.4-10.4); MONOCYTES % 5.7 % (2.0-8.0); NEUTROPHILS % 68.2 % (40.0-76.0); PLATELET 522 x1000/uL (130-400); RED BLOOD CELL COUNT 2.94 mill/uL (4.2-5.4); RED CELL DISTRIBUTION WIDTH 17.3 % (11.6-14.6)
[2019-12-31 17:49] LABS: PHOSPHORUS 3.4 mg/dL (2.5-4.9)
[2019-12-31 18:44] VITALS: BP 132/81
[2019-12-31 20:00] VITALS: BP 135/83
[2019-12-31] MEDS: OLANZAPINE 10MG TABLET PO SCH (21:03)
[2019-12-31] MEDS: ATORVASTATIN CALCIUM 20MG TABLET PO SCH (21:03)
[2019-12-31 23:53] VITALS: BP 141/71
[2020-01-01] MEDS: MORPHINE SULFATE 2 MG/ML CPJ (NOT FOR IM USE) IV PRN ×3 (06:29→21:00)
[2020-01-01] MEDS: DIPHENHYDRAMINE 50MG/ML VIAL IV PRN ×3 (06:29→21:24)
[2020-01-01] MEDS: BLOOD SUGAR DIAGNOSTIC STRIP TEST SCH ×4 (06:30→21:19)
[2020-01-01] MEDS: INSULIN LISPRO 100 UNITS/ML SUBCUT SCH ×4 (07:48→21:00)
[2020-01-01 08:00] VITALS: BP 160/90
[2020-01-01 08:57] LABS: EOSINOPHILS % 0.5 % (0.0-5.0); HEMATOCRIT. 23.8 % (36.0-48.0); HEMOGLOBIN. 7.6 g/dL (12.0-16.0); LYMPHOCYTES % 22.2 % (20.0-50.0); MEAN CORPUSCULAR HEMOGLOBIN 27.2 pg (28.0-32.0); MEAN CORPUSCULAR VOLUME 85.3 fL (81.0-99.0); MEAN PLATELET VOLUME 7.9 fl (7.4-10.4); MONOCYTES % 6.9 % (2.0-8.0); NEUTROPHILS % 69.4 % (40.0-76.0); PLATELET 454 x1000/uL (130-400); RED BLOOD CELL COUNT 2.79 mill/uL (4.2-5.4); RED CELL DISTRIBUTION WIDTH 17.2 % (11.6-14.6)
[2020-01-01] MEDS: FUROSEMIDE 40MG/4ML VIAL IVP SCH ×4 (09:12→18:17)
[2020-01-01] MEDS: METOCLOPRAMIDE HCL 5MG TABLET PO SCH ×4 (09:13→20:59)
[2020-01-01] MEDS: METOPROLOL TARTRATE 50MG TABLET PO SCH ×2 (09:13→21:01)
[2020-01-01] MEDS: FAMOTIDINE 20MG TABLET PO SCH (09:13)
[2020-01-01] MEDS: NIFEDIPINE XL 60MG TAB PO SCH (09:13)
[2020-01-01] MEDS: LOSARTAN POTASSIUM 50 MG TABLET PO SCH ×2 (09:13→21:00)
[2020-01-01] MEDS: METOLAZONE 5MG TABLET PO SCH (09:13)
[2020-01-01] MEDS: INSULIN GLARGINE UD 100 UNITS/ML SYR SUBCUT SCH (10:39)
[2020-01-01 12:00] VITALS: BP 155/78
[2020-01-01] MEDS ORDERED: SODIUM POLYSTYRENE SULFONATE 15 G/60 ML BOT PO NR (12:00)
[2020-01-01 16:00] VITALS: BP 133/64
[2020-01-01 20:00] VITALS: BP 120/77
[2020-01-01] MEDS: ATORVASTATIN CALCIUM 20MG TABLET PO SCH (20:58)
[2020-01-01] MEDS: EPOETIN ALFA 10000UNITS/ML VIAL SUBCUT SCH (20:59)
[2020-01-01] MEDS: OLANZAPINE 10MG TABLET PO SCH (20:59)
[2020-01-02] VITALS: BP 123/78
[2020-01-02] MEDS: DIPHENHYDRAMINE 50MG/ML VIAL IV PRN ×3 (03:59→15:10)
[2020-01-02 04:00] VITALS: BP 121/92
[2020-01-02] MEDS: BLOOD SUGAR DIAGNOSTIC STRIP TEST SCH ×4 (06:45→20:46)
[2020-01-02 06:55] LABS: BASOPHILS % 0.7 % (0.0-2.0); EOSINOPHILS % 0.9 % (0.0-5.0); HEMATOCRIT. 23.6 % (36.0-48.0); HEMOGLOBIN. 7.8 g/dL (12.0-16.0); LYMPHOCYTES % 29.1 % (20.0-50.0); MEAN CORPUSCULAR HEMOGLOBIN 27.6 pg (28.0-32.0); MEAN CORPUSCULAR VOLUME 83.6 fL (81.0-99.0); MEAN PLATELET VOLUME 7.2 fl (7.4-10.4); MONOCYTES % 8.1 % (2.0-8.0); NEUTROPHILS % 61.2 % (40.0-76.0); PLATELET 562 x1000/uL (130-400); RED BLOOD CELL COUNT 2.83 mill/uL (4.2-5.4); RED CELL DISTRIBUTION WIDTH 17.2 % (11.6-14.6)
[2020-01-02 08:00] VITALS: BP 159/83
[2020-01-02 08:05] LABS: PHOSPHORUS 3.1 mg/dL (2.5-4.9)
[2020-01-02] MEDS: FUROSEMIDE 40MG/4ML VIAL IVP SCH ×4 (08:36→17:00)
[2020-01-02] MEDS: LOSARTAN POTASSIUM 50 MG TABLET PO SCH ×2 (08:36→21:09)
[2020-01-02] MEDS: FAMOTIDINE 20MG TABLET PO SCH (08:37)
[2020-01-02] MEDS: METOLAZONE 5MG TABLET PO SCH (08:37)
[2020-01-02] MEDS: METOCLOPRAMIDE HCL 5MG TABLET PO SCH ×4 (08:37→21:09)
[2020-01-02] MEDS: METOPROLOL TARTRATE 50MG TABLET PO SCH ×2 (08:37→21:10)
[2020-01-02] MEDS: NIFEDIPINE XL 60MG TAB PO SCH (08:37)
[2020-01-02] MEDS: INSULIN LISPRO 100 UNITS/ML SUBCUT SCH ×4 (08:42→20:57)
[2020-01-02] MEDS: INSULIN GLARGINE UD 100 UNITS/ML SYR SUBCUT SCH (10:08)
[2020-01-02 12:00] VITALS: BP 151/97
[2020-01-02] MEDS ORDERED: MAGNESIUM 2 G PREMIX 50 ML IV SCH (12:00)
[2020-01-02 16:00] VITALS: BP 132/67
[2020-01-02 20:00] VITALS: BP 141/77
[2020-01-02] MEDS: OLANZAPINE 10MG TABLET PO SCH (21:09)
[2020-01-02] MEDS: ATORVASTATIN CALCIUM 20MG TABLET PO SCH (21:09)
[2020-01-03] VITALS: BP 152/85
[2020-01-03] MEDS: DIPHENHYDRAMINE 50MG/ML VIAL IV PRN (02:53)
[2020-01-03 04:00] VITALS: BP 158/87
[2020-01-03] MEDS: BLOOD SUGAR DIAGNOSTIC STRIP TEST SCH ×4 (06:03→21:00)
[2020-01-03] MEDS: INSULIN LISPRO 100 UNITS/ML SUBCUT SCH ×4 (06:42→22:45)
[2020-01-03 08:00] VITALS: BP 148/78
[2020-01-03] MEDS: METOCLOPRAMIDE HCL 10MG/2ML VIAL IV PRN (08:41)
[2020-01-03] MEDS: LOSARTAN POTASSIUM 50 MG TABLET PO SCH ×2 (08:41→22:09)
[2020-01-03] MEDS: METOLAZONE 5MG TABLET PO SCH (08:41)
[2020-01-03] MEDS: FAMOTIDINE 20MG TABLET PO SCH (08:41)
[2020-01-03] MEDS: METOPROLOL TARTRATE 50MG TABLET PO SCH ×2 (08:41→22:09)
[2020-01-03] MEDS: FUROSEMIDE 40MG/4ML VIAL IVP SCH ×3 (08:41→17:00)
[2020-01-03] MEDS: METOCLOPRAMIDE HCL 5MG TABLET PO SCH ×4 (09:00→22:10)
[2020-01-03] MEDS: INSULIN GLARGINE UD 100 UNITS/ML SYR SUBCUT SCH (11:07)
[2020-01-03] MEDS: NIFEDIPINE XL 60MG TAB PO SCH (11:10)
[2020-01-03 13:37] LABS: BASOPHILS % 0.6 % (0.0-2.0); EOSINOPHILS % 0.8 % (0.0-5.0); HEMOGLOBIN. 7.5 g/dL (12.0-16.0); LYMPHOCYTES % 15.1 % (20.0-50.0); MEAN CORPUSCULAR HEMOGLOBIN 27.5 pg (28.0-32.0); MEAN CORPUSCULAR VOLUME 83.8 fL (81.0-99.0); MEAN PLATELET VOLUME 6.8 fl (7.4-10.4); MONOCYTES % 5.5 % (2.0-8.0); PLATELET 552 x1000/uL (130-400); RED BLOOD CELL COUNT 2.74 mill/uL (4.2-5.4); RED CELL DISTRIBUTION WIDTH 17.5 % (11.6-14.6)
[2020-01-03 16:00] VITALS: BP 136/71
[2020-01-03 20:00] VITALS: BP 143/83
[2020-01-03] MEDS: ATORVASTATIN CALCIUM 20MG TABLET PO SCH (22:09)
[2020-01-03] MEDS: OLANZAPINE 10MG TABLET PO SCH (22:10)
[2020-01-04 04:00] VITALS: BP 155/89
[2020-01-04] MEDS: DIPHENHYDRAMINE 50MG/ML VIAL IV PRN (05:35)
[2020-01-04] MEDS: BLOOD SUGAR DIAGNOSTIC STRIP TEST SCH ×2 (06:02→11:43)
[2020-01-04] MEDS: INSULIN LISPRO 100 UNITS/ML SUBCUT SCH ×2 (06:04→11:43)
[2020-01-04 06:29] LABS: BASOPHILS % 0.6 % (0.0-2.0); EOSINOPHILS % 0.2 % (0.0-5.0); HEMATOCRIT. 22.6 % (36.0-48.0); HEMOGLOBIN. 7.6 g/dL (12.0-16.0); LYMPHOCYTES % 13.8 % (20.0-50.0); MEAN CORPUSCULAR VOLUME 82.9 fL (81.0-99.0); MEAN PLATELET VOLUME 7.2 fl (7.4-10.4); MONOCYTES % 7.1 % (2.0-8.0); NEUTROPHILS % 78.3 % (40.0-76.0); PLATELET 583 x1000/uL (130-400); RED BLOOD CELL COUNT 2.73 mill/uL (4.2-5.4); RED CELL DISTRIBUTION WIDTH 18.2 % (11.6-14.6)
[2020-01-04 08:00] VITALS: BP 156/77
[2020-01-04] MEDS: METOCLOPRAMIDE HCL 5MG TABLET PO SCH (09:39)
[2020-01-04] MEDS: NIFEDIPINE XL 60MG TAB PO SCH (09:45)
[2020-01-04] MEDS: METOPROLOL TARTRATE 50MG TABLET PO SCH (09:45)
[2020-01-04] MEDS: METOLAZONE 5MG TABLET PO SCH (09:46)
[2020-01-04] MEDS: FUROSEMIDE 40MG/4ML VIAL IVP SCH (09:46)
[2020-01-04] MEDS: FAMOTIDINE 20MG TABLET PO SCH (09:46)
[2020-01-04] MEDS: LOSARTAN POTASSIUM 50 MG TABLET PO SCH (09:46)
[2020-01-04] MEDS: INSULIN GLARGINE UD 100 UNITS/ML SYR SUBCUT SCH (11:41)
[2020-01-04 12:00] VITALS: BP 161/80
[2020-01-04] MEDS ORDERED: METO5TAB7 PO (12:14)
== END 2020-01-04 14:40 | disposition home or self-care (01) | DRG 194 ==
LOC: ER 20:50 → 6EST 23:21 → EDBEDREQTM 23:26 → EDBEDREQ 23:26 → EDBEDREQSVC 23:26 → EDBEDREQTM 12-25 05:32 → ENRESERV 12-25 08:52 → CANRESERV 12-25 08:56 → 5WST 12-26 02:11 → UNDODISIN 01-03 14:52
PROVIDERS: ADMIT Internal Medicine; ATTEND Internal Medicine
DX: I13.0 Hypertensive heart and chronic kidney disease with heart failure and stage 1 through stage 4 chronic kidney disease, or unspecified chronic kidney disease (principal); E10.22 Type 1 diabetes mellitus with diabetic chronic kidney disease; N17.9 Acute kidney failure, unspecified; K31.84 Gastroparesis; E10.43 Type 1 diabetes mellitus with diabetic autonomic (poly)neuropathy; E10.69 Type 1 diabetes mellitus with other specified complication; N18.3 Chronic kidney disease, stage 3 (moderate); E10.65 Type 1 diabetes mellitus with hyperglycemia; E44.1 Mild protein-calorie malnutrition; E87.1 Hypo-osmolality and hyponatremia; I50.23 Acute on chronic systolic (congestive) heart failure; D64.9 Anemia, unspecified; F41.1 Generalized anxiety disorder; G89.29 Other chronic pain; D72.821 Monocytosis (symptomatic); K29.70 Gastritis, unspecified, without bleeding; M54.9 Dorsalgia, unspecified; F11.90 Opioid use, unspecified, uncomplicated; I42.9 Cardiomyopathy, unspecified; D25.9 Leiomyoma of uterus, unspecified; T50.2X6A Underdosing of carbonic-anhydrase inhibitors, benzothiadiazides and other diuretics, initial encounter; Y92.89 Other specified places as the place of occurrence of the external cause; I25.2 Old myocardial infarction; Z86.718 Personal history of other venous thrombosis and embolism; Z88.5 Allergy status to narcotic agent; Z88.2 Allergy status to sulfonamides; Z88.0 Allergy status to penicillin; Z88.6 Allergy status to analgesic agent; Z88.8 Allergy status to other drugs, medicaments and biological substances; Z68.29 Body mass index [BMI] 29.0-29.9, adult
CPT/HCPCS: 36415; 36600; 71045; 74176; 80048; 80053; 80320; 82010; 82375; 82805; 82962; 83735; 84100; 85025; 93005; 99291; J0885; J1200; J1815; J1940; J2270; J2405; J2765; J3475; J7030; J7050; J8597; Q0163; G0480